=== PATIENT | female | born 1965 | race Hispanic/Latino ===

== ENCOUNTER → 2018-01-18 | Day surgery (SDC) | payer OTHER ==
[~2018-01-18] MED LIST: ASPIR 8181 MG PO; FENTANYL CITRATE/PF 100MCG/2 ML INJ ONE; GLIPIZIDE5 MG PO; LIDOCAINE HCL 2% LOCAL INJ 5 ML SDV VIAL INJ ONE; LOVASTATIN40 MG PO; LYRICA75 MG PO; METFORMIN HCL500 MG PO; MIDAZOLAM HCL 2 MG/2 ML VIAL ONE; NEXIUM40 MG PO; NIFEDIPINE ER30 M1 PO; NOVOLIN N100 UNIT/1 SC; PROPOFOL IV EMULSION 10 MG/ML 50 ML VIAL ONE; RANITIDINE HCL150 MG PO
--- OUTSIDE RECORDS SUMMARY | 2018-01-18 05:44 | XMS REPORT | Clinical Summary ---
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 Active glipiZIDE (GLUCOTROL) 10 Take 10 mg by 0 MG tablet mouth daily. Active ranitidine (ZANTAC) 150 Take 150 mg 0 MG tablet by mouth 2 (two) times a day. Active metFORMIN (GLUCOPHAGE) Take 1,000 mg 0 1,000 mg tablet by mouth 2 (two) times a day with meals. Active insulin 70/30 NPH and Inject under 0 regular human (HumuLIN the skin. 70/30) 100 unit/mL (70-30) injection Active Problems Problem Noted Date Chest pain 07/15/2017 Encounters Care Team Description Date Type Specialty Edwar Monae MD Roberts, Matthew Thomas, DO Bavare, Arusha Amod, MD Chest pain, unspecified type (Primary Dx) 07/15/2017 Emergency General Internal Medicine - 07/16/2017 after 01/17/2017 Immunizations Name Dates Previously Given Next Due Pneumococcal Conjugate 07/16/2017 13-Valent Social History Date Tobacco Use Types Packs/Day Years Used Never Smoker Smokeless Tobacco: Never Used Alcohol Use Drinks/Week oz/Week Comments No Sex Assigned at Date Recorded Not on file Industry Job Start Date Occupation Not on file Not on file Not on file Travel End Travel History Travel Start No recent travel history available. Last Filed Vital Signs Time Taken Vital Sign Reading 07/16/2017 11:00 AM CDT Blood Pressure 114/56 07/16/2017 11:00 AM CDT Pulse 79 07/16/2017 11:00 AM CDT Temperature 36.4 C (97.6 F) 07/16/2017 11:00 AM CDT Respiratory Rate 16 07/16/2017 11:00 AM CDT Oxygen Saturation 97% - Inhaled Oxygen - Concentration 07/15/2017 11:43 AM CDT Weight 110 kg (242 lb) 07/15/2017 11:43 AM CDT Height 160 cm (5' 3") 07/15/2017 11:43 AM CDT Body Mass Index 42.87 Plan of Treatment Health Maintenance Due Date Last Done Comments MMR VACCINES (1 of 1 - 1966 Standard series) VARICELLA VACCINES (1 of 1978 2 - 2-dose adolescent series) CERVICAL CANCER SCREENING 1986 BREAST CANCER SCREENING 2015 COLON CANCER SCREENING 2015 SHINGRIX VACCINE (1 of 2) 2015 INFLUENZA VACCINE 10/06/2017 HEPATITIS B VACCINES Aged Out No longer eligible based on patient's age to complete this topic IPV VACCINES Aged Out No longer eligible based on patient's age to complete this topic MENINGOCOCCAL VACCINE Aged Out No longer eligible based on patient's age to complete this topic Procedures Comments Procedure Name Priority Date/Time Associated Diagnosis NM MYOCARDIAL PERFUSION Routine 07/16/2017 REST STRESS 2 DAY 12:59 PM CDT CV STRESS TEST NUCLEAR Routine 07/16/2017 CARDIO 12:59 PM CDT POC GLUCOSE Routine 07/16/2017 11:02 AM CDT POC GLUCOSE Routine 07/16/2017 6:16 AM CDT ZZESTIMATED GFR Routine 07/16/2017 5:57 AM CDT T4, FREE Routine 07/16/2017 5:57 AM CDT THYROID STIMULATING Routine 07/16/2017 HORMONE 5:57 AM CDT HC COMPLETE BLD COUNT Routine 07/16/2017 W/AUTO DIFF 5:57 AM CDT HEMOGLOBIN A1C Routine 07/16/2017 5:57 AM CDT LIPID PANEL Routine 07/16/2017 5:57 AM CDT BASIC METABOLIC PANEL Routine 07/16/2017 5:57 AM CDT TROPONIN Timed 07/15/2017 11:48 PM CDT POC GLUCOSE Routine 07/15/2017 10:08 PM CDT POC GLUCOSE Routine 07/15/2017 9:14 PM CDT TROPONIN Timed 07/15/2017 8:08 PM CDT ECHOCARDIOGRAM 2D Routine 07/15/2017 COMPLETE W MMODE SPECTRAL 6:23 PM CDT COLOR DOPPLER ([id number]) TROPONIN Timed 07/15/2017 4:08 PM CDT POC GLUCOSE Routine 07/15/2017 4:01 PM CDT XR CHEST 1 VW PORTABLE STAT 07/15/2017 12:27 PM CDT URINALYSIS SCREEN AND Routine 07/15/2017 MICROSCOPY, WITH REFLEX 12:20 PM CDT TO CULTURE HCG QUALITATIVE, URINE Routine 07/15/2017 SCREEN 12:20 PM CDT GRAM STAIN Routine 07/15/2017 12:20 PM CDT URINE CULTURE Routine 07/15/2017 12:20 PM CDT ECG 12-LEAD STAT 07/15/2017 12:06 PM CDT ZZESTIMATED GFR STAT 07/15/2017 12:03 PM CDT B NATRIURETIC PEPTIDE STAT 07/15/2017 12:03 PM CDT TROPONIN STAT 07/15/2017 12:03 PM CDT PARTIAL THROMBOPLASTIN STAT 07/15/2017 TIME (PTT) 12:03 PM CDT PROTHROMBIN TIME WITH INR STAT 07/15/2017 12:03 PM CDT COMPREHENSIVE METABOLIC STAT 07/15/2017 PANEL 12:03 PM CDT HC COMPLETE BLD COUNT STAT 07/15/2017 W/AUTO DIFF 12:03 PM CDT ECG ED PRELIMINARY Routine 07/15/2017 INTERPRETATION 11:55 AM CDT after 01/17/2017 Results * CV stress test (07/16/2017 12:59 PM CDT) Resting HR 79 [facility] Resting BP 150 [facility] Peak MET Achieved 1.0 [facility] Protocol Name ROSSANA [facility] Time in Exercise Phase 00:00:43 [facility] Max Systolic BP 150 [facility] Max Diastolic BP 74 [facility] Max Heart Rate 113 [facility] Max Predicted Heart Rate 168 [facility] Target HR Formula (220 - Age)*100% [facility] Arrhy During Ex atrial premature [facility] beats-isolated ECG Interp Before EX abnormal [facility] ECG Interp During Ex none [facility] Ex Summary Comment Normal stress test [facility] Chest Pain Statement non-limiting [facility] Overall HR Response to appropriate [facility] Exercise Overall BP Response To normal resting BP - [facility] Exercise appropriate response Reason for Termination Protocol completed [facility] Stress Test Impression Normal stress test-no cp, no [facility] sob. --Electronically Signed By Artemio Cabrales MD ([id number]), proposal editor Denisse Rivero ([id number]) on 07/16/2017 10:31:43 AM Target HR 142.80 bpm [facility] Performing Organization Address City/[facility] Phone Number H MUSE [address] [place] [address] * Myocardial perfusion (07/16/2017 12:59 PM CDT) Target HR 142.80 bpm [facility] Resting HR 79 BPM [facility] Resting BP 150/74 mmHg [facility] O2 sat rest 95 % [facility] Post peak HR 113 bpm [facility] Percent HR 79.13 % [facility] Post peak BP 150/74 mmHg [facility] O2 sat peak 95 % [facility] Narrative Performed At Performing Organization Address City/[facility] Phone Number [facility] [address] [place] [address] * POC glucose (07/16/2017 11:02 AM CDT) Only the most recent of 5 results within the time period is included. POC glucose 309 (H) 65 - 100 mg/dL [facility] DEPARTMENT OF Comment: PATHOLOGY AND Meter ID: [id number] GENOMIC MEDICINE Drywall Stripper Helper: Nadiacintia Moss Performing Organization Address City/[facility]/Zipcode Phone Number [place] [phone] [place] [address] PATHOLOGY AND GENOMIC MEDICINE * Estimated GFR (07/16/2017 5:57 AM CDT) Only the most recent of 2 results within the time period is included. GFR Non Af Amer >90 mL/min/1.73 m2 [facility] DEPARTMENT OF PATHOLOGY AND GENOMIC MEDICINE GFR Af Amer >90 mL/min/1.73 m2 [facility] DEPARTMENT OF Comment: PATHOLOGY AND Chronic kidney disease: <60 GENOMIC MEDICINE mL/min/1.73m2 Kidney failure: <15 mL/min/1.73m2 The estimated GFR is calculated from the IDMS-traceable Modification of Diet in Renal Disease Equation. The accuracy of the calculation is poor when the creatinine is normal. Calculated values >90 mL/min/1.73m2 are not reported. This equation has not been validated in children (<18 years), women, the elderly (>70 years), or ethnic groups other than Caucasians and Americans. Specimen Plasma specimen Performing Organization Address City/State/Zipcode Phone Number [address] [place] [address] PATHOLOGY AND [employer] MEDICINE * CBC with platelet and differential (07/16/2017 5:57 AM CDT) Only the most recent of 2 results within the time period is included. WBC 8.0 4.2 - 11.0 k/uL [facility] DEPARTMENT OF PATHOLOGY AND GENOMIC MEDICINE RBC 4.71 4.04 - 5.86 m/uL [facility] DEPARTMENT OF PATHOLOGY AND GENOMIC MEDICINE HGB 14.0 11.5 - 15.3 g/dL [facility] DEPARTMENT OF PATHOLOGY AND GENOMIC MEDICINE HCT 42.5 34.0 - 45.0 % [facility] DEPARTMENT OF PATHOLOGY AND GENOMIC MEDICINE MCV 90.2 80.0 - 98.0 fL [facility] DEPARTMENT OF PATHOLOGY AND GENOMIC MEDICINE MCH 29.7 27.0 - 34.0 pg [facility] DEPARTMENT OF PATHOLOGY AND GENOMIC MEDICINE MCHC 32.9 31.5 - 36.5 g/dL [facility] DEPARTMENT OF PATHOLOGY AND GENOMIC MEDICINE RDW - SD 42.1 37.0 - 51.0 fL [facility] DEPARTMENT OF PATHOLOGY AND GENOMIC MEDICINE MPV 11.9 (H) 7.4 - 10.4 fL [facility] DEPARTMENT OF PATHOLOGY AND GENOMIC MEDICINE Platelet count 207 150 - 400 k/uL [facility] DEPARTMENT OF PATHOLOGY AND GENOMIC MEDICINE Nucleated RBC 0.00 /100 WBC [facility] DEPARTMENT OF PATHOLOGY AND GENOMIC MEDICINE Neutrophils 45.4 36.0 - 66.0 % [facility] DEPARTMENT OF PATHOLOGY AND GENOMIC MEDICINE Lymphocytes 40.1 24.0 - 44.0 % [facility] DEPARTMENT OF PATHOLOGY AND GENOMIC MEDICINE Monocytes 9.4 (H) 0.0 - 6.0 % [facility] DEPARTMENT OF PATHOLOGY AND GENOMIC MEDICINE Eosinophils 3.6 0.0 - 6.0 % [facility] DEPARTMENT OF PATHOLOGY AND GENOMIC MEDICINE Basophils 0.9 0.0 - 1.2 % [facility] DEPARTMENT OF PATHOLOGY AND GENOMIC MEDICINE Immature granulocytes 0.6 0.0 - 1.0 % [facility] DEPARTMENT OF PATHOLOGY AND GENOMIC MEDICINE Specimen Blood Performing Organization Address City/[facility] [place] [address] PATHOLOGY AND GENOMIC MEDICINE * Thyroid stimulating hormone (07/16/2017 5:57 AM CDT) TSH 2.30 0.38 - 4.82 uIU/mL [facility] DEPARTMENT OF PATHOLOGY AND GENOMIC MEDICINE Specimen Plasma specimen Performing Organization Address City/[facility] [place] [address] PATHOLOGY AND GENOMIC MEDICINE * T4, free (07/16/2017 5:57 AM CDT) T4, free 1.10 0.70 - 1.61 ng/dL [facility] PATHOLOGY AND GENOMIC MEDICINE Specimen Plasma specimen Performing Organization Address [facility] [place] [address] PATHOLOGY AND GENOMIC MEDICINE * Hemoglobin A1c (07/16/2017 5:57 AM CDT) Hemoglobin A1C 10.1 (H) 4.0 - 6.0 % [facility] DEPARTMENT OF Comment: PATHOLOGY AND GENOMIC MEDICINE Less than 6% - Goal of therapy for Type II Diabetes Less than 7%-Goal of therapy for Type I Diabetes Less than 8%-Accepta ble control for Type I or Type II Diabetes Greater than 8%-Unacceptabl e control; action indicated. ([id number]) Specimen Blood Performing Organization Address [facility] Centercode Phone Number [facility] [address] [place] [address] PATHOLOGY AND GENOMIC MEDICINE * Lipid panel (07/16/2017 5:57 AM CDT) Cholesterol 147 120 - 200 mg/dL [facility] DEPARTMENT OF PATHOLOGY AND GENOMIC MEDICINE Triglycerides 147 50 - 150 mg/dL [facility] DEPARTMENT OF PATHOLOGY AND GENOMIC MEDICINE HDL cholesterol 42 40 - 60 mg/dL [facility] DEPARTMENT OF PATHOLOGY AND GENOMIC MEDICINE LDL cholesterol 91Comment: Result obtained by mg/dL [facility] DEPARTMENT OF direct LDL measurement PATHOLOGY AND [employer] MEDICINE Lipid panel See below [facility] DEPARTMENT OF interpretation Comment: PATHOLOGY AND Total Cholesterol GENOMIC MEDICINE (mg/dL) LDL Cholesterol (mg/dL) <200 Desirable <100 Optimal 200-239Borderline -[id number] 29Near or above optimal >=240High 130-159Borderline- high 160-189High >=190Very high HDL Cholesterol (mg/dL) Triglycerides (mg/dL) <40Low <150 Normal >=60 High 150-199Borderline- high 200-499High >=500Very high Risk Catergories that modify LDL goals. Risk Catergories LDL goal (mg/dL) CHD and CHD risk equivalent <100 (10-year risk >20%) Multiple (2+) risk factors <130 (10-year risk=<20%) 0-1 risk factors <160 (<10-year risk) Defining levels of lipids in metabolic syndrome Triglycerides >=150 mg/dL HDL Cholesterol Men <40 mg/dL Women <50 mg/dL Non-HDL cholesterol is a second target for therapy in persons with high triglycerides (>=200 mg/dL) Specimen Plasma specimen Performing Organization Address City/[facility]/Zipcode Phone Number [facility] [address] [place] [address] PATHOLOGY AND [employer] MEDICINE * Basic metabolic panel (07/16/2017 5:57 AM CDT) Sodium 139 135 - 150 mEq/L [facility] DEPARTMENT OF PATHOLOGY AND [employer] MEDICINE Potassium 3.9 3.5 - 5.0 mEq/L [facility] DEPARTMENT OF PATHOLOGY AND [employer] MEDICINE Chloride 105 100 - 109 mEq/L [facility] DEPARTMENT OF PATHOLOGY AND [employer] [facility] CO2 25 24 - 32 mmol/L [facility] DEPARTMENT OF PATHOLOGY AND [employer] [facility] Anion gap 9 7 - 15 mEq/L [facility] DEPARTMENT OF Comment: PATHOLOGY AND Starting from June [employer] [facility] , anion gap calculation no longer incorporates potassium. Please note the change. BUN 15 7 - 18 mg/dL [facility] DEPARTMENT OF PATHOLOGY AND [employer] MEDICINE Creatinine 0.5 (L) 0.8 - 1.5 mg/dL [facility] DEPARTMENT OF PATHOLOGY AND [employer] [facility] Glucose 233 (H) 65 - 100 mg/dL [facility] DEPARTMENT OF PATHOLOGY AND [employer] MEDICINE Calcium 8.7 8.6 - 10.7 mg/dL [facility] OF PATHOLOGY AND [employer] [facility] Specimen Plasma specimen Performing Organization Address City/[facility] Centercode Phone Number [place] [phone] [facility] AND [employer] [facility] * Troponin (07/15/2017 11:48 PM CDT) Only the most recent of 4 results within the time period is included. Troponin <0.01 0.00 - 0.60 ng/mL [facility] DEPARTMENT OF Comment: PATHOLOGY AND 0.11 - 1.49 [facility] MEDICINE ng/mlMay indicate increased risk of acute coronary syndrome. >=1.5 ng/ml Consistent with acute myocardial infarction. The diagnostic value of a single normal or non-diagnostic result is questionable.Serial samples at 2-6 hour intervals are required to rule out acute myocardial injury. Specimen Plasma specimen Performing Organization Address City/State/Zipcode Phone Number [facility] [address] [facility] [place] [phone] [place] [address] [employer] [facility] * Echocardiogram complete w contrast and 3D if needed (07/15/2017 6:23 PM CDT) Ao Root Diameter 2.77 cm [facility] AoV Area, Vmax 2.26 cm2 [facility] AoV Area, VTI 2.23 cm2 [facility] AoV Mean PG 5.50 mmHg [facility] AoV Peak PG 8.12 mmHg [facility] AoV Vmax 1.43 m/s [facility] AoV VTI 0.31 m [facility] IVS,d 1.42 (A) 0.6 - 1.2 cm [facility] IVS/LVPW,2D 1.42 [facility] Left Atrium Dimension 3.09 cm [facility] Anterior LV,d 5.08 cm [facility] LV EF,2D 75.80 % [facility] LV,s 3.16 cm [facility] LVOT area 3.20 cm2 [facility] LVOT Diam,S 2.02 cm [facility] LVOT Vmax 1.00 m/s [facility] LVOT VTI 0.20 m [facility] LVPWD,d 1.00 cm [facility] RVOT Vmax 0.91 m/s [facility] MV E A ratio 1.25 mmHg [facility] E wave decelartion time 172.05 msec [facility] MV Peak A Roderick 0.80 m/s [facility] MV valve area p 1/2 4.41 cm2 [facility] method MV Peak E Roderick 1.00 m/s [facility] MV stenosis pressure 1/2 49.90 ms [facility] time AV LVOT peak gradient 4.02 mmHg [facility] Ao Root Diameter 2.77 cm [facility] MV mean gradient 1.42 mmHg [facility] LV SYS VOL 39.83 ml [facility] LV CARRANZA VOL 122.47 ml [facility] LV SV Teich 2D 82.64 ml [facility] LV Vol s Teich PSAX 39.83 ml [facility] LVOT CO 4.99 l/min [facility] LVOT HR for LVOT CO 76.16 bpm [facility] MR peak grad 3.17 mmHg [facility] MV Vmax 0.89 m [facility] MV VTI Tips 0.28 m [facility] RVOT pk grad 3.30 mmHg [facility] AoV Vmn 1.14 [facility] IVS s 2D 1.75 [facility] LV FS Teich 2D 37.68 [facility] MV AE ratio 0.80 [facility] LV FS Cube 2D 37.68 [facility] LVOT Vmn 0.63 [facility] Aov area Vmn 1.90 cm2 [facility] LVOT mean grad 1.88 mmHg [facility] MAX Pred HR 167.59 [facility] 85 of MPHR 142.45 [facility] Calc MPHR 167.59 bpm [facility] IVS pct thck PLAX 23.25 % [facility] LV SV Cube 2D 99.14 ml [facility] LV vol d cube 2D 130.80 ml [facility] LV vol s cube 2D 31.66 ml [facility] LVPW pct thck PLAX 29.96 % [facility] LVPW s PLAX 1.30 cm [facility] MV Decel slope 5.80 m/s2 [facility] Pred Exer Dur R1 8.73 [facility] Pred METS R1 7.89 [facility] Velocity Ratio (V1/V2) 0.70 m/s [facility] EF 67.48 % [facility] E/A ratio 1.25 [facility] Narrative Performed At [facility] The left ventricle chamber size is normal. Left Ventricular ejection fraction is 65 - 70%. Performing Organization Address [facility] Centercout Phone Number [facility] [address] [place] [address] * XR Chest 1 Vw Portable (07/15/2017 12:27 PM CDT) Narrative Performed At EXAMINATION: XR CHEST 1 VW PORTABLE [facility] INDICATION: Chest Pain COMPARISON: 08/05/2002 IMPRESSION: Mild to moderate cardiomegaly. Minimal vascular congestion without a focal infiltrate, effusion, or pneumothorax. [id number] Procedure Note Hm Interface, Radiology Results Incoming - 07/15/2017 12:33 PM CDT EXAMINATION: XR CHEST 1 VW PORTABLE INDICATION: Chest Pain COMPARISON: 08/05/2002 IMPRESSION: Mild to moderate cardiomegaly. Minimal vascular congestion without a focal infiltrate, effusion, or pneumothorax. [id number] Performing Organization Address [facility] Cent[facility]out Phone Number [facility] [address] [place] [address] * Urinalysis screen and microscopy, with reflex to culture (07/15/2017 12:20 PM CDT) Specimen site Clean catch [facility] DEPARTMENT OF PATHOLOGY AND GENOMIC MEDICINE Color, UA Yellow [facility] DEPARTMENT OF PATHOLOGY AND GENOMIC MEDICINE Appearance, UA Slightly-Cloudy [facility] DEPARTMENT OF PATHOLOGY AND GENOMIC MEDICINE Specific gravity, UA 1.020 1.001 - 1.035 [facility] DEPARTMENT OF PATHOLOGY AND GENOMIC MEDICINE pH, UA 6.0 5.0 - 8.5 [facility] DEPARTMENT OF PATHOLOGY AND GENOMIC MEDICINE Protein, UA 1+ (A) Negative [facility] DEPARTMENT OF PATHOLOGY AND GENOMIC MEDICINE Glucose, UA 3+ (A) Negative [facility] DEPARTMENT OF PATHOLOGY AND GENOMIC MEDICINE Ketones, UA Negative Negative [facility] DEPARTMENT OF PATHOLOGY AND GENOMIC MEDICINE Bilirubin, UA Negative Negative [facility] DEPARTMENT OF PATHOLOGY AND GENOMIC MEDICINE Blood, UA Negative Negative [facility] DEPARTMENT OF PATHOLOGY AND GENOMIC MEDICINE Nitrite, UA Negative Negative [facility] DEPARTMENT OF PATHOLOGY AND GENOMIC MEDICINE Urobilinogen, UA Negative <2.0 [facility] DEPARTMENT OF PATHOLOGY AND GENOMIC MEDICINE Leukocyte esterase, UA Negative Negative [facility] DEPARTMENT OF PATHOLOGY AND GENOMIC MEDICINE Epithelial cells, UA Many /HPF [facility] DEPARTMENT OF PATHOLOGY AND GENOMIC MEDICINE WBC, UA 27 (H) 0 - 5 /HPF [facility] DEPARTMENT OF PATHOLOGY AND GENOMIC MEDICINE RBC, UA 4 0 - 5 /HPF [facility] DEPARTMENT OF PATHOLOGY AND GENOMIC MEDICINE Bacteria, UA Many (A) None seen [facility] DEPARTMENT OF PATHOLOGY AND GENOMIC MEDICINE Yeast, UA None seen [facility] DEPARTMENT OF PATHOLOGY AND GENOMIC MEDICINE Yeast with pseudohyphae, None seen [facility] DEPARTMENT UA PATHOLOGY AND GENOMIC MEDICINE Hyaline casts, UA 4 /LPF [facility] DEPARTMENT OF PATHOLOGY AND GENOMIC MEDICINE Specimen Urine Performing Organization Address City/State/Zipcode Phone Number [facility] [address] [place] [address] PATHOLOGY AND GENOMIC MEDICINE * hCG qualitative, urine screen (07/15/2017 12:20 PM CDT) hCG qualitative, urine Negative Negative [facility] DEPARTMENT OF Comment: PATHOLOGY AND The manufacturers stated GENOMIC MEDICINE sensitivity of HcG test for serum is >/=10 mIU/ml and urine is >/=20mIU/ml. Specimen Urine Performing Organization Address City/State/Zipcode Phone Number [facility] [address] [place] [address] PATHOLOGY AND GENOMIC MEDICINE * Gram stain (07/15/2017 12:20 PM CDT) Gram stain result No WBC's or organisms seen. [facility] DEPARTMENT OF Comment: PATHOLOGY AND Specimen Information GENOMIC MEDICINE Specimen Source: Urine Specimen Site: Clean catch Specimen Urine Performing Organization Address City/State/Zipcode Phone Number [facility] DEPARTMENT OF [address] [place] [address] PATHOLOGY AND [employer] MEDICINE * Urine culture (07/15/2017 12:20 PM CDT) Urine culture isolate Streptococcus group B [facility] DEPARTMENT OF >10-5 cfu/ml PATHOLOGY AND (A) GENOMIC MEDICINE Comment: Specimen Information Specimen Source: Urine Specimen Site: Clean catch Specimen Urine Performing Organization Address [facility] Phone Number [facility] OF [address] [place] [address] PATHOLOGY AND GENOMIC MEDICINE * ECG 12 lead (07/15/2017 12:06 PM CDT) Ventricular rate 73 [facility] Atrial rate 73 [facility] CO interval 142 [facility] QRSD interval 104 [facility] QT interval 398 [facility] QTC interval 438 H MUSE P axis 1 22 [facility] QRS axis 1 -28 [facility] T wave axis [address] [facility] MUSE EKG impression Normal sinus rhythm-Normal [facility] MUSE ECG-No previous ECGs available- Performing Organization Address [facility] Cent[facility]out Phone Number [facility] [address] [place] [address] * Partial thromboplastin time, activated (07/15/2017 12:03 PM CDT) PTT 26.3 23.0 - 36.0 sec [facility] DEPARTMENT OF Comment: PATHOLOGY AND PTT therapeutic range for GENOMIC MEDICINE unfractionated heparin is 61.0-112.0 seconds which corresponds to Anti-Xa 0.3-0.7 U/ml. Note:Change in Panic Value The PTT Panic Value is changing from 110 sec. to 100 sec. due to new instrumentation and reagents. Correlation studies have been performed to validate this result. Specimen Blood Performing Organization Address [facility]out Phone Number [facility] [address] [place] [address] PATHOLOGY AND GENOMIC MEDICINE * Prothrombin time with INR (07/15/2017 12:03 PM CDT) Prothrombin time 13.3 12.0 - 15.0 sec [facility] DEPARTMENT OF PATHOLOGY AND GENOMIC MEDICINE INR 1.00 0.92 - 1.12 [facility] DEPARTMENT OF Comment: PATHOLOGY AND For patients on anticoagulant GENOMIC MEDICINE therapy, reference ranges below: Indication: INR Value Treatment of Venous Thrombosis, 2.0-3.0 pulmonary emboli, or prophylaxis of a venous thrombosis, or systemic emboli. High dose, high risk patients 3.0-4.5 with mechanical valves. NOTE:INR values over 3.0 are sometimes associated with gastrointestinal hemorrhage, especially values over 4.0. Specimen Blood Performing Organization Address [facility] Cent[facility] Phone Number [place] [address] [place] [address] PATHOLOGY AND GENOMIC [facility] * B natriuretic peptide (07/15/2017 12:03 PM CDT) BNP 14 0 - 100 pg/mL [facility] DEPART[facility] PATHOLOGY AND GENOMIC MEDICINE Specimen Blood Performing Organization Address [facility] Cent[facility]ode Phone Number [place] [address] [place] [address] PATHOLOGY AND [facility] * Comprehensive metabolic panel (07/15/2017 12:03 PM CDT) Sodium 139 135 - 150 mEq/L [facility] DEPARTMENT OF PATHOLOGY AND GENOMIC MEDICINE Potassium 4.0 3.5 - 5.0 mEq/L [facility] DE[facility] OF PATHOLOGY AND GENOMIC MEDICINE Chloride 104 100 - 109 mEq/L [facility] DEPARTMENT OF PATHOLOGY AND GENOMIC MEDICINE CO2 26 24 - 32 mmol/L [facility] DE[facility] OF PATHOLOGY AND GENOMIC MEDICINE Anion gap 9 7 - 15 mEq/L [facility] DEPARTMENT OF Comment: PATHOLOGY AND Starting from June [facility] , anion gap calculation no longer incorporates potassium. Please note the change. BUN 19 (H) 7 - 18 mg/dL [facility] DEPARTMENT OF PATHOLOGY AND GENOMIC MEDICINE Creatinine 0.5 (L) 0.8 - 1.5 mg/dL [facility] DEPARTMENT OF PATHOLOGY AND GENOMIC MEDICINE Glucose 254 (H) 65 - 100 mg/dL [facility] DEPARTMENT OF PATHOLOGY AND GENOMIC MEDICINE Calcium 8.8 8.6 - 10.7 mg/dL [facility] DEPARTMENT OF PATHOLOGY AND GENOMIC MEDICINE Protein 6.9 6.3 - 8.2 g/dL [facility] DEPART[facility] OF PATHOLOGY AND GENOMIC MEDICINE Albumin 3.1 (L) 3.2 - 5.0 g/dL [facility] DEPARTMENT OF PATHOLOGY AND GENOMIC MEDICINE A/G ratio 0.8 0.7 - 3.8 [facility] DEPARTMENT OF PATHOLOGY AND GENOMIC MEDICINE Alkaline phosphatase 93 30 - 120 U/L [facility] DEPARTMENT OF PATHOLOGY AND GENOMIC MEDICINE AST 19 15 - 37 U/L [facility] DEPARTMENT OF PATHOLOGY AND GENOMIC MEDICINE ALT 29 (L) 30 - 65 U/L [facility] DEPARTMENT OF PATHOLOGY AND GENOMIC MEDICINE Total bilirubin 0.5 0.2 - 1.2 mg/dL [facility] DEPARTMENT OF PATHOLOGY AND GENOMIC MEDICINE Specimen Plasma specimen Performing Organization Address [facility] Phone Number [facility] DEPARTMENT OF [address] [place] [address] PATHOLOGY AND GENOMIC MEDICINE * ECG ED Preliminary Interpretation - NOT AN ORDER (07/15/2017 11:55 AM CDT) Narrative Performed At Edwar Monae MD 07/20/20172:44 AM ECG ED Preliminary Interpretation - Not an Order Performed by: EDWAR MONAE Authorized by: EDWAR MONAE ECG reviewed by ED Physician in the absence of a call person: yes Rate: ECG rate:73 ECG rate assessment: normal Rhythm: Rhythm: sinus rhythm Ectopy: Ectopy: none Conduction: Conduction: normal ST segments: ST segments:Normal T waves: T waves: normal after 01/17/2017 Insurance Payer Benefit Subscriber ID Type Phone Address Plan / Group KHAN EXCHANGE KHAN xxxxxxxxxx Exchange [employer] E EXCHANGE Advance Directives Patient has advance care planning documents on file. For more information, johnathan e contact: Yaakov Pena [address] [place] [address]
--- OUTSIDE RECORDS SUMMARY | 2018-01-18 05:44 | XMS REPORT ---
Author Author Admin, [facility] Address Unknown Phone Unavailable Allergies, Adverse Reactions, Alerts Allergy Name Reaction Description Start Date Severity Status Provider GABAPENTIN nausea Moderate Active Tamara Gutierrez MD BACTRIM Critical Active Kaitlin Collier MD Conditions or Problems Problem Name Problem Code Onset Date Status Entry Date Provider Comment Standard Description Annotate Elevated liver enzymes 790.6 Active Marcela Tenorio.James Other abnormal blood chemistry Screening for hepatitis C V73.89 Active Marcela Espinoza D.O. Screening examination for other specified viral diseases Abdominal pain 789.00 Active Tamara Gutierrez MD Abdominal pain, unspecified site Constipation 564.00 Active Tamara Gutierrez MD Constipation, unspecified Screening for colon cancer V76.51 Active Tamara Gutierrez MD Screening for malignant neoplasms of colon Leg pain, left 729.5 Active Tatianna Covarrubias MD Pain in limb Subcutaneous mass of back 782.2 Active Tatianna Covarrubias MD Localized superficial swelling, mass, or lump Chest pain, acute 786.50 Active Marcela Espinoza D.O. Unspecified chest pain Dysuria 788.1 Active Tamara Gutierrez MD Dysuria Insomnia 780.52 Active Tamara Gutierrez MD Insomnia, unspecified Diabetic peripheral neuropathy 250.60 Active Breanna Davis MD Diabetes mellitus with neurological manifestations, type II or unspecified type, not stated as uncontrolled Bunion, left foot 727.1 Active Yamil García MD Bunion BMI 40.0-44.9 Active Breanna Davis MD Body Mass Index 40.0-44.9, adult Vaccine against influenza V04.8 Active Breanna Davis MD Need for prophylactic vaccination and inoculation against other viral diseases Diabetes mellitus, type II, uncontrolled, w/neurolo comps 250.62 Active Tamara Gutierrez MD Diabetes mellitus with neurological manifestations, type II or unspecified type, uncontrolled Vaccine against pneumococcal V03.82 Active Tamara Gutierrez MD Need for prophylactic vaccination against Streptococcus pneumoniae [pneumococcus] Microalbuminuria 791.0 Active Jeniffer Ly MD Proteinuria Benign essential hypertension 401.1 Active Kaitlin Collier MD Benign essential hypertension GERD 530.81 Active Kaitlin Collier MD Esophageal reflux Hyperlipidemia 272.4 Active Kaitlin Collier MD Other and unspecified hyperlipidemia MORBID OBESITY 278.01 Active Kaitlin Collier MD Morbid obesity Arm pain, left ICD-729.5 Inactive Rao Avila MD (res) Back pain, acute ICD-724.5 Inactive Rao Avila MD (res) Dysuria ICD-788.1 Inactive Rao Avila MD (res) Vertigo/dizziness ICD-780.4 Inactive Rao Avila MD (res) Peripheral neuropathy ICD-356.9 Inactive Rao Avila MD (res) WELL EXAM, WOMAN ICD-V70.0 Inactive Rao Avila MD (res) Diabetes mellitus, type II ICD-250.00 Inactive Jeniffer Ly MD Arm pain, left 729.5 Resolved Breanna Davis MD Pain in limb Back pain, acute 724.5 Resolved Breanna Davis MD Backache, unspecified Dysuria 788.1 Resolved Breanna Davis MD Dysuria Vertigo/dizziness 780.4 Resolved Breanna Davis MD Dizziness and giddiness Peripheral neuropathy 356.9 Resolved Breanna Davis MD Unspecified hereditary and idiopathic peripheral neuropathy WELL EXAM, WOMAN V70.0 Resolved Breanna Davis MD Routine general medical examination at a health care facility Diabetes mellitus, type II 250.00 Resolved Tamara Gutierrez MD Diabetes mellitus without mention of complication, type II or unspecified type, not stated as uncontrolled Medication List Medication Instructions Start Date Stop Date Generic Name NDC Status Provider Patient Instruction COLACE 100 MG ORAL CAPSULE 1 by mouth twice a day DOCUSATE SODIUM 84877493107 Active Floresita Birch MD (res) Active LYRICA 50 MG ORAL CAPSULE 1 tab By Mouth Three Times a Day As Needed pain PREGABALIN 10929716731 Active Tiffany Katz CPHT Active MOBIC 15 MG ORAL TABLET 1 by mouth daily MELOXICAM 32787963018 Active Tatianna Covarrubias MD Active NOVOLIN 70/30 (70-30) 100 UNIT/ML SUSP Use 55UNITS Twice a Day INSULIN NPH ISOPHANE & REGULAR 85660747392 Active Tiffany Katz CPHT Active [facility] MELATONIN EXTRA STRENGTH 5 MG ORAL TABLET Take 1 tab By Mouth at bedtime MELATONIN 51598043759 Active Rao Avila MD (res) Active ASPIRIN 81 MG ORAL TABLET Take 1 tab By Mouth daily ASPIRIN 77127663445 Active Rao Avila MD (res) Active INSULIN SYRINGE 28G X 1/2" 0.5 ML Use as directed INSULIN SYRINGE- NEEDLE U-100 78018536672 Active Rao Avila MD (res) Active GABAPENTIN 300 MG ORAL CAPSULE Take 1 tab By Mouth three times per day GABAPENTIN 76249307250 Active Rao Avila MD (res) Active GLIPIZIDE ER 10 MG ORAL TABLET EXTENDED RELEASE 24 HOUR one tablet By Mouth Every Day GLIPIZIDE 36903125147 Active Marcela Nolanddaie D.O. Active LOSARTAN POTASSIUM 50 MG ORAL TABLET 1 By Mouth once a day LOSARTAN POTASSIUM 85461480013 Active Marcela Pérez Ehdaie D.O. Active LOVASTATIN 40 MG ORAL TABLET 1 by mouth every night LOVASTATIN 02024459738 Active Marcela Pérez Ehdaie D.O. Active METFORMIN HCL 1000 MG ORAL TABLET 1 by mouth twice a day METFORMIN HCL 45606547085 Active Marcela Pérez Ehdaie D.O. Active RANITIDINE HCL 150 MG ORAL TABLET 1 by mouth twice a day RANITIDINE HCL 56867805353 Active Marcela Pérez Ehdaie D.O. Active NAPROXEN 500 MG ORAL TABLET 1 by mouth twice a day as needed for pain and inflammation NAPROXEN 500 MG ORAL TABLET 158599 NAPROXEN Inactive MACROBID 100 MG ORAL CAPSULE 1 by mouth twice a day morning and night for burning with voiding MACROBID 100 MG ORAL CAPSULE 8244702 NITROFURANTOIN MONOHYD MACRO Inactive MECLIZINE HCL 25 MG ORAL TABLET 1 by mouth 3 times a day as needed MECLIZINE HCL 25 MG ORAL TABLET 141260 MECLIZINE HCL Inactive LANTUS 100 UNIT/ML SUBCUTANEOUS SOLUTION 40 units sc in AM and PM LANTUS 100 UNIT/ML SUBCUTANEOUS SOLUTION INSULIN GLARGINE Inactive NAPROXEN 500 MG ORAL TABLET 1 by mouth twice a day as needed for pain and inflammation NAPROXEN 28132183281 No Longer Active Breanna Davis MD Active MACROBID 100 MG ORAL CAPSULE 1 by mouth twice a day morning and night for burning with voiding NITROFURANTOIN MONOHYD MACRO 21472193171 No Longer Active Breanna Davis MD Active MECLIZINE HCL 25 MG ORAL TABLET 1 by mouth 3 times a day as needed MECLIZINE HCL 17841376203 No Longer Active Breanna Davis MD Active LYRICA 100 MG ORAL CAPSULE one capsule By Mouth Three Times a Day PREGABALIN 11753048209 No Longer Active Breanna Davis MD Active LANTUS 100 UNIT/ML SUBCUTANEOUS SOLUTION 40 units sc in AM and PM INSULIN GLARGINE 05685843572 No Longer Active Tamara Gutierrez MD Active PANTOPRAZOLE SODIUM 40 MG ORAL TABLET DELAYED RELEASE one tablet By Mouth Every Day PANTOPRAZOLE SODIUM 76546498885 No Longer Active Kaitlin Collier MD Active Immunizations Vaccine Administration Date Value Standard Description influenza immunization (Flu Vax) has been administered given influenza virus vaccine, unspecified formulation PEDIATRIC PNEUMOCOCCAL VACCINE ([id number]) #1 given pneumococcal conjugate vaccine, 13 valent Vital Signs Date Name Value Unit Range Description blood pressure, diastolic 82 mm[Hg] BP crowley blood pressure, systolic 113 mm[Hg] BP sys height E&M 63 [in_us] Bdy height pulse rate E&M 90 /min Heart rate respiratory rate E&M 18 /min Resp rate temperature E&M 98.3 [degF] Body temperature weight E&M 236.38 [lb_av] Weight Measured blood pressure, diastolic 74 mm[Hg] BP crowley blood pressure, systolic 122 mm[Hg] BP sys height E&M 63 [in_us] Bdy height pulse rate E&M 77 /min Heart rate respiratory rate E&M 22 /min Resp rate temperature E&M 97.9 [degF] Body temperature weight E&M 243.40 [lb_av] Weight Measured blood pressure, diastolic 72 mm[Hg] BP crowley blood pressure, systolic 111 mm[Hg] BP sys height E&M 63 [in_us] Bdy height pulse rate E&M 73 /min Heart rate respiratory rate E&M 18 /min Resp rate temperature E&M 97.8 [degF] Body temperature weight E&M 245 [lb_av] Weight Measured blood pressure, diastolic 70 mm[Hg] BP crowley blood pressure, systolic 105 mm[Hg] BP sys height E&M 63 [in_us] Bdy height pulse rate E&M 89 /min Heart rate respiratory rate E&M 16 /min Resp rate temperature E&M 98.9 [degF] Body temperature weight E&M 228.80 [lb_av] Weight Measured blood pressure, diastolic 65 mm[Hg] BP crowley blood pressure, systolic 122 mm[Hg] BP sys height E&M 63 [in_us] Bdy height pulse rate E&M 82 /min Heart rate respiratory rate E&M 16 /min Resp rate temperature E&M 98.3 [degF] Body temperature weight E&M 242 [lb_av] Weight Measured blood pressure, diastolic 73 mm[Hg] BP crowley blood pressure, systolic 113 mm[Hg] BP sys height E&M 63 [in_us] Bdy height pulse rate E&M 80 /min Heart rate respiratory rate E&M 17 /min Resp rate temperature E&M 98.0 [degF] Body temperature weight E&M 236 [lb_av] Weight Measured blood pressure, diastolic 85 mm[Hg] BP crowley blood pressure, systolic 123 mm[Hg] BP sys height E&M 63 [in_us] Bdy height pulse rate E&M 85 /min Heart rate respiratory rate E&M 16 /min Resp rate temperature E&M 98.7 [degF] Body temperature weight E&M 236.20 [lb_av] Weight Measured Diagnostic Results Date Name Value Unit Range Description Lab Report: CBC With Differential/Platelet, Comp. Metabolic Panel (14), TSH - Chemistry thyroid stimulating hormone, serum 1.410 u[iU]/mL 0.450-4.500 Lab Report: Basic Metabolic Panel (8), Lipid Panel, Hemoglobin A1c - Chemistry very low density lipoproteins 42 mg/dL 5-40 Lab Report: CBC With Differential/Platelet, Comp. Metabolic Panel (14), TSH - Chemistry chloride, serum 97 mmol/L 96-106 urea nitrogen, blood 12 mg/dL 6-24 Office Visit: Acute Visit uti rm 1 - Urinalysis leukocyte esterase, urine, by dipstick negative Lab Report: CBC With Differential/Platelet, Comp. Metabolic Panel (14), TSH - Hematology mean corpuscular hemoglobin concentration, RBC 33.7 G/DL % 31.5-35.7 erythrocyte (RBC) count 4.80 X10E6/UL 10*6/mm3 3.77-5.28 Office Visit: Acute Visit [facility]i rm 1 - Urinalysis nitrite, urine, semiquantitative negative Lab Report: HCV Antibody - Serology hepatitis C antibody, serum <0.1 0.0-0.9 Office Visit: Acute Visit uti rm 1 - Urinalysis urine color yellow Lab Report: CBC With Differential/Platelet, Comp. Metabolic Panel (14), TSH - Chemistry Absolute Neutrophils 6.1 X10E3/UL 10*3/uL 1.4-7.0 Office Visit: Acute Visit uti rm 1 - Urinalysis bilirubin, urine negative Lab Report: Basic Metabolic Panel (8), Lipid Panel, Hemoglobin A1c - Chemistry LDL cholesterol, serum 91 mg/dL 0-99 Lab Report: CBC With Differential/Platelet, Comp. Metabolic Panel (14), TSH - Chemistry urea nitrogen/creatinine ratio, serum 24 9-23 Lab Report: CBC With Differential/Platelet, Comp. Metabolic Panel (14), [facility] - Hematology mean corpuscular volume, RBC 91 fL 79-97 Lab Report: Basic Metabolic Panel (8), Lipid Panel, Hemoglobin A1c - Chemistry HDL cholesterol, serum 41 mg/dL >39 Lab Report: CBC With Differential/Platelet, Comp. Metabolic Panel (14), [facility] - Hematology monocytes as percent of blood leukocytes 9 % Not Estab. Lab Report: CBC With Differential/Platelet, Comp. Metabolic Panel (14), [facility] - Chemistry albumin/globulin ratio, serum 1.5 1.2-2.2 creatinine, serum 0.50 mg/dL 0.57-1.00 Lab Report: Basic Metabolic Panel (8), Lipid Panel, Hemoglobin A1c - Chemistry cholesterol, serum 174 mg/dL 100-199 Lab Report: Comp. Metabolic Panel (14), Lipid Panel, Microalb/Creat Rati ... - Chemistry creatinine, random, urine 181.9 mg/dL 15.0-278.0 Lab Report: CBC With Differential/Platelet, Comp. Metabolic Panel (14), [facility] - Chemistry bilirubin, serum, total 0.5 mg/dL 0.0-1.2 Lab Report: CBC With Differential/Platelet, Comp. Metabolic Panel (14), [facility] Hematology Eosinophil Absolute Count 0.2 X10E3/UL 10*3/uL 0.0-0.4 Office Visit: Acute Visit uti rm 1 - Urinalysis appearance, urine clear blood in urine (hemoglobin) by dipstick negative Lab Report: CBC With Differential/Platelet, Comp. Metabolic Panel (14), [facility] - Chemistry aspartate aminotransferase (SGOT), serum 31 U/L 0-40 Lab Report: CBC With Differential/Platelet, Comp. Metabolic Panel (14), [facility] Hematology red blood cell distribution width 13.8 % 12.3-15.4 leukocyte count, blood 9.7 X10E3/UL 10*3/mm3 3.4-10.8 Office Visit: Acute Visit uti rm 1 - Urinalysis pH, urine, semiquantitative 5.0 Lab Report: CBC With Differential/Platelet, Comp. Metabolic Panel (14), TSH - Chemistry potassium, serum 4.3 mmol/L 3.5-5.2 immature granulocytes, percentage of total cells, blood 0 % Not Estab. albumin, serum 4.1 g/dL 3.5-5.5 Lab Report: CBC With Differential/Platelet, Comp. Metabolic Panel (14), TSH - Hematology lymphocyte count, blood, automated 2.5 X10E3/UL 10*3/mm3 0.7-3.1 hematocrit, blood 43.6 % 34.0-46.6 Lab Report: CBC With Differential/Platelet, Comp. Metabolic Panel (14), TSH - Chemistry sodium, serum 140 mmol/L 134-144 Lab Report: Urine Culture, Routine, Result - Urinalysis urine culture No growth Lab Report: CBC With Differential/Platelet, Comp. Metabolic Panel (14), TSH - Hematology neutrophils as percent of blood leukocytes 64 % Not Estab. basophils as percent of blood leukocytes 0 % Not Estab. Office Visit: Acute Visit uti rm 1 - Urinalysis protein, urine, semiquantitative (dipstick) 1+ Lab Report: CBC With Differential/Platelet, Comp. Metabolic Panel (14), TSH - Chemistry carbon dioxide, venous blood 24 mmol/L 20-29 Lab Report: Basic Metabolic Panel (8), Lipid Panel, Hemoglobin A1c - Chemistry triglyceride, serum, fasting 210 mg/dL 0-149 Lab Report: CBC With Differential/Platelet, Comp. Metabolic Panel (14), TSH - Chemistry calcium, serum 9.2 mg/dL 8.7-10.2 Lab Report: Comp. Metabolic Panel (14), Lipid Panel, Microalb/Creat Rati ... - Chemistry microalbumin/creatinine ratio, urine 140.2 MG/G CREAT ug/mg 0.0-30.0 Lab Report: CBC With Differential/Platelet, Comp. Metabolic Panel (14), TSH - Chemistry alanine aminotransferase (SGPT), serum 33 U/L 0-32 Office Visit: Acute Visit Dr.Ehdaie Nico Agosto blood glucose, fasting 220 mg/dL Lab Report: CBC With Differential/Platelet, Comp. Metabolic Panel (14), TSH - Hematology mean corpuscular hemoglobin, RBC 30.6 pg 26.6-33.0 Office Visit: Acute Visit uti rm 1 - Urinalysis specific gravity, urine 1.025 Lab Report: CBC With Differential/Platelet, Comp. Metabolic Panel (14), TSH - Chemistry protein, total, serum 6.8 g/dL 6.0-8.5 alkaline phosphatase, serum 97 U/L 39-117 Lab Report: CBC With Differential/Platelet, Comp. Metabolic Panel (14), TSH - Hematology hemoglobin, blood 14.7 g/dL 11.1-15.9 lymphocytes as percent of blood leukocytes 25 % Not Estab. Office Visit: Acute Visit Dr.Ehdaie Nico Agosto hemoglobin A1C, blood, as % of total hemoglobin 10.7 % Office Visit: Acute Visit uti rm 1 - Urinalysis glucose, urine, semiquantitative negative Lab Report: CBC With Differential/Platelet, Comp. Metabolic Panel (14), TSH - Genetics/fertility eGFR if 129 mL/min/1.73m2 >59 Lab Report: CBC With Differential/Platelet, Comp. Metabolic Panel (14), TSH - Hematology basophil count, absolute 0.0 x10E3/uL 0.0-0.2 Lab Report: CBC With Differential/Platelet, Comp. Metabolic Panel (14), TSH - Chemistry globulin, serum 2.7 1.5-4.5 Estimated Glomerular Filtration Rate (calc) 112 mL/min/1.73m2 >59 Lab Report: Comp. Metabolic Panel (14), Lipid Panel, Microalb/Creat Rati ... - Urinalysis microalbumin/total urine volume 255.0 mg/L 0.0-17.0 Lab Report: CBC With Differential/Platelet, Comp. Metabolic Panel (14), TSH - Hematology eosinophils as percent of blood leukocytes 2 % Not Estab. Lab Report: CBC With Differential/Platelet, Comp. Metabolic Panel (14), TSH - Chemistry blood glucose, random 171 mg/dL 65-99 Office Visit: Acute Visit uti rm 1 - Urinalysis urobilinogen, urine, semiquantitative (dipstick) negative Lab Report: CBC With Differential/Platelet, Comp. Metabolic Panel (14), TSH - Hematology monocyte count, blood, automated 0.9 X10E3/UL 10*3/uL 0.1-0.9 platelet count 222 X10E3/UL 10*3/mm3 150-379 Office Visit: Acute Visit uti rm 1 - Urinalysis ketones, urine, by test strip negative Encounters Date Encounter Provider Code Facility 11:32:10 CDT Est Patient Exp Problem - 28347 Marcela Espinoza D.O. CPT-37226 [facility] 12:11:10 CDT Est Patient Exp Problem - 96848 Marcela Tenorio.O. CPT-46259 [facility] 10:03:04 CDT Est Patient Exp Problem - 55282 Floresita Birch MD (res) CPT-26872 [facility] 17:28:56 CDT Est Patient Detailed - 99223 Tatianna Covarrubias MD CPT-23877 [facility] 11:23:46 CDT Est Patient Exp Problem - 49435 Marcela Tenorio.O. CPT-09554 [facility] 11:25:31 REMOTE PILOT OPERATOR Est Patient Detailed - 21352 Rao Avila MD (res) CPT-76534 [facility] 15:32:27 CDT Est Patient Exp Problem - 90376 Rao Avila MD (res) CPT-36390 [facility] 16:52:49 CDT Est Patient Exp Problem - 35941 Floresita Birch MD (res) CPT-04895 [facility] 14:17:24 CDT Est Patient Exp Problem - 69611 George Kennedy MD CPT-59481 [facility] 08:58:43 REMOTE PILOT OPERATOR Est Patient Exp Problem - 03908 Tamara Gutierrez MD CPT-61185 [facility] 16:24:59 REMOTE PILOT OPERATOR Est Patient Exp Problem - 95220 Yunier Nassar MD (res) CPT-17291 [facility] 11:48:18 CDT Est Patient Exp Problem - 02122 Breanna Davis MD CPT-59603 [facility] 17:35:36 CDT Ofc Vst, Est Level III Tamara Gutierrez MD CPT-51755 [facility] 11:07:11 CDT Ofc Vst, New Level III Kaitlin Collier MD CPT-90190 [facility] Procedures Code Procedure Name Date Entry Date Standard Description CPT-24048 Glucose Stick 11:32:13 CDT CPT-71162 HEMOGLOBIN A1C - In House 11:32:13 CDT CPT-18930 IM or SQ Injection 17:28:56 CDT CPT-J1885 Injection, ketorolac tromethamine (toradol), per 15 mg 17:28:56 CDT CPT-79300 HEMOGLOBIN A1C - In House 11:25:32 REMOTE PILOT OPERATOR CPT-45442 Glucose Stick 11:25:32 REMOTE PILOT OPERATOR CPT-25042 Urinalysis - Dip only - In House 11:25:32 REMOTE PILOT OPERATOR CPT-29647 INFLUENZA VACCINE QUADRIVALENT 3 YRS PLUS IM 11:48:19 CDT CPT-43509 EKG - Interpretation & Report Only 11:48:19 CDT CPT-44671 Prevnar (PCV13) IM 17:35:36 CDT CPT-60827 Influenza - Adult - Injection 14:59:45 CDT CPT-79410 Est Patient Well Exam (40 - 64 Yrs) - 71219 14:59:43 CDT
[2018-01-18 10:15] VITALS: BP 109/76
== END | disposition home or self-care (01) ==
LOC: OR 05:41
PROVIDERS: ATTEND Internal Medicine Gastroenterology
DX: K21.0 Gastro-esophageal reflux disease with esophagitis (principal); K29.50 Unspecified chronic gastritis without bleeding; K22.8 Other specified diseases of esophagus; K44.9 Diaphragmatic hernia without obstruction or gangrene; D37.6 Neoplasm of uncertain behavior of liver, gallbladder and bile ducts; K59.00 Constipation, unspecified; I10 Essential (primary) hypertension; E11.9 Type 2 diabetes mellitus without complications; Z88.1 Allergy status to other antibiotic agents; Z79.82 Long term (current) use of aspirin; Z79.4 Long term (current) use of insulin; Z80.0 Family history of malignant neoplasm of digestive organs
CPT/HCPCS: 36415; 43239; 82948; J2001; J2250

== ENCOUNTER → 2018-09-20 | Day surgery (SDC) | payer OTHER ==
[2018-09-16 16:12] LABS: BASOPHILS # (AUTO) 0.1 (0.0-0.1); BASOPHILS % 0.7 % (0.0-1.0); EOSINOPHILS # (AUTO) 0.2 (0.0-0.4); EOSINOPHILS % 2.3 % (0.0-6.0); HEMATOCRIT 40.2 % (34.2-44.1); HEMOGLOBIN 13.1 g/dL (12.0-16.0); LYMPHOCYTES # (AUTO) 2.3 (1.0-3.2); LYMPHOCYTES % 31.5 % (18.0-39.1); MEAN CORPUSCULAR HEMOGLOBIN 29.5 pg (28-32); MEAN CORPUSCULAR HGB CONC 32.6 g/dL (31-35); MEAN CORPUSCULAR VOLUME 90.5 fL (81-99); MONOCYTES # (AUTO) 0.8 (0.2-0.8); MONOCYTES % 10.4 % (4.4-11.3); NEUTROPHILS % 54.7 % (38.7-80.0); PLATELET COUNT 295 x10e3/uL (140-360); RED BLOOD COUNT 4.44 x10e6/uL (3.6-5.1)
[2018-09-16 16:19] LABS: INR 0.92; PROTHROMBIN TIME 12.8 seconds (11.9-14.5)
[2018-09-16 16:20] LABS: PARTIAL THROMBOPLASTIN TIME 33.2 seconds (23.8-35.5)
[2018-09-16 16:29] LABS: ALANINE AMINOTRANSFERASE 12 IU/L (0-55); ALBUMIN 2.7 g/dL (3.5-5.0); ALBUMIN/GLOBULIN RATIO 0.6 (0.8-2.0); ALKALINE PHOSPHATASE 114 IU/L (40-150); ANION GAP 13.4 mmol/L (8-16); BLOOD UREA NITROGEN 13 mg/dL (7-26); BUN/CREATININE RATIO 16 (6-25); CALCIUM 9.3 mg/dL (8.4-10.2); CARBON DIOXIDE 28 mmol/L (22-29); CHLORIDE 102 mmol/L (98-107); EST GLOMERULAR FILTRATION RATE > 60 ML/MIN (60-); POTASSIUM 4.4 mmol/L (3.5-5.1); SODIUM 139 mmol/L (136-145)
[2018-09-16 16:40] LABS: GLUCOSE 454 mg/dL (74-118)
[~2018-09-20] MED LIST changes: -FENTANYL CITRATE/PF 100MCG/2 ML INJ ONE; +LOSARTAN POTAS100 MG PO; +NOVOLIN 70/30 IJ; +PROPOFOL IV EMULSION 10 MG/ML 20 ML VIAL ONE; -PROPOFOL IV EMULSION 10 MG/ML 50 ML VIAL ONE; +TYLENOL PO
--- OUTSIDE RECORDS SUMMARY | 2018-09-20 10:01 | XMS REPORT | Clinical Summary ---
Author Author [facility] Address Unknown Phone Unavailable Care Team Providers Care Staffing Consultant Name Role Phone Tamara Gutierrez MD PCP [...] Problems Problem Noted Date Chest pain 07/15/2017 Immunizations Name Dates Previously Given Next Due [...] travel history available. Last Filed Vital Signs Not on file Plan of Treatment Health Maintenance Due Date Last Done Comments BREAST CANCER SCREENING 2015 COLONOSCOPY SCREENING 2015 SHINGLES VACCINES (#1) 2015 INFLUENZA VACCINE 10/06/2018 Results Not on fileafter 09/19/2017 Insurance Type Payer Benefit Subscriber ID Effective Phone Address Plan / Dates Group Exchange KHAN EXCHANGE KHAN xxxxxxxxxx 2017-P [employer]ET[employer] resent E EXCHANGE Advance Directives Patient has advance care planning documents on file. For more information, johnathan beach contact: Yaakov Pena [address] [place] [address]
--- OUTSIDE RECORDS SUMMARY | 2018-09-20 10:04 | XMS REPORT | Clinical Summary ---
Author Author ANNIA [facility] Address Unknown Phone Unavailable Care Team Providers Care Wedding Photographer Name Role Phone Ruthann Biggs PCP Allergies Comments Active Allergy Reactions Severity Noted Date Gabapentin Nausea And Medium 07/12/2015 Vomiting Sulfamethoxazole-Trimetho Itching High 06/05/2015 prim Medications End Date Status Medication Sig Dispensed Refills Start Date Active metFORMIN (GLUCOPHAGE) Take 1,000 mg 2 1000 MG tablet by mouth 2 8 (two) times daily. Active glipiZIDE (GLUCOTROL) 10 Take 10 mg by 0 MG tablet mouth daily . Active LYRICA 50 mg capsule TAKE 1 0 CAPSULE BY 8 MOUTH THREE TIMES A DAY NEEDED FOR PAIN Active NIFEdipine (PROCARDIA-XL) Take 30 mg by 5 30 MG (OSM) 24 hr tablet mouth daily . 8 Active insulin 70/30, insulin Use 55UNITS 0 NPH-insulin regular, Twice a Day 8 (NOVOLIN 70/30 U-100 INSULIN) 100 unit/mL (70-30) injection Active multivitamin per tablet Take 1 tablet 0 by mouth daily. Active ranitidine (ZANTAC) 150 Take 150 mg 0 MG tablet by mouth 2 (two) times daily as needed for Heartburn. Active MELATONIN ORAL Take by mouth 0 2 gummies at night as needed for sleep . 04/18/2018 PEG Take 1 packet 1 each 0 [id number] by mouth once 9 C (MOVIPREP) for 1 dose. 100-7.5-2.691 gram PwPk packet 09/04/2018 promethazine (PHENERGAN) Take 1 tablet 20 tablet 0 12.5 MG (12.5 mg 9 tabletIndications: Nausea total) by mouth 2 (two) times daily as needed for Nausea for up to 10 days. 09/10/2018 ciprofloxacin HCl (CIPRO) Take 1 tablet 14 tablet 0 500 MG tablet (500 mg 9 total) by mouth 2 (two) times daily for 7 days. Active Problems Problem Noted Date Liver mass 01/26/2018 Last Assessment & Plan: Imaging suggest large liver mass in right lobe, which has increased in size on two-year follow-up. She has risk factor for liver disease but no evidence of cirrhosis based on lab or imaging findings. Differential diagnoses for this mass include, hepatic adenoma, FNH. The suspicion for malignancy is low . I would recommend MRI and we will discuss interval radiology conference. If imaging data is inconclusive then we will get the liver biopsy. Abdominal pain 01/26/2018 Last Assessment & Plan: Abdominal pain, off of unclear etiology comprehensive evaluation negative had upper and lower endoscopy which were unremarkable. Abdominal pain may be related to IBS. I explained to her abdominal pain is unlikely due to liver mass Diabetes mellitus 01/26/2018 Last Assessment & Plan: Known to have diabetes on insulin and oral hypoglycemics, appeared to be well controlled. Continue to follow with primary care physician. Diabetes is at risk factors for fatty liver disease increases the risk of cirrhosis and liver cancer Obesity 01/26/2018 Last Assessment & Plan: The patient's current BMI is 44 Obesity is an established risk factor for vascular complications (ie coronary artery disease, cerebrovascular disease, peripheral vascular disease), osteoarthritis, pulmonary disease, as well as the development of non-alcoholic fatty liver disease and the risk for non-alcoholic steatohepatitis. T We have recommended a structured weight loss program (10% body weight initially), along with dietary modifications and regular exercise for overall good health and to minimize the risk of obesity -related complications. The assessment of a supervisor carpenters or insect control aide may be beneficial. Hypertension 01/26/2018 Last Assessment & Plan: She is on blood pressure medication followed by the primary care physician. Continue the current medication Screening for endocrine, metabolic and immunity disorder 01/26/2018 Last Assessment & Plan: Serological tests will be completed to determine the presence of immunity to hepatitis A and B. If the patient does not have adequate immunity, we would recommend administration of appropriate vaccination as per CDC guidelines by the primary care provider. Encounters Care Team Description Date Type Specialty Gilmer Siu MD Cheng, Raymond Yen-Tong, MD Acute cystitis without hematuria (Primary Dx); Generalized abdominal pain; Hepatocellular carcinoma (HCC); Obesity, unspecified classification, unspecified obesity type, unspecified whether serious comorbidity present; Essential hypertension 09/02/2018 Emergency Emergency Medicine - 09/03/2018 09/02/2018 Travel Umair Rubio NP symptoms post TACE procedure; go to ER 09/02/2018 Telephone Hepatology Marlin De Guzman RN Follow up 09/02/2018 Telephone Hepatology Zac Chu MD Liver mass 08/25/2018 Hospital Encounter Mustapha Tilley MD Nausea (Primary Dx) 08/25/2018 Orders Only Hepatology Dusty Leon 08/19/2018 Outside Orders Radiology Rosemarie Craig MA 08/03/2018 Abstract Hepatology Gabrielle Mario PA Results 07/28/2018 Telephone Hepatology Gabrielle Mario PA 07/20/2018 Abstract [facility] ([facility] 07/19/2018 Hospital Magnetic Resonance Encounter Imaging 07/18/2018 Travel Josh Forde MD Hepatocellular carcinoma (HCC) (Primary Dx) 06/16/2018 Outside Orders Central Scheduling Kateryna Heredia RN chest pressure 06/13/2018 Telephone Hepatology Percy Alcaraz MD Liver mass 06/07/2018 Hospital Encounter Mikayla Souza MA 05/27/2018 Abstract Transplant Hepatology Kateryna Heredia RN 05/16/2018 Documentation Hepatology Ngozi Lyon FNP Liver mass (Primary Dx) 05/16/2018 Orders Only Hepatology Rosemarie Craig MA 05/13/2018 Abstract Hepatology Zac Chu MD Goss, John Alan, MD Liver mass (Primary Dx) 05/09/2018 Office Visit Transplant Hepatology Kateryna Hreedia RN 05/05/2018 Documentation Hepatology Percy Alcaraz MD Liver disease 05/03/2018 Hospital Radiology Encounter Kateryna Heredia, MARKO Appointment 04/26/2018 Telephone Hepatology Zac Chu MD COLONOSCOPY 04/21/2018 Surgery Gastroenterology Gini Dumont MD 04/21/2018 Anesthesia Gastroenterology Event Zac Chu MD 04/21/2018 Hospital Gastroenterology Encounter Edita George RN moviprep 04/18/2018 Telephone Hepatology Becky Marley PA-C Liver disease 04/07/2018 Orders Only Transplant Hepatology Rosemarie Craig MA 04/07/2018 Abstract HepatBecky Palmer PA-C Follow-up 04/05/2018 Telephone Transplant Hepatology Kateryna Heredia RN Appointment 04/05/2018 Telephone Hepatology Becky Marley PA-C 04/04/2018 Documentation Transplant Hepatology Percy Alcaraz MD Liver mass 03/31/2018 Hospital Encounter Percy Alcaraz MD 03/28/2018 Hospital Radiology Encounter Percy Alcaraz MD Liver mass 03/28/2018 Hospital Radiology Encounter Percy Alcaraz MD Liver mass 03/28/2018 Hospital Radiology Encounter 03/28/2018 Travel 03/27/2018 Travel Itzel Clark Procedure (Colonoscopy) 03/24/2018 Telephone Hepatology Kateryna Heredia RN 03/22/2018 Abstract Hepatology Percy Alcaraz MD Liver mass (Primary Dx); Liver disease; Pre-op evaluation; Cancer screening; Class 3 severe obesity with body mass index (BMI) of 40.0 to 44.9 in adult, unspecified obesity type, unspecified whether serious comorbidity present (HCC); Insulin dependent diabetes mellitus (HCC); Hypertension, unspecified type 03/21/2018 Office Visit Transplant Hepatology Rosemarie Craig MA 03/17/2018 Abstract Hepatology Gabrielle Mario PA Results 03/17/2018 Telephone Hepatology Gabrielle Mario PA 02/24/2018 Abstract Hepatology Zac Chu MD Liver mass 02/04/2018 Hospital Radiology Encounter Zac Chu MD Liver mass (Primary Dx); Abdominal pain, unspecified abdominal location; Type 2 diabetes mellitus without complication, with long-term current use of insulin (HCC); Class 3 severe obesity due to excess calories without serious comorbidity with body mass index (BMI) of 40.0 to 44.9 in adult (HCC); Essential hypertension; Screening for endocrine, metabolic and immunity disorder 01/26/2018 Office Visit Hepatology after 09/19/2017 Family History Medical History Relation Name Comments Liver cancer Maternal Grandfather Relation Name Status Comments Maternal Grandfather Social History Date Tobacco Use Types Packs/Day Years Used Never Smoker Smokeless Tobacco: Never Used Alcohol Use Drinks/Week oz/Week Comments No Alcohol Habits Answer Date Recorded How often do you have a drink containing alcohol? Never 01/26/2018 How many drinks containing alcohol do you have on Not asked a typical day when you are drinking? How often do you have six or more drinks on one Not asked occasion? Sex Assigned at Date Recorded Not on file Industry Job Start Date Occupation Not on file Not on file Not on file Travel End Travel History Travel Start No recent travel history available. Last Filed Vital Signs Time Taken Vital Sign Reading 09/03/2018 12:07 AM CDT Blood Pressure 114/73 09/03/2018 12:07 AM CDT Pulse 90 09/03/2018 12:07 AM CDT Temperature 37 C (98.6 F) 09/03/2018 12:07 AM CDT Respiratory Rate 16 09/03/2018 12:07 AM CDT Oxygen Saturation 97% - Inhaled Oxygen - Concentration 09/02/2018 6:43 PM CDT Weight 104.8 kg (231 lb) 09/02/2018 6:43 PM CDT Height 160 cm (5' 3") 09/02/2018 6:43 PM CDT Body Mass Index 40.92 Plan of Treatment Care Team Description Date Type Specialty Zac hCu MD [address] [id number] 11/25/2018 Appointment Radiology Procedures Comments Procedure Name Priority Date/Time Associated Diagnosis REPORT OF PROCEDURE - 09/05/2018 ENDOSCOPY SCAN 3:44 PM CDT BLOOD CULTURE STAT 09/03/2018 12:[address] ABDOMEN/PELVIS WITH IV STAT 09/02/2018 CONTRAST 10:38 PM CDT URINALYSIS MICROSCOPIC Routine 09/02/2018 10:15 PM CDT URINALYSIS WITH STAT 09/02/2018 MICROSCOPIC IF INDICATED 10:15 PM CDT ED ECG INTERPRETATION Routine 09/02/2018 10:05 PM CDT ECG 12-LEAD STAT 09/02/2018 8:56 PM CDT CBC W/PLT COUNT & AUTO STAT 09/02/2018 DIFFERENTIAL 8:43 PM CDT MAGNESIUM STAT 09/02/2018 8:43 PM CDT TROPONIN I STAT 09/02/2018 8:43 PM CDT LIPASE STAT 09/02/2018 8:43 PM CDT COMPREHENSIVE METABOLIC STAT 09/02/2018 PANEL 8:43 PM CDT CBC W/PLT COUNT & AUTO STAT 09/02/2018 DIFFERENTIAL 8:43 PM CDT BLOOD CULTURE STAT 09/02/2018 8:43 PM CDT XR CHEST 1 VIEW STAT 09/02/2018 PORTABLE/BEDSIDE 7:30 PM CDT POCT-GLUCOSE METER Routine 08/25/2018 3:39 PM CDT IR EMBOLIZATION ARTERIAL Routine 08/25/2018 Liver mass 2:12 PM CDT SCREEN, URINE STAT 08/25/2018 9:34 AM CDT CBC W/PLT COUNT & AUTO Routine 08/25/2018 DIFFERENTIAL 9:33 AM CDT APTT Routine 08/25/2018 9:33 AM CDT BILIRUBIN, DIRECT Routine 08/25/2018 9:33 AM CDT COMPREHENSIVE METABOLIC Routine 08/25/2018 PANEL 9:33 AM CDT PROTHROMBIN TIME/INR Routine 08/25/2018 9:33 AM CDT CBC W/PLT COUNT & AUTO Routine 08/25/2018 DIFFERENTIAL 9:33 AM CDT MR ABDOMEN WITH/WITHOUT Routine 07/19/2018 Hepatocellular carcinoma IV CONTRAST 9:44 AM CDT (HCC) POCT-CREATININE Routine 07/19/2018 8:32 AM CDT IR EMBOLIZATION ARTERIAL Routine 06/07/2018 Liver mass 10:43 AM CDT POCT , URINE STAT 06/07/2018 7:38 AM CDT CBC W/PLT COUNT & AUTO Routine 06/07/2018 DIFFERENTIAL 7:14 AM CDT PROTHROMBIN TIME/INR Routine 06/07/2018 7:14 AM CDT CBC W/PLT COUNT & AUTO Routine 06/07/2018 DIFFERENTIAL 7:14 AM CDT HEPATIC FUNCTION PANEL Routine 06/07/2018 7:14 AM CDT BASIC METABOLIC PANEL (7) Routine 06/07/2018 7:14 AM CDT MR ABDOMEN WITH/WITHOUT Routine 05/03/2018 Liver disease IV CONTRAST 9:15 AM [employer] POCT-CREATININE Routine 05/03/2018 8:24 AM [employer] POCT-GLUCOSE METER Routine 04/21/2018 11:02 AM [employer] REPORT OF PROCEDURE - 04/21/2018 ENDOSCOPY URL 10:51 AM [employer] COLONOSCOPY 04/21/2018 Liver mass 10:30 AM [employer] Special Needs (DIABETIC) POCT-GLUCOSE METER Routine 04/21/2018 9:45 AM [employer] TISSUE EXAM AP Routine 04/06/2018 2:08 PM [employer] US LIVER BIOPSY Routine 03/31/2018 Liver mass 10:30 AM [employer] BASIC METABOLIC PANEL (7) STAT 03/31/2018 7:07 AM [employer] CBC W/PLT COUNT & AUTO STAT 03/31/2018 DIFFERENTIAL 6:44 AM [employer] PT/APTT STAT 03/31/2018 6:44 AM [employer] CBC W/PLT COUNT & AUTO STAT 03/31/2018 DIFFERENTIAL 6:44 AM [employer] NM BONE SCAN WHOLE BODY Routine 03/28/2018 Liver mass 1:[address] [address] CHEST WITHOUT IV Routine 03/28/2018 Liver mass CONTRAST 8:13 AM [employer] CBC W/PLT COUNT & AUTO Routine 03/21/2018 Liver mass DIFFERENTIAL 11:10 AM [employer] Liver disease HEPATITIS B CORE Routine 03/21/2018 Liver mass ANTIBODY, TOTAL 11:10 AM [employer] Liver disease HEPATITIS B SURFACE Routine 03/21/2018 Liver mass ANTIBODY 11:10 AM [employer] Liver disease HEPATITIS B SURFACE Routine 03/21/2018 Liver mass ANTIGEN 11:10 AM [employer] Liver disease CANCER ANTIGEN 125 (CA Routine 03/21/2018 Liver mass 125) 11:10 AM [employer] Liver disease CARBOHYDRATE ANTIGEN 19-9 Routine 03/21/2018 Liver mass (CA 19-9) 11:10 AM [employer] Liver disease CARCINOEMBRYONIC ANTIGEN Routine 03/21/2018 Liver mass (CEA) 11:10 AM [employer] Liver disease PROTHROMBIN TIME/INR Routine 03/21/2018 Liver mass 11:10 AM [employer] Liver disease HEPATIC FUNCTION PANEL Routine 03/21/2018 Liver mass 11:10 AM [employer] Liver disease BASIC METABOLIC PANEL (7) Routine 03/21/2018 Liver mass 11:10 AM [employer] Liver disease CBC W/PLT COUNT & AUTO Routine 03/21/2018 Liver mass DIFFERENTIAL 11:10 AM [employer] Liver disease MR ABDOMEN WITH/WITHOUT Routine 02/04/2018 Liver mass IV CONTRAST 11:29 AM [employer] BILIRUBIN, DIRECT Routine 01/26/2018 Liver mass 12:30 PM [employer] COMPREHENSIVE METABOLIC Routine 01/26/2018 Liver mass PANEL 12:30 PM [employer] CBC W/PLT COUNT & AUTO Routine 01/26/2018 Liver mass DIFFERENTIAL 12:28 PM [employer] ALPHA FETOPROTEIN (AFP), Routine 01/26/2018 Liver mass TUMOR MARKER 12:28 PM [employer] FERRITIN Routine 01/26/2018 Liver mass 12:28 PM [employer] IRON, TIBC, % SAT. Routine 01/26/2018 Liver mass (WITHOUT FERRITIN) 12:28 PM [employer] HEPATITIS C ANTIBODY Routine 01/26/2018 Liver mass 12:28 PM [employer] HEPATITIS B SURFACE Routine 01/26/2018 Liver mass ANTIBODY 12:28 PM [employer] HEPATITIS A ANTIBODY, IGG Routine 01/26/2018 Liver mass 12:28 PM [employer] CBC W/PLT COUNT & AUTO Routine 01/26/2018 Liver mass DIFFERENTIAL 12:28 PM [employer] after 09/19/2017 Results * EKG-SCANNED (09/05/2018 3:44 PM CDT) Narrative Performed At * Blood culture (09/03/2018 12:26 AM CDT) Only the most recent of 2 results within the time period is included. Result No growth in 5 days [facility] Specimen Blood Performing Organization Address City/State/Zipcode Phone Number [facility] [address] [place] [address] [facility] [address] * CT abdomen pelvis with IV contrast (09/02/2018 10:38 PM CDT) Specimen Narrative Performed At FINAL REPORT [employer] EXAMINATION:CT SCAN OF THE ABDOMEN AND PELVIS CLINICAL HISTORY:Abdominal pain, distention. Hepatocellular carcinoma with recent chemoembolization. COMPARISON EXAM: Angiogram 08/25/2018, abdominal MRI 07/19/2018 TECHNIQUE: Following the administration of IV contrast, axial tomographic images were acquired through the abdomen and pelvis. The exam was performed according to our departmental dose optimization program which includes automated exposure control, adjustment of the mA and/or kV according to patient's size and/or use of iterative reconstructive technique. FINDINGS: The heart is borderline enlarged. No evidence of a pericardial or pleural effusion. A a tiny granuloma is noted at the right lung base. The distal esophagus is decompressed. A mass is again noted in the left lobe of the liver which measures approximately 8 cm, similar to the recent MRI examination. The mass is predominantly hypodense with subtle peripheral rim enhancement. Multiple new punctate gas collections are noted within the mass which may reflect post embolization change with associated necrosis. Superimposed infection cannot be completely excluded. The gallbladder is absent. No evidence of pathologic biliary dilatation.The adrenal glands are normal in size and shape. The spleen is normal in size measuring 11.5 cm. The pancreas is atrophic with fatty infiltration. The fatty infiltration limits evaluation for early pancreatitis. Recommend clinical correlation. No evidence of renal obstruction, nephrolithiasis or perinephric edema. The ureters are decompressed. The stomach is mildly distended with fluid, nonspecific. The loops of small bowel are normal in caliber. The appendix is unremarkable. A a moderate to large volume of inspissated stool is noted throughout the colon suggesting a degree of dysmotility/constipation. Further characterization the bowel is limited by the absence of enteric contrast. However, no evidence of high-grade mechanical bowel obstruction, pneumatosis or pneumoperitoneum. The abdominal aorta is normal in caliber. Contrast also opacifies the portal venous system, mesenteric vessels, renal vessels, iliac arteries and the visualized femoral arteries. Evaluation of the IVC, iliac veins and femoral veins is limited by the timing of the contrast bolus. The uterus and adnexa are unremarkable. The bladder demonstrates mild wall thickening, nonspecific but can be associated with a cystitis. No significant intra-abdominal or pelvic free fluid. Grade 1-2 anterolisthesis of L5 relative to S1 is again noted with associated bilateral L5 spondylolysis. No evidence of an acute osseous abnormality. IMPRESSION: Redemonstrated liver mass with new punctate gas collections which are suggestive of post embolization change with associated necrosis. Superimposed infection cannot be excluded. Recommend clinical correlation. Mild bladder wall thickening, possible cystitis. Urinalysis correlation recommended. Signed: John Dee MD Report Verified Date/Time:09/02/2018 23:13:27 Reading Location: [address] Reading Room Procedure Note Interface, External Ris In - 09/02/2018 11:15 PM CDT FINAL REPORT EXAMINATION: CT SCAN OF THE ABDOMEN AND PELVIS CLINICAL HISTORY:Abdominal pain, distention. Hepatocellular carcinoma with recent chemoembolization. COMPARISON EXAM: Angiogram 08/25/2018, abdominal MRI 07/19/2018 TECHNIQUE: Following the administration of IV contrast, axial tomographic images were acquired through the abdomen and pelvis. The exam was performed according to our departmental dose optimization program which includes automated exposure control, adjustment of the mA and/or kV according to patient's size and/or use of iterative reconstructive technique. FINDINGS: The heart is borderline enlarged. No evidence of a pericardial or pleural effusion. A a tiny granuloma is noted at the right lung base. The distal esophagus is decompressed. A mass is again noted in the left lobe of the liver which measures approximately 8 cm, similar to the recent MRI examination. The mass is predominantly hypodense with subtle peripheral rim enhancement. Multiple new punctate gas collections are noted within the mass which may reflect post embolization change with associated necrosis. Superimposed infection cannot be completely excluded. The gallbladder is absent. No evidence of pathologic biliary dilatation. The adrenal glands are normal in size and shape. The spleen is normal in size measuring 11.5 cm. The pancreas is atrophic with fatty infiltration. The fatty infiltration limits evaluation for early pancreatitis. Recommend clinical correlation. No evidence of renal obstruction, nephrolithiasis or perinephric edema. The ureters are decompressed. The stomach is mildly distended with fluid, nonspecific. The loops of small bowel are normal in caliber. The appendix is unremarkable. A a moderate to large volume of inspissated stool is noted throughout the colon suggesting a degree of dysmotility/constipation. Further characterization the bowel is limited by the absence of enteric contrast. However, no evidence of high-grade mechanical bowel obstruction, pneumatosis or pneumoperitoneum. The abdominal aorta is normal in caliber. Contrast also opacifies the portal venous system, mesenteric vessels, renal vessels, iliac arteries and the visualized femoral arteries. Evaluation of the IVC, iliac veins and femoral veins is limited by the timing of the contrast bolus. The uterus and adnexa are unremarkable. The bladder demonstrates mild wall thickening, nonspecific but can be associated with a cystitis. No significant intra-abdominal or pelvic free fluid. Grade 1-2 anterolisthesis of L5 relative to S1 is again noted with associated bilateral L5 spondylolysis. No evidence of an acute osseous abnormality. IMPRESSION: Redemonstrated liver mass with new punctate gas collections which are suggestive of post embolization change with associated necrosis. Superimposed infection cannot be excluded. Recommend clinical correlation. Mild bladder wall thickening, possible cystitis. Urinalysis correlation recommended. Signed: John Dee MD Report Verified Date/Time: 09/02/2018 23:13:27 Reading Location: [address] Reading Room Performing Organization Address [facility] Phone Number [facility] * Urinalysis Microscopic Only (09/02/2018 10:15 PM CDT) RBC, UA 0 /HPF [facility] WBC, UA 2 /HPF [facility] Bacteria, UA Many [facility] Squam Epithel, UA 1 /HPF [facility] Specimen Urine Performing Organization Address [facility]/Zipcode Phone Number [place] [phone] [place] [address] [facility] * Urinalysis with Microscopic If Indicated (09/02/2018 10:15 PM CDT) Color, UA Light Yellow [facility] Clarity, UA Hazy [facility] Specific [place], UA 1.007 1.001 - 1.035 [facility] pH, UA 6.5 5.0 - 8.0 [facility] Protein, UA Negative Negative [facility] Glucose, UA 70 mg/dL (A) Negative [facility] Ketones, UA Negative Negative [facility] Bilirubin, UA Negative Negative [facility] Blood, UA Negative Negative [facility] Nitrite, UA Positive (A) Negative [facility] Leukocytes, UA Small (A) Negative [facility] Urobilinogen, UA 0.2 0.2 - 1.0 mg/dL [facility] Specimen Source [facility] Specimen Urine Performing Organization Address City/State/Zipcode Phone Number [facility] [address] [place] [address] [facility] * ECG/EKG Interpretation (09/02/2018 10:05 PM CDT) Narrative Performed At Rey Thomas MD 09/03/2018 12:52 AM ECG/EKG Interpretation Date/Time: 09/02/2018 8:56 PM Performed by: Rey Thomas MD Authorized by: Rey Thomas MD The ECG was interpreted by ED physician. This ECG was not compared with previous ECG(s).The ECG is interpreted as sinus rhythm. Rate is normal rate. Heart rate is 91 BPM. Conduction: conduction normal. ST segments normal. T waves normal. [place] is left. Clinical Impression: abnormal ECGECG reviewed and does not meet STEMI criteria. Patient tolerance: Patient tolerated the procedure well with no immediate complications * ECG 12 lead (09/02/2018 8:56 PM CDT) Specimen Narrative Performed At Ventricular Rate 91 BPM GE MUSE Atrial Rate 91 BPM P-R Interval 130 ms QRS Duration 98 ms Q-T Interval 358 ms QTC Calculation(Bazett) 440 ms P [place] 63 degrees R [place] -40 degrees T [place] 36 degrees Normal sinus rhythm Left axis deviation Abnormal ECG No previous ECGs available Confirmed by MD LYRIC, PARTH ([id number]) on 09/03/2018 1:06:31 PM Procedure Note Interface, External Ris In - 09/03/2018 1:06 PM CDT Ventricular Rate 91 BPM Atrial Rate 91 BPM P-R Interval 130 ms QRS Duration 98 ms Q-T Interval 358 ms QTC Calculation(Bazett) 440 ms P [place] 63 degrees R [place] -40 degrees T [place] 36 degrees Normal sinus rhythm Left axis deviation Abnormal ECG No previous ECGs available Confirmed by MD LYRIC, [facility] ([id number]) on 09/03/2018 1:06:31 PM Performing Organization Address City/State/Zipcode Phone Number GE MUSE * CBC with platelet count + automated diff (09/02/2018 8:43 PM CDT) Only the most recent of 6 results within the time period is included. WBC 11.8 (H) 3.5 - 10.5 K/L [facility] RBC 4.94 3.93 - 5.22 M/L [facility] Hemoglobin 14.9 11.2 - 15.7 GM/DL [facility] Hematocrit 44.4 34.1 - 44.9 % [facility] MCV 89.9 79.4 - 94.8 fL [facility] MCH 30.2 25.6 - 32.2 pg [facility] MCHC 33.6 32.2 - 35.5 GM/DL [facility] RDW 13.0 11.7 - 14.4 % [facility] Platelets 263 150 - 450 K/CU MM [facility] MPV 10.9 9.4 - 12.3 fL [facility] nRBC 0 0 - 0 /100 WBC [facility] % Neutros 65 % [facility] % Lymphs 24 % [facility] % Monos 9 % [facility] % Eos 2 % [facility] % Baso 1 % [facility] # Neutros 7.66 (H) 1.56 - 6.13 K/L [facility] # Lymphs 2.78 1.18 - 3.74 K/L [facility] # Monos 1.00 (H) 0.24 - 0.36 K/L [facility] # Eos 0.21 0.04 - 0.36 K/L [facility] # Baso 0.06 0.01 - 0.08 K/L [facility] Immature 0 0 - 1 % [facility] Granulocytes-Relative [facility] Specimen Blood Performing Organization Address City/[facility] [place] [address] [phone] [address] * Troponin I (09/02/2018 8:43 PM CDT) Troponin I <0.01 0.00 - 0.03 ng/mL [facility] Specimen Blood Narrative Performed At Troponin I (TnI) levels must be interpreted in the context of the presenting [facility] symptoms and the clinical findings. Elevated TnI levels indicate myocardial [facility] damage, but are not specific for ischemic heart disease. Elevated TnI levels are seen in patients with other cardiac conditions (including myocarditis and congestive heart failure), and slight TnI elevations occur in patients with other conditions, including sepsis, renal failure, acidosis, acute neurological disease, and persistent tachyarrhythmia. Performing Organization Address [facility] Phone Number [place] [phone] * Magnesium (09/02/2018 8:43 PM CDT) Magnesium 2.1Comment: Specimen 1.6 - 2.6 mg/dL [facility] moderately hemolyzed [facility] Specimen Blood Performing Organization Address City/[facility] [place] [address] [phone] [place] [address] * Lipase (09/02/2018 8:43 PM CDT) Lipase 38 8 - 78 U/L [facility] Specimen Blood Performing Organization Address City/[facility]/Zipcode Phone Number [facility] [address] [place] [address] MEDICAL CENTER * Comprehensive metabolic panel (09/02/2018 8:43 PM CDT) Only the most recent of 3 results within the time period is included. Protein, Total 8.2Comment: Specimen 6.0 - 8.3 gm/dL [facility] moderately hemolyzed [facility] Albumin 3.7Comment: Specimen 3.5 - 5.0 g/dL [facility] hemolyzed [facility] Alkaline Phosphatase 136 40 - 150 U/L [facility] Total Bilirubin 0.4Comment: Specimen 0.2 - 1.2 mg/dL [facility] hemolyzed [facility] Sodium 133 (L) 136 - 145 meq/L [facility] Potassium 4.9Comment: Specimen 3.5 - 5.1 meq/L [facility] hemolyzed [facility] Chloride 99 98 - 107 meq/L [facility] CO2 27 22 - 29 meq/L [facility] BUN 19 7 - 21 mg/dL [facility] Creatinine 0.73Comment: Specimen 0.57 - 1.25 mg/dL [facility] hemolyzed [facility] Glucose 239 (H) 70 - 105 mg/dL [facility] Calcium 9.9 8.4 - 10.2 mg/dL [facility] AST 30Comment: Specimen moderately 5 - 34 U/L [facility] 20Comment: Specimen moderately 6 - 55 U/L [facility] EGFR 83Comment: ESTIMATED GFR IS mL/min/1.73 sq m [facility] NOT ACCURATE CREATININE [facility] CLEARANCE IN PREDICTING GLOMERULAR FILTRATION RATE. ESTIMATED GFR IS NOT APPLICABLE FOR DIALYSIS PATIENTS. Specimen Blood Performing Organization Address City/State/Zipcode Phone Number [facility] [address] [address] [facility] * XR chest 1 view portable / bedside (09/02/2018 7:30 PM CDT) Specimen Narrative Performed At FINAL REPORT [employer] Clinical History: chest pain Comparison Study: None Findings:The heart and lungs are within normal limits.The pleural spaces are clear.There is no pneumothorax. No significant bony or soft tissue abnormalities are seen. Impression: No active cardiopulmonary disease. Signed: Gregory Israel MD Report Verified Date/Time:09/02/2018 20:10:00 Reading Location: [facility] C013 Consult Reading Room Procedure Note Interface, External Ris In - 09/02/2018 8:12 PM CDT FINAL REPORT Clinical History: chest pain Comparison Study: None Findings: The heart and lungs are within normal limits. The pleural spaces are clear. There is no pneumothorax. No significant bony or soft tissue abnormalities are seen. Impression: No active cardiopulmonary disease. Signed: Gregory Israel MD Report Verified Date/Time: 09/02/2018 20:10:00 Reading Location: [facility] [id number] Consult Reading Room Performing Organization Address City/State/Zipcode Phone Number [facility] * POC-Glucose meter (08/25/2018 3:39 PM CDT) Only the most recent of 3 results within the time period is included. POC-Glucose Meter 210 (H)Comment: TESTED AT 70 - 110 mg/dL [address] [address] Specimen Blood Performing Organization Address City/[facility]/Zipcode Phone Number [address] [address] [facility] * IR Embolization (08/25/2018 2:12 PM CDT) Only the most recent of 2 results within the time period is included. Specimen Narrative Performed At FINAL [facility] [employer] Mesenteric angiogram and chemoembolization, 08/25/2018. History: Cirrhosis, HCC. Modality: Fluoroscopy. Sedation: Versed 1.5 mg and fentanyl 75 mcg was given intravenously for conscious sedation.Vital signs were monitored throughout the procedure by a nurse, and remained stable. Physician intra-service time was 40 minutes. Anesthesia:Two percent Lidocaine without epinephrine. Approach:Right common femoral artery. Estimated blood loss:< 5 cc. Specimen: None. scarfer operator: Lori. Calcine Furnace Tender: Asa. Fluoroscopy Time: 18.9 min.Dose (Ka,r): 1729 mGy. Technique:Informed written consent was obtained. Discussion of risks, benefits, and alternatives were made with the patient. The patient expressed understanding and agreed to proceed.All elements maximal sterile barrier technique was utilized for this procedure, including utilization of sterile scrub solution for skin prep, a large sterile sheet to cover the areas of the patient that were not prepped, and hand hygiene, mask, head covering, and sterile gown for performing radiologist and scrub technologist. The skin was anesthetized with lidocaine. The right common femoral artery was accessed usinga 18-gauge singlewall needle and a 0.035 inch J-wire. A 5 Ghanaian sheath was placed. Diagnostic mesenteric angiogram was performed to access vessel patency and exclude arterio-portal shunting.A 5 Ghanaian Rubio catheter which was used to select the celiac trunk for DSA runs.A 3 Ghanaian microcatheter was advanced coaxially through the Rubio catheter for selection of the left and middle hepatic arteries for DSA runs, which demonstrates that the lesion is amenable for treatment. The microcatheter was used to subselect the distal middle hepatic artery which supplies the lateral aspect of the lesion. 50 mg of doxorubicin loaded on Oncozene beads was administered followed by one half vial of 100-300 um embospheres. Followup DSA injections were performed. The Ruboi catheter was exchanged for a reverse 2.5 Rubio catheter which was used to subselect the left gastrohepatic branch. The microcatheter was advanced to the distal aspect of the left hepatic artery which supplies the medial aspect of the lesion.50 mg of doxorubicin loaded on Oncozene beads was administered followed by one half vial of 100-300 um embospheres. Followup DSA injections were performed. The catheter was removed. Injection was performed through the right femoral sheath for a DSA run. The arteriotomy was closed and hemostasis was obtained with a Mynx closure device. Vital signs were monitored throughout the procedure by a nurse, and remained stable. The patient tolerated the procedure well and left the department in the same condition. FINDINGS: 1. Celiac injection: The splenic artery, common hepatic artery, left gastrohepatic artery, and gastroduodenal artery are patent. The splenic and portal vein are patent. 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 2. Middle and left hepatic artery injections: The left hepatic hypervascular lesion has a dual blood supply, from the distal aspect of the middle hepatic artery and left hepatic artery. Post embolization of these 2 branches, there is no further tumor enhancement with slow antegrade flow in the supplying vessels. 3. Right common femoral artery injection: Patent right femoral artery and normal sheath position. IMPRESSION: 1. Successful, uncomplicated mesenteric angiogram and middle and left hepatic chemo-embolization, performed with conscious sedation. 2. Successful hemostasis using closure device. Signed: Warren Sandoval MD Report Verified Date/Time:08/26/2018 10:17:48 Reading Location: [place] [id number] Angio Body Reading Room Procedure Note Interface, External Ris In - 08/26/2018 10:20 AM CDT FINAL REPORT Mesenteric angiogram and chemoembolization, 08/25/2018. History: Cirrhosis, HCC. Modality: Fluoroscopy. Sedation: Versed 1.5 mg and fentanyl 75 mcg was given intravenously for conscious sedation. Vital signs were monitored throughout the procedure by a nurse, and remained stable. Physician intra-service time was 40 minutes. Anesthesia: Two percent Lidocaine without epinephrine. Approach: Right common femoral artery. Estimated blood loss: < 5 cc. Specimen: None. scarfer operator: Lori. Calcine Furnace Tender: Asa. Fluoroscopy Time: 18.9 min. Dose (Ka,r): 1729 mGy. Technique: Informed written consent was obtained. Discussion of risks, benefits, and alternatives were made with the patient. The patient expressed understanding and agreed to proceed. All elements maximal sterile barrier technique was utilized for this procedure, including utilization of sterile scrub solution for skin prep, a large sterile sheet to cover the areas of the patient that were not prepped, and hand hygiene, mask, head covering, and sterile gown for performing radiologist and scrub technologist. The skin was anesthetized with lidocaine. The right common femoral artery was accessed using a 18-gauge singlewall needle and a 0.035 inch J-wire. A 5 Ghanaian sheath was placed. Diagnostic mesenteric angiogram was performed to access vessel patency and exclude arterio-portal shunting. A 5 Ghanaian Rubio catheter which was used to select the celiac trunk for DSA runs. A 3 Ghanaian microcatheter was advanced coaxially through the Rubio catheter for selection of the left and middle hepatic arteries for DSA runs, which demonstrates that the lesion is amenable for treatment. The microcatheter was used to subselect the distal middle hepatic artery which supplies the lateral aspect of the lesion. 50 mg of doxorubicin loaded on Oncozene beads was administered followed by one half vial of 100-300 um embospheres. Followup DSA injections were performed. The Rubio catheter was exchanged for a reverse 2.5 Rubio catheter which was used to subselect the left gastrohepatic branch. The microcatheter was advanced to the distal aspect of the left hepatic artery which supplies the medial aspect of the lesion. 50 mg of doxorubicin loaded on Oncozene beads was administered followed by one half vial of 100-300 um embospheres. Followup DSA injections were performed. The catheter was removed. Injection was performed through the right femoral sheath for a DSA run. The arteriotomy was closed and hemostasis was obtained with a Mynx closure device. Vital signs were monitored throughout the procedure by a nurse, and remained stable. The patient tolerated the procedure well and left the department in the same condition. FINDINGS: 1. Celiac injection: The splenic artery, common hepatic artery, left gastrohepatic artery, and gastroduodenal artery are patent. The splenic and portal vein are patent. 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 2. Middle and left hepatic artery injections: The left hepatic hypervascular lesion has a dual blood supply, from the distal aspect of the middle hepatic artery and left hepatic artery. Post embolization of these 2 branches, there is no further tumor enhancement with slow antegrade flow in the supplying vessels. 3. Right common femoral artery injection: Patent right femoral artery and normal sheath position. IMPRESSION: 1. Successful, uncomplicated mesenteric angiogram and middle and left hepatic chemo-embolization, performed with conscious sedation. 2. Successful hemostasis using closure device. Signed: Warren Sandoval MD Report Verified Date/Time: 08/26/2018 10:17:48 Reading Location: [facility] P048 Angio Body Reading Room Performing Organization Address City/State/[facility] Phone Number [facility] * Screen, urine (08/25/2018 9:34 AM CDT) Preg Test, Ur Negative [facility] Specimen Urine Performing Organization Address [facility] Phone Number [address] [address] [facility] * aPTT (08/25/2018 9:33 AM CDT) PTT 30.8 22.5 - 36.0 seconds [facility] Specimen Blood Performing Organization Address [facility] Phone Number [address] [address] [facility] * Prothrombin time/INR (08/25/2018 9:33 AM CDT) Only the most recent of 3 results within the time period is included. Protime 13.2 11.9 - 14.2 seconds [facility] INR 1.1 <=5.9 [facility] Specimen Blood Narrative Performed At Effective 08/03/2018: PT Reference Range Change [facility] New: 11.9-14.2Previous: 11.7-14.7 [facility] RECOMMENDED COUMADIN/WARFARIN INR THERAPY RANGES STANDARD DOSE: 2.0-3.0Includes: PROPHYLAXIS for venous thrombosis, systemic embolization; TREATMENT for venous thrombosis and/or pulmonary embolus. HIGH RISK: Target INR is 2.5-3.5 for patients wiht mechanical heart valves. Performing Organization Address [facility] Phone Number [address] [address] [facility] * Bilirubin, direct (08/25/2018 9:33 AM CDT) Only the most recent of 2 results within the time period is included. Bilirubin, Direct 0.2 0.1 - 0.5 mg/dL [facility] Specimen Blood Performing Organization Address [facility] Phone Number [address] [address] [facility] * MR abdomen without & with IV contrast (07/19/2018 9:44 AM CDT) Only the most recent of 3 results within the time period is included. Specimen Narrative Performed At FINAL REPORT [facility] TECHNIQUE: MRI of the abdomen WITHOUT and WITH intravenous contrast. INDICATION: 53-year-old woman with hepatocellular carcinoma. COMPARISON: Abdomen MRI 05/03/2018. FINDINGS: LOWER THORAX: Unremarkable. LIVER: Decreased signal intensity of the liver on opposed phase imaging, consistent with hepatic steatosis. Decreased size of the hepatocellular carcinoma in segment IV from 7.6 x 8.3 cm to 6.9 x 7.6 cm after chemoembolization. 6.7 x 3.3 cm area of residual disease along the left aspect of the treatment cavity with arterial enhancement, washout, and capsule. Wedge-shaped arterial enhancement in segment IV peripheral to the mass, likely posttreatment perfusional change. Few scattered subcentimeter arterially enhancing foci in the liver without corresponding T2 signal abnormality, washout, or capsule. BILIARY: Prior cholecystectomy. No biliary ductal dilatation or filling defect. SPLEEN: No splenomegaly. PANCREAS: No focal masses or ductal dilatation. ADRENALS: No adrenal nodules. KIDNEYS/URETERS: No hydronephrosis or solid mass lesions. PERITONEUM/RETROPERITONEUM: No free fluid. LYMPH NODES: No lymphadenopathy. VESSELS: Unremarkable. GI TRACT: No distention or wall thickening. BONES AND SOFT TISSUES: Unremarkable. IMPRESSION: Hepatic steatosis. Residual disease in the recently treated hepatocellular carcinoma in segment IV. No new suspicious hepatic lesion. Subcentimeter arterially enhancing foci in the liver are indeterminate and may be shunts. Signed: Tasha Camarena MD Report Verified Date/Time:07/21/2018 09:17:50 Reading Location: [address] Ultrasound Reading Room Procedure Note Interface, External Ris In - 07/21/2018 9:20 AM CDT FINAL REPORT TECHNIQUE: MRI of the abdomen WITHOUT and WITH intravenous contrast. INDICATION: 53-year-old woman with hepatocellular carcinoma. COMPARISON: Abdomen MRI 05/03/2018. FINDINGS: LOWER THORAX: Unremarkable. LIVER: Decreased signal intensity of the liver on opposed phase imaging, consistent with hepatic steatosis. Decreased size of the hepatocellular carcinoma in segment IV from 7.6 x 8.3 cm to 6.9 x 7.6 cm after chemoembolization. 6.7 x 3.3 cm area of residual disease along the left aspect of the treatment cavity with arterial enhancement, washout, and capsule. Wedge-shaped arterial enhancement in segment IV peripheral to the mass, likely posttreatment perfusional change. Few scattered subcentimeter arterially enhancing foci in the liver without corresponding T2 signal abnormality, washout, or capsule. BILIARY: Prior cholecystectomy. No biliary ductal dilatation or filling defect. SPLEEN: No splenomegaly. PANCREAS: No focal masses or ductal dilatation. ADRENALS: No adrenal nodules. KIDNEYS/URETERS: No hydronephrosis or solid mass lesions. PERITONEUM/RETROPERITONEUM: No free fluid. LYMPH NODES: No lymphadenopathy. VESSELS: Unremarkable. GI TRACT: No distention or wall thickening. BONES AND SOFT TISSUES: Unremarkable. IMPRESSION: Hepatic steatosis. Residual disease in the recently treated hepatocellular carcinoma in segment IV. No new suspicious hepatic lesion. Subcentimeter arterially enhancing foci in the liver are indeterminate and may be shunts. Signed: Tasha Camarena MD Report Verified Date/Time: 07/21/2018 09:17:50 Reading Location: [address] Ultrasound Reading Room Performing Organization Address City/State/Zipcode Phone Number [facility] * POC-Creatinine (07/19/2018 8:32 AM CDT) Only the most recent of 2 results within the time period is included. POC-Creatinine 0.4 (L)Comment: TESTED AT 0.6 - 1.3 mg/dL [facility] [address] [facility] [address] POC-EGFR 167 mL/min/1.73M2 [facility] Specimen Blood Performing Organization Address City/State/Zipcode Phone Number [facility] [address] [place] [address] [facility] * POCT , urine (06/07/2018 7:38 AM CDT) Test Urine, POC Negative Control line present?, Yes POC Background clear?, POC Yes UPT Cassette Lot #, POC [id number] UPT Cassette Expiration Date, POC Specimen Urine * Hepatic function panel (06/07/2018 7:14 AM CDT) Only the most recent of 2 results within the time period is included. Protein, Total 6.8 6.0 - 8.3 gm/dL [facility] Albumin 3.6 3.5 - 5.0 g/dL [facility] Total Bilirubin 0.5 0.2 - 1.2 mg/dL [facility] Bilirubin, Direct 0.2 0.1 - 0.5 mg/dL [facility] Alkaline Phosphatase 102 40 - 150 U/L [facility] AST 19 5 - 34 U/L [facility] ALT 19 6 - 55 U/L [facility] Specimen Blood Performing Organization Address City/State/Zipcode Phone Number [facility] [address] [place] [address] MED[facility]ENTER * Basic Metabolic Panel (06/07/2018 7:14 AM CDT) Only the most recent of 3 results within the time period is included. Sodium 139 136 - 145 meq/L [facility] Potassium 4.2 3.5 - 5.1 meq/L [facility] Chloride 105 98 - 107 meq/L [facility] CO2 29 22 - 29 meq/L [facility] BUN 23 (H) 7 - 21 mg/dL [facility] Creatinine 0.63 0.57 - 1.25 mg/dL [facility] Glucose 172 (H) 70 - 105 mg/dL [facility] Calcium 9.3 8.4 - 10.2 mg/dL [facility] EGFR 99Comment: ESTIMATED GFR IS mL/min/1.73 sq m [facility] NOT ACCURATE CREATININE [facility] CLEARANCE IN PREDICTING GLOMERULAR FILTRATION RATE. ESTIMATED GFR IS NOT APPLICABLE FOR DIALYSIS PATIENTS. Specimen Blood Performing Organization Address City/State/Zipcode Phone Number [facility] [address] [place] [address] [facility] * REPORT OF PROCEDURE - ENDOSCOPY URL (04/21/2018 10:51 AM [employer]) Narrative Performed At * Tissue Exam (04/06/2018 2:08 PM [employer]) Case Report Surgical Pathology [facility] Report [facility] Case: [id number] Authorizing Provider:Percy Alcaraz MDCollected: Ordering Location: [facility] Radiology AngioReceived: 03/31/2018 1618 Pathologist: Perla Alexander MD Specimen:Liver, mass ADDENDUM The addendum is created to [facility] report the result of PAS-D and [facility] PAD. The PAS shows diffuse positivity for glycogen In tumor cells and swollen hepatocytes and PAS-D shows the glycogen negative in hepatocytes. Corrected diagnosis -HEPATOCELLULAR CARCINOMA, WELL DIFFERENTIATED SJ/ew 11013 x2 DIAGNOSIS LIVER, MASS, TARGETED CORE [facility] BIOPSY: [facility] - HEPATOCELLULAR CARCINOMA WELL DIFFERENTIATED, STEATOHEAPTITIC TYPE SJ/pl Signing Pathologist Direct Phone Line: [phone] COMMENT Clinician Notified; Dr. Alcaraz [facility] was notified By secure [facility] email on 04/04/2018 @ 11:07 am CPT Code(s) 36372 x1; 05124 x1; 67640 x1; [facility] [address]09 x 4 [facility] CLINICAL HISTORY Liver mass 7.6 x 8.0 x 8 cm [facility] SPECIMEN SOURCE Liver mass biopsy [facility] GROSS DESCRIPTION The specimen is received in a [facility] formalin-filled container [facility] labeled with the patient's information and labeled "liver mass biopsy" and consists of six mccartney core biopsies ranging in length from 0.5 to 0.8 cm, submitted entirely in A1. CG/ew MICROSCOPIC DESCRIPTION Multiple liver cores shows [facility] disrupted parenchymal [facility] architecture with no portal traids identified (CK7 immunostain) and few core show necrosis with fibrosis and hemosiderin laden macrophages. The viable parenchyma show with multiple naked arterioles randomly located in the hepatic parenchyma with hepatocytes showing frequent ballooned hepatocytes and associated Zulma hyaline and focal chronic inflammation. On reticulin stain, some of the areas shows thickened trabeculae. CD34 immunostain shows capillarization of sinusoids with focal thickened trabeculae. All the hepatocytes stained diffusely cytoplasmic and focal membranous positive with Glypican supporting the diagnosis of hepatocellular carcinoma. Beta Catenin immunostain is negative (no nuclear staining). SPECIAL STUDIES The interpretation of this [facility] case included the use of [facility] immunohistochemistry or special stains. Immunohistochemistry technical testing was performed at [facility] where it was developed and its performance characteristics were determined. It has not been cleared or approved by the U.S. Food and Drug Administration. The FDA has determined that such clearance or approval is not necessary. The test is used for clinical purposes. It should not be regarded as investigational or for research. This laboratory is certified under the Clinical Laboratory Improvement Amendments of 1988 (CLIA-88) as qualified to perform high complexity clinical laboratory testing. Specimen Tissue Performing Organization Address City/State/Zipcode Phone Number [facility] [address] [place] [address] [facility] * liver biopsy (03/31/2018 10:30 AM [employer] TE[employer]ALITY) Specimen Narrative Performed At FINAL REPORT [employer] PROCEDURE: Ultrasound-guided liver mass biopsy. INDICATION: 53-year-old woman with liver mass. COMPARISON: Abdomen MRI 02/04/2018. SEDATION: Intravenous moderate sedation was administered by radiology nursing and monitored under the direction of the undersigned radiologist. The patient's vital signs were monitored throughout the procedure and recorded in the patient's medical record by radiology nursing. Total intraservice time of sedation was 15 minutes. MEDICATIONS: 1 mg Versed, 50 mcg fentanyl FINDINGS: After obtaining informed written consent, the patient was placed in the supine position, and ultrasound scan identified an accessible window to the 7.6 x 8 x 8 cm mass in the left hepatic lobe. The overlying skin was prepped and draped in the usual, sterile fashion and local 1% lidocaine anesthesia was administered. Three core biopsies of the liver were obtained using 18-gauge Biopince biopsy needle under ultrasound guidance. Post procedure scans revealed no immediate complications. IMPRESSION: Uncomplicated ultrasound-guided biopsy of left liver mass. Signed: Tasha Camarena MD Report Verified Date/Time:03/31/2018 12:36:32 Reading Location: [address] Ultrasound Reading Room Procedure Note Interface, External Ris In - 03/31/2018 12:38 PM [employer]OTH TE[employer] FINAL REPORT PROCEDURE: Ultrasound-guided liver mass biopsy. INDICATION: 53-year-old woman with liver mass. COMPARISON: Abdomen MRI 02/04/2018. SEDATION: Intravenous moderate sedation was administered by radiology nursing and monitored under the direction of the undersigned radiologist. The patient's vital signs were monitored throughout the procedure and recorded in the patient's medical record by radiology nursing. Total intraservice time of sedation was 15 minutes. MEDICATIONS: 1 mg Versed, 50 mcg fentanyl FINDINGS: After obtaining informed written consent, the patient was placed in the supine position, and ultrasound scan identified an accessible window to the 7.6 x 8 x 8 cm mass in the left hepatic lobe. The overlying skin was prepped and draped in the usual, sterile fashion and local 1% lidocaine anesthesia was administered. Three core biopsies of the liver were obtained using 18-gauge Biopince biopsy needle under ultrasound guidance. Post procedure scans revealed no immediate complications. IMPRESSION: Uncomplicated ultrasound-guided biopsy of left liver mass. Signed: Tasha Camarena MD Report Verified Date/Time: 03/31/2018 12:36:32 Reading Location: [address] Ultrasound Reading Room Performing Organization Address City/State/Zipcode Phone Number [facility] * PT/aPTT (03/31/2018 6:44 AM CLOTH TESTER QUALITY) Protime 12.7 11.7 - 14.7 seconds [facility] INR 0.9 <=5.9 [facility] PTT 27.0 22.5 - 36.0 seconds [facility] Specimen Blood Narrative Performed At RECOMMENDED COUMADIN/WARFARIN INR THERAPY RANGES [facility] STANDARD DOSE: 2.0 - 3.0 Includes: PROPHYLAXIS for venous thrombosis, [facility] systemic embolization; TREATMENT for venous thrombosis and/or pulmonary embolus. HIGH RISK: Target INR is 2.5-3.5 for patients with mechanical heart valves. Performing Organization Address City/State/Zipcode Phone Number [facility] [address] [place] [address] [facility] * NM bone scan whole body (03/28/2018 1:20 PM CLOTH TESTER QUALITY) Specimen Narrative Performed At FINAL REPORT [facility] PROCEDURE: BONE SCAN, WHOLE BODY CPT CODE:[id number] INDICATION:History of liver mass, evaluation for metastatic disease PROTOCOL:21.7 cm mCi of Tc-99m MDP was injected intravenously. Whole body and selected spot images were obtained approximately 3 hours later. FINDINGS: Increased radiotracer uptake in the ankles and right knee. There is minor increase in the spine at the costovertebral junctions. Otherwise, radiotracer uptake is physiologic. IMPRESSION: 1.No typical pattern of osseous metastasis. 2.Degenerative changes of the ankles and right knee. Images for comparison/correlation were chest CT March 28, 2018. Signed: Hossein Antonio MD Report Verified Date/Time:03/28/2018 13:46:27 Reading Location: [address] Reading Room Procedure Note Interface, External Ris In - 03/28/2018 1:48 PM [employer] TE[employer] FINAL REPORT PROCEDURE: BONE SCAN, WHOLE BODY CPT CODE: [id number] INDICATION: History of liver mass, evaluation for metastatic disease PROTOCOL: 21.7 cm mCi of Tc-99m MDP was injected intravenously. Whole body and selected spot images were obtained approximately 3 hours later. FINDINGS: Increased radiotracer uptake in the ankles and right knee. There is minor increase in the spine at the costovertebral junctions. Otherwise, radiotracer uptake is physiologic. IMPRESSION: 1.No typical pattern of osseous metastasis. 2.Degenerative changes of the ankles and right knee. Images for comparison/correlation were chest CT March 28, 2018. Signed: Hossein Antonio MD Report Verified Date/Time: 03/28/2018 13:46:27 Reading Location: [address] [address] Reading Room Performing Organization Address City/State/Zipcode Phone Number [facility] * CT chest without contrast (03/28/2018 8:13 AM CLOTH TESTER QUALITY) Specimen Narrative Performed At FINAL REPORT [employer] [facility] TECHNIQUE: CT scan of the chest WITHOUT intravenous contrast. Dose modulation, iterative reconstruction, and/or weight-based adjustment of the mA/kV was utilized to reduce the radiation dose to as low as reasonably achievable. INDICATION: Liver mass COMPARISON: MRI of the abdomen from 02/04/2018. CT of the abdomen from 12/31/2027. FINDINGS: ABSENCE OF INTRAVENOUS CONTRAST DECREASES SENSITIVITY FOR DETECTION OF FOCAL LESIONS AND VASCULAR PATHOLOGY. LINES/TUBES: None. LUNGS AND AIRWAYS: Subcentimeter calcified granuloma in the right lower lobe. A linear and branching density in the left upper lobe on coronal image 99 measures 8 mm. There may be some intermixed groundglass opacity with this nodule. Additional branching in the left upper lobe measures 9 mm on coronal image 94. There may be some intermixed groundglass opacity with this nodule. A linear density on coronal image 102 measures 5 mm. A left upper lobe nodule on coronal image 81 measures 4 mm. PLEURA: The pleural spaces are clear. HEART AND MEDIASTINUM: The visualized thyroid gland is normal. No significant mediastinal, hilar, or axillary lymphadenopathy. Calcified lymph nodes in the right hilum. The heart and pericardium are within normal limits. Minimal coronary arterial calcifications. SOFT TISSUES AND BONES: Unremarkable. UPPER ABDOMEN: A heterogeneous intrinsic hyperdense liver mass measures 8.4 cm with an area of central hypoattenuation. This is unchanged in size. Prior cholecystectomy. The spleen measures 12.6 cm in length. IMPRESSION: 1.No definite metastatic disease in the chest. 2.The nodules in the lungs do not have a typical pattern or appearance for metastatic disease. The largest nodules measure up to 9 mm and are mainly linear with some groundglass opacity. This may be scar but is indeterminate, and a follow-up chest CT is recommended in 3-6 months to document stability and exclude neoplasm. 3.The largest solid pulmonary nodule measures 4 mm in the left upper lobe. This can be followed up at the same time as the more linear nodules. 4.The 8.4 cm liver mass is unchanged. Signed: Aftab Collins MD Report Verified Date/Time:03/28/2018 08:36:42 Reading Location: [facility] Diagnostic Imaging Reading Room - [place] [id number] Procedure Note Interface, External Ris In - 03/28/2018 8:38 AM CLOTH TE[employer] QUAL[employer] FINAL REPORT TECHNIQUE: CT scan of the chest WITHOUT intravenous contrast. Dose modulation, iterative reconstruction, and/or weight-based adjustment of the mA/kV was utilized to reduce the radiation dose to as low as reasonably achievable. INDICATION: Liver mass COMPARISON: MRI of the abdomen from 02/04/2018. CT of the abdomen from 12/31/2027. FINDINGS: ABSENCE OF INTRAVENOUS CONTRAST DECREASES SENSITIVITY FOR DETECTION OF FOCAL LESIONS AND VASCULAR PATHOLOGY. LINES/TUBES: None. LUNGS AND AIRWAYS: Subcentimeter calcified granuloma in the right lower lobe. A linear and branching density in the left upper lobe on coronal image 99 measures 8 mm. There may be some intermixed groundglass opacity with this nodule. Additional branching in the left upper lobe measures 9 mm on coronal image 94. There may be some intermixed groundglass opacity with this nodule. A linear density on coronal image 102 measures 5 mm. A left upper lobe nodule on coronal image 81 measures 4 mm. PLEURA: The pleural spaces are clear. HEART AND MEDIASTINUM: The visualized thyroid gland is normal. No significant mediastinal, hilar, or axillary lymphadenopathy. Calcified lymph nodes in the right hilum. The heart and pericardium are within normal limits. Minimal coronary arterial calcifications. SOFT TISSUES AND BONES: Unremarkable. UPPER ABDOMEN: A heterogeneous intrinsic hyperdense liver mass measures 8.4 cm with an area of central hypoattenuation. This is unchanged in size. Prior cholecystectomy. The spleen measures 12.6 cm in length. IMPRESSION: 1.No definite metastatic disease in the chest. 2.The nodules in the lungs do not have a typical pattern or appearance for metastatic disease. The largest nodules measure up to 9 mm and are mainly linear with some groundglass opacity. This may be scar but is indeterminate, and a follow-up chest CT is recommended in 3-6 months to document stability and exclude neoplasm. 3.The largest solid pulmonary nodule measures 4 mm in the left upper lobe. This can be followed up at the same time as the more linear nodules. 4.The 8.4 cm liver mass is unchanged. Signed: Aftab Collins MD Report Verified Date/Time: 03/28/2018 08:36:42 Reading Location: [facility] Diagnostic Imaging Reading Room - [place] [address] Performing Organization Address City/[facility] Phone Number [facility] * Carbohydrate antigen 19-9 (CA 19-9) (03/21/2018 11:10 AM CLOTH TESTER QUALITY) CA 19-9 48 (H) <34 U/mL [facility] Comment: INCORPORATED This test was performed using the Siemens ([employer]) Chemiluminescent method. Values obtained from different assay methods cannot be used interchangeably. CA19-9 levels, regardless of value, should not be interpreted as absolute evidence of the presence or absence of disease. Specimen Blood Narrative Performed At Performing Lab [facility] [employer] [address] [place] [id number] Guadalupe Bobby MD, PhD, BERYL Performing Organization Address [facility] Phone Number [employer] [place], [address] [facility] [address] * Hepatitis B core antibody, total (03/21/2018 11:10 AM CLOTH TESTER QUALITY) Hep B Core Total Ab Nonreactive Nonreactive [facility] Specimen Blood Performing Organization Address [facility] Phone Number [address] [address] [facility] * Hepatitis B surface antibody (03/21/2018 11:10 AM CLOTH TESTER QUALITY) Only the most recent of 2 results within the time period is included. Hep B S Ab <8.0 <8.0 mIU/mL [facility] Specimen Blood Performing Organization Address [facility] Phone Number [address] [address] [facility] * Hepatitis B surface antigen (03/21/2018 11:10 AM CLOTH TE[employer] QUAL[employer]) hepatitis B Surface Ag Nonreactive Nonreactive [facility] Specimen Blood Performing Organization Address [facility] Phone Number [address] * Cancer Antigen 125 (CA 125) (03/21/2018 11:10 AM CLOTH TE[employer] QUALITY) CA 125 18 <35 U/mL [facility] Comment: INCORPORATED This test was performed using the [place] Chemiluminescent method. Values obtained from different assay methods cannot be used interchangeably. CA 125 levels, regardless of value, should not be interpreted as absolute evidence of the presence or absence of disease. Specimen Blood Narrative Performed At Performing Lab [facility] [employer] [place] [id number] I Diamante GROVE, PhD, BERYL Performing Organization Address [facility] Phone Number [facility], [address] [place] [id number] * Carcinoembryonic Antigen (CEA) (03/21/2018 11:10 AM CLOTH TE[employer]AL[employer]) CEA, SERUM 2.2 0.0 - 5.0 ng/mL [facility] Specimen Blood Performing Organization Address [facility] Phone Number [address] * Hepatitis A antibody, IgG (01/26/2018 12:28 PM [employer] TE[employer]AL[employer]) Hep A IgG Reactive (A) Nonreactive [facility] Specimen Blood Performing Organization Address [facility] Phone Number [address] * Iron, TIBC, % sat. (without ferritin) (01/26/2018 12:28 PM [employer] TE[employer]AL[employer]) Iron 85 40 - 160 ug/dL [facility] TIBC 250 250 - 450 ug/dL [facility] Iron % Saturation 34 20 - 55 % [facility] Specimen Blood Performing Organization Address City/[facility]/Zipcode Phone Number [address] [address] [facility] * Hepatitis C antibody (01/26/2018 12:28 PM [employer] TE[employer]AL[employer]) Hepatitis C Ab Nonreactive Nonreactive [facility] Specimen Blood Performing Organization Address City/[facility] Phone Number [address] [address] [facility] * Alpha fetoprotein (AFP), tumor marker (01/26/2018 12:28 PM [employer] TE[employer]) Alpha-Fetoprotein 7.9 <10.0 ng/mL [facility] Specimen Blood Performing Organization Address [facility] Phone Number [address] [address] [facility] * Ferritin (01/26/2018 12:28 PM CL[employer] TE[employer]AL[employer]) Ferritin 553 (H) 5 - 275 ng/mL [facility] Specimen Blood Performing Organization Address [facility] Phone Number [address] [address] [phone] [place] [address] after 09/19/2017 Insurance Payer Benefit Subscriber ID Type Phone Address Plan / Group [employer] xxxxxxxxxx [employer] EXCHANGE Advance Directives For more information, please contact: [address] [address] Date Inactivated Comments Code Status Date Activated 08/25/2018 11:37 PM Full Code 08/25/2018 3:10 PM This code status was determined by: Patient 06/07/2018 6:32 PM Full Code 06/07/2018 11:47 AM This code status was determined by: Patient 04/21/2018 8:15 AM Full Code 03/31/2018 10:59 AM This code status was determined by: Patient
--- OUTSIDE RECORDS SUMMARY | 2018-09-20 10:32 | XMS REPORT ---
[facility] Address Unknown Phone Unavailable Care Team Providers Care Hrbp Name Role Phone JACIEL PEREZ Unavailable Unavailable Ava CABALLERO Unavailable Unavailable Cinthya GALEANO Unavailable Unavailable TOMMIE POWELL Unavailable Unavailable Problems This patient has no known problems. Allergies, Adverse Reactions, Alerts This patient has no known allergies or adverse reactions. Medications This patient has no known medications. Results Test Description Test Time Test Comments Text Results Atomic Results Result Comments BLOOD CULTURE 2018-09-08 02:01:00 CULTURE (BEAKER) (test lxum=9718) No growth in 5 days BLOOD [id number] 02:01:00* Test Item Value Reference Range Comments CULTURE (BEAKER) (test lwbo=3611) No growth in 5 days URINALYSIS WITH MICROSCOPIC IF [id number] 00:18:00* Test Item Value Reference Range Comments COLOR (BEAKER) (test llkx=233) Light Yellow CLARITY (BEAKER) (test pizd=435) Hazy SPECIFIC GRAVITY UA (BEAKER) (test cfwu=598) 1.007 1.001-1.035 PH UA (BEAKER) (test sonb=205) 6.5 5.0-8.0 PROTEIN UA (BEAKER) (test opno=030) Negative Negative GLUCOSE UA (BEAKER) (test oevr=915) 70 mg/dL Negative KETONES UA (BEAKER) (test prwd=122) Negative Negative BILIRUBIN UA (BEAKER) (test fnpk=978) Negative Negative BLOOD UA (BEAKER) (test mzpu=014) Negative Negative NITRITE UA (BEAKER) (test ikgz=640) Positive Negative LEUKOCYTE ESTERASE UA (BEAKER) (test njtf=762) Small Negative UROBILINOGEN UA (BEAKER) (test bugu=589) 0.2 mg/dL 0.2-1.0 SOURCE(BEAKER) (test qlev=2381) URINALYSIS [id number] 00:02:00* Test Item Value Reference Range Comments RBC UA (BEAKER) (test inqx=377) 0 /HPF WBC UA (BEAKER) (test ojud=867) 2 /HPF BACTERIA (BEAKER) (test irxn=505) Many SQUAMOUS EPITHELIAL (BEAKER) (test qnmh=249) 1 /HPF CT, [id number] 23:13:00Referring: Dr. Elva Poe for exam:->LEG PAINReason for exam:->ABDOMINAL PAINReason for exam:->BLOATEDIs the patient ?->NoWhat is the patient's sedation requirement?->No SedationFINAL REPORT EXAMINATION: CT SCAN OF THE ABDOMEN AND PELVIS CLINICAL HISTORY:Abdominal pain, distention. Hepatocellular carcinoma with recent chemoembolization. COMPARISON EXAM: Angiogram 08/25/2018, abdominal MRI TECHNIQUE: Following the administration of IV contrast, axial tomograph ic images were acquired through the abdomen and pelvis. The exam was performed a ccording to our departmental dose optimization program which includes automated exposure control, adjustment of the mA and/or kV according to patient's size and /or use of iterative reconstructive technique. FINDINGS: The heart is borderlin e enlarged. No evidence of a pericardial or pleural effusion. A a tiny granuloma is noted at the right lung base. The distal esophagus is decompressed. A mass is again noted in the left lobe of the liver which measures approximately 8 cm, s imilar to the recent MRI examination. The mass is predominantly hypodense with s ubtle peripheral rim enhancement. Multiple new punctate gas collections are note d within the mass which may reflect post embolization change with associated nec rosis. Superimposed infection cannot be completely excluded. The gallbladder is absent. No evidence of pathologic biliary dilatation. The adrenal glands are n ormal in size and shape. The spleen is normal in size measuring 11.5 cm. The torres creas is atrophic with fatty infiltration. The fatty infiltration limits evaluat ion for early pancreatitis. Recommend clinical correlation. No evidence of renal obstruction, nephrolithiasis or perinephric edema. The ureters are decompressed. The stomach is mildly distended with fluid, nonspecific. The loops of small robbie wel are normal in caliber. The appendix is unremarkable. A a moderate to large v olume of inspissated stool is noted throughout the colon suggesting a degree of dysmotility/constipation. Further characterization the bowel is limited by the a bsence of enteric contrast. However, no evidence of high-grade mechanical bowel obstruction, pneumatosis or pneumoperitoneum. The abdominal aorta is normal in c aliber. Contrast also opacifies the portal venous system, mesenteric vessels, re nal vessels, iliac arteries and the visualized femoral arteries. Evaluation of t he IVC, iliac veins and femoral veins is limited by the timing of the contrast b olus. The uterus and adnexa are unremarkable. The bladder demonstrates mild wall thickening, nonspecific but can be associated with a cystitis. No significant i ntra-abdominal or pelvic free fluid. Grade 1-2 anterolisthesis of L5 relative to S1 is again noted with associated bilateral L5 spondylolysis. No evidence of an acute osseous abnormality. IMPRESSION: Redemonstrated liver mass with new punc hoffman gas collections which are suggestive of post embolization change with assoc iated necrosis. Superimposed infection cannot be excluded. Recommend clinical co rrelation. Mild bladder wall thickening, possible cystitis. Urinalysis correlati on recommended. Signed: John Dee MDReport Verified Date/Time: 09/02/2018 23 :13:27 Reading Location: [address] Reading Room Electronicall y signed by: JOHN DEE M.D. on 09/02/2018 11:13 PM TROPONIN [id number] 21:21:00* Test Item Value Reference Range Comments TROPONIN I (BEAKER) (test hskn=931) < ng/mL 0.00-0.03 Troponin I (TnI) levels must be interpreted in the context of the presenting sym ptoms and the clinical findings. Elevated TnI levels indicate myocardial damage, but are not specific for ischemic heart disease. Elevated TnI levels are seen in patients with other cardiac conditions (including myocarditis and congestive h eart failure), and slight TnI elevations occur in patients with other conditions , including sepsis, renal failure, acidosis, acute neurological disease, and per sistent tachyarrhythmia.[id number] 21:16:00* Test Item Value Reference Range Comments MAGNESIUM (BEAKER) (test oeye=019) 2.1 mg/dL 1.6-2.6 Specimen moderately hemolyzed COMPREHENSIVE METABOLIC [id number] 21:16:00* Test Item Value Reference Range Comments TOTAL PROTEIN (BEAKER) (test fysr=027) 8.2 gm/dL 6.0-8.3 Specimen moderately hemolyzed ALBUMIN (BEAKER) (test gxux=6094) 3.7 g/dL 3.5-5.0 Specimen moderately hemolyzed ALKALINE PHOSPHATASE (BEAKER) (test rkcu=049) 136 U/L 40-150 BILIRUBIN TOTAL (BEAKER) (test tdtr=317) 0.4 mg/dL 0.2-1.2 Specimen moderately hemolyzed SODIUM (BEAKER) (test cmgb=984) 133 meq/L 136-145 POTASSIUM (BEAKER) (test fsuw=226) 4.9 meq/L 3.5-5.1 Specimen moderately hemolyzed CHLORIDE (BEAKER) (test nkug=119) 99 meq/L 98-107 CO2 (BEAKER) (test qfyd=581) 27 meq/L 22-29 BLOOD UREA NITROGEN (BEAKER) (test sexy=898) 19 mg/dL 7-21 CREATININE (BEAKER) (test gfem=123) 0.73 mg/dL 0.57-1.25 Specimen moderately hemolyzed GLUCOSE RANDOM (BEAKER) (test vebh=932) 239 mg/dL 70-105 CALCIUM (BEAKER) (test bnlv=573) 9.9 mg/dL 8.4-10.2 AST (SGOT) (BEAKER) (test rwuw=669) 30 U/L 5-34 Specimen moderately hemolyzed ALT (SGPT) (BEAKER) (test xbwo=161) 20 U/L 6-55 Specimen moderately hemolyzed EGFR (BEAKER) (test bfuk=9715) 83 mL/min/1.73 sq m ESTIMATED GFR IS NOT ACCURATE CREATININE CLEARANCE IN PREDICTING GLOMERULAR FILTRATION RATE. ESTIMATED GFR IS NOT APPLICABLE FOR DIALYSIS PATIENTS. [id number] 21:16:00* Test Item Value Reference Range Comments LIPASE (BEAKER) (test gwad=773) 38 U/L 8-78 CBC W/PLT COUNT & AUTO [id number] 20:55:00* Test Item Value Reference Range Comments WHITE BLOOD CELL COUNT (BEAKER) (test ypsh=647) 11.8 K/ L 3.5-10.5 RED BLOOD CELL COUNT (BEAKER) (test hcfu=463) 4.94 M/ L 3.93-5.22 HEMOGLOBIN (BEAKER) (test mapx=562) 14.9 GM/DL 11.2-15.7 HEMATOCRIT (BEAKER) (test scne=037) 44.4 % 34.1-44.9 MEAN CORPUSCULAR VOLUME (BEAKER) (test dtza=149) 89.9 fL 79.4-94.8 MEAN CORPUSCULAR HEMOGLOBIN (BEAKER) (test wrgz=194) 30.2 pg 25.6-32.2 MEAN CORPUSCULAR HEMOGLOBIN CONC (BEAKER) (test hotu=424) 33.6 GM/DL 32.2-35.5 RED CELL DISTRIBUTION WIDTH (BEAKER) (test cxlg=687) 13.0 % 11.7-14.4 PLATELET COUNT (BEAKER) (test awgn=967) 263 K/CU MM 150-450 MEAN PLATELET VOLUME (BEAKER) (test aesb=769) 10.9 fL 9.4-12.3 NUCLEATED RED BLOOD CELLS (BEAKER) (test xuaz=935) 0 /100 WBC 0-0 NEUTROPHILS RELATIVE PERCENT (BEAKER) (test vnlm=966) 65 % LYMPHOCYTES RELATIVE PERCENT (BEAKER) (test elll=023) 24 % MONOCYTES RELATIVE PERCENT (BEAKER) (test tdwm=492) 9 % EOSINOPHILS RELATIVE PERCENT (BEAKER) (test kjxd=677) 2 % BASOPHILS RELATIVE PERCENT (BEAKER) (test vkdj=176) 1 % NEUTROPHILS ABSOLUTE COUNT (BEAKER) (test yjqc=997) 7.66 K/ L 1.56-6.13 LYMPHOCYTES ABSOLUTE COUNT (BEAKER) (test nfis=949) 2.78 K/ L 1.18-3.74 MONOCYTES ABSOLUTE COUNT (BEAKER) (test hjyl=029) 1.00 K/ L 0.24-0.36 EOSINOPHILS ABSOLUTE COUNT (BEAKER) (test zgpd=300) 0.21 K/ L 0.04-0.36 BASOPHILS ABSOLUTE COUNT (BEAKER) (test hqvc=766) 0.06 K/ L 0.01-0.08 IMMATURE GRANULOCYTES-RELATIVE PERCENT (BEAKER) (test txvz=5911) 0 % 0-1 RAD, CHEST, 1 VIEW, NON [id number] 20:10:00Referring: Dr. Elva Poe for exam:->chest painIs the patient ?->UnknownShould this be performed at the bedside?->YesFINAL REPORT Clinical History: chest pain Comparison Study: None Findings: The heart and lungs are within normal limits. The pleural spaces are clear. There is no pneumothorax. No significant bony or soft tissue abnormalities are seen. Impression: No active cardiopulmonary disease. Signed: Gregory Israel MDReport Verified Date/Time: 09/02/2018 20:10:00 Reading Location: [facility] C013W Consult Reading Room , EMBOLIZATION, EXTENSIVE - [id number] 10:17:00Referring: Dr. Elva Alvaradoirrparul with HCC - TACEReason for Exam:->Cirrhosis with HCCFINAL REPORT Mesenteric angiogram and chemoembolization, 08/25/2018. History: Cirrhosis, HCC. Modality: Fluoroscopy. Sedation: Versed 1.5 mg and fentanyl 75 mcg was given intravenously for conscious sedation. Vital signs were monitored throughout the procedure by a nurse, and remained stable. Physician intra- service time was 40 minutes. Anesthesia: Two percent Lidocaine without e pinephrine. Approach: Right com mon femoral artery. Estimated blood loss: < 5 cc. Specimen: None. pool table operator: Lori. Telecom Billing Analyst: Asa. Fluoroscopy Time: 18.9 min. Dose (Ka,r): [...] and a 0.035 inch J-wire. A 5 Slovenian sheath was placed. Diagnostic mesenteric angiogram was performed to access vessel patency and exclude arterio-portal shunting. A 5 Slovenian Rubio catheter which was used to select the celiac trunk for DSA runs. A 3 Slovenian microcatheter was advanced coaxially through the Rubio catheter for selection of the left and middle hepatic arteries for DSA runs, which demonstrates that the lesion is amenable fo r treatment. The microcatheter was used to subselect the distal middle hepatic a rtery which supplies the lateral aspect of the lesion. 50 mg of doxorubicin load ed on Oncozene beads was administered followed by one half vial of 100-300 um em bospheres. Followup DSA injections were performed. The Rubio catheter was exchan ged for a reverse 2.5 Rubio catheter which was used to subselect the left gastro hepatic branch. The microcatheter was advanced to the distal aspect of the left hepatic artery which supplies the medial aspect of the lesion. 50 mg of doxorub icin loaded on Oncozene beads was administered followed by one half vial of 100- 300 um embospheres. Followup DSA injections were performed. The catheter was re moved. Injection was performed through the right femoral sheath for a DSA run. T he arteriotomy was closed and hemostasis was obtained with a Mynx closure device . Vital signs were monitored throughout the procedure by a nurse, and remained s table. The patient tolerated the procedure well and left the department in the same condition. FINDINGS: 1. Celiac injection: The splenic artery, common hepatic artery, left gastrohepatic artery, and gastroduodenal artery are patent. The splenic and portal vein are patent. 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 2. Middle and left hepatic artery injecti ons: The left hepatic hypervascular lesion has a dual blood supply, from the dis juan aspect of the middle hepatic artery and left hepatic artery. Post embolizati on of these 2 branches, there is no further tumor enhancement with slow antegrad e flow in the supplying vessels.3. Right common femoral artery injection: Patent right femoral artery and normal sheath position. IMPRESSIO N: 1. Successful, uncomplicated mesenteric angiogram and middle and left hepati c chemo-embolization, performed with conscious sedation.2. Successful hemostasis using closure device. Signed: Warren Sandoval Verified Date/Time: 08/07 10:17:48 Reading Location: [facility] P048 Angio Body Reading Room Electr onically signed by: WARREN SANDOVAL M.D. on 08/26/2018 10:17 AM POCT-GLUCOSE [id number] 15:44:00* Test Item Value Reference Range Comments POC-GLUCOSE METER (BEAKER) (test fibm=4683) 210 mg/dL 70-110 TESTED AT [facility] [address] [facility] [address] COMPREHENSIVE METABOLIC [id number] 10:06:00* Test Item Value Reference Range Comments TOTAL PROTEIN (BEAKER) (test arpf=060) 7.4 gm/dL 6.0-8.3 ALBUMIN (BEAKER) (test oznn=6098) 3.8 g/dL 3.5-5.0 ALKALINE PHOSPHATASE (BEAKER) (test rmjk=716) 106 U/L 40-150 BILIRUBIN TOTAL (BEAKER) (test qwym=582) 0.6 mg/dL 0.2-1.2 SODIUM (BEAKER) (test fjec=628) 136 meq/L 136-145 POTASSIUM (BEAKER) (test lgby=293) 4.0 meq/L 3.5-5.1 CHLORIDE (BEAKER) (test cljt=270) 102 meq/L 98-107 CO2 (BEAKER) (test ubdz=270) 27 meq/L 22-29 BLOOD UREA NITROGEN (BEAKER) (test lhow=970) 20 mg/dL 7-21 CREATININE (BEAKER) (test nhxy=481) 0.64 mg/dL 0.57-1.25 GLUCOSE RANDOM (BEAKER) (test wtct=185) 194 mg/dL 70-105 CALCIUM (BEAKER) (test gvyt=387) 9.3 mg/dL 8.4-10.2 AST (SGOT) (BEAKER) (test dzoa=441) 16 U/L 5-34 ALT (SGPT) (BEAKER) (test pube=373) 18 U/L 6-55 EGFR (BEAKER) (test nfwe=0528) 97 mL/min/1.73 sq m ESTIMATED GFR IS NOT ACCURATE CREATININE CLEARANCE IN PREDICTING GLOMERULAR FILTRATION RATE. ESTIMATED GFR IS NOT APPLICABLE FOR DIALYSIS PATIENTS. BILIRUBIN, [id number] 10:06:00* Test Item Value Reference Range Comments BILIRUBIN DIRECT (BEAKER) (test druo=338) 0.2 mg/dL 0.1-0.5 [id number] 09:55:00* Test Item Value Reference Range Comments PARTIAL THROMBOPLASTIN TIME (BEAKER) (test pfvp=494) 30.8 seconds 22.5-36.0 PROTHROMBIN TIME/[id number] 09:54:00* Test Item Value Reference Range Comments PROTIME (BEAKER) (test htss=814) 13.2 seconds 11.9-14.2 INR (BEAKER) (test lfoq=886) 1.1 <=5.9 Effective 08/03/2018: PT Reference Range ChangeNew: 11.9-14.2 Previous: 11.7-14. 7RECOMMENDED COUMADIN/WARFARIN INR THERAPY RANGESSTANDARD DOSE: 2.0-3.0 Include s: PROPHYLAXIS for venous thrombosis, systemic embolization; TREATMENT for venou s thrombosis and/or pulmonary embolus.HIGH RISK: Target INR is 2.5-3.5 for patie nts wiht mechanical heart valves. SCREEN, [id number] 09:48:00* Test Item Value Reference Range Comments TEST URINE (BEAKER) (test kotg=255) Negative CBC W/PLT COUNT & AUTO [id number] 09:43:00* Test Item Value Reference Range Comments WHITE BLOOD CELL COUNT (BEAKER) (test usvh=783) 9.3 K/ L 3.5-10.5 RED BLOOD CELL COUNT (BEAKER) (test cpcb=971) 4.79 M/ L 3.93-5.22 HEMOGLOBIN (BEAKER) (test kkuv=040) 14.3 GM/DL 11.2-15.7 HEMATOCRIT (BEAKER) (test yaip=147) 42.7 % 34.1-44.9 MEAN CORPUSCULAR VOLUME (BEAKER) (test dhxe=426) 89.1 fL 79.4-94.8 MEAN CORPUSCULAR HEMOGLOBIN (BEAKER) (test kxnp=804) 29.9 pg 25.6-32.2 MEAN CORPUSCULAR HEMOGLOBIN CONC (BEAKER) (test fvvg=759) 33.5 GM/DL 32.2-35.5 RED CELL DISTRIBUTION WIDTH (BEAKER) (test bauq=614) 13.4 % 11.7-14.4 PLATELET COUNT (BEAKER) (test jxzq=815) 215 K/CU MM 150-450 MEAN PLATELET VOLUME (BEAKER) (test qkfe=659) 11.2 fL 9.4-12.3 NUCLEATED RED BLOOD CELLS (BEAKER) (test mtnx=965) 0 /100 WBC 0-0 NEUTROPHILS RELATIVE PERCENT (BEAKER) (test temm=642) 61 % LYMPHOCYTES RELATIVE PERCENT (BEAKER) (test dwfm=821) 27 % MONOCYTES RELATIVE PERCENT (BEAKER) (test bogx=584) 9 % EOSINOPHILS RELATIVE PERCENT (BEAKER) (test aqvf=376) 2 % BASOPHILS RELATIVE PERCENT (BEAKER) (test toiv=475) 1 % NEUTROPHILS ABSOLUTE COUNT (BEAKER) (test leuh=947) 5.68 K/ L 1.56-6.13 LYMPHOCYTES ABSOLUTE COUNT (BEAKER) (test vcca=118) 2.50 K/ L 1.18-3.74 MONOCYTES ABSOLUTE COUNT (BEAKER) (test udpf=006) 0.80 K/ L 0.24-0.36 EOSINOPHILS ABSOLUTE COUNT (BEAKER) (test bfbt=206) 0.22 K/ L 0.04-0.36 BASOPHILS ABSOLUTE COUNT (BEAKER) (test deyi=091) 0.06 K/ L 0.01-0.08 IMMATURE GRANULOCYTES-RELATIVE PERCENT (BEAKER) (test ahoa=4854) 1 % 0-1 MR, ABDOMEN, WITHOUT / WITH IV [id number] 09:17:00Referring: Dr. Elva Cat REPORT TECHNIQUE: MRI of the abdomen WITHOUT [...] cavity with arterial enhancement, washout, and capsule. Wedge- shaped arterial enhancement in segment IV peripheral to the mass, likely posttreatment perfusional change. Few scattered subcentimeter arterially enhancing foci in the liver without corresponding T2 signal abnormality, washout, or capsule.BILIARY: Prior cholecystectomy. No biliary ductal dilatation or filling defect.SPLEEN: No splenomegaly.PANCREAS: No focal masses or ductal dilatation. ADRENALS: No adrenal nodules.KIDNEYS/URETERS: No hydronephrosis or solid mass lesions. PERITONEUM/RETROPERITONEUM: No free fluid.LYMPH NODES: No lymphadenopathy.VESSELS: Unremarkable. GI TRACT: No distention or wall thickening. BONES AND SOFT TISSUES: Unremarkable. IMPRESSION:Hepatic steatosis. Residual disease in the recently treated hepatocellular carcinoma in segment IV. No new suspicious hepatic lesion. Subcentimeter arterially enhancing foci in the liver are indeterminate and may be shunts. Signed: Tasha Camarena MDReport Verified Date/Time: 07/21/2018 09:17:50 Reading Location: [facility] P006J Ultrasound Reading Room -[id number] 08:38:00* Test Item Value Reference Range Comments POC-CREATININE (DARREL) (test dunx=9735) 0.4 mg/dL 0.6-1.3 TESTED AT [facility] [address] [facility] [address] POC-EGFR (DARREL) (test azmw=8943) 167 mL/min/1.73M2 ANG, EMBOLIZATION, EXTENSIVE - [id number] 17:24:00Referring: Dr. Elva Poe for Exam:->TACE for 8.4 cm HCCFINAL REPORT Mesenteric angiogram and chemoembolization, 06/07/2018 History: HCC. Modality: Fluoroscopy. Sedation: Versed 2.0 mg and fentanyl 100 mcg was given intravenously for conscious sedation. Vital signs were monitored throughout the procedure by a nurse, and remained stable. Physician intra- service time was 60 minutes. Anesthesia: Two percent Lidocaine without epinephrine. Approach: Right common femoral artery. Estimated blood loss: < 5 cc. Specimen: None. pool table operator: Jamari Sommers MD.. Telecom Billing Analyst: Cyn Song MD. Fluoroscopy Time: 13.4 min.Reference Air Kerma (Ka, r): 1989 mGy. The skin was anesthetized with lidocaine. Ultrasound demonstrated a patent right common femoral artery. An ultrasound image was saved into PACS. The right common femoral artery was accessed using a micropuncture needle under direct ultrasound guidance. The access was scaled up in the standard fashion and a 5 Slovenian sheath was placed. Diagnostic mesenteric angiogram was performed to access vessel patency and exclude arterio-portal shunting. A 5 Slovenian Rubio catheter which was used to select the SMA and celiac trunk for DSA runs. The patient has an accessory right hepatic artery arising from the SMA which does not appear to supply any of the segment IV tumor. The left hepatic artery arises from the left gastric artery. The majority of the tumor blush arthropathy hepatic artery branch distal to the gastroduodenal artery. A 3 Slovenian microcatheter was advanced coaxially through the Rubio catheter for selection of the middle hepatic artery for DSA run, which demonstrates that the lesion is amenable for treatment. The microcatheter was used to further subselect the middle hepatic artery that supply the segment four lesion . 100 mg of doxorubicin loaded on Oncozene beads was administered. F ollowup DSA injection was performed which demonstrated residual hypervascular bl ush. 100-300 um embospheres were then used to perform additional bland embolizat ion of the large tumor. The microcatheter was then used to select the left gastr ic artery and advanced into the medial branches of the left hepatic artery which also supplied a portion of the tumor. 100-300 um embospheres were used to perfo rm embolization. The catheter was removed. Injection was performed through the r ight femoral sheath for a DSA run. The arteriotomy was closed and hemostasis was obtained with a Mynx closure device. Vital signs were monitored throughout the procedure by a nurse, and remained stable. The patient tolerated the procedure well and left the department in the same condition. IMPRESSION: 1. Successful, uncomplicated mesenteric angiogram and hepatic arter y chemo-embolization and bland embolization, performed with conscious sedation.2 . Successful hemostasis using closure device. Signed: Jamari Sommers MDReport V erified Date/Time: 06/07/2018 17:24:45 Reading Location: [place] [address] Angio Body Reading Room TIC FUNCTION [id number] 07:39:00* Test Item Value Reference Range Comments TOTAL PROTEIN (BEAKER) (test tltd=638) 6.8 gm/dL 6.0-8.3 ALBUMIN (BEAKER) (test blja=4350) 3.6 g/dL 3.5-5.0 BILIRUBIN TOTAL (BEAKER) (test pogm=861) 0.5 mg/dL 0.2-1.2 BILIRUBIN DIRECT (BEAKER) (test wjre=873) 0.2 mg/dL 0.1-0.5 ALKALINE PHOSPHATASE (BEAKER) (test ocmr=411) 102 U/L 40-150 AST (SGOT) (BEAKER) (test vecq=216) 19 U/L 5-34 ALT (SGPT) (BEAKER) (test ugqh=258) 19 U/L 6-55 BASIC METABOLIC [id number] 07:39:00* Test Item Value Reference Range Comments SODIUM (BEAKER) (test wqdx=861) 139 meq/L 136-145 POTASSIUM (BEAKER) (test veau=633) 4.2 meq/L 3.5-5.1 CHLORIDE (BEAKER) (test kuzh=246) 105 meq/L 98-107 CO2 (BEAKER) (test xnyp=641) 29 meq/L 22-29 BLOOD UREA NITROGEN (BEAKER) (test wmpb=279) 23 mg/dL 7-21 CREATININE (BEAKER) (test zbua=946) 0.63 mg/dL 0.57-1.25 GLUCOSE RANDOM (BEAKER) (test zujx=637) 172 mg/dL 70-105 CALCIUM (BEAKER) (test ghgx=957) 9.3 mg/dL 8.4-10.2 EGFR (BEAKER) (test jhne=6469) 99 mL/min/1.73 sq m ESTIMATED GFR IS NOT ACCURATE CREATININE CLEARANCE IN PREDICTING GLOMERULAR FILTRATION RATE. ESTIMATED GFR IS NOT APPLICABLE FOR DIALYSIS PATIENTS. PROTHROMBIN TIME/[id number] 07:33:00* Test Item Value Reference Range Comments PROTIME (BEAKER) (test caqo=334) 12.8 seconds 11.7-14.7 INR (BEAKER) (test ohso=940) 1.0 <=5.9 RECOMMENDED COUMADIN/WARFARIN INR THERAPY RANGESSTANDARD DOSE: 2.0 - 3.0 Inclu nikita: PROPHYLAXIS for venous thrombosis, systemic embolization; TREATMENT for myrna ous thrombosis and/or pulmonary embolus.HIGH RISK: Target INR is 2.5-3.5 for pat ients with mechanical heart valves.CBC W/PLT COUNT & AUTO [id number] 07:24:00* Test Item Value Reference Range Comments WHITE BLOOD CELL COUNT (BEAKER) (test rufj=669) 9.0 K/ L 3.5-10.5 RED BLOOD CELL COUNT (BEAKER) (test mcsk=390) 4.70 M/ L 3.93-5.22 HEMOGLOBIN (BEAKER) (test vsxu=265) 14.4 GM/DL 11.2-15.7 HEMATOCRIT (BEAKER) (test eycg=293) 43.0 % 34.1-44.9 MEAN CORPUSCULAR VOLUME (BEAKER) (test nner=742) 91.5 fL 79.4-94.8 MEAN CORPUSCULAR HEMOGLOBIN (BEAKER) (test abtl=426) 30.6 pg 25.6-32.2 MEAN CORPUSCULAR HEMOGLOBIN CONC (BEAKER) (test civi=637) 33.5 GM/DL 32.2-35.5 RED CELL DISTRIBUTION WIDTH (BEAKER) (test myiz=670) 13.0 % 11.7-14.4 PLATELET COUNT (BEAKER) (test qsxy=247) 190 K/CU MM 150-450 MEAN PLATELET VOLUME (BEAKER) (test ejrv=890) 11.7 fL 9.4-12.3 NUCLEATED RED BLOOD CELLS (BEAKER) (test qhpe=049) 0 /100 WBC 0-0 NEUTROPHILS RELATIVE PERCENT (BEAKER) (test kgah=868) 53 % LYMPHOCYTES RELATIVE PERCENT (BEAKER) (test ewkj=809) 33 % MONOCYTES RELATIVE PERCENT (BEAKER) (test renv=684) 10 % EOSINOPHILS RELATIVE PERCENT (BEAKER) (test axxx=872) 4 % BASOPHILS RELATIVE PERCENT (BEAKER) (test fhjh=568) 1 % NEUTROPHILS ABSOLUTE COUNT (BEAKER) (test xapr=558) 4.79 K/ L 1.56-6.13 LYMPHOCYTES ABSOLUTE COUNT (BEAKER) (test kwjh=857) 2.92 K/ L 1.18-3.74 MONOCYTES ABSOLUTE COUNT (BEAKER) (test qevh=209) 0.85 K/ L 0.24-0.36 EOSINOPHILS ABSOLUTE COUNT (BEAKER) (test lgcw=825) 0.31 K/ L 0.04-0.36 BASOPHILS ABSOLUTE COUNT (BEAKER) (test habv=743) 0.06 K/ L 0.01-0.08 IMMATURE GRANULOCYTES-RELATIVE PERCENT (BEAKER) (test sapu=6315) 0 % 0-1 MR, ABDOMEN, [id number] 11:03:00Referring: Dr. Elva You Include Abdominal VesselsFINAL REPORT MRI of the abdomen dated May 03, 2018 Comparison: March 31, 2018 Comment: Multiplanar T1 and T2- weighted images of the abdomen, postcontrast axial and coronal T1-weighted images of the abdomen were obtained. Liver is normal in size. A 7.9 x 8.4 cm, previously 7.8 x 8.1 cm, early enhancing mass is seen in the left hepatic lobe involving the segment 2 and segment 4 of the liver. There is delayed washout. Central necrosis versus chronic hemorrhage is present within the mass. The mass is compatible with patient's known hepatocellular carcinoma. No other mass is seen in the liver. The splenic, superior mesenteric, portal, and hepatic veins are patent. Main portal vein measures approximately 11 mm in diameter. Gallbladder is not visualized. No biliary dilatation is seen. Pancreas and adrenals are unremarkable. Both kidneys are normal in size and functioning. No adenopathy or ascites is seen in the abdomen. The visualized small and large bowel are unremarkable. IMPRESSION: Mass lesion in the left hepatic lobe compatible with patient's known hepatocellular carcinoma. Signed: Pollo Upton MDReport Verified Date/Time: 05/03/2018 11:03:13 Reading Location: [place] [address] CT Body Reading Room -[id number] 08:28:00* Test Item Value Reference Range Comments POC-CREATININE (BEAKER) (test exbh=0820) 0.4 mg/dL 0.6-1.3 TESTED AT [facility] [address] POC-EGFR (BEAKER) (test auzy=6705) 167 mL/min/1.73M2 POCT-GLUCOSE [id number] 11:03:00* Test Item Value Reference Range Comments POC-GLUCOSE METER (BEAKER) (test kauc=2314) 111 mg/dL 70-110 TESTED AT [address] [address] POCT-GLUCOSE [id number] 09:48:00* Test Item Value Reference Range Comments POC-GLUCOSE METER (BEAKER) (test lccb=9993) 110 mg/dL 70-110 TESTED AT [address] [address] TISSUE [id number] 14:08:00Surgical Pathology Report Case: [id number] Authorizing Provider: Percy Powell MD Collected: Ordering Location: [facility] Radiology Angio Received: 03/31/2018 1618 Pathologist: Perla Alexander MD Specimen: Liver, mass The addendum is created to report the result of PAS-D and PAD. The PAS shows diffuse positivity for glycogen In tumor cells and swollen hepatocytes and PAS-D shows the glycogen negative in hepatocytes. Corrected diagnosis -HEPATOCELLULAR CARCINOMA, WELL DIFFERENTIATED [id number] electronically signed by Perla Alexander MD on 04/06/2018 at 2:08 PMLIVER, MASS, TARGETED CORE BIOPSY: - HEPATOCELLULAR CARCINOMA WELL DIFFERENTIATED, STEATOHEAPTITIC TYPESJ/pl Signing Pathologist Direct Phone Line: [phone] signed by Perla Alexander MD on 04/04/2018 at 3:00 PMClinician Notified; Dr. Powell was notified By secure [facility] email on 04/04/2018 @ 11:07 [id number] x1; [id number] x1; [id number] x1; 46039 x 4Liver mass 7.6 x 8.0 x 8 cmLiver mass biopsy The specimen is received in a formalin-filled container labeled with the patient's information and labeled "liver mass biopsy" and consists of six mccartney core biopsies ranging in length from 0.5 to 0.8 cm, submitted entirely in A1. CG/ew Multiple liver cores shows disrupted parenchymal architecture with no portal traids identified (CK7 immunostain) and few core show necrosis with fibrosis and hemosiderin laden macrophages. The viable parenchyma show with multiple naked arterioles randomly located in the hepatic parenchyma with hepatocytes showing frequent ballooned hepatocytes and ass ociated Zulma hyaline and focal chronic inflammation. On reticulin stain, some of the areas shows thickened trabeculae. CD34 immunostain shows capillarization of sinusoids with focal thickened trabeculae. All the hepatocytes stained diffu sely cytoplasmic and focal membranous positive with Glypican supporting the diag nosis of hepatocellular carcinoma. Beta Catenin immunostain is negative (no nucl ear staining).The interpretation of this case included the use of immunohistoche rush or special stains. Immunohistochemistry technical testing was performed a t [facility], Pathology Laboratory where it was developed and its performance characteristics were determined. It has not been cleared or approved by the U.S. Food and Drug Administration. The FDA has determined that s uch clearance or approval is not necessary. The test is used for clinical purpos es. It should not be regarded as investigational or for research. This laborator y is certified under the Clinical Laboratory Improvement Amendments of 1988 (CLI A-88) as qualified to perform high complexity clinical laboratory testing.U/S, BIOPSY, [id number] 12:36:00Referring: Dr. Elva Littlek9.5 cm liver mass on MRI 01/2018Reason for Exam:->liver mass biopsyFINAL REPORT PROCEDURE: Ultrasound-guided liver mass biopsy. INDICATION: [...] MEDICATIONS: 1 mg Versed, 50 mcg fentanyl FINDINGS:After obtaining informed written consent, the patient was [...] obtained using 18-gauge Biopince biopsy needle under ultr asound guidance. Post procedure scans revealed no immediate complications. IMPRE SSION: Uncomplicated ultrasound-guided biopsy of left liver mass. Signed: Tasha Lake i MDReport Verified Date/Time: 03/31/2018 12:36:32 Reading Location: [address] Ultrasound Reading Room C METABOLIC [id number] 07:24:00* Test Item Value Reference Range Comments SODIUM (BEAKER) (test wmsm=701) 141 meq/L 136-145 POTASSIUM (BEAKER) (test euff=738) 3.8 meq/L 3.5-5.1 CHLORIDE (BEAKER) (test ymwd=965) 107 meq/L 98-107 CO2 (BEAKER) (test ixdu=221) 28 meq/L 22-29 BLOOD UREA NITROGEN (BEAKER) (test swtm=673) 13 mg/dL 7-21 CREATININE (BEAKER) (test ilhh=011) 0.58 mg/dL 0.57-1.25 GLUCOSE RANDOM (BEAKER) (test oqzu=576) 152 mg/dL 70-105 CALCIUM (BEAKER) (test fngd=792) 9.1 mg/dL 8.4-10.2 EGFR (BEAKER) (test cbxx=6777) 109 mL/min/1.73 sq m ESTIMATED GFR IS NOT ACCURATE CREATININE CLEARANCE IN PREDICTING GLOMERULAR FILTRATION RATE. ESTIMATED GFR IS NOT APPLICABLE FOR DIALYSIS PATIENTS. PT/[id number] 07:02:00* Test Item Value Reference Range Comments PROTIME (BEAKER) (test nohd=928) 12.7 seconds 11.7-14.7 INR (BEAKER) (test metj=822) 0.9 <=5.9 PARTIAL THROMBOPLASTIN TIME (BEAKER) (test ljkr=549) 27.0 seconds 22.5-36.0 RECOMMENDED COUMADIN/WARFARIN INR THERAPY RANGESSTANDARD DOSE: 2.0 - 3.0 Inclu nikita: PROPHYLAXIS for venous thrombosis, systemic embolization; TREATMENT for myrna ous thrombosis and/or pulmonary embolus.HIGH RISK: Target INR is 2.5-3.5 for pat ients with mechanical heart valves.CBC W/PLT COUNT & AUTO [id number] 06:52:00* Test Item Value Reference Range Comments WHITE BLOOD CELL COUNT (BEAKER) (test uctf=124) 8.9 K/ L 3.5-10.5 RED BLOOD CELL COUNT (BEAKER) (test ecza=047) 4.60 M/ L 3.93-5.22 HEMOGLOBIN (BEAKER) (test xhhf=912) 13.8 GM/DL 11.2-15.7 HEMATOCRIT (BEAKER) (test ifrc=607) 41.5 % 34.1-44.9 MEAN CORPUSCULAR VOLUME (BEAKER) (test wmzi=702) 90.2 fL 79.4-94.8 MEAN CORPUSCULAR HEMOGLOBIN (BEAKER) (test iksp=905) 30.0 pg 25.6-32.2 MEAN CORPUSCULAR HEMOGLOBIN CONC (BEAKER) (test plvz=475) 33.3 GM/DL 32.2-35.5 RED CELL DISTRIBUTION WIDTH (BEAKER) (test agqp=037) 13.6 % 11.7-14.4 PLATELET COUNT (BEAKER) (test xaqz=085) 213 K/CU MM 150-450 MEAN PLATELET VOLUME (BEAKER) (test hejs=179) 12.2 fL 9.4-12.3 NUCLEATED RED BLOOD CELLS (BEAKER) (test wwcd=059) 0 /100 WBC 0-0 NEUTROPHILS RELATIVE PERCENT (BEAKER) (test nsuz=976) 53 % LYMPHOCYTES RELATIVE PERCENT (BEAKER) (test taxe=801) 33 % MONOCYTES RELATIVE PERCENT (BEAKER) (test elhn=327) 10 % EOSINOPHILS RELATIVE PERCENT (BEAKER) (test guwo=777) 3 % BASOPHILS RELATIVE PERCENT (BEAKER) (test nlne=667) 1 % NEUTROPHILS ABSOLUTE COUNT (BEAKER) (test ecbo=724) 4.72 K/ L 1.56-6.13 LYMPHOCYTES ABSOLUTE COUNT (BEAKER) (test nktp=039) 2.91 K/ L 1.18-3.74 MONOCYTES ABSOLUTE COUNT (BEAKER) (test zznb=032) 0.86 K/ L 0.24-0.36 EOSINOPHILS ABSOLUTE COUNT (BEAKER) (test ftze=653) 0.29 K/ L 0.04-0.36 BASOPHILS ABSOLUTE COUNT (BEAKER) (test fxvh=317) 0.05 K/ L 0.01-0.08 IMMATURE GRANULOCYTES-RELATIVE PERCENT (BEAKER) (test iidg=9802) 1 % 0-1 BONE AND/OR JOINT IMAGING, WHOLE [id number] 13:46:00Referring: Dr. Elva Cta REPORT PROCEDURE: BONE SCAN, WHOLE BODY CPT CODE: 93122 INDICATION: History of liver mass, evaluation for metastatic disease PROTOCOL: 21.7 cm mCi of Tc-99m MDP was injected intravenously. Whole body and selected spot images were obtained approximately 3 hours later. FINDINGS: Increased radiotracer uptake in the ankles and right knee. There is minor increase in the spine at the costovertebral junctions. Otherwise, radiotracer uptake is physiologic. IMPRESSION: 1.No typical pattern of osseous metastasis.2.Degenerative changes of the ankles and right knee. Images for comparison/correlation were chest CT March 28, 2018. Signed: Hossein Antonio MDReport Verified Date/Time: 03/28/2018 13:46:27 Reading Location: [address] Reading Room , CHEST, WITHOUT [id number] 08:36:00 Referring: Dr. Elva Cat REPORT TECHNIQUE: CT scan of the chest [...] TISSUES AND BONES: Unremarkable. UPPER ABDOMEN: A he terogeneous intrinsic hyperdense liver mass measures 8.4 cm with an area of cent ral hypoattenuation. This is unchanged in size. Prior cholecystectomy. The splee n measures 12.6 cm in length. IMPRESSION: 1.No definite metastatic disease in t he chest. 2.The nodules in the lungs do not have a typical pattern or appearance for metastatic disease. The largest nodules measure up to 9 mm and are mainly l inear with some groundglass opacity. This may be scar but is indeterminate, and a follow-up chest CT is recommended in 3-6 months to document stability and excl ude neoplasm. 3.The largest solid pulmonary nodule measures 4 mm in the left upp er lobe. This can be followed up at the same time as the more linear nodules. 4. The 8.4 cm liver mass is unchanged. Signed: Aftab Collins MDReport Verified Date/Ti me: 03/28/2018 08:36:42 Reading Location: [facility] Diagnostic Imaging Reading Room - [place] [id number] TITIS B SURFACE [id number] 14:37:00* Test Item Value Reference Range Comments HEPATITIS B SURFACE ANTIBODY (BEAKER) (test scsu=055) < mIU/mL <8.0 CARCINOEMBRYONIC ANTIGEN (CEA)2018-03-21 14:32:00* Test Item Value Reference Range Comments CARCINOEMBRYONIC ANTIGEN (BEAKER) (test lzcw=115) 2.2 ng/mL 0.0-5.0 HEPATITIS B SURFACE [id number] 14:32:00* Test Item Value Reference Range Comments HEPATITIS B SURFACE ANTIGEN (2) (BEAKER) (test fzdd=4054) Nonreactive Nonreactive HEPATITIS B CORE ANTIBODY, [id number] 14:32:00* Test Item Value Reference Range Comments HEPATITIS B CORE TOTAL ANTIBODY (BEAKER) (test kjuy=852) Nonreactive Nonreactive BASIC METABOLIC [id number] 13:30:00* Test Item Value Reference Range Comments SODIUM (BEAKER) (test ybeu=208) 139 meq/L 136-145 POTASSIUM (BEAKER) (test bjuk=241) 4.1 meq/L 3.5-5.1 CHLORIDE (BEAKER) (test kopd=520) 103 meq/L 98-107 CO2 (BEAKER) (test oduo=683) 31 meq/L 22-29 BLOOD UREA NITROGEN (BEAKER) (test zsih=209) 17 mg/dL 7-21 CREATININE (BEAKER) (test vadk=642) 0.65 mg/dL 0.57-1.25 GLUCOSE RANDOM (BEAKER) (test lsmo=122) 178 mg/dL 70-105 CALCIUM (BEAKER) (test blmv=640) 10.1 mg/dL 8.4-10.2 EGFR (BEAKER) (test wjfu=9890) 95 mL/min/1.73 sq m ESTIMATED GFR IS NOT ACCURATE CREATININE CLEARANCE IN PREDICTING GLOMERULAR FILTRATION RATE. ESTIMATED GFR IS NOT APPLICABLE FOR DIALYSIS PATIENTS. HEPATIC FUNCTION [id number] 13:30:00* Test Item Value Reference Range Comments TOTAL PROTEIN (BEAKER) (test iyos=725) 7.8 gm/dL 6.0-8.3 ALBUMIN (BEAKER) (test unui=3910) 4.0 g/dL 3.5-5.0 BILIRUBIN TOTAL (BEAKER) (test wvfc=508) 0.7 mg/dL 0.2-1.2 BILIRUBIN DIRECT (BEAKER) (test unfh=062) 0.3 mg/dL 0.1-0.5 ALKALINE PHOSPHATASE (BEAKER) (test hpgv=495) 104 U/L 40-150 AST (SGOT) (BEAKER) (test spje=912) 25 U/L 5-34 ALT (SGPT) (BEAKER) (test lbpk=970) 31 U/L 6-55 PROTHROMBIN [id number] 13:21:00* Test Item Value Reference Range Comments PROTIME (BEAKER) (test aojs=480) 13.5 seconds 11.7-14.7 INR (BEAKER) (test zicd=710) 1.0 <=5.9 RECOMMENDED COUMADIN/WARFARIN INR THERAPY RANGESSTANDARD DOSE: 2.0 - 3.0 Inclu nikita: PROPHYLAXIS for venous thrombosis, systemic embolization; TREATMENT for myrna ous thrombosis and/or pulmonary embolus.HIGH RISK: Target INR is 2.5-3.5 for pat ients with mechanical heart valves.CBC W/PLT COUNT & AUTO [id number] 13:05:00* Test Item Value Reference Range Comments WHITE BLOOD CELL COUNT (BEAKER) (test syok=536) 8.8 K/ L 3.5-10.5 RED BLOOD CELL COUNT (BEAKER) (test rcob=094) 5.35 M/ L 3.93-5.22 HEMOGLOBIN (BEAKER) (test zubn=153) 15.6 GM/DL 11.2-15.7 HEMATOCRIT (BEAKER) (test qebl=962) 48.3 % 34.1-44.9 MEAN CORPUSCULAR VOLUME (BEAKER) (test nyzz=587) 90.3 fL 79.4-94.8 MEAN CORPUSCULAR HEMOGLOBIN (BEAKER) (test ppyp=595) 29.2 pg 25.6-32.2 MEAN CORPUSCULAR HEMOGLOBIN CONC (BEAKER) (test yxhu=513) 32.3 GM/DL 32.2-35.5 RED CELL DISTRIBUTION WIDTH (BEAKER) (test fwpf=942) 13.7 % 11.7-14.4 PLATELET COUNT (BEAKER) (test cicf=459) 272 K/CU MM 150-450 MEAN PLATELET VOLUME (BEAKER) (test ikdm=455) 12.2 fL 9.4-12.3 NUCLEATED RED BLOOD CELLS (BEAKER) (test uhib=078) 0 /100 WBC 0-0 NEUTROPHILS RELATIVE PERCENT (BEAKER) (test idin=787) 55 % LYMPHOCYTES RELATIVE PERCENT (BEAKER) (test jobf=489) 33 % MONOCYTES RELATIVE PERCENT (BEAKER) (test gvgg=302) 8 % EOSINOPHILS RELATIVE PERCENT (BEAKER) (test dzky=152) 3 % BASOPHILS RELATIVE PERCENT (BEAKER) (test rijm=634) 1 % NEUTROPHILS ABSOLUTE COUNT (BEAKER) (test rtgc=732) 4.82 K/ L 1.56-6.13 LYMPHOCYTES ABSOLUTE COUNT (BEAKER) (test nnin=793) 2.92 K/ L 1.18-3.74 MONOCYTES ABSOLUTE COUNT (BEAKER) (test ssjv=492) 0.69 K/ L 0.24-0.36 EOSINOPHILS ABSOLUTE COUNT (BEAKER) (test vqfv=429) 0.22 K/ L 0.04-0.36 BASOPHILS ABSOLUTE COUNT (BEAKER) (test nhjn=084) 0.06 K/ L 0.01-0.08 IMMATURE GRANULOCYTES-RELATIVE PERCENT (BEAKER) (test pzxu=2030) 1 % 0-1 MR, ABDOMEN, [id number] 13:29:00Referring: Dr. Elva Cat REPORT TECHNIQUE: MRI of the abdomen WITHOUT and WITH intravenous contrast. INDICATION: 52-year-old woman with liver masses. Review of the medical record reveals that this lesion has been present since 2016. COM PARISON: Outside abdomen and pelvis CT 12/30/2017. FINDINGS: LOWER THORAX: Unre markable. LIVER: No cirrhosis or hepatic steatosis. 9.5 x 8.3 x 7.9 cm T1 isoint ense/mildly T2 hyperintense mass in segment MELQUIADES is hyperenhancing on arterial ph ase and remains mildly hyperenhancing to liver parenchyma on subsequent postcont rast phases. In the center of the mass, there is a 3.3 x 4.8 cm nonenhancing are a of T2 hyperintensity with T2 hypointense rim as well as peripheral areas of T1 hyperintensity. Additional scattered arterially enhancing foci measuring up to 1.5 cm throughout the liver without corresponding T1/T2 signal abnormality becom e isointense to liver parenchyma on subsequent postcontrast phases.BILIARY: Prio r cholecystectomy. No biliary ductal dilatation or filling defect.SPLEEN: No spl enomegaly.PANCREAS: No focal masses or ductal dilatation. ADRENALS: No adrenal n odules.KIDNEYS/URETERS: No hydronephrosis or solid mass lesions. PERITONEUM/RETR OPERITONEUM: No free fluid.LYMPH NODES: No lymphadenopathy.VESSELS: Unremarkable . GI TRACT: No distention or wall thickening. BONES AND SOFT TISSUES: Unremarkab le. IMPRESSION:9.5 cm mass in segment IV of the liver with central hemorrhage/n ecrosis, likely a benign lesion such as an adenoma given its presence since 2016 . A malignant lesion is unlikely, but cannot be entirely excluded. Additional sc attered arterially enhancing foci may be of the same etiology as the aforementio licha mass or may be shunts. RECOMMENDATION:If feasible, comparison with prior david ging from 2016 is recommended. Follow-up abdomen MRI with and without intravenou s contrast (liver protocol) may be obtained in 3-6 months to reassess the hepati c mass. Signed: Tasha Camarena MDReport Verified Date/Time: 02/04/2018 13:29:4 8 Reading Location: [address] Radiology Reading Room Electronically mouna d by: TASHA CAMARENA MD on 02/04/2018 01:29 PM [id number] 16:44:00* Test Item Value Reference Range Comments FERRITIN (BEAKER) (test bcpk=713) 553 ng/mL 5-275 HEPATITIS B SURFACE [id number] 15:58:00* Test Item Value Reference Range Comments HEPATITIS B SURFACE ANTIBODY (BEAKER) (test fsvc=525) < mIU/mL <8.0 HEPATITIS A ANTIBODY, [id number] 15:58:00* Test Item Value Reference Range Comments HEPATITIS A IGG ANTIBODY (BEAKER) (test kaif=1264) Reactive Nonreactive ALPHA FETOPROTEIN (AFP), TUMOR [id number] 15:50:00* Test Item Value Reference Range Comments ALPHA-FETOPROTEIN (BEAKER) (test taqp=3118) 7.9 ng/mL <10.0 HEPATITIS C [id number] 15:50:00* Test Item Value Reference Range Comments HEPATITIS C ANTIBODY (BEAKER) (test vmnk=902) Nonreactive Nonreactive COMPREHENSIVE METABOLIC [id number] 15:31:00* Test Item Value Reference Range Comments TOTAL PROTEIN (BEAKER) (test kese=736) 7.7 gm/dL 6.0-8.3 ALBUMIN (BEAKER) (test suma=2600) 3.9 g/dL 3.5-5.0 ALKALINE PHOSPHATASE (BEAKER) (test hbqn=201) 100 U/L 40-150 BILIRUBIN TOTAL (BEAKER) (test dghg=783) 0.7 mg/dL 0.2-1.2 SODIUM (BEAKER) (test cnls=603) 141 meq/L 136-145 POTASSIUM (BEAKER) (test alra=410) 4.0 meq/L 3.5-5.1 CHLORIDE (BEAKER) (test yvay=211) 104 meq/L 98-107 CO2 (BEAKER) (test usor=648) 28 meq/L 22-29 BLOOD UREA NITROGEN (BEAKER) (test eodf=902) 16 mg/dL 7-21 CREATININE (BEAKER) (test ljuc=282) 0.62 mg/dL 0.57-1.25 GLUCOSE RANDOM (BEAKER) (test mpxr=496) 182 mg/dL 70-105 CALCIUM (BEAKER) (test iaoq=718) 9.8 mg/dL 8.4-10.2 AST (SGOT) (BEAKER) (test desf=721) 24 U/L 5-34 ALT (SGPT) (BEAKER) (test bmlt=843) 26 U/L 6-55 EGFR (BEAKER) (test fubv=4807) 101 mL/min/1.73 sq m ESTIMATED GFR IS NOT ACCURATE CREATININE CLEARANCE IN PREDICTING GLOMERULAR FILTRATION RATE. ESTIMATED GFR IS NOT APPLICABLE FOR DIALYSIS PATIENTS. BILIRUBIN, [id number] 15:31:00* Test Item Value Reference Range Comments BILIRUBIN DIRECT (BEAKER) (test xzkb=705) 0.3 mg/dL 0.1-0.5 IRON, TIBC, % SAT. (WITHOUT FERRITIN)2018-01-26 15:30:00* Test Item Value Reference Range Comments IRON (BEAKER) (test mhxm=452) 85 ug/dL 40-160 TOTAL IRON BINDING CAPACITY (BEAKER) (test okug=505) 250 ug/dL 250-450 IRON % SATURATION (2) (BEAKER) (test pgan=1203) 34 % 20-55 CBC W/PLT COUNT & AUTO [id number] 15:21:00* Test Item Value Reference Range Comments WHITE BLOOD CELL COUNT (BEAKER) (test biax=503) 8.7 K/ L 3.5-10.5 RED BLOOD CELL COUNT (BEAKER) (test bbxl=087) 5.18 M/ L 3.93-5.22 HEMOGLOBIN (BEAKER) (test qivi=976) 15.3 GM/DL 11.2-15.7 HEMATOCRIT (BEAKER) (test oscj=843) 47.6 % 34.1-44.9 MEAN CORPUSCULAR VOLUME (BEAKER) (test utyv=537) 91.9 fL 79.4-94.8 MEAN CORPUSCULAR HEMOGLOBIN (BEAKER) (test dzeo=392) 29.5 pg 25.6-32.2 MEAN CORPUSCULAR HEMOGLOBIN CONC (BEAKER) (test wige=622) 32.1 GM/DL 32.2-35.5 RED CELL DISTRIBUTION WIDTH (BEAKER) (test arzb=917) 13.2 % 11.7-14.4 PLATELET COUNT (BEAKER) (test jxtc=712) 240 K/CU MM 150-450 MEAN PLATELET VOLUME (BEAKER) (test ouqt=614) 12.3 fL 9.4-12.3 NUCLEATED RED BLOOD CELLS (BEAKER) (test xijf=623) 0 /100 WBC 0-0 NEUTROPHILS RELATIVE PERCENT (BEAKER) (test xcnv=798) 62 % LYMPHOCYTES RELATIVE PERCENT (BEAKER) (test fqdr=901) 28 % MONOCYTES RELATIVE PERCENT (BEAKER) (test waih=156) 7 % EOSINOPHILS RELATIVE PERCENT (BEAKER) (test bzdd=818) 2 % BASOPHILS RELATIVE PERCENT (BEAKER) (test dijn=648) 1 % NEUTROPHILS ABSOLUTE COUNT (BEAKER) (test slzm=761) 5.39 K/ L 1.56-6.13 LYMPHOCYTES ABSOLUTE COUNT (BEAKER) (test shkb=380) 2.43 K/ L 1.18-3.74 MONOCYTES ABSOLUTE COUNT (BEAKER) (test qjck=079) 0.65 K/ L 0.24-0.36 EOSINOPHILS ABSOLUTE COUNT (BEAKER) (test tljz=435) 0.18 K/ L 0.04-0.36 BASOPHILS ABSOLUTE COUNT (BEAKER) (test cvdi=405) 0.05 K/ L 0.01-0.08 IMMATURE GRANULOCYTES-RELATIVE PERCENT (BEAKER) (test klva=8740) 0 % 0-1
--- OUTSIDE RECORDS SUMMARY | 2018-09-20 10:39 | XMS REPORT ---
Author Author Admin, [place] Organization [facility] Address [address] [facility] [address] [place] [id number] Phone Allergies, Adverse Reactions, Alerts Allergy Name Reaction Description Start Date Severity Status Provider GABAPENTIN nausea Moderate Active Tamara Gutierrez MD BACTRIM Critical Active Kaitlin Collier MD Conditions or Problems Problem Name Problem Code Onset Date Status Entry Date Provider Comment Standard Description Annotate Dysuria 788.1 Active Yamil García MD Dysuria UTI treated in 09/02/18 still having symptoms Liver cancer, primary 155.0 Active Yamil García MD Malignant neoplasm of liver, primary Venous stasis 459.81 Active Yamil García MD Venous (peripheral) insufficiency, unspecified Elevated liver enzymes 790.6 Active Marcela Tenorio.James [...] by mouth twice a day DOCUSATE SODIUM 28828156388 Active Floresita Birch MD (res) Active NOVOLIN 70/30 (70-30) 100 UNIT/ML SUSP Use 70 UNITS Twice a Day INSULIN NPH ISOPHANE & REGULAR 71423235889 Active Nabor Ashby MD (res) Active [facility] MELATONIN EXTRA STRENGTH 5 MG ORAL TABLET Take 1 tab By Mouth at bedtime MELATONIN 19799286995 Active Nabor Ashby MD (res) Active INSULIN SYRINGE 28G X 1/2" 0.5 ML Use as directed INSULIN SYRINGE- NEEDLE U-100 98625950418 Active Nabor Ashby MD (res) Active GABAPENTIN 300 MG ORAL CAPSULE Take 1 tab By Mouth three times per day GABAPENTIN 63505240113 Active Nabor Ashby MD (res) Active GLIPIZIDE ER 10 MG ORAL TABLET EXTENDED RELEASE 24 HOUR one tablet By Mouth Every Day GLIPIZIDE 08298255961 Active Nabor Ashby MD (res) Active LOSARTAN POTASSIUM 100 MG ORAL TABLET Take one tablet By Mouth Every Day LOSARTAN POTASSIUM 15288050099 Active Nabor Ashby MD (res) Active METFORMIN HCL 1000 MG ORAL TABLET 1 by mouth once a day METFORMIN HCL 20118901877 Active Nabor Ashby MD (res) Active RANITIDINE HCL 150 MG ORAL TABLET 1 by mouth twice a day RANITIDINE HCL 35061192925 Active Marcela Espinoza D.O. Active LYRICA 50 MG ORAL CAPSULE 1 tab By Mouth Three Times a Day As Needed pain LYRICA 50 MG ORAL CAPSULE PREGABALIN Inactive MOBIC 15 MG ORAL TABLET 1 by mouth daily MOBIC 15 MG ORAL TABLET 863085 MELOXICAM Inactive ASPIRIN 81 MG ORAL TABLET Take 1 tab By Mouth daily ASPIRIN 81 MG ORAL TABLET ASPIRIN Inactive NAPROXEN 500 MG ORAL TABLET 1 by mouth twice a day as needed for pain and inflammation NAPROXEN 500 MG ORAL TABLET 286668 NAPROXEN Inactive MACROBID 100 MG ORAL CAPSULE 1 by mouth twice a day morning and night for burning with voiding MACROBID 100 MG ORAL CAPSULE 9372736 NITROFURANTOIN MONOHYD MACRO Inactive MECLIZINE HCL 25 MG ORAL TABLET 1 by mouth 3 times a day as needed MECLIZINE HCL 25 MG ORAL TABLET 036686 MECLIZINE HCL Inactive LANTUS 100 UNIT/ML SUBCUTANEOUS SOLUTION 40 units sc in AM and PM LANTUS 100 UNIT/ML SUBCUTANEOUS SOLUTION INSULIN GLARGINE Inactive LOVASTATIN 40 MG ORAL TABLET 1 by mouth every night LOVASTATIN 40 MG ORAL TABLET 784563 LOVASTATIN Inactive LYRICA 50 MG ORAL CAPSULE 1 tab By Mouth Three Times a Day As Needed pain PREGABALIN 73184115901 No Longer Active Yamil García MD Active MOBIC 15 MG ORAL TABLET 1 by mouth daily MELOXICAM 39327508182 No Longer Active Nabor Ashby MD (res) Active ASPIRIN 81 MG ORAL TABLET Take 1 tab By Mouth daily ASPIRIN 95140227344 No Longer Active Nabor Ashby MD (res) Active NAPROXEN 500 MG ORAL TABLET 1 by mouth twice a day as needed for pain and inflammation NAPROXEN 77199162774 No Longer Active Breanna Davis MD Active MACROBID 100 MG ORAL CAPSULE 1 by mouth twice a day morning and night for burning with voiding NITROFURANTOIN MONOHYD MACRO 87084588787 No Longer Active Breanna Davis MD Active MECLIZINE HCL 25 MG ORAL TABLET 1 by mouth 3 times a day as needed MECLIZINE HCL 53274543134 No Longer Active Breanna Davis MD Active LYRICA 100 MG ORAL CAPSULE one capsule By Mouth Three Times a Day PREGABALIN 95939417485 No Longer Active Breanna Davis MD Active LANTUS 100 UNIT/ML SUBCUTANEOUS SOLUTION 40 units sc in AM and PM INSULIN GLARGINE 65080553461 No Longer Active Tamara Gutierrez MD Active LOVASTATIN 40 MG ORAL TABLET 1 by mouth every night LOVASTATIN 26133615685 No Longer Active Nabor Ashby MD (res) Active PANTOPRAZOLE SODIUM 40 MG ORAL TABLET DELAYED RELEASE one tablet By Mouth Every Day PANTOPRAZOLE SODIUM 58743299311 No Longer Active Kaitlin Collier MD Active Immunizations Vaccine Administration Date Value Standard Description influenza immunization (Flu Vax) has been administered given influenza virus vaccine, unspecified formulation PEDIATRIC PNEUMOCOCCAL VACCINE ([id number]) #1 given pneumococcal conjugate vaccine, 13 valent Vital Signs Date Name Value Unit Range Description blood pressure, diastolic 74 mm[Hg] BP crowley blood pressure, systolic 113 mm[Hg] BP sys height E&M 63 [in_us] Bdy height pulse rate E&M 92 /min Heart rate respiratory rate E&M 18 /min Resp rate temperature E&M 99.0 [degF] Body temperature weight E&M 230 [lb_av] Weight Measured blood pressure, diastolic 65 mm[Hg] BP crowley blood pressure, systolic 98 mm[Hg] BP sys height E&M 63 [in_us] Bdy height pulse rate E&M 87 /min Heart rate respiratory rate E&M 14 /min Resp rate temperature E&M 98.7 [degF] Body temperature weight E&M 230.20 [lb_av] Weight Measured blood pressure, diastolic 82 mm[Hg] BP crowley [...] temperature weight E&M 245 [lb_av] Weight Measured Diagnostic Results Date Name Value Unit Range Description Lab Report: CBC With Differential/Platelet, Comp. Metabolic Panel (14), TSH - Chemistry thyroid stimulating hormone, serum 1.410 u[iU]/mL 0.450-4.500 Lab Report: Comp. Metabolic Panel (14), Lipid Panel, Albumin/Creatinine ... - Chemistry very low density lipoproteins 18 mg/dL 5-40 chloride, serum 101 mmol/L 96-106 urea nitrogen, blood 17 mg/dL 6-24 Office Visit: Acute Visit uti [...] - Urinalysis bilirubin, urine negative Lab Report: Comp. Metabolic Panel (14), Lipid Panel, Albumin/Creatinine ... 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 Metabolic Panel (14), [facility] - Hematology mean corpuscular volume, RBC 91 fL 79-97 Lab Report: Comp. Metabolic Panel (14), Lipid Panel, Albumin/Creatinine ... - Chemistry HDL cholesterol, serum 38 mg/dL >39 Lab Report: CBC With Differential/Platelet, Comp. Metabolic Panel (14), [facility] - Hematology monocytes as percent of blood leukocytes 9 % Not Estab. Lab Report: Comp. Metabolic Panel (14), Lipid Panel, Albumin/Creatinine ... - Chemistry creatinine, serum 0.54 mg/dL 0.57-1.00 albumin/globulin ratio, serum 1.3 1.2-2.2 cholesterol, serum 149 mg/dL 317-461 6778/07/01 creatinine, random, urine 223.0 mg/dL Not Estab. bilirubin, serum, total 0.3 mg/dL 0.0-1.2 Lab Report: CBC With Differential/Platelet, Comp. Metabolic Panel (14), [facility] - Hematology Eosinophil Absolute Count 0.2 X10E3/UL 10*3/uL 0.0-0.4 Office Visit: Acute Visit uti rm 1 - Urinalysis blood in urine (hemoglobin) by dipstick negative appearance, urine clear Lab Report: Comp. Metabolic Panel (14), Lipid Panel, Albumin/Creatinine ... - Chemistry aspartate aminotransferase (SGOT), serum 20 U/L 0-40 Lab Report: CBC With Differential/Platelet, Comp. Metabolic Panel (14), [facility] - Hematology red blood cell distribution width 13.8 % 12.3-15.4 leukocyte count, blood 9.7 X10E3/UL 10*3/mm3 3.4-10.8 Office Visit: Acute Visit uti rm 1 - Urinalysis pH, urine, semiquantitative 5.0 Lab Report: Comp. Metabolic Panel (14), Lipid Panel, Albumin/Creatinine ... - Chemistry potassium, serum 4.3 mmol/L 3.5-5.2 albumin, serum 3.9 g/dL 3.5-5.5 Lab Report: CBC With Differential/Platelet, Comp. Metabolic Panel (14), TSH - Chemistry immature granulocytes, percentage of total cells, blood 0 % Not Estab. Lab Report: CBC With Differential/Platelet, Comp. Metabolic Panel (14), TSH - Hematology lymphocyte count, blood, automated 2.5 X10E3/UL 10*3/mm3 0.7-3.1 hematocrit, blood 43.6 % 34.0-46.6 Lab Report: Comp. Metabolic Panel (14), Lipid Panel, Albumin/Creatinine ... - Chemistry sodium, serum 139 mmol/L 134-144 Lab Report: Urine Culture, Routine, Result - Urinalysis urine culture No growth Lab Report: CBC With Differential/Platelet, Comp. Metabolic Panel (14), [facility] - Hematology neutrophils as percent of blood leukocytes 64 % Not Estab. Internal Correspondence: Pre-Visit Planning - Other List of providers caring for patient Fredy Boykin Maria G Lab Report: CBC With Differential/Platelet, Comp. Metabolic Panel (14), [facility] - Hematology basophils as percent of blood leukocytes 0 % Not Estab. Office Visit: Acute Visit uti rm 1 - Urinalysis protein, urine, semiquantitative (dipstick) 1+ Lab Report: Comp. Metabolic Panel (14), Lipid Panel, Albumin/Creatinine ... - Chemistry carbon dioxide, venous blood 26 mmol/L 20-29 triglyceride, serum, fasting 92 mg/dL 0-149 calcium, serum 9.0 mg/dL 8.7-10.2 microalbumin/creatinine ratio, urine 157.9 MG/G CREAT ug/mg 0.0-30.0 alanine aminotransferase (SGPT), serum 20 U/L 0-32 Office Visit: Acute Visit - Chemistry blood glucose, fasting 220 mg/dL Lab Report: CBC With Differential/Platelet, Comp. Metabolic Panel (14), TSH - Hematology mean corpuscular hemoglobin, RBC 30.6 pg 26.6-33.0 Office Visit: Acute Visit uti rm 1 - Urinalysis specific gravity, urine 1.025 Lab Report: Comp. Metabolic Panel (14), Lipid Panel, Albumin/Creatinine ... - Chemistry protein, total, serum 6.8 g/dL 6.0-8.5 alkaline phosphatase, serum 133 U/L 39-117 Lab Report: CBC With Differential/Platelet, Comp. Metabolic Panel (14), TSH - Hematology hemoglobin, blood 14.7 g/dL 11.1-15.9 lymphocytes as percent of blood leukocytes 25 % Not Estab. Lab Report: Comp. Metabolic Panel (14), Lipid Panel, Albumin/Creatinine ... - Chemistry hemoglobin A1C, blood, as % of total hemoglobin 9.6 % 4.8-5.6 Office Visit: Acute Visit uti rm 1 - Urinalysis glucose, urine, semiquantitative negative Lab Report: Comp. Metabolic Panel (14), Lipid Panel, Albumin/Creatinine ... - Genetics/fertility eGFR if 125 mL/min/1.73m2 >59 Lab Report: CBC With Differential/Platelet, Comp. Metabolic Panel (14), TSH - Hematology basophil count, absolute 0.0 x10E3/uL 0.0-0.2 Lab Report: Comp. Metabolic Panel (14), Lipid Panel, Albumin/Creatinine ... - Chemistry globulin, serum 2.9 1.5-4.5 Estimated Glomerular Filtration Rate (calc) 108 mL/min/1.73m2 >59 Lab Report: Comp. Metabolic Panel (14), Lipid Panel, Albumin/Creatinine ... - Urinalysis microalbumin/total urine volume 352.1 mg/L Not Estab. Lab Report: CBC With Differential/Platelet, Comp. Metabolic Panel (14), TSH - Hematology eosinophils as percent of blood leukocytes 2 % Not Estab. Lab Report: Comp. Metabolic Panel (14), Lipid Panel, Albumin/Creatinine ... - Chemistry blood glucose, random 232 mg/dL 65-99 Office Visit: Acute Visit uti rm 1 - Urinalysis urobilinogen, urine, semiquantitative (dipstick) negative Lab Report: CBC With Differential/Platelet, Comp. Metabolic Panel (14), TSH - Hematology monocyte count, blood, automated 0.9 X10E3/UL 10*3/uL 0.1-0.9 platelet count 222 X10E3/UL 10*3/mm3 150-379 Office Visit: Acute Visit uti rm 1 - Urinalysis ketones, urine, by test strip negative Encounters Date Encounter Provider Code Facility 19:15:28 CDT Est Patient Exp Problem - 76338 Yamil García MD CPT-93021 [facility] 10:11:56 CDT Est Patient Detailed - 61961 Yamil García MD CPT-53404 [facility] 11:32:10 CDT Est Patient Exp Problem - 15227 Marcela Espinoza D.O. CPT-35721 [facility] 12:11:10 CDT Est Patient Exp Problem - 98381 Marcela Espinoza D.O. CPT-64122 [facility] 10:03:04 CDT Est Patient Exp Problem - 72036 Floresita Birch MD (res) CPT-39017 [facility] 17:28:56 CDT Est Patient Detailed - 06469 Tatianna Covarrubias MD CPT-20869 [facility] 11:23:46 CDT Est Patient Exp Problem - 96663 Marcela Espinoza D.O. CPT-85180 [facility] 11:25:31 [employer]OURCE OFFICER Est Patient Detailed - 84872 Rao Avila MD (res) CPT-43206 [facility] 15:32:27 CDT Est Patient Exp Problem - 84307 Rao Avila MD (res) CPT-93349 [facility] 16:52:49 CDT Est Patient Exp Problem - 79325 Floresita Birch MD (res) CPT-90050 [facility] 14:17:24 CDT Est Patient Exp Problem - 97639 George Kennedy MD CPT-88430 [facility] 08:58:43 [employer] RESOURCE OFFICER Est Patient Exp Problem - 39749 Tamara Gutierrez MD CPT-33787 [facility] 16:24:59 DISTRICT RESOURCE OFFICER Est Patient Exp Problem - 26941 Yunier Nassar MD (res) CPT-81065 [facility] 11:48:18 CDT Est Patient Exp Problem - 52334 Breanna Davis MD CPT-59964 [facility] 17:35:36 CDT Ofc Vst, Est Level III Tamara Gutierrez MD CPT-94203 [facility] 11:07:11 CDT Ofc Vst, New Level III Kaitlin Collier MD CPT-14142 [facility] Procedures Code Procedure Name Date Entry Date Standard Description CPT-46958 Glucose Stick 11:32:13 CDT CPT-98781 HEMOGLOBIN A1C - In House 11:32:13 CDT CPT-59654 IM or SQ Injection 17:28:56 CDT CPT-J1885 Injection, ketorolac tromethamine (toradol), per 15 mg 17:28:56 CDT CPT-69332 HEMOGLOBIN A1C - In House 11:25:32 DISTRICT RESOURCE OFFICER CPT-37482 Glucose Stick 11:25:32 DISTRICT RESOURCE OFFICER CPT-53663 Urinalysis - Dip only - In House 11:25:32 DISTRICT RESOURCE OFFICER CPT-62783 INFLUENZA VACCINE QUADRIVALENT 3 YRS PLUS IM 11:48:19 CDT CPT-39090 EKG - Interpretation & Report Only 11:48:19 CDT CPT-40745 Prevnar (PCV13) IM 17:35:36 CDT CPT-57548 Influenza - Adult - Injection 14:59:45 CDT CPT-37318 Est Patient Well Exam (40 - 64 Yrs) - 56851 14:59:43 CDT
[2018-09-20 14:00] VITALS: BP 109/61
== END | disposition home or self-care (01) ==
LOC: OR 09:43
PROVIDERS: ATTEND Internal Medicine Gastroenterology
DX: Z12.11 Encounter for screening for malignant neoplasm of colon (principal); D12.0 Benign neoplasm of cecum; D12.2 Benign neoplasm of ascending colon; K59.00 Constipation, unspecified; K64.8 Other hemorrhoids; K21.9 Gastro-esophageal reflux disease without esophagitis; I10 Essential (primary) hypertension; E11.9 Type 2 diabetes mellitus without complications; E66.9 Obesity, unspecified; Z88.1 Allergy status to other antibiotic agents; Z01.810 Encounter for preprocedural cardiovascular examination; Z01.812 Encounter for preprocedural laboratory examination; Z79.4 Long term (current) use of insulin; Z79.84 Long term (current) use of oral hypoglycemic drugs; Z68.41 Body mass index [BMI] 40.0-44.9, adult; Z85.05 Personal history of malignant neoplasm of liver; Z80.0 Family history of malignant neoplasm of digestive organs
CPT/HCPCS: 36415 ×2; 45384; 45385; 80053; 82948; 85025; 85610; 85730; 93005; J2001; J2250; J2704; 45378

== ENCOUNTER → 2019-04-12 | Day surgery (SDC) | payer OTHER ==
[2019-04-10 09:56] LABS: BASOPHILS % 0.5 % (0.0-1.0); EOSINOPHILS # (AUTO) 0.2 (0.0-0.4); EOSINOPHILS % 2.3 % (0.0-6.0); LYMPHOCYTES # (AUTO) 2.3 (1.0-3.2); LYMPHOCYTES % 27.1 % (18.0-39.1); MEAN CORPUSCULAR HEMOGLOBIN 30.5 pg (28-32); MEAN CORPUSCULAR HGB CONC 33.3 g/dL (31-35); MEAN CORPUSCULAR VOLUME 91.6 fL (81-99); MONOCYTES # (AUTO) 0.6 (0.2-0.8); MONOCYTES % 7.1 % (4.4-11.3); NEUTROPHILS # (AUTO) 5.4 (2.1-6.9); NEUTROPHILS % 62.4 % (38.7-80.0); PLATELET COUNT 198 x10e3/uL (140-360); RED BLOOD COUNT 4.91 x10e6/uL (3.6-5.1); RED CELL DISTRIBUTION WIDTH 12.8 % (11.7-14.4)
[2019-04-10 10:11] LABS: INR 0.9; PROTHROMBIN TIME 12.3 seconds (11.9-14.5)
[2019-04-10 10:15] LABS: ALANINE AMINOTRANSFERASE 23 IU/L (0-55); ALBUMIN 3.3 g/dL (3.5-5.0); ALBUMIN/GLOBULIN RATIO 0.9 (0.8-2.0); ALKALINE PHOSPHATASE 113 IU/L (40-150); ANION GAP 13.2 mmol/L (8-16); BLOOD UREA NITROGEN 18 mg/dL (7-26); BUN/CREATININE RATIO 32 (6-25); CALCIUM 9.3 mg/dL (8.4-10.2); CARBON DIOXIDE 25 mmol/L (22-29); CHLORIDE 104 mmol/L (98-107); CREATININE, SERUM 0.57 mg/dL (0.57-1.11); EST GLOMERULAR FILTRATION RATE > 60 ML/MIN (60-); GLUCOSE 253 mg/dL (74-118); POTASSIUM 4.2 mmol/L (3.5-5.1); SODIUM 138 mmol/L (136-145)
[2019-04-10 10:24] LABS: PARTIAL THROMBOPLASTIN TIME 29.2 seconds (23.8-35.5)
[~2019-04-12] MED LIST changes: +CEFTRIAXONE SOD 1 GM/NS 50 ML 50 ML IV ONE; +DEXAMETHASONE SOD PHOS INJ 4 MG/ML VIAL ONE; +FENTANYL CITRATE/PF 100MCG/2 ML INJ ONE; +GABAPENTIN300 MG PO; +INSULIN REGULAR, HUMAN 100 UNIT/1 ML 3ML VIAL ONE; +IOPAMIDOL 300MG/ML 50ML INFUS..BTL IV ONE; +MELOXICAM7.5 MG PO; +NITROFURANTOIN100 MG PO; +NOVOLIN 70100 UNIT/3 SQ; +ONDANSETRON HCL INJ 2MG/ML 2ML 2 MG/ML VIAL ONE; +SEVOFLURANE INHAL SOLN 250 ML PEN BTL ONE; +ULTRAM50 MG PO; +[UNRECOGNIZED DRUG - OTHER] PO
--- OUTSIDE RECORDS SUMMARY | 2019-04-12 12:01 | XMS REPORT | Summary of Care ---
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 Name Role Phone PCP Unavailable Reason for Visit * Reason Comments Hepatocellular Carcinoma Encounter Details Care Team Description Date Type Department Josh Forde MD [address] [place] [address] Hepatocellular Carcinoma 12/12/2018 Office Visit [facility] [address] 7[address], [address] [place] [address] Allergies Comments Active Allergy Reactions Severity Noted Date Bactrim Ds Itching Medium 05/05/2018 documented as of this encounter (statuses as of 12/12/2018) Medications End Date Status Medication Sig Dispensed Refills Start Date Active NIFEdipine (PROCARDIA XL) Take 30 mg by 0 30 MG tablet mouth daily. 8 Active insulin 70-30 (NOVOLIN Use 55UNITS 0 70/30) (70-30) 100 Twice a Day 8 UNIT/ML injection Active metformin (GLUCOPHAGE) Take 1,000 mg 0 1000 MG tablet by mouth 2 8 times daily (with meals). Active ranitidine, ZANTAC, 150 Take 150 mg 0 MG tablet by mouth daily. Active glipiZIDE (GLUCOTROL) 10 Take 10 mg by 0 MG tablet mouth daily. Active pregabalin (LYRICA) 50 MG QHS 0 capsule 8 Active Multiple Vitamin Take 1 Tab by 0 (MULTI-VITAMINS) TABS mouth daily. Active MELATONIN OR Take 1 Cap by 0 mouth at bedtime. Active losartan (COZAAR) 100 MG Take one 0 tablet tablet By 6 Mouth Every Day documented as of this encounter (statuses as of 12/12/2018) Active Problems Problem Noted Date Type 2 diabetes mellitus without complication, with long-term current use 05/05/2018 of insulin (HCCode) HTN (hypertension) 05/05/2018 documented as of this encounter (statuses as of 12/12/2018) Social History Date Tobacco Use Types Packs/Day Years Used Never Smoker Smokeless Tobacco: Never Used Drinks/Week oz/Week Comments Alcohol Use No Alcohol Habits Answer Date Recorded How often do you have a drink containing alcohol? Never 05/05/2018 How many drinks containing alcohol do you [...] Travel Start No recent travel history available. documented as of this encounter Last Filed Vital Signs Reading Time Taken Comments Vital Sign 127/82 12/12/2018 2:37 PM CDT Blood Pressure 93 12/12/2018 2:37 PM CDT Pulse 36.7 C (98 F) 12/12/2018 2:37 PM CDT Temperature - - Respiratory Rate - - Oxygen Saturation - - Inhaled Oxygen Concentration 107.6 kg (237 lb 3.2 oz) 12/12/2018 2:37 PM CDT Weight 157.5 cm (5' 2") 12/12/2018 2:37 PM CDT Height 43.38 12/12/2018 2:37 PM CDT Body Mass Index documented in this encounter Patient Instructions * Patient Instructions* Carly Shook CMA - 12/12/2018 2:00 PM CDT [facility] SECTION OF ONCOLOGY/HEMATOLOGY [phone] FAX [phone] Please note that all labs and or imaging results will be discussed at the next o ffice visit unless told otherwise. if a problem occurs after hours please contact our office and have physician production support specialist paged [phone] Patient Instructions: (to be completed before next visit) RTC 3 months with MRI prior, which should be ordered by hepatology team. Labs p rior Keep follow up appointment with PCP and discuss vaginal bleeding and diabetes ma marni Take Senna-S once or twice per day plus Miralax or other laxative as needed it help desk associate will schedule the appt Please don't hesitate to call if you have any questions or concerns before your appt. TELL US ABOUT YOUR EXPERIENCE You may receive an email or letter from [facility] via our partn er, Basim Duffy. This is a survey about your experience today. Your feedback is important to us so we can improve. If any question does not apply to your visit, please leave it blank. Our goal is to ensure you have an exceptional experience at [facility]. If for any reason you cannot rate your experience as very good, pl ease let a member of our staff know so we can make immediate improvements. Thanks Carly Shook CMA documented in this encounter Progress Notes * Wei Boyd, BRUNO - 12/12/2018 2:00 PM CDT Patient: Zeenat Mccormick 1965 Reason for consultation: HCC Referred by: Percy Alcaraz 12/12/2018: Presents to clinic for follow up on MRI from 11/25/18. Clinically stab le except for some recent vaginal bleeding that she will be seeing her PCP for o n Wednesday12/16/18. Saw gynecology about 1 year ago and may follow with them afte r seeing PCP. Otherewise, stable. Some intermittent bloating and abdominal disco mfort. Some consitpation, taking Linzess infrequently. Urine is okay, no CP/SOB, no N/V, no F/C/NS. ECOG PS 0-1 (obesity) History of Present Illness: Ms. Mccormick is a 53 y.o. woman with morbid obesity, DM, NAFLD referred for an opinion regarding her HCC. Evaluation and treatment to date have included the following: - radiographic screening for HCC initiated in 2016 ([facility]), where she was found to have a liver mass. Referred to [facility] (Dr. Chu) in late 2018 - MRI abd 02/04/18: 9.5 x 8.3 x 7.9 cm enhancing mass in segment 4A with central area without enhancement measuring 3.3 x 4.8 cm, scattered enhancing foci throu ghout the liver up to 1.5 cm - possible shunts versus related to mas. No cirrhos is, no steatosis. - CT chest 03/28/18: no lung mets - bone scan 03/28/18: no bone mets - Liver biopsy 03/31/18 showed well-differentiated HCC - MRI liver protocol w/ Eovist 05/03/18: 7.9 x 8.4 cm segment 2 and 4 with washou t, central necrosis versus chronic hemorrhage within mass, no other mass, portal vein 1.1 cm, no biliary dilation, no ascites - not a candidate for OLT based on mass > 6 cm. Not a candidate for surgery (per Percy Alcaraz) due to size and location of mass - TACE 06/07/18 ([facility]) - MRI 07/19/18: some residual disease noted in treated segment IV. No new lesions - TACE 08/25/18 ([facility]) - MRI abdomen 11/25/18: necrosis and devascularization to treated lesion Past Medical History: Morbid obesity GERD DM, BG 150-200 HTN No known cardiac disease Had stress test Echo 05/05/18: normal EF, normal valves and chambers nuc med stress test 05/05/18: On stress imaging there is small area of mildly red uced counts present at the apical lateral wall that improves on rest imaging sug gestive of ischemia. There is normal perfusion in all other segments. The post stress ejection fraction was 57% with no regional wall motion abnormali ties. Past Surgical History: C section Cholecystectomy Tubal ligation Allergies Allergen Reactions Bactrim Ds Itching Current Outpatient Medications Medication Sig Dispense Refill glipiZIDE (GLUCOTROL) 10 MG tablet Take 10 mg by mouth daily. insulin 70-30 (NOVOLIN 70/30) (70-30) 100 UNIT/ML injection Use 55UNITS Twi ce a Day losartan (COZAAR) 100 MG tablet Take one tablet By Mouth Every Day MELATONIN OR Take 1 Cap by mouth at bedtime. metformin (GLUCOPHAGE) 1000 MG tablet Take 1,000 mg by mouth 2 times daily ( with meals). Multiple Vitamin (MULTI-VITAMINS) TABS Take 1 Tab by mouth daily. NIFEdipine (PROCARDIA XL) 30 MG tablet Take 30 mg by mouth daily. pregabalin (LYRICA) 50 MG capsule QHS ranitidine, ZANTAC, 150 MG tablet Take 150 mg by mouth daily. No current facility-administered medications for this visit. Social History: Lives in [place], [place] No heavy EtOH, no smoking 2 boys, 2 girls - healthy Family History: Mat GF with liver cancer (drinker) Pat uncle with prostate cancer No cancer in parents, siblings Review of Systems Constitutional: Positive for malaise/fatigue. HENT: Negative. Eyes: Negative. Respiratory: Positive for shortness of breath (with exertion). Cardiovascular: Negative for chest pain, orthopnea and leg swelling. Gastrointestinal: Positive for abdominal pain (Overall improved, now intermitten t) and constipation. Negative for blood in stool and heartburn. Genitourinary: Negative. Musculoskeletal: Negative. Skin: Negative. Neurological: Negative. Psychiatric/Behavioral: Negative. Physical Exam Constitutional: She is oriented to person, place, and time and well-developed, w ell-nourished, and in no distress. No distress. Morbidly obese, accompanied by daughter HENT: Head: Normocephalic and atraumatic. Mouth/Throat: Oropharynx is clear and moist. No oropharyngeal exudate. Eyes: Conjunctivae are normal. Right eye exhibits no discharge. Left eye exhibit s no discharge. No scleral icterus. Neck: Neck supple. No tracheal deviation present. Cardiovascular: Normal rate and regular rhythm. Exam reveals no friction rub. No murmur heard. Pulmonary/Chest: No stridor. Abdominal: Soft. Bowel sounds are normal. She exhibits no distension and no mass . There is tenderness (RUQ). There is no rebound and no guarding. Obese abdomen. Well-healed abd wound from prior cholecystectomy Musculoskeletal: Normal range of motion. She exhibits no edema, tenderness or de formity. Lymphadenopathy: She has no cervical adenopathy. Neurological: She is alert and oriented to person, place, and time. She exhibits normal muscle tone. Coordination normal. Skin: Skin is warm and dry. Rash (acanthosis nigricans around lower neck) noted. She is not diaphoretic. No erythema. No pallor. Psychiatric: Mood, memory, affect and judgment normal. Pertinent labs/studies (other than those mentioned in the HPI): Lab Results Component Value Date WBC 8.9 12/12/2018 HGB 14.5 12/12/2018 HCT 42.5 12/12/2018 MCV 90.0 12/12/2018 PLT 210 12/12/2018 Lab Results Component Value Date ALT 24 12/12/2018 AST 25 12/12/2018 ALKPHOS 125 12/12/2018 BILITOT 0.7 12/12/2018 Lab Results Component Value Date CREATININE 0.76 12/12/2018 BUN 21 (H) 12/12/2018 NA 137 12/12/2018 K 4.8 12/12/2018 CL 100 12/12/2018 CO2 29 12/12/2018 Lab Results Component Value Date GLUCOSE 440 (HH) 12/12/2018 Assessment/Plan: 1) biopsy proven HCC, no additional masses or evidence of mets. Mass too big for OLT. Not a candidate for surgery (per Percy Alcaraz) due to size and location of ma ss. 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 S/p another TA CE on 08/25/18. Latest MRI 11/25/18 shows treatment effect - Repeat imaging (to be ordered by liver team) and RTC in 3 months 2) NAFLD without radiographic, clinical, or laboratory evidence of cirrhosis/hep atic dysfunction. HBsAg neg, anti-HBc neg, HCV Ab neg. No prior ascites, jaundic e, encephalopathy, or varices. Last colonoscopy (04/21/18) was normal. Last EGD showed small hiatal hernia, H Pylori negative, reflux esophagitis. - f/u hepatology 3) constipation - Senna S once or twice daily - Miralax as needed 4) vaginal bleeding - follow with PCP this Wednesday and possibly with gynecology thereafter 5) Hyperglycemia/DM - 440 glucose today - Printed labs to take to PCP on Wednesday and discuss management RTC 3 months with next MRI prior Discussed with BRUNO Diaz [facility] documented in this encounter Plan of Treatment Health Maintenance Due Date Last Done Comments MAMMOGRAM ANNUAL 1965 TETANUS SHOT (ADULT) 02/15/1980 ANNUAL DIABETIC FOOT EXAM 1983 ANNUAL DIABETIC 1983 RETINOPATHY SCREENING BMI FOLLOW UP PLAN 1983 HIV SCREENING 1983 CERVICAL CANCER SCREENING 1986 3 YEAR FOLLOW UP FLU VACCINE > 6 MONTHS 10/06/2018 12/06/2015, 06/14/2015 COLON CANCER SCREENIN04/21/2028 04/21/2018 COLONOSCOPY PREVNAR >=65 (PCV13) 2030 07/16/2017, 07/12/2015 HEPATITIS C SCREENING Completed 01/26/2018 documented as of this encounter Results Not on filedocumented in this encounter Visit Diagnoses Diagnosis Hepatocellular carcinoma (HCCode) - Primary Malignant neoplasm of liver, primary documented in this encounter Insurance Type Payer Benefit Subscriber ID Effective Phone Address Plan / Dates Group [facility] xxxxxxxxxx [facility]-[address] [facility] [address] [id number] [place] [address] documented as of this encounter
--- OUTSIDE RECORDS SUMMARY | 2019-04-12 12:01 | XMS REPORT ---
Author Author Admin, [facility] Address [address] [place] [address] Phone Allergies, Adverse Reactions, Alerts Allergy Name Reaction Description Start Date Severity Status Provider GABAPENTIN nausea Moderate Active Tamara Gutierrez MD BACTRIM Critical Active Kaitlin Collier MD Conditions or Problems Problem Name Problem Code Onset Date Status Entry Date Provider Comment Standard Description Annotate Recurrent urinary tract infection 599.0 Active Yamil García MD Urinary tract infection, site not specified Dysuria 788.1 Active Yamil García MD Dysuria UTI treated in 09/02/18 still having symptoms Liver cancer, primary 155.0 Active Yamil García MD Malignant neoplasm of liver, primary Venous stasis 459.81 Active Yamil García MD Venous (peripheral) insufficiency, unspecified Elevated liver enzymes 790.6 Active Marcela Espinoza D.O. Other abnormal blood chemistry Screening for hepatitis [...] for prophylactic vaccination against Streptococcus pneumoniae [pneumococcus] Albuminuria 791.0 Active Yamil García MD Proteinuria Benign essential hypertension 401.1 Active [...] WOMAN ICD-V70.0 Inactive Rao Avila MD (res) Microalbuminuria 791.0 Inactive Jeniffer Ly MD Proteinuria Diabetes mellitus, type II ICD-250.00 Inactive Jeniffer [...] by mouth twice a day DOCUSATE SODIUM 82027786822 Active Floresita Birch MD (res) Active NOVOLIN 70/30 (70-30) 100 UNIT/ML SUSP Use 70 UNITS Twice a Day INSULIN NPH ISOPHANE & REGULAR 43828720707 Active Nabor Ashby MD R3 Active [facility] MELATONIN EXTRA STRENGTH 5 MG ORAL TABLET Take 1 tab By Mouth at bedtime MELATONIN 35898249394 Active Nabor Ashby MD R3 Active INSULIN SYRINGE 28G X 1/2" 0.5 ML Use as directed INSULIN SYRINGE- NEEDLE U-100 01513701787 Active Nabor Ashby MD R3 Active GABAPENTIN 300 MG ORAL CAPSULE Take 1 tab By Mouth three times per day GABAPENTIN 40473499605 Active Nabor Ashby MD R3 Active GLIPIZIDE ER 10 MG ORAL TABLET EXTENDED RELEASE 24 HOUR one tablet By Mouth Every Day GLIPIZIDE 26072780977 Active Nabor Ashby MD R3 Active LOSARTAN POTASSIUM 100 MG ORAL TABLET Take one tablet By Mouth Every Day LOSARTAN POTASSIUM 27155043707 Active Nabor Ashby MD R3 Active METFORMIN HCL 1000 MG ORAL TABLET 1 by mouth once a day METFORMIN HCL 40900653866 Active Nabor Ashby MD R3 Active RANITIDINE HCL 150 MG ORAL TABLET 1 by mouth twice a day RANITIDINE HCL 12824288022 Active Marcela Espinoza D.O. Active MACROBID 100 MG ORAL CAPSULE 1 by mouth twice a day MACROBID 100 MG ORAL CAPSULE 6588329 NITROFURANTOIN MONOHYD MACRO Inactive LYRICA 50 MG ORAL CAPSULE 1 tab By Mouth Three Times a Day As Needed pain LYRICA 50 MG ORAL CAPSULE PREGABALIN Inactive MOBIC 15 MG ORAL TABLET 1 by mouth daily MOBIC 15 MG ORAL TABLET 359660 MELOXICAM Inactive ASPIRIN 81 MG ORAL TABLET Take 1 tab By Mouth daily ASPIRIN 81 MG ORAL TABLET ASPIRIN Inactive NAPROXEN 500 MG ORAL TABLET 1 by mouth twice a day as needed for pain and inflammation NAPROXEN 500 MG ORAL TABLET 139594 NAPROXEN Inactive MACROBID 100 MG ORAL CAPSULE 1 by mouth twice a day morning and night for burning with voiding MACROBID 100 MG ORAL CAPSULE 2688760 NITROFURANTOIN MONOHYD MACRO Inactive MECLIZINE HCL 25 MG ORAL TABLET 1 by mouth 3 times a day as needed MECLIZINE HCL 25 MG ORAL TABLET 371464 MECLIZINE HCL Inactive LANTUS 100 UNIT/ML SUBCUTANEOUS SOLUTION 40 units sc in AM and PM LANTUS 100 UNIT/ML SUBCUTANEOUS SOLUTION INSULIN GLARGINE Inactive LOVASTATIN 40 MG ORAL TABLET 1 by mouth every night LOVASTATIN 40 MG ORAL TABLET 263742 LOVASTATIN Inactive MACROBID 100 MG ORAL CAPSULE 1 by mouth twice a day NITROFURANTOIN MONOHYD MACRO 38429279665 No Longer Active Nabor Ashby MD R3 Active LYRICA 50 MG ORAL CAPSULE 1 tab By Mouth Three Times a Day As Needed pain PREGABALIN 63585254965 No Longer Active Yamil García MD Active MOBIC 15 MG ORAL TABLET 1 by mouth daily MELOXICAM 58803685673 No Longer Active Nabor Ashby MD R3 Active ASPIRIN 81 MG ORAL TABLET Take 1 tab By Mouth daily ASPIRIN 92895514872 No Longer Active Nabor Ashby MD R3 Active NAPROXEN 500 MG ORAL TABLET 1 by mouth twice a day as needed for pain and inflammation NAPROXEN 92101661511 No Longer Active Breanna Davis MD Active MACROBID 100 MG ORAL CAPSULE 1 by mouth twice a day morning and night for burning with voiding NITROFURANTOIN MONOHYD MACRO 15067623514 No Longer Active Breanna Davis MD Active MECLIZINE HCL 25 MG ORAL TABLET 1 by mouth 3 times a day as needed MECLIZINE HCL 98785788136 No Longer Active Breanna Davis MD Active LYRICA 100 MG ORAL CAPSULE one capsule By Mouth Three Times a Day PREGABALIN 84108647605 No Longer Active Breanna Davis MD Active LANTUS 100 UNIT/ML SUBCUTANEOUS SOLUTION 40 units sc in AM and PM INSULIN GLARGINE 25913780297 No Longer Active Tamara Gutierrez MD Active LOVASTATIN 40 MG ORAL TABLET 1 by mouth every night LOVASTATIN 59532594110 No Longer Active Nabor Ashby MD R3 Active PANTOPRAZOLE SODIUM 40 MG ORAL TABLET DELAYED RELEASE one tablet By Mouth Every Day PANTOPRAZOLE SODIUM 62391896937 No Longer Active Kaitlin Collier MD Active Immunizations Vaccine Administration Date Value Standard Description influenza immunization (Flu Vax) has been administered given influenza virus vaccine, unspecified formulation PEDIATRIC PNEUMOCOCCAL VACCINE ([id number]) #1 given pneumococcal conjugate vaccine, 13 valent Vital Signs Date Name Value Unit Range Description blood pressure, diastolic 76 mm[Hg] BP crowley blood pressure, systolic 112 mm[Hg] BP sys height E&M 63 [in_us] Bdy height pulse rate E&M 103 /min Heart rate respiratory rate E&M 20 /min Resp rate temperature E&M 97.9 [degF] Body temperature weight E&M 232.20 [lb_av] Weight Measured blood pressure, diastolic 74 [...] nitrogen, blood 17 mg/dL 6-24 Office Visit: Adult Followup Dr. Symone Ashby - Urinalysis leukocyte esterase, urine, by dipstick 1+ Lab Report: CBC With Differential/Platelet, Comp. Metabolic Panel (14), [facility] Hematology mean corpuscular hemoglobin concentration, RBC 33.7 G/DL % 31.5-35.7 Office Visit: Adult Followup Dr. Symone Ashby - Urinalysis nitrite, urine, semiquantitative positive Lab Report: CBC With Differential/Platelet, Comp. Metabolic Panel (14), [facility] Hematology erythrocyte (RBC) count 4.80 X10E6/UL 10*6/mm3 3.77-5.28 Lab Report: HCV Antibody - Serology hepatitis C antibody, serum <0.1 0.0-0.9 Office Visit: Adult Followup Dr. Symone Ashby - Urinalysis urine color yellow bilirubin, urine negative Lab Report: CBC With Differential/Platelet, Comp. Metabolic Panel (14), [facility] Chemistry Absolute Neutrophils 6.1 X10E3/UL 10*3/uL 1.4-7.0 Lab Report: Comp. Metabolic Panel (14), Lipid Panel, Albumin/Creatinine ... 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 Metabolic Panel (14), [facility] Hematology mean corpuscular volume, RBC 91 fL 79-97 Lab Report: Comp. Metabolic Panel (14), Lipid Panel, Albumin/Creatinine ... - Chemistry HDL cholesterol, serum 38 mg/dL >39 Lab Report: CBC With Differential/Platelet, Comp. Metabolic Panel (14), [facility] Hematology monocytes as percent of blood leukocytes 9 % Not Estab. Lab Report: Comp. Metabolic Panel (14), Lipid Panel, Albumin/Creatinine ... - Chemistry albumin/globulin ratio, serum 1.3 1.2-2.2 creatinine, serum 0.54 mg/dL 0.57-1.00 cholesterol, serum 149 mg/dL 948-156 3949/07/01 creatinine, random, urine 223.0 mg/dL Not Estab. bilirubin, serum, total 0.3 mg/dL 0.0-1.2 Lab Report: CBC With Differential/Platelet, Comp. Metabolic Panel (14), [facility] Hematology Eosinophil Absolute Count 0.2 X10E3/UL 10*3/uL 0.0-0.4 Office Visit: Adult Followup Dr. Symone Ashby - Urinalysis appearance, urine clear blood in urine (hemoglobin) by dipstick negative Lab Report: Comp. Metabolic Panel (14), Lipid Panel, Albumin/Creatinine ... - Chemistry aspartate aminotransferase (SGOT), serum 20 U/L 0-40 Lab Report: CBC With Differential/Platelet, Comp. Metabolic Panel (14), [facility] Hematology red blood cell distribution width 13.8 % 12.3-15.4 Office Visit: Adult Followup Dr. Symone Ashby - Urinalysis pH, urine, semiquantitative 5.5 Lab Report: CBC With Differential/Platelet, Comp. Metabolic Panel (14), [facility] Hematology leukocyte count, blood 9.7 X10E3/UL 10*3/mm3 3.4-10.8 Lab Report: Comp. Metabolic Panel (14), Lipid Panel, Albumin/Creatinine ... - Chemistry potassium, serum 4.3 mmol/L 3.5-5.2 albumin, serum 3.9 g/dL 3.5-5.5 Lab Report: CBC With Differential/Platelet, Comp. Metabolic Panel (14), [facility] Chemistry immature granulocytes, percentage of total cells, blood 0 % Not Estab. Lab Report: CBC With Differential/Platelet, Comp. Metabolic Panel (14), [facility] Hematology lymphocyte count, blood, automated 2.5 X10E3/UL 10*3/mm3 0.7-3.1 hematocrit, blood 43.6 % 34.0-46.6 Lab Report: Urine Culture, Routine, Result - Urinalysis urine culture Escherichia coli Lab Report: Comp. Metabolic Panel (14), Lipid Panel, Albumin/Creatinine ... - Chemistry sodium, serum 139 mmol/L 134-144 Lab Report: CBC With Differential/Platelet, Comp. Metabolic Panel (14), TSH - Hematology neutrophils as percent of blood leukocytes 64 % Not Estab. Internal Correspondence: Pre-Visit Planning - Other List of providers caring for patient Fredy Boykin Maria G Lab Report: CBC With Differential/Platelet, Comp. Metabolic Panel (14), TSH - Hematology basophils as percent of blood leukocytes 0 % Not Estab. Office Visit: Adult Followup Dr. Symone Ashby - Urinalysis protein, urine, semiquantitative (dipstick) trace Lab Report: Comp. Metabolic Panel (14), Lipid [...] hemoglobin, RBC 30.6 pg 26.6-33.0 Office Visit: Adult Followup Dr. Symone Ashby - Urinalysis specific gravity, urine 1.020 Lab Report: Comp. Metabolic Panel (14), Lipid [...] total hemoglobin 9.6 % 4.8-5.6 Office Visit: Adult Followup Dr. Symone Ashby - Urinalysis glucose, urine, semiquantitative 4+ Lab Report: Comp. Metabolic Panel (14), Lipid Panel, Albumin/Creatinine ... - Genetics/fertility eGFR if 125 mL/min/1.73m2 >59 Lab Report: CBC With Differential/Platelet, Comp. Metabolic Panel (14), [facility] - Hematology basophil count, absolute 0.0 x10E3/uL 0.0-0.2 Lab Report: Comp. Metabolic Panel (14), Lipid Panel, Albumin/Creatinine ... - Chemistry globulin, serum 2.9 1.5-4.5 Estimated Glomerular Filtration Rate (calc) 108 mL/min/1.73m2 >59 Lab Report: Comp. Metabolic Panel (14), Lipid Panel, Albumin/Creatinine ... - Urinalysis microalbumin/total urine volume 352.1 mg/L Not Estab. Lab Report: CBC With Differential/Platelet, Comp. Metabolic Panel (14), [facility] - Hematology eosinophils as percent of blood leukocytes 2 % Not Estab. Lab Report: Comp. Metabolic Panel (14), Lipid Panel, Albumin/Creatinine ... - Chemistry blood glucose, random 232 mg/dL 65-99 Office Visit: Adult Followup Dr. Symone Ashby - Urinalysis urobilinogen, urine, semiquantitative (dipstick) negative Lab Report: CBC With Differential/Platelet, Comp. Metabolic Panel (14), [facility] - Hematology monocyte count, blood, automated 0.9 X10E3/UL 10*3/uL 0.1-0.9 Office Visit: Adult Followup Dr. Symone Ashby - Urinalysis ketones, urine, by test strip negative Lab Report: CBC With Differential/Platelet, Comp. Metabolic Panel (14), TSH - Hematology platelet count 222 X10E3/UL 10*3/mm3 150-379 Encounters Date Encounter Provider Code Facility 13:52:39 CDT Est Patient Exp Problem - 79688 Yamil García MD CPT-64002 [facility] 19:15:28 CDT Est Patient Exp Problem - 06863 Yamil García MD CPT-32222 [facility] 10:11:56 CDT Est Patient Detailed - 72353 Yamil García MD CPT-17287 [facility] 11:32:10 CDT Est Patient Exp Problem - 54300 Marcela Tenorio.O. CPT-21991 [facility] 12:11:10 CDT Est Patient Exp Problem - 02107 Marcela Tenorio.Ming. CPT-71688 [facility] 10:03:04 CDT Est Patient Exp Problem - 64497 Floresita Birch MD (res) CPT-78348 [facility] 17:28:56 CDT Est Patient Detailed - 53003 Tatianna Covarrubias MD CPT-29974 [facility] 11:23:46 CDT Est Patient Exp Problem - 46294 Marcela Tenorio.O. CPT-04680 [facility] 11:25:31 [employer] Est Patient Detailed - 81636 Rao Avila MD (res) CPT-70827 [facility] 15:32:27 CDT Est Patient Exp Problem - 52195 Rao Avila MD (res) CPT-72093 [facility] 16:52:49 CDT Est Patient Exp Problem - 78294 Floresita Birch MD (res) CPT-18869 [facility] 14:17:24 CDT Est Patient Exp Problem - 85807 George Kennedy MD CPT-80891 [facility] 08:58:43 [employer] Est Patient Exp Problem - 95341 Tamara Gutierrez MD CPT-93008 [facility] 16:24:59 [employer] Est Patient Exp Problem - 04758 Yunier Nassar MD (res) CPT-13744 [facility] 11:48:18 CDT Est Patient Exp Problem - 43420 Breanna Davis MD CPT-07674 [facility] 17:35:36 CDT Ofc Vst, Est Level III Tamara Gutierrez MD CPT-79887 [facility] 11:07:11 CDT Ofc Vst, New Level III Kaitlin Collier MD CPT-43621 [facility] Procedures Code Procedure Name Date Entry Date Standard Description CPT-77248 Glucose Stick 11:32:13 CDT CPT-84465 HEMOGLOBIN A1C - In House 11:32:13 CDT CPT-18650 IM or SQ Injection 17:28:56 CDT CPT-J1885 Injection, ketorolac tromethamine (toradol), per 15 mg 17:28:56 CDT CPT-94631 HEMOGLOBIN A1C - In House 11:25:32 [employer] CPT-23195 Glucose Stick 11:25:32 [employer] CPT-36827 Urinalysis - Dip only - In House 11:25:32 [employer] CPT-77417 INFLUENZA VACCINE QUADRIVALENT 3 YRS PLUS IM 11:48:19 CDT CPT-43332 EKG - Interpretation & Report Only 11:48:19 CDT CPT-88145 Prevnar (PCV13) IM 17:35:36 CDT CPT-83180 Influenza - Adult - Injection 14:59:45 CDT [facility]-29876 Est Patient Well Exam (40 - 64 Yrs) - [id number] 14:59:43 CDT
--- OUTSIDE RECORDS SUMMARY | 2019-04-12 12:02 | XMS REPORT ---
Author Author Admin, Otis Organization Unknown Address Unknown Phone Unavailable PROBLEMS Condition Status Date Provider Notes Pain in left shoulder active Geetha Vargas Recurrent urinary tract infection active Nabor Mahfouz Dysuria active Nabor Mahfouz UTI treated in 09/02/18 still having symptoms Venous stasis active Nabor Mahfouz Liver cancer, primary active Nabor Mahfouz Screening for hepatitis C active Mahim Shuja Elevated liver enzymes active Mahim Shuja Screening for colon cancer active Mahim Shuja Constipation active Mahim Shuja Abdominal pain active Mahim Shuja Leg pain, left active Tatianna Marci Subcutaneous mass of back active Tatianna Marci Chest pain, acute active Marcela Pérez Ehdaie Dysuria active Rao Avila Insomnia active Rao Avila Diabetic peripheral neuropathy active Rao Avila Arm pain, left completed - Rao Avila Back pain, acute completed - Rao Avila Dysuria completed - Rao Avila Bunion, left foot active Yunier Nassar Vaccine against influenza active Lakeshia Recinos Vertigo/dizziness completed - Rao Avila BMI 40.0-44.9 active Lakeshia Recinos Diabetes mellitus, type II, uncontrolled, w/neurolo comps active Jeniffer Ly Peripheral neuropathy completed - Rao Avila Vaccine against pneumococcal active Crhistian Hue Ly WELL EXAM, WOMAN completed - Rao Austin Albuminuria active Naborelito Ashby GERD active Crhistian Hue Ly Hyperlipidemia active Crhistian Hue Ly Benign essential hypertension active Crhistmeghann Swann Ly Diabetes mellitus, type II completed - Crhistian Hue Ly MORBID OBESITY active Crhistian Hue Ly ENCOUNTERS Date Type Provider Location Encounter Diagnosis - Ambulatory Encounter Geetha Vargas [facility] UNK - Ambulatory Encounter Geetha Vargas [facility] UNK - Ambulatory Encounter Yamil [facility] Pain in left shoulder - Ambulatory Encounter Yamil [facility] - [facility] UNK - Ambulatory Encounter Akin Doroteo [facility] UNK - Ambulatory Encounter [facility]abor [facility] UNK - Ambulatory Encounter Nabor [facility] UNK - Ambulatory Encounter Fax [facility] - Ambulatory Encounter Fax Status [facility]K - Ambulatory Encounter Fax [facility] UNK - Ambulatory Encounter [facility]abor [facility] UNK - Ambulatory Encounter Nabor [facility] UNK - Ambulatory Encounter Nabor [facility] UNK - Ambulatory Encounter Yamil Erazo N[facility] N[facility] Akin Sadler [facility] AlbuminuriaRecurrent urinary tract infection - Ambulatory Encounter Lisa Dian [facility] UNK - Ambulatory Encounter Yamil [facility] UNK - Ambulatory Encounter Nabor [facility] UNK - Ambulatory Encounter Nabor [facility] Nabor Mahfouz [facility] UNK - Ambulatory Encounter Nabor [facility]abor [facility] UNK - Ambulatory Encounter Nabor [facility] UNK - Ambulatory Encounter Nabor [facility] Nabor [facility] UNK - Ambulatory Encounter Nabor [facility] UNK - Ambulatory [facility] UNK - Ambulatory Encounter Yamil Mayo [facility] Dysuria - Ambulatory Encounter Nabor [facility] Nabor [facility] UNK - Ambulatory Encounter Fax Status LinkLogic [facility] UNK - Ambulatory Encounter Fax Status [facility] UNK - Ambulatory Encounter Fax Status [facility] UNK - Ambulatory Encounter Nabor [facility] - [facility] - Ambulatory Encounter Nabor [facility] - Ambulatory Encounter Yamil Erazo Nabor [facility] Adams [facility] Liver cancer, primaryVenous stasis - Ambulatory Encounter Lisa Bgigs [facility] - Ambulatory Encounter Sandro Graves [facility]K - Ambulatory Encounter Fredy Valladares [facility] UNK - Ambulatory Encounter Meli Box Heather [facility] UNK - Ambulatory Encounter [facility] - [facility]ulatory Encounter [facility] - Ambulatory Encounter Fredy Valladares [facility] UNK - Ambulatory Encounter Lisamandeep [facility]Community [facility] UNK - Ambulatory Encounter Floresita Birch [facility]K - Ambulatory Encounter Marcela Katz Med[facility]herence [facility] UNK - Ambulatory Encounter Marcela Chase Damian [facility] UNK - Ambulatory Encounter Marcela Salgado [facility] UNK - Ambulatory Encounter Tiffany Katz Med[facility]herence [facility] UNK - Ambulatory Encounter Tiffany Katz MedAdherence [facility] UNK - Ambulatory Encounter LSJ Lab Support Desktop [facility] UNK - Ambulatory Encounter Marcela Espinoza [facility] UNK - Ambulatory [facility] - Ambulatory En[facility]K - Ambulatory Encounter Yamil Espinoza [facility] Nikia Martinez [facility] Elevated liver enzymesScreening for hepatitis C - Ambulatory Encounter LSJ Lab Support Desktop LinkLogic [facility] UNK - Ambulatory Encounter Fax Status LinkLogic [facility] UNK - Ambulatory Encounter Fax Status LinkLogic [facility]South [facility] UNK - Ambulatory Encounter Fax Status LinkLogic [facility] UNK - [facility] - Ambulatory Encounter Floresita Birch [facility] Hospitalvincenzo ry [facility] UNK - Ambulatory Encounter [facility] UNK - Ambulatory Encounter Tamara Solitario [facility] Vickie Esqueda [facility] Abdominal painConstipationScreening for colon cancer - Ambulatory Encounter Tatianna Marci Campuzano Marci [facility] UNK - Ambulatory Encounter Tatianna Campuzano Marci [facility] UNK - Ambulatory Encounter Tatianna Campuzano Marci [facility] UNK - Ambulatory Encounter Tiffany Katz [facility] UNK - Ambulatory Encounter Tatianna Marci Campuzano Marci [facility] UNK - Ambulatory Encounter Tatianna Solitario [facility] Subcutaneous mass of backLeg pain, left - Ambulatory Encounter Jennifer Ricardo [facility] Encounter Marcela Espinoza [facility]ulatory Encounter Marcela Ricardo [facility] Chest pain, acute - Ambulatory Encounter Meli Box [facility] UNK - Ambulatory Encounter Meli Box MedAdherHelen [facility] UNK - Ambulatory Encounter Tiffany [facility] - Ambulatory Encounter Tiffany Katz MedAdherence LinkLogic [facility] UNK - Ambulatory Encounter Tiffany Katz MedAdherence [facility] UNK - Ambulatory Encounter Tiffany Katz MedAdherence LinkLogic [facility] UNK - Ambulatory Encounter Meli Box MedAdherence [facility] UNK - Ambulatory Encounter Meli oBx MedAdherence LinkLogic [facility] UNK - Ambulatory Encounter Meli Isauro MedAdherence [facility] UNK - Ambulatory Encounter Meli Box MedAdherence LinkLogic [facility] UNK - Ambulatory Encounter Meli Box MedAdherence [facility] UNK - Ambulatory Encounter Meli Box MedAdherence LinkLogic [facility] UNK - Ambulatory Encounter Tiffany Katz MedAdherence [facility] UNK - Ambulatory Encounter Rao Avila [facility] UNK - Ambulatory Encounter Tiffany Katz MedAdherence LinkLogic [facility] UNK - Ambulatory Encounter Mya Star [place] [facility] UNK - Ambulatory Encounter Rao Avila LinkLogic [facility] UNK - Ambulatory Encounter [facility] [place] [facility] UNK - Ambulatory Encounter Rao Avila [facility] UNK - Ambulatory Encounter Tamara [facility] InsomniaDysuria - Ambulatory Encounter Tiffany Katz MedAdherence [facility] UNK - Ambulatory Encounter Tiffany Katz [facility]Adherence [facility]K - Ambulatory Encounter Rao Avila [facility] UNK - Ambulatory Encounter Breanna Avila [facility] WELL EXAM, WOMANPeripheral neuropathyVertigo/dizzinessDysuriaBack pain, acuteArm pain, leftDiabetic peripheral neuropathy - Ambulatory Encounter Silana Kevinsa Tiffany Katz MedAdherence [facility] UNK - Ambulatory Encounter Tiffany Katz MedAdherence LinkLogic Sillesteramariannamarie Lyon [facility] UNK - Ambulatory Encounter Tiffany Katz MedAdherence [facility] UNK - Ambulatory Encounter Tiffany Katz MedAdherence [facility] UNK - Ambulatory Encounter Tiffany Katz MedAdherence LinkLogic [facility] UNK - Ambulatory Encounter Tiffany Katz MedAdherence LinkLogic [facility] UNK - Ambulatory Encounter Damaritza Dino [facility] UNK - Ambulatory Encounter Krista Dino Link[facility] UNK - Ambulatory Encounter Tiffany Katz MedAdherence [facility] UNK - Ambulatory Encounter Tiffany Katz MedAdherence LinkLog[facility] UNK - Ambulatory Encounter Tiffany Katz MedAdherence [facility] UNK - Ambulatory Encounter Tiffany SandersAdherrichie [facility] UNK - Ambulatory Encounter Floresita Birch [facility] Hospitalv[facility]enzo [facility] UNK - Ambulatory Encounter Floresita Birch [facility] - [facility] - Ambulatory Encounter Yamil Erazo [facility] Back pain, acuteArm pain, left - Ambulatory Encounter George Kennedy [facility] UNK - Ambulatory Encounter George Solitario [facility] Dysuria - Ambulatory Encounter Yunier Nassar [facility] UNK - Ambulatory Encounter Yunier Nassar [facility] UNK - Ambulatory Encounter Yunier Nassar [facility] UNK - Ambulatory Encounter Tamara Nassar [facility] UNK - Ambulatory Encounter Fax Status LinkLogic [facility] UNK - Ambulatory Encounter Fax Status LinkLogic [facility] UNK - Ambulatory Encounter Fax Status LinkLogic [facility] UNK - Ambulatory Encounter Yunier Nassar [facility] UNK - Ambulatory Encounter Yunier Nassar [facility] UNK - Ambulatory Encounter Yunier Nassar Y[facility]ier [facility] UNK - Ambulatory Encounter Yamil Erazo Yunier [facility] Bunion, left foot - Ambulatory Encounter Lakeshia Blue Recinos Lakeshia Blue Recinos [facility] UNK - Ambulatory Encounter Lakeshia Blue Recinos Lakeshia Blue Recinos [facility] UNK - Ambulatory Encounter Fax Status [facility] UNK - Ambulatory Encounter Fax Status [facility] UNK - Ambulatory Encounter Fax Status [facility] UNK - Ambulatory Encounter Alkeshia Blue Recinos Lakeshia Blue Recinos [facility] UNK - Ambulatory Encounter Lakeshia Blue Recinos Lakeshia Blue Recinos [facility] UNK - Ambulatory Encounter Breanna Solitario Lakeshia Blue Recinos Lakeshia Blue Jorje Miller [facility] BMI 40.0-44.9Vertigo/dizzinessVaccine against influenza - Ambulatory Encounter Crhistian Hue Ly [facility] - [facility]ulatory Encounter Crhistian Hue Ly Crhistian Hue [facility] UNK - Ambulatory Encounter Crhistian Hue Frankelerrero Crhistian Hue [facility] UNK - Ambulatory Encounter Sunita Biggs [facility] UNK - Ambulatory Encounter Lisa [facility] UNK - Ambulatory Encounter Lisa [facility] UNK - Ambulatory Encounter Lisa [facility] UNK - Ambulatory Encounter Lisa [facility] UNK - Ambulatory Encounter [facility] UNK - Ambulatory Encounter Lisa [facility] UNK - Ambulatory Encounter Fax Status [facility] UNK - Ambulatory Encounter Fax Status [facility] UNK - Ambulatory Encounter Fax Status [facility] UNK - Ambulatory Encounter Meli Box [facility] UNK - Ambulatory Encounter Crhayaz Ly Crhistmeghann Swann [facility] UNK - Ambulatory Encounter Crhayaz Ly Crhistmeghann Hue [facility] UNK - Ambulatory Encounter Tamara Gutierrez Crhistmeghann Ly Crhistian Hue Carrillo [facility] Diabetes mellitus, type IIVaccine against pneumococcalPeripheral neuropathyDiabetes mellitus, type II, uncontrolled, w/neurolo comps - Ambulatory Encounter Lisa [facility] UNK - Ambulatory Encounter Sissy King [facility] UNK - Ambulatory Encounter Madhuri Domingo [facility] UNK - Ambulatory Encounter Narendra Magallon [facility] UNK - Ambulatory Encounter [facility] - [facility]ulatory Encounter Lisa Dian LinkLogic Na[facility] UNK - Ambulatory Encounter Fax [facility] - Ambulatory Encounter Fax Status [facility] UNK - Ambulatory Encounter Fax Status [facility] UNK - Ambulatory Encounter [facility] - Ambulatory Encounter Lisa Dianvikram Kam [facility] WELL EXAM, WOMAN - Ambulatory Encounter Sissy [facility] UNK - Ambulatory Encounter Crhistian Hue Ly Crhistian Hue [facility] UNK - Ambulatory Encounter Crhistian Hue Ly Crhistian Hue [facility] Albuminuria - Ambulatory Encounter Crhistian Hue Ly Crhistian Hue Malachi MacrLogic Sissy [facility] UNK - Ambulatory Encounter Crhistian Hue Ly Crhistian Hue [facility] UNK - Ambulatory Encounter Crhistian Hue Ly Crhistian Hue [facility] UNK - Ambulatory Encounter Kaitlin Collier Jeniffer Kwok [facility] MORBID OBESITYDiabetes mellitus, type IIBenign essential hypertensionHyperlipidemiaGERD - Ambulatory Encounter Tamara Gutierrez [facility] UNK VITAL SIGNS No Information Available ALLERGIES Allergy Name Onset Date Reaction Criticality Status GABAPENTIN nausea Unable to assess criticality active BACTRIM High Criticality active REASON FOR REFERRAL Start Date - End Date Service - Xray - Urology - External - Ultrasound - X-RAY - X-RAY RESULTS Date Observation Value Provider Reference Range Interpretation Location specific gravity, urine 1.025 Lynne Solitario " pH, urine, semiquantitative 5.5 Lynne Solitario " glucose, urine, semiquantitative negative Lynne Solitario " bilirubin, urine negative Lynne Solitario " ketones, urine, by test strip negative Lynne Solitario " blood in urine (hemoglobin) by dipstick 3+ Lynne Solitario " protein, urine, semiquantitative (dipstick) 1+ Lynne Solitario " urobilinogen, urine, semiquantitative (dipstick) negative Lynne Solitario " nitrite, urine, semiquantitative positive Lynne Solitario " leukocyte esterase, urine, by dipstick 3+ Lynne Solitario " appearance, urine clear Lynne Solitario " urine color yellow Lynne Solitario urine culture Escherichia coli LinkLogic Abnormal pH, urine, semiquantitative 5.5 Sunita Gael " specific gravity, urine 1.020 Sunita Gael " glucose, urine, semiquantitative 4+ Sunita Mayo " bilirubin, urine negative Sunita Mayo " ketones, urine, by test strip negative Sunita Mayo " blood in urine (hemoglobin) by dipstick negative Sunita Mayo " protein, urine, semiquantitative (dipstick) trace Sunita Mayo " urobilinogen, urine, semiquantitative (dipstick) negative Sunita Mayo " nitrite, urine, semiquantitative positive Sunita Mayo " leukocyte esterase, urine, by dipstick 1+ Sunita Mayo " appearance, urine clear Sunita Mayo " urine color yellow Sunita Mayo hemoglobin A1C, blood, as % of total hemoglobin 9.6 % LinkLogic 4.8-5.6 High " microalbumin/creatinine ratio, urine 157.9 MG/G CREAT LinkLogic 0.0-30.0 High " microalbumin/total urine volume 352.1 mg/L LinkLogic Not Estab. " creatinine, random, urine 223.0 mg/dL LinkLogic Not Estab. " LDL cholesterol, serum 93 mg/dL LinkLogic 0-99 " very low density lipoproteins 18 mg/dL LinkLogic 5-40 " HDL cholesterol, serum 38 mg/dL LinkLogic >39 Low " triglyceride, serum, fasting 92 mg/dL LinkLogic 0-149 " cholesterol, serum 149 mg/dL Link[facility]ic 100-199 " alanine aminotransferase (SGPT), serum 20 1/L Link[facility] 0-32 " aspartate aminotransferase (SGOT), serum 20 1/L Link[facility]ic 0-40 " alkaline phosphatase, serum 133 1/L [facility] 39-117 High " bilirubin, serum, total 0.3 mg/dL [facility]Log[facility] 0.0-1.2 " albumin/globulin ratio, serum 1.3 [facility] 1.2-2.2 " globulin, serum 2.9 [facility]Logic 1.5-4.5 " albumin, serum 3.9 g/dL [facility] 3.5-5.5 " protein, total, serum 6.8 g/dL [facility]Log[facility] 6.0-8.5 " calcium, serum 9.0 mg/dL [facility] 8.7-10.2 " carbon dioxide, venous blood 26 mmol/L LinkLogic 20-29 " chloride, serum 101 mmol/L LinkLogic 96-106 " potassium, serum 4.3 mmol/L [facility]Log[facility] 3.5-5.2 " sodium, serum 139 mmol/L Link[facility] 134-144 " urea nitrogen/creatinine ratio, serum 31 LinkLog[facility] 9-23 High " eGFR if 125 mL/min/((173/100).m2) LinkLogic >59 " Estimated Glomerular Filtration Rate (calc) 108 mL/min/((173/100).m2) LinkLogic >59 " creatinine, serum 0.54 mg/dL LinkLog[facility] 0.57-1.00 Low " urea nitrogen, blood 17 mg/dL LinkLog[facility] 6-24 " blood glucose, random 232 mg/dL LinkLogic 65-99 High hemoglobin A1C, blood, as % of total hemoglobin 10.7 % Rena Salgado " blood glucose, fasting 220 mg/dL Rena Salgado hepatitis C antibody, serum <0.1 LinkLogic 0.0-0.9 thyroid stimulating hormone, serum 1.410 u[iU]/mL LinkLogic 0.450-4.500 " alanine aminotransferase (SGPT), serum 33 1/L Link[facility] 0-32 High " aspartate aminotransferase (SGOT), serum 31 1/L Link[facility] 0-40 " alkaline phosphatase, serum 97 1/L [facility] 39-117 " bilirubin, serum, total 0.5 mg/dL [facility]Logic 0.0-1.2 " albumin/globulin ratio, serum 1.5 LinkLogic 1.2-2.2 " globulin, serum 2.7 LinkLogic 1.5-4.5 " albumin, serum 4.1 g/dL LinkLogic 3.5-5.5 " protein, total, serum 6.8 g/dL [facility]Log[facility] 6.0-8.5 " calcium, serum 9.2 mg/dL [facility]Log[facility] 8.7-10.2 " carbon dioxide, venous blood 24 mmol/L LinkLogic 20-29 " chloride, serum 97 mmol/L LinkLogic 96-106 " potassium, serum 4.3 mmol/L LinkLogic 3.5-5.2 " sodium, serum 140 mmol/L LinkLogic 134-144 " urea nitrogen/creatinine ratio, serum 24 LinkLog[facility] 9-23 High " eGFR if 129 mL/min/((173/100).m2) LinkLogic >59 " Estimated Glomerular Filtration Rate (calc) 112 mL/min/((173/100).m2) LinkLogic >59 " creatinine, serum 0.50 mg/dL LinkLog[facility] 0.57-1.00 Low " urea nitrogen, blood 12 mg/dL LinkLogic 6-24 " blood glucose, random 171 mg/dL LinkLog[facility] 65-99 High " immature granulocytes, percentage of total cells, blood 0 % LinkLogic Not Estab. " basophil count, absolute 0.0 x10E3/uL [facility]Logic 0.0-0.2 " Eosinophil Absolute Count 0.2 X10E3/UL LinkLogic 0.0-0.4 " monocyte count, blood, automated 0.9 X10E3/UL LinkLogic 0.1-0.9 " lymphocyte count, blood, automated 2.5 X10E3/UL LinkLogic 0.7-3.1 " Absolute Neutrophils 6.1 X10E3/UL LinkLogic 1.4-7.0 " basophils as percent of blood leukocytes 0 % LinkLogic Not Estab. " eosinophils as percent of blood leukocytes 2 % LinkLogic Not Estab. " monocytes as percent of blood leukocytes 9 % LinkLogic Not Estab. " lymphocytes as percent of blood leukocytes 25 % LinkLogic Not Estab. " neutrophils as percent of blood leukocytes 64 % LinkLogic Not Estab. " platelet count 222 X10E3/UL LinkLogic 150-379 " red blood cell distribution width 13.8 % LinkLogic 12.3-15.4 " mean corpuscular hemoglobin concentration, RBC 33.7 G/DL LinkLogic 31.5-35.7 " mean corpuscular hemoglobin, RBC 30.6 pg LinkLogic 26.6-33.0 " mean corpuscular volume, RBC 91 fL LinkLogic 79-97 " hematocrit, blood 43.6 % LinkLogic 34.0-46.6 " hemoglobin, blood 14.7 g/dL LinkLogic 11.1-15.9 " erythrocyte (RBC) count 4.80 X10E6/UL LinkLogic 3.77-5.28 " leukocyte count, blood 9.7 X10E3/UL LinkLogic 3.4-10.8 blood glucose, fasting 173 mg/dL Lynne Solitario urine culture No growth LinkTrego County-Lemke Memorial Hospitalic hemoglobin A1C, blood, as % of total hemoglobin 13.5 % [facility] " blood glucose, random 246 mg/dL Peggy Erazo blood glucose, random 352 mg/dL [facility] specific gravity, urine 1.025 Lynne Solitario " pH, urine, semiquantitative 5.0 Lynne Solitario " glucose, urine, semiquantitative negative Lynne Solitario " bilirubin, urine negative Lynne Solitario " ketones, urine, by test strip negative Lynne Solitario " blood in urine (hemoglobin) by dipstick negative Lynne Solitario " protein, urine, semiquantitative (dipstick) 1+ Lynne Solitario " urobilinogen, urine, semiquantitative (dipstick) negative Lynne Solitario " nitrite, urine, semiquantitative negative Lynne Solitario " leukocyte esterase, urine, by dipstick negative Lynne Solitario " appearance, urine clear Lynne Altaf " [facility] A1C, blood, as % of total hemoglobin 12.5 % [facility] 4.8-5.6 High " LDL cholesterol, serum 91 mg/dL [facility] 0-99 " very low density lipoproteins 42 mg/dL [facility] 5-40 High " HDL cholesterol, serum 41 mg/dL [facility] >39 " triglyceride, serum, fasting 210 mg/dL [facility] 0-149 High " cholesterol, serum 174 mg/dL [facility] 100-199 " calcium, serum 9.8 mg/dL [facility] 8.7-10.2 " carbon dioxide, venous blood 24 mmol/L [facility] 18-29 " chloride, serum 95 mmol/L [facility] 96-106 Low " potassium, serum 4.5 mmol/L [facility] 3.5-5.2 " sodium, serum 136 mmol/L [facility] 134-144 " urea nitrogen/creatinine ratio, serum 28 [facility] 9-23 High " eGFR if 123 mL/min/((173/100).m2) [facility] >59 " Estimated Glomerular Filtration Rate (calc) 107 mL/min/((173/100).m2) [facility] >59 " creatinine, serum 0.58 mg/dL [facility] 0.57-1.00 " urea nitrogen, blood 16 mg/dL [facility] 6-24 " blood glucose, random 364 mg/dL [facility] 65-99 High blood glucose, random 394 mg/dL Reema Burden blood glucose, fasting 197 mg/dL Lynne Iglesiasierrez blood glucose, fasting 133 mg/dL Sunita Kwok hemoglobin A1C, blood, as % of total hemoglobin 11.9 % [facility] 4.8-5.6 High " microalbumin/creatinine ratio, urine 140.2 MG/G CREAT [facility] 0.0-30.0 High " microalbumin/total urine volume 255.0 mg/L [facility] 0.0-17.0 High " creatinine, random, urine 181.9 mg/dL [facility] 15.0-278.0 " LDL cholesterol, serum 115 mg/dL [facility] 0-99 High " very low density lipoproteins 18 mg/dL [facility] 5-40 " HDL cholesterol, serum 49 mg/dL [facility] >39 " triglyceride, serum, fasting 89 mg/dL [facility] 0-149 " cholesterol, serum 182 mg/dL [facility] 100-199 " alanine aminotransferase (SGPT), serum 54 1/L [facility] 0-32 High " aspartate aminotransferase (SGOT), serum 36 1/L [facility] 0-40 " alkaline phosphatase, serum 93 1/L [facility] 39-117 " bilirubin, serum, total 0.5 mg/dL [facility] 0.0-1.2 " albumin/globulin ratio, serum 1.3 [facility] 1.1-2.5 " globulin, serum 2.9 [facility] 1.5-4.5 " albumin, serum 3.9 g/dL [facility] 3.5-5.5 " protein, total, serum 6.8 g/dL [facility] 6.0-8.5 " calcium, serum 9.1 mg/dL [facility] 8.7-10.2 " carbon dioxide, venous blood 27 mmol/L [facility] 18-29 " chloride, serum 102 mmol/L [facility] 97-108 " potassium, serum 4.5 mmol/L [facility] 3.5-5.2 " sodium, serum 141 mmol/L [facility] 134-144 " urea nitrogen/creatinine ratio, serum 40 [facility] 9-23 High " eGFR if 135 mL/min/((173/100).m2) [facility] >59 " Estimated Glomerular Filtration Rate (calc) 117 mL/min/((173/100).m2) [facility] >59 " creatinine, serum 0.45 mg/dL [facility] 0.57-1.00 Low " urea nitrogen, blood 18 mg/dL [facility] 6-24 " blood glucose, random 191 mg/dL [facility] 65-99 High HISTORY OF IMMUNIZATIONS No Information Available HISTORY OF MEDICATION USE Medication Instructions Dates Provider Comments MACROBID 100 MG ORAL CAPSULE 1 by mouth twice a day Geetha Vargas MACROBID 100 MG ORAL CAPSULE 1 by mouth twice a day - Nabor Ashby COLACE 100 MG ORAL CAPSULE 1 by mouth twice a day Floresita Reneuja LYRICA 50 MG ORAL CAPSULE 1 tab By Mouth Three Times a Day As Needed pain - Nabor Ashby MOBIC 15 MG ORAL TABLET 1 by mouth daily - Nabor Ashby [facility] MELATONIN EXTRA STRENGTH 5 MG ORAL TABLET Take 1 tab By Mouth at bedtime Rao Avila INSULIN SYRINGE 28G X 1/2" 0.5 ML Use as directed Rao Avila ASPIRIN 81 MG ORAL TABLET Take 1 tab By Mouth daily - Nabor Ashby NAPROXEN 500 MG ORAL TABLET 1 by mouth twice a day as needed for pain and inflammation - Rao Avila MACROBID 100 MG ORAL CAPSULE 1 by mouth twice a day morning and night for burning with voiding - Rao Avila NOVOLIN 70/30 (70-30) 100 UNIT/ML SUSP Use 70 UNITS Twice a Day Nabor Ashby MECLIZINE HCL 25 MG ORAL TABLET 1 by mouth 3 times a day as needed - Rao Avila vertigo GABAPENTIN 300 MG ORAL CAPSULE Take 1 tab By Mouth three times per day Rao Avila LANTUS 100 UNIT/ML SUBCUTANEOUS SOLUTION 40 units sc in AM and PM - Yunier Nassar RANITIDINE HCL 150 MG ORAL TABLET 1 by mouth twice a day Rao Avila LOVASTATIN 40 MG ORAL TABLET 1 by mouth every night - Nabor Ashby METFORMIN HCL 1000 MG ORAL TABLET 1 by mouth once a day Nabor Ashby GLIPIZIDE ER 10 MG ORAL TABLET EXTENDED RELEASE 24 HOUR one tablet By Mouth Every Day Jeniffer Ly LOSARTAN POTASSIUM 100 MG ORAL TABLET Take one tablet By Mouth Every Day Nabro Ashby SOCIAL HISTORY Date Observation Value Provider drug use, illicit Never Cecy Jimenez " alcohol use Never Cecy Jimenez " social history reviewed E&M reviewed today Cecy Jimenez " sexual orientation Heterosexual Cecy Jimenez " passive cigarette smoke exposure No Cecy Jimenez " smoking status former smoker Cecy Jimenez " Exercise Program Referral T Cecy Jimenez " Weight Management Counseling Provided T Cecy Jimenez " Nutrition intervention T Cecy Jimenez social history reviewed E&M reviewed today Sunita Mayo " Exercise Program Referral T Sunita Mayo " Weight Management Counseling Provided T Sunita Mayo " Nutrition intervention T Snuita Mayo " passive cigarette smoke exposure No Sunita Mayo " smoking status former smoker Sunita Mayo " sexual orientation Heterosexual Sunita Mayo social history reviewed E&M reviewed today Sunita Mayo " sexual orientation Heterosexual Sunita Mayo " passive cigarette smoke exposure No Sunita Mayo " smoking status former smoker Sunita Mayo " Exercise Program Referral T Sunita Mayo " Weight Management Counseling Provided T Sunita Mayo " Nutrition intervention T Sunita Mayo Exercise Program Referral T Yamil García " Weight Management Counseling Provided T Yamil García " Nutrition intervention T Yamil García " drug use, illicit Never Adams Murphy " alcohol use Never Adams Murphy " social history reviewed E&M reviewed today Adams Murphy " sexual orientation Heterosexual Adams Murphy " is there any chance that you could be ? No Adams Murphy " passive cigarette smoke exposure No Adams Murphy " smoking status never smoker Adams Murphy drug use, illicit Never Rena Damian " alcohol use Never Rena Damian " social history reviewed E&M reviewed today Rena Damian " sexual orientation Heterosexual Rena Damian " passive cigarette smoke exposure No Rena Damian " smoking status never smoker Rena Damian " Exercise Program Referral T Rena Damian " Weight Management Counseling Provided T Rena Damian " Nutrition intervention T Rena Damian drug use, illicit Never Nikia Martinez " alcohol use Never Nikia Martinez " social history reviewed E&M reviewed today Nikia Martinez " sexual orientation Heterosexual Nikia Martinez " passive cigarette smoke exposure No Nikia Martinez " smoking status never smoker Nikia Martinez " Exercise Program Referral T Nikia Martinez " Weight Management Counseling Provided T Nikia Martinez " Nutrition intervention T Nikia Martinez drug use, illicit Never Vickie Pool " alcohol use Never Vickie Pool " social history reviewed E&M reviewed today Vickie Pool " passive cigarette smoke exposure No Vickie Pool " smoking status never smoker Vickie Pool Exercise Program Referral T Tatianna Covarrubias " Weight Management Counseling Provided T Tatianna Covarrubias " Nutrition intervention T Tatianna Covarrubias " drug use, illicit Never Lynne Solitario " alcohol use Never Lynne Solitario " social history reviewed E&M reviewed today Lynne Solitario " sexual orientation Heterosexual Lynne Solitario " passive cigarette smoke exposure No Lynne Solitario " smoking status never smoker Lynne Solitario alcohol use Never Drinda Ricardo " drug use, illicit Never Drinda Ricardo " sexual orientation Heterosexual Drinda Ricardo " passive cigarette smoke exposure No Drinda Ricardo " smoking status never smoker Drinda Ricardo Exercise Program Referral T Rao Avila " Weight Management Counseling Provided T Rao Avila " Nutrition intervention T Rao Avila " drug use, illicit Never Peggy Erazo " alcohol use Never Peggy Erazo " social history reviewed E&M reviewed today Peggy Erazo " sexual orientation Heterosexual Peggy Erazo " passive cigarette smoke exposure No Peggy Erazo " smoking status never smoker Peggy Erazo Exercise Program Referral T Rao Avila " Weight Management Counseling Provided T Rao Avila " Nutrition intervention T Rao Avila " drug use, illicit Never Lynne Solitario " alcohol use Never Lynne Solitario " social history reviewed E&M reviewed today Lynne Solitario " passive cigarette smoke exposure No Lynne Solitario " smoking status never smoker Lynne Solitario Exercise Program Referral T Yamil García " Weight Management Counseling Provided T Yamil García " Nutrition intervention T Yamil García " social history reviewed E&M reviewed today Reema Burden " sexual orientation Heterosexual Reema Burden " passive cigarette smoke exposure No Reema Burden " smoking status never smoker Reema Burden Exercise Program Referral Abelino Kennedy " Weight Management Counseling Provided Abelino Kennedy " Nutrition intervention T George Kennedy " drug use, illicit Never Lynne Solitario " alcohol use Never Lynne Solitario " social history reviewed E&M reviewed today Lynne Solitario " sexual orientation Heterosexual Lynne Solitario " passive cigarette smoke exposure No Lynne Solitario " smoking status never smoker Lynne Solitario drug use, illicit Never Sunita Kwok " alcohol use Never Sunita Kwok " social history reviewed E&M reviewed today Sunita Kwok " sexual orientation Heterosexual Sunita Kwok " passive cigarette smoke exposure No Sunita Kwok " smoking status never smoker Sunita Kwok " Exercise Program Referral T Sunita Kwok " Weight Management Counseling Provided T Sunita Kwok " Nutrition intervention T Sunita Kwok Exercise Program Referral T Yunier Nassar " Weight Management Counseling Provided T Yunier Nassar " Nutrition intervention T Yunier Nassar " social history reviewed E&M reviewed today Reema Burden " passive cigarette smoke exposure No Reema Burden " smoking status never smoker Reema Burden drug use, illicit Never Lynne Solitario " alcohol use Never Lynne Solitario " social history reviewed E&M reviewed today Lynne Solitario " Exercise Program Referral T Lakeshia Recinos " Weight Management Counseling Provided T Lakeshia Recinos " Nutrition intervention T Lakeshia Martin Recinos " passive cigarette smoke exposure No Lynne Martinezrez " smoking status never smoker Lynne Martinezrez drug use, illicit Never Sunita Kwok " alcohol use Never Sunita Kwok " passive cigarette smoke exposure No Sunita Kwok " smoking status never smoker Sunita Kwok " Exercise Program Referral T Sunita Kwok " Weight Management Counseling Provided T Sunita Kwok " Nutrition intervention T Sunita Kwok time of call 07/03/2015 2:[address] drug use, illicit Never Madhuri Lane " alcohol use Never Madhuri Lane " passive cigarette smoke exposure No Madhuri Lane " smoking status never smoker Madhuri Lane sex at female Sunita Kwok " patient considered to be homeless No Sunita Sundar " drug use, illicit Never Sunita Kwok " alcohol use Never Sunita Kwok " passive cigarette smoke exposure No Sunita Kwok " smoking status never smoker Sunita Kwok " Exercise Program Referral T Sunita Kwok " Weight Management Counseling Provided T Sunita Kwok " Nutrition intervention T Sunita Kwok FUNCTIONAL STATUS No Information Available MENTAL STATUS Date Observation Value Provider mental status examination: recall E&M intact for recent and remote events Geetha Vargas " assessment of judgment and insight E&M intact Geetha Vargas " assessment of mood and affect E&M no depression, anxiety, or agitation Geetha Vargas " mental status examination: orientation E&M oriented to time, place, and person Geetha Vargas " Generalized Anxiety Disorder Questionnaire - Question 2 0 Cecy Jimenez " Generalized Anxiety Disorder Questionnaire - Question 1 0 Cecy Jimenez Generalized Anxiety Disorder Questionnaire - Question 2 0 Sunita Mayo " Generalized Anxiety Disorder Questionnaire - Question 1 0 Sunita Mayo " assessment of judgment and insight E&M intact [facility] " mental status examination: orientation E&M oriented to time, place, and person Nabor Mahfouz " assessment of mood and affect E&M no depression, anxiety, or agitation Nabor Mahfouz assessment of judgment and insight E&M intact Nabor Mahfouz " mental status examination: orientation E&M oriented to time, place, and person [facility]abor [facility] " assessment of mood and affect E&M no depression, anxiety, or agitation Nabor [facility] " Generalized Anxiety Disorder Questionnaire - Question 2 0 Sunita Mayo " Generalized Anxiety Disorder Questionnaire - Question 1 0 Sunita Mayo assessment of judgment and insight E&M intact Nabor Ashby " mental status examination: orientation E&M oriented to time, place, and person Nabor Ashby " assessment of mood and affect E&M no depression, anxiety, or agitation Nabor Ashby mental status examination: orientation E&M oriented to time, place, and person Marcela M Ehdaie " assessment of mood and affect E&M no depression, anxiety, or agitation Marcela M Ehdaie " Generalized Anxiety Disorder Questionnaire - Question 2 0 Rena Salgado " Generalized Anxiety Disorder Questionnaire - Question 1 0 Rena Salgado Generalized Anxiety Disorder Questionnaire - Question 2 0 Nikia Martinez " Generalized Anxiety Disorder Questionnaire - Question 1 0 Nikia Martinez Generalized Anxiety Disorder Questionnaire - Question 2 0 Vickie Esqueda " Generalized Anxiety Disorder Questionnaire - Question 1 0 Vickie Pool assessment of judgment and insight E&M intact Tatianna Marci " assessment of mood and affect E&M no depression, anxiety, or agitation Tatianna Marci " Generalized Anxiety Disorder Questionnaire - Question 2 0 Lynne Solitario " Generalized Anxiety Disorder Questionnaire - Question 1 0 Lynne Solitario assessment of mood and affect E&M no depression, anxiety, or agitation Marcela M Ehdaie " assessment of judgment and insight E&M intact Marcela M Ehdaie " mental status examination: orientation E&M oriented to time, place, and person Marcela M Ehdaie " Generalized Anxiety Disorder Questionnaire - Question 2 0 Jennifer Ricardo " Generalized Anxiety Disorder Questionnaire - Question 1 0 Jennifer Ricardo assessment of judgment and insight E&M intact Rao Austin " mental status examination: orientation E&M oriented to time, place, and person Rao Avila " assessment of mood and affect E&M no depression, anxiety, or agitation Rao Avila " Generalized Anxiety Disorder Questionnaire - Question 2 0 Peggyus Erazo " Generalized Anxiety Disorder Questionnaire - Question 1 0 Peggy Erazo assessment of judgment and insight E&M intact Rao Austin " mental status examination: orientation E&M oriented to time, place, and person Rao Avila " assessment of mood and affect E&M no depression, anxiety, or agitation Rao Avila " Generalized Anxiety Disorder Questionnaire - Question 2 0 Lynne Solitario " Generalized Anxiety Disorder Questionnaire - Question 1 0 Lynne Solitario mental status examination: orientation E&M oriented to time, place, and person Mahim Shuewa " assessment of mood and affect E&M no depression, anxiety, or agitation Mahim Shuja " Generalized Anxiety Disorder Questionnaire - Question 2 0 Reema Burden " Generalized Anxiety Disorder Questionnaire - Question 1 0 Reema Burden assessment of judgment and insight E&M intact George Kennedy " mental status examination: orientation E&M oriented to time, place, and person George Kennedy " assessment of mood and affect E&M no depression, anxiety, or agitation George Kennedy assessment of judgment and insight E&M intact Yunierannamarie Nassar " mental status examination: orientation E&M oriented to time, place, and person Yunier Nassar " assessment of mood and affect E&M no depression, anxiety, or agitation Yunier Nassar " Generalized Anxiety Disorder Questionnaire - Question 2 0 Sunita Kwok " Generalized Anxiety Disorder Questionnaire - Question 1 0 Sunita Kwok assessment of judgment and insight E&M intact Yunier Nassar " assessment of mood and affect E&M no depression, anxiety, or agitation Yunier Nassar " Generalized Anxiety Disorder Questionnaire - Question 2 0 Reema Burden " Generalized Anxiety Disorder Questionnaire - Question 1 0 Reema Burden assessment of judgment and insight E&M intact Lakeshia Blue Recinos " assessment of mood and affect E&M no depression, anxiety, or agitation Lakeshia Blue Recinos assessment of mood and affect E&M no depression, anxiety, or agitation Jeniffer Ly " Generalized Anxiety Disorder Questionnaire - Question 2 0 Sunita Kwok " Generalized Anxiety Disorder Questionnaire - Question 1 0 Sunita Kwok assessment of judgment and insight E&M intact Lisa Dian " assessment of mood and affect E&M no depression, anxiety, or agitation Lisa Dian " Generalized Anxiety Disorder Questionnaire - Question [address] " Generalized Anxiety Disorder Questionnaire - Question [address] assessment of judgment and insight E&M intact Jeniffer Swann Malachi " assessment of mood and affect E&M no depression, anxiety, or agitation Kimayaz Hue Malachi " Generalized Anxiety Disorder Questionnaire - Question 2 0 Sunita Kwok " Generalized Anxiety Disorder Questionnaire - Question 1 0 Sunita Kwok MEDICAL EQUIPMENT No Information Available FAMILY HISTORY No Information Available INSURANCE PROVIDERS No Information Available ADVANCE DIRECTIVES No Information Available TREATMENT PLAN Date Name Urine Culture, Routine Urine Culture, Routine Urinalysis (w/micro), Complete Urine Culture, Routine Microalb/Creat Ratio, Randm Ur Hemoglobin A1c Lipid Panel Comp. Metabolic Panel (14) HCV Antibody Comp. Metabolic Panel (14) CBC With Differential/Platelet TSH Urine Culture, Routine Basic Metabolic Panel (8) Hemoglobin A1c Lipid Panel Pap IG, HPV-hr (30+) Microalb/Creat Ratio, Randm Ur Comp. Metabolic Panel (14) Lipid Panel Hemoglobin A1c - - - Reason for referral: PVD and venous statsis on chemotherapy Max # of visits: Gold Card Y/N? NOTE: Holter monitor needs a prescription - - - - - - Est Patient Exp Problem - 29476 Urinalysis - Dip only - In House Est Patient Exp Problem - 25128 Est Patient Exp Problem - 35623 Est Patient Detailed - 14818 Glucose Stick HEMOGLOBIN A1C - In House Est Patient Exp Problem - 40647 Est Patient Exp Problem - 43219 Est Patient Exp Problem - 81098 Est Patient Detailed - 09275 IM or SQ Injection Injection, ketorolac tromethamine (toradol), per 15 mg Est Patient Exp Problem - 47945 HEMOGLOBIN A1C - In House Prescription Assistance Glucose Stick Urinalysis - Dip only - In House Est Patient Detailed - 68084 Est Patient Exp Problem - 33265 Est Patient Exp Problem - 53425 Est Patient Exp Problem - 95768 Est Patient Exp Problem - 63630 Est Patient Exp Problem - 70904 EKG - Interpretation & Report Only INFLUENZA VACCINE QUADRIVALENT 3 YRS PLUS IM Est Patient Exp Problem - 96394 Prevnar (PCV13) IM Ofc Vst, Est Level III Influenza - Adult - Injection Est Patient Well Exam (40 - 64 Yrs) - 38576 Ofc Vst, New Level III HISTORY OF PROCEDURES Procedure Date Procedure Name Provider Procedure Notes Status Urinalysis - Dip only - In House Yamil García completed Glucose Stick Marcela Pérez Olga completed HEMOGLOBIN A1C - In House Marcela Pérez Olga completed IM or SQ Injection Tatianna Marci Ketorolac 30mg IM left gluteus medius completed Injection, ketorolac tromethamine (toradol), per 15 mg Tatianna Marci [facility][NOTE 3]: [id number]. completed HEMOGLOBIN A1C - In House Tamara Gutierrez completed Glucose Stick Tamara Gutierrez completed Urinalysis - Dip only - In House Tamara Gutierrez completed EKG - Interpretation & Report Only Breanna Davis completed GOALS No Information Available HEALTH CONCERNS No Information Available
--- OUTSIDE RECORDS SUMMARY | 2019-04-12 12:03 | XMS REPORT ---
Author Author Admin, [place] Organization Unknown Address Unknown Phone Unavailable PROBLEMS [...] WOMAN completed - Rao Austin Albuminuria active Naboreliot Ashby GERD active Crhistian Hue Ly Hyperlipidemia active Crhistian Hue Ly Benign essential hypertension active Crhistmeghann Swann Ly Diabetes mellitus, type II completed - Crhistian Hue Ly MORBID OBESITY active Crhistian Hue Ly ENCOUNTERS Date Type Provider Location Encounter Diagnosis - Ambulatory Encounter Geetha Vargas [facility] UNK - Ambulatory Encounter Geetha Vargas [facility] UNK - Ambulatory Encounter Yamil [facility] Pain in left shoulder - Ambulatory Encounter [facility]il [facility] - [facility]ulatory Encounter Nabor [facility] UNK - Ambulatory Encounter Akin Doroteo [facility] UNK - Ambulatory Encounter Nabor [facility] Nabor [facility] UNK - Ambulatory Encounter Nabor Tomlin [facility] UNK - Ambulatory Encounter Fax [facility] UNK - Ambulatory Encounter Fax Status LinkLog[facility] UNK - Ambulatory Encounter Fax Status [facility] UNK - Ambulatory Encounter Nabor [facility]abor [facility] UNK - Ambulatory Encounter Nabor [facility] UNK - Ambulatory Encounter Nabor [facility] [place] [facility] UNK - Ambulatory Encounter Yamil Erazo Nabor [facility] Nabor [facility] Akin Sadler [place] [facility] AlbuminuriaRecurrent urinary tract infection - Ambulatory Encounter Lisa Dian LinkLogic [place] [facility] UNK - Ambulatory Encounter Yamil [facility] [place] [facility] UNK - Ambulatory Encounter Nabor [facility]ic [place] [facility] UNK - Ambulatory Encounter Nabor [facility] Nabor Mahfouz LinkLogic [place] [facility] UNK - Ambulatory Encounter Nabor [facility] [place] [facility] UNK - Ambulatory Encounter Nabor [facility] [place] [facility] UNK - Ambulatory Encounter Nabor [facility] [place] [facility] UNK - Ambulatory Encounter Nabor [facility] [place] [facility] UNK - Ambulatory Encounter N[facility] [place] [facility] UNK - Ambulatory Encounter Yamil Mayo Nabor [facility] [place] [facility] Dysuria - Ambulatory Encounter Nabor [facility] LinkLogic [place] [facility] UNK - Ambulatory Encounter Fax Status LinkLogic [facility] UNK - Ambulatory Encounter Fax Status [facility] UNK - Ambulatory Encounter Fax Status [facility] Services UNK - Ambulatory Encounter Nabor [facility] - Ambulatory Encounter Nabor [facility] UNK - Ambulatory Encounter Nabor [facility] UNK - Ambulatory Encounter Yamil Erazo Nabor [facility] Adams Murphy [place] [facility] Liver cancer, primaryVenous stasis - Ambulatory Encounter Lisa [facility] UNK - Ambulatory Encounter Sandro Graves [facility] UNK - Ambulatory Encounter Fredy Valladares [place] [facility] UNK - Ambulatory Encounter Meli Box Heather [place] [facility] UNK - Ambulatory Encounter Floresita [facility] - [facility]ulatory [facility] - Ambulatory Encounter Fredy Valladares [place] [facility] UNK - Ambulatory Encounter Lisamandeep [facility] UNK - Ambulatory Encounter Floresita Birch [facility] UNK - Ambulatory Encounter Marcela Katz MedAdherence [place] [facility] UNK - Ambulatory Encounter Marcela Chase Damian [place] [facility] UNK - Ambulatory Encounter Marcela Salgado [place] [facility] UNK - Ambulatory Encounter Tiffany Katz MedAdherence [place] [facility] UNK - Ambulatory Encounter Tiffany Katz MedAdherence [place] [facility] UNK - Ambulatory Encounter LSJ Lab Support Desktop [facility]LogT[facility] UNK - Ambulatory Encounter Marcela Espinoza [place] [facility] UNK - [facility] - [facility] - Ambulatory Encounter Yamil Espinoza [facility] Nikia Martinez [place] [facility] Elevated liver enzymesScreening for hepatitis C - Ambulatory Encounter LSJ Lab Support Desktop LinkLogic [facility] UNK - Ambulatory Encounter Fax Status LinkLogic [facility] UNK - Ambulatory Encounter Fax Status LinkLogic [facility] UNK - Ambulatory Encounter Fax Status LinkLogic [facility] UNK - Ambulatory Encounter [facility] UNK - Ambulatory Encounter Floresita Birch [facility] ry [facility] UNK - Ambulatory Encounter [facility] UNK - Ambulatory Encounter Tamara Solitario [facility] Vickie Esqueda [facility] Abdominal painConstipationScreening for colon cancer - Ambulatory Encounter Tatianna Marci Campuzano Marci [facility] UNK - Ambulatory Encounter Tatianna Campuzano Marci [facility] UNK - Ambulatory Encounter Tatianna Campuzano Marci [facility] UNK - Ambulatory Encounter Tiffany Katz [facility] UNK - Ambulatory Encounter Tatianna Marci Campuzano Marci [facility] UNK - Ambulatory Encounter Tatianna Solitario [facility] Subcutaneous mass of backLeg pain, left - Ambulatory Encounter [facility] Encounter Marcela Espinoza [facility] - Ambulatory Encounter Marcela Ricardo [facility] Chest pain, acute - Ambulatory Encounter Meli Box [facility] UNK - Ambulatory Encounter Meli Box [facility]AdherBeaumont HospitalLog[facility] UNK - Ambulatory Encounter Tiffany [facility] - Ambulatory Encounter Tiffany Katz MedAdherence LinkLogic [place] [facility] Practice UNK - Ambulatory Encounter Tiffany Katz MedAdherence [place] [facility] Practice UNK - Ambulatory Encounter Tiffany Katz MedAdherence LinkLogic [facility] Practice UNK - Ambulatory Encounter Meli Box MedAdherence [facility] Practice UNK - Ambulatory Encounter Meli Box MedAdherence LinkLogic [facility] Practice UNK - Ambulatory Encounter Meli Isauro MedAdherence [facility] Practice UNK - Ambulatory Encounter Meli Box MedAdherence LinkLogic [facility] UNK - Ambulatory Encounter Meli Box MedAdherence [facility] Practice UNK - Ambulatory Encounter Meli Box MedAdherence LinkLogic [facility] Practice UNK - Ambulatory Encounter Tiffany Katz MedAdherence [facility] Practice UNK - Ambulatory Encounter Rao Avila [facility] UNK - Ambulatory Encounter Tiffany Katz MedAdherence LinkLogic [facility] Practice UNK - Ambulatory Encounter Mya Star [place] [employer] UNK - Ambulatory Encounter aRo Avila LinkLogic [facility] Practice UNK - Ambulatory Encounter Mya Star [place] [employer] UNK - Ambulatory Encounter Rao Avila [facility] Practice UNK - Ambulatory Encounter Tamara [facility] InsomniaDysuria - Ambulatory Encounter Tiffany Katz MedAdherence [facility] UNK - Ambulatory Encounter Tiffany Katz MedAdherence [facility] UNK - Ambulatory Encounter Rao Avila [facility] UNK - Ambulatory Encounter Breanna Avila [facility] WELL EXAM, WOMANPeripheral neuropathyVertigo/dizzinessDysuriaBack pain, acuteArm pain, leftDiabetic peripheral neuropathy - Ambulatory Encounter Silana Kevinsa Tiffany Katz MedAdherence [facility] UNK - Ambulatory Encounter Tiffany aKtz MedAdherence LinkLogic Sillesteramariannamarie Lyon [facility] UNK - Ambulatory Encounter Tiffany Katz MedAdherence [facility] UNK - Ambulatory Encounter Tiffany Katz MedAdherence [facility] UNK - Ambulatory Encounter Tiffany Katz MedAdherence LinkLogic [facility] UNK - Ambulatory Encounter Tiffany Katz MedAdherence LinkLogic [facility] UNK - Ambulatory Encounter Damaritza Dino [facility] UNK - Ambulatory Encounter Krista Dino LinkLogic [facility] UNK - Ambulatory Encounter Tiffany Katz MedAdherence [facility] UNK - Ambulatory Encounter Tiffany Katz MedAdherence LinkLogic [facility] UNK - Ambulatory Encounter Tiffany Katz MedAdherence [facility] UNK - Ambulatory Encounter Tiffany SandersAdherrichie LinkLogG[facility] UNK - Ambulatory Encounter Floresita Birch [facility] UNK - Ambulatory Encounter Floresita Birch [facility] UNK - Ambulatory Encounter [facility]FirstHealth [facility] Memorial Hospitalry [facility] UNK - Ambulatory Encounter Yamil Erazo [facility] Back pain, acuteArm pain, left - Ambulatory Encounter George Kennedy [facility] UNK - Ambulatory Encounter George Solitario [facility] Dysuria - Ambulatory Encounter Yunier Nassar [facility]LogG[facility] Clinic[facility] UNK - Ambulatory Encounter Yunier Nassar [place] [facility] UNK - Ambulatory Encounter Yunier Nassar [facility] Practice UNK - Ambulatory Encounter Tamara Nassar [place] [facility] UNK - Ambulatory Encounter Fax Status LinkLogic [facility] UNK - Ambulatory Encounter Fax Status LinkLogic [facility] UNK - Ambulatory Encounter Fax Status LinkLogic [facility] UNK - Ambulatory Encounter Yunier Nassar [facility] UNK - Ambulatory Encounter Yunier Nassar [place] [facility] UNK - Ambulatory Encounter Yunier Nassar Yunier [facility] UNK - Ambulatory Encounter Yamil Erazo Yunier [facility] Bunion, left foot - Ambulatory Encounter [facility] [place] [facility] [place] [facility] UNK - Ambulatory Encounter [place] [facility] [place] [facility] UNK - Ambulatory Encounter Fax Status [facility] UNK - Ambulatory Encounter Fax Status [facility] UNK - Ambulatory Encounter Fax Status [facility] UNK - Ambulatory Encounter [place] [facility] [facility] [place] [facility] UNK - Ambulatory Encounter [place] [facility] [place] [facility] UNK - Ambulatory Encounter Breanna Solitario [facility] [place] [facility] [place] Jorje Miller [facility] BMI 40.0-44.9Vertigo/dizzinessVaccine against influenza - Ambulatory Encounter Crhistian Hue Ly [facility] - Ambulatory Encounter Crhistian Hue Ly Crhistian Hue [facility] UNK - Ambulatory Encounter Crhistian Hue Frankelerrero Crhistian Hue [facility] UNK - Ambulatory Encounter Sunita Biggs [facility] UNK - Ambulatory Encounter Lisa [facility] UNK - Ambulatory Encounter Lisa [facility] UNK - Ambulatory Encounter Lisa [facility] UNK - Ambulatory Encounter Lisa [facility] UNK - Ambulatory Encounter [facility] UNK - Ambulatory Encounter Lisa [facility] UNK - Ambulatory Encounter Fax Status [facility] Services UNK - Ambulatory Encounter Fax Status [facility] Services UNK - Ambulatory Encounter Fax Status [facility] Services UNK - Ambulatory Encounter Meli Box [facility] UNK - Ambulatory Encounter Crhayaz Ly Crhistmeghann Swann [facility] UNK - Ambulatory Encounter Crhayaz Ly Crhistmeghann Hue [facility] UNK - Ambulatory Encounter Tamara Gutierrez Crhistmeghann Ly Crhistian Hue Carrillo [facility] Diabetes mellitus, type IIVaccine against pneumococcalPeripheral neuropathyDiabetes mellitus, type II, uncontrolled, w/neurolo comps - Ambulatory Encounter Lisa [facility] UNK - Ambulatory Encounter Sissy iKng [facility] UNK - Ambulatory Encounter Madhuri Domingo [facility] UNK - Ambulatory Encounter Narendra Magallon [facility] UNK - Ambulatory Encounter [facility] - Ambulatory Encounter Lisa Dian LinkLogic Narendra [facility] UNK - Ambulatory Encounter Fax Status LinkLogFormerly [facility] Services UNK - Ambulatory Encounter Fax Status LinkLogFormerly [facility] Services UNK - Ambulatory Encounter Fax Status LinkLogFormerly [facility] Services UNK - Ambulatory Encounter [facility] - Ambulatory Encounter Lisa Dianvikram Kam [facility] WELL EXAM, WOMAN - Ambulatory Encounter Sissy [facility] UNK - Ambulatory Encounter Crhistian Hue Ly Crhistian Hue [facility] UNK - Ambulatory Encounter Crhistian Hue Ly Crhistian Hue [facility] Albuminuria - Ambulatory Encounter Crhistian Hue Ly Crhistian Hue Malachi MarcLogic Sissy [facility] UNK - Ambulatory Encounter Crhistian Hue Ly Crhistian Hue [facility] UNK - Ambulatory Encounter Crhistian Hue Ly Crhistian Hue [facility] UNK - Ambulatory Encounter Kaitlin Collier Jeniffer Kwok [facility] MORBID OBESITYDiabetes mellitus, type IIBenign essential hypertensionHyperlipidemiaGERD - Ambulatory Encounter Tamara Gutierrez [facility] UNK VITAL SIGNS No Information Available [...] mg/dL Lynne Solitario urine culture No growth LinkHolton Community Hospitalic hemoglobin A1C, blood, as % of total hemoglobin 13.5 % [facility] " blood glucose, random 246 mg/dL Peggy Eraoz blood glucose, random 352 mg/dL [facility] specific gravity, urine 1.025 Lynne Solitario " [...] clear Lynne Altaf " urine color yellow [facility] hemoglobin A1C, blood, as % of total [...] Take one tablet By Mouth Every Day Nabor Ahsby SOCIAL HISTORY Date Observation Value Provider drug [...] Mayo " Nutrition intervention T Sunita Mayo " passive cigarette smoke exposure [...] Kwok " smoking status never smoker Sunita wKok " Exercise Program Referral T Sunita Kwok [...] of judgment and insight E&M intact Nabor [facility] " mental status examination: orientation E&M oriented to time, place, and person Nabor Mahfouz " assessment of mood and affect E&M no depression, anxiety, or agitation Nabor Mahfouz assessment of judgment and insight E&M intact Nabor Mahfouz " mental status examination: orientation E&M oriented to time, place, and person Nabor [facility] " assessment of mood and affect E&M no depression, anxiety, or agitation Nabor [facility] " Generalized Anxiety Disorder Questionnaire - Question [...] of judgment and insight E&M intact [facility] [place] [facility] " assessment of mood and affect E&M no depression, anxiety, or agitation [place] [facility] assessment of mood and affect E&M [...] - - Est Patient Exp Problem - 32822 Urinalysis - Dip only - In House Est Patient Exp Problem - 29193 Est Patient Exp Problem - 08675 Est Patient Detailed - 42576 Glucose Stick HEMOGLOBIN A1C - In House Est Patient Exp Problem - 65519 Est Patient Exp Problem - 28523 Est Patient Exp Problem - 45623 Est Patient Detailed - 37445 IM or SQ Injection Injection, ketorolac tromethamine (toradol), per 15 mg Est Patient Exp Problem - 01188 HEMOGLOBIN A1C - In House Prescription Assistance Glucose Stick Urinalysis - Dip only - In House Est Patient Detailed - 69026 Est Patient Exp Problem - 28110 Est Patient Exp Problem - 48538 Est Patient Exp Problem - 86747 Est Patient Exp Problem - 54133 Est Patient Exp Problem - 65548 EKG - Interpretation & Report Only INFLUENZA VACCINE QUADRIVALENT 3 YRS PLUS IM Est Patient Exp Problem - 44979 Prevnar (PCV13) IM Ofc Vst, Est Level III Influenza - Adult - Injection Est Patient Well Exam (40 - 64 Yrs) - 34011 Ofc Vst, New Level III HISTORY OF PROCEDURES Procedure Date Procedure Name Provider Procedure Notes Status Urinalysis - Dip only - In House Yamil García completed Glucose Stick Marcela Pérez Olga completed HEMOGLOBIN A1C - In House Marcela Pérez Olga completed IM or SQ Injection Tatianna Marci Ketorolac 30mg IM left gluteus medius completed Injection, ketorolac tromethamine (toradol), per 15 mg Tatianna Marci [facility]: [id number]. completed HEMOGLOBIN A1C - In House Tamara Gutierrez completed Glucose Stick Tamara Gutierrez completed Urinalysis - Dip only - In House Tamara Gutierrez completed EKG - Interpretation & Report Only Breanna Davis completed GOALS No Information Available HEALTH CONCERNS No Information Available
--- OUTSIDE RECORDS SUMMARY | 2019-04-12 12:03 | XMS REPORT ---
Author Author Admin, [place] Organization Unknown Address Unknown Phone Unavailable PROBLEMS Condition Status Date Provider Notes Osteopenia active Geetha Sam Pain in left shoulder active Geethamario Vargas Recurrent urinary tract infection active Nabor [...] Marci Chest pain, acute active Marcela Pérez Ehdaraul Dysuria active Rao Avila Insomnia active Rao [...] - Rao Avila Vaccine against pneumococcal active [facility] WELL EXAM, WOMAN completed - Rao Avila Albuminuria active Nabor Mahfouz GERD active Crhistian Hue Ly Hyperlipidemia active Crhistian Hue Ly Benign essential hypertension active Crhistian Hue Ly Diabetes mellitus, type II completed - Crhistian Hue Ly MORBID OBESITY active [facility] ENCOUNTERS Date Type Provider Location Encounter Diagnosis - Ambulatory Encounter Geetha Vargas [facility] Osteopenia - Ambulatory Encounter Geetha Vargas [facility] UNK - Ambulatory Encounter Geetha Vargas [facility] UNK - Ambulatory Encounter Geetha Vargas [facility] UNK - Ambulatory Encounter Geetha Vargas [facility] UNK - Ambulatory Encounter Yamil Sam [facility] Pain in left shoulder - Ambulatory [facility] UNK - Ambulatory Encounter Akin Sad[facility] UNK - Ambulatory Encounter Nabor [facility] UNK - Ambulatory Encounter Naboreliot [place] [facility] UNK - Ambulatory Encounter Fax Status [facility] UNK - Ambulatory Encounter Fax Status [facility] UNK - Ambulatory Encounter Fax Status [facility] - Ambulatory Encounter Nabor [facility] [place] [facility] UNK - Ambulatory Encounter Nabor Garryfomichael Nabor [facility] UNK - Ambulatory Encounter Nabor [facility] UNK - Ambulatory Encounter Yamil Erazo [facility]abor [facility] Akin Sadler [facility] AlbuminuriaRecurrent urinary tract infection - Ambulatory Encounter Lisa Dian Link[facility] UNK - Ambulatory Encounter [facility] UNK - Ambulatory Encounter Nabor [facility] UNK - Ambulatory Encounter Nabor [facility] Nabor Mahfouz [facility] UNK - Ambulatory Encounter Nabor [facility] Nabor [facility] UNK - Ambulatory Encounter Nabor [facility] Nabor [facility] UNK - Ambulatory Encounter Nabor [facility] Nabor [facility] UNK - Ambulatory Encounter Nabor [facility] Nabor [facility] UNK - Ambulatory Encounter Nabor [facility] Nabor [facility] UNK - Ambulatory Encounter Yamil Mayo Nabor [facility] Dysuria - Ambulatory Encounter Nabor [facility] [place] [facility]Min[facility] UNK - Ambulatory Encounter Fax Status [facility] UNK - Ambulatory Encounter Fax Status [facility] UNK - Ambulatory Encounter Fax Status [facility] UNK - Ambulatory Encounter Nabor [facility] - Ambulatory Encounter Nabor [facility] UNK - Ambulatory Encounter [facility] - Ambulatory Encounter Yamil Erazo Nabor [facility] Adams Murphy [facility] Liver cancer, primaryVenous stasis - Ambulatory Encounter Lisa Dian Link[facility]ic [facility] UNK - Ambulatory Encounter Sandro Graves [facility] UNK - Ambulatory Encounter Fredy Valladares [facility] UNK - Ambulatory Encounter Meli Romero [facility] UNK - Ambulatory Encounter Floresita Birch [facility]LogMin[facility] Center[facility] UNK - Ambulatory Encounter Lisa Dian Link[facility]ic [facility] UNK - Ambulatory Encounter Silviamaria Lyon Richelle Valladares [facility] UNK - Ambulatory Encounter Lisamandeep Biggs [facility] UNK - Ambulatory Encounter Floresita Reneralphewa [facility] UNK - Ambulatory Encounter Marcela Katz MedAdherence [facility] UNK - Ambulatory Encounter Marcela Salgado [facility] UNK - Ambulatory Encounter Marcela Salgado [facility] UNK - Ambulatory Encounter Tiffany Katz [facility] UNK - Ambulatory Encounter Tiffany Katz [facility] UNK - Ambulatory Encounter LSJ Lab Support Desktop LinkLogic [facility] UNK - Ambulatory Encounter Marcela Espinoza [facility] UNK - Ambulatory Encounter [facility] UNK - Ambulatory Encounter [facility] UNK - Ambulatory Encounter Yamil Espinoza [facility] Nikia Martinez [facility] Elevated liver enzymesScreening for hepatitis C - Ambulatory Encounter LSJ Lab Support Desktop LinkLogic [facility] UNK - Ambulatory Encounter Fax Status LinkLogic [facility] UNK - Ambulatory Encounter Fax Status [facility] UNK - Ambulatory Encounter Fax Status [facility]At[facility] UNK - Ambulatory Encounter [facility] CenteruBr[facility] UNK - Ambulatory Encounter [facility] UNK - Ambulatory Encounter [facility] UNK - Ambulatory Encounter Tamara Solitario [facility] Vickie Esqueda [facility] Abdominal painConstipationScreening for colon cancer - Ambulatory Encounter Tatianna Campuzano Marci [facility]Logic [facility] UNK - Ambulatory Encounter Tatianna Tabaresome Tatianna Marci [facility]Logic [facility] UNK - Ambulatory Encounter Tatianna Campuzano Marci Link[facility]ic [facility] UNK - [facility] - [facility]ulatory Encounter Tatianna Campuzano Marci [facility] UNK - Ambulatory Encounter Tatianna Tabaresome Lynne Solitario [facility] Subcutaneous mass of backLeg pain, left - Ambulatory Encounter Jennifer Ricardo [facility] UNK - Ambulatory Encounter Marcela Espinoza [facility] UNK - Ambulatory Encounter Marcela Ricardo [facility] Chest pain, acute - Ambulatory Encounter Meli Box MedAdherence [facility] UNK - Ambulatory Encounter Meli Box MedAdherence LinkLogic [facility] UNK - Ambulatory Encounter Tiffany Katz MedAdherence [facility] UNK - Ambulatory Encounter Tiffany Katz MedAdherence Link[facility]ic [facility] UNK - Ambulatory Encounter Tiffany Katz MedAdherence [facility] UNK - Ambulatory Encounter Tiffany Katz MedAdherence LinkLogic [facility] UNK - Ambulatory Encounter Meli Box MedAdherence [facility] UNK - Ambulatory Encounter Meli Box MedAdherence Link[facility] UNK - Ambulatory Encounter Meli Box MedAdherence [facility] UNK - Ambulatory Encounter Meli Box MedAdherence LinkLogic [facility] UNK - Ambulatory Encounter Meli Box MedAdherence [facility] UNK - Ambulatory Encounter Meli Box MedAdherence Link[facility] UNK - Ambulatory Encounter Tiffany Katz MedAdherence [facility] UNK - Ambulatory Encounter Rao Avila LinkLogic [facility] UNK - Ambulatory Encounter Tiffany Katz MedAdherence [facility] UNK - Ambulatory Encounter Mya Graves [facility] UNK - Ambulatory Encounter Rao Avila LinkLogic [facility] UNK - Ambulatory Encounter Mya Star [facility] UNK - Ambulatory Encounter Rao Avila [facility] UNK - Ambulatory Encounter Tamara Arciniega [facility] InsomniaDysuria - Ambulatory Encounter Tiffany Katz MedAdherence [facility] UNK - Ambulatory Encounter Tiffany Katz MedAdherence LinkLogic [facility] UNK - Ambulatory Encounter Rao vAila [facility] UNK - Ambulatory Encounter Breanna Avila [facility] WELL EXAM, WOMANPeripheral neuropathyVertigo/dizzinessDysuriaBack pain, acuteArm pain, leftDiabetic peripheral neuropathy - Ambulatory Encounter Isaaca Lyon Tiffany Katz MedAdherence [facility] UNK - Ambulatory Encounter Tiffany Katz MedAdherence LinkLogic Silviamaria Lyon [facility] UNK - Ambulatory Encounter Tiffany Katz MedAdherence [facility] UNK - Ambulatory Encounter Tiffany Katz MedAdherence [facility] UNK - Ambulatory Encounter Tiffany Katz MedAdherence LinkLogic [facility] UNK - Ambulatory Encounter Tiffany Katz MedAdherence LinkLogic [facility] UNK - Ambulatory Encounter Krista Sun LinkLogic [facility] UNK - Ambulatory Encounter Krista Sun [facility] UNK - Ambulatory Encounter Tiffany Sterling MedAdherence [facility] UNK - Ambulatory Encounter Tiffany Katz MedAdherence Link[facility] UNK - Ambulatory Encounter Tiffany Katz MedAdherence [facility] UNK - Ambulatory Encounter Tiffany Katz MedAdherence Link[facility] UNK - Ambulatory Encounter Floresita Renery [facility] UNK - Ambulatory Encounter Mahim [facility]uBr[facility] UNK - Ambulatory Encounter [facility]ervincenzo ry [facility] UNK - Ambulatory Encounter Yamil Erazo [facility] Back pain, acuteArm pain, left - Ambulatory Encounter George Kennedy [facility] UNK - Ambulatory Encounter George Solitario [facility] Dysuria - Ambulatory Encounter Yunier Nassar [facility] UNK - Ambulatory Encounter Yunier Rojass [facility] UNK - Ambulatory Encounter Yunier Rojass [facility] UNK - Ambulatory Encounter Tamara Faye [facility] UNK - Ambulatory Encounter Fax Status LinkLogic [facility] UNK - Ambulatory Encounter Fax Status LinkLogic [facility] UNK - Ambulatory Encounter Fax Status [facility] UNK - Ambulatory En[facility] UNK - [facility]ulatory [facility] - Ambulatory Encounter Yunier Faye [facility] UNK - Ambulatory Encounter Yamil Erazo Yunier [facility] Bunion, left foot - Ambulatory Encounter Lakeshia Arcade Recinos Lakeshia Mario Recinos [facility] UNK - Ambulatory Encounter Lakeshia Arcade Recinos Lakeshia Mario Recinos [facility] UNK - Ambulatory Encounter Fax Status [facility] UNK - Ambulatory Encounter Fax Status [facility] UNK - Ambulatory Encounter Fax Status [facility] UNK - Ambulatory Encounter Lakeshia Arcade Recinos Lakeshia Arcade Recinos [facility] UNK - Ambulatory Encounter Lakeshia Arcade Recinos Lakeshia Arcade Recinos [facility] UNK - Ambulatory Encounter Madhumitannamarie Solitario Lakeshia Arc[facility]inos Lakeshia Mario Miller [facility] BMI 40.0-44.9Vertigo/dizzinessVaccine against influenza - Ambulatory Encounter Crhistian Hue Ly Crhistmeghann Ly [facility] UNK - Ambulatory Encounter Crhistian Hue Warrenero Crhistian Hue [facility] UNK - Ambulatory Encounter Crhistian Hue Ly Crhistian Hue [facility] UNK - Ambulatory Encounter Sunita Warren Maria Elena Padillany Keisha Lisa [facility] UNK - Ambulatory Encounter Lisa [facility] UNK - Ambulatory Encounter Lisa [facility] UNK - Ambulatory Encounter Lisa [facility] UNK - Ambulatory Encounter Lisa [facility] UNK - Ambulatory Encounter Meli Box [facility] UNK - Ambulatory Encounter Lisa [facility] UNK - Ambulatory Encounter Fax Status [facility] UNK - Ambulatory Encounter Fax Status [facility] UNK - Ambulatory Encounter Fax Status [facility] UNK - Ambulatory Encounter Meli Box [facility] UNK - Ambulatory Encounter Crhistian Hue Ly Crhistian Hue [facility] UNK - Ambulatory Encounter Crhistian Hue Ly Crhistmeghann Swann [facility] UNK - Ambulatory Encounter Tamara Gutierrez Crhistian Hue Ly Crhistian Hue Carrillo [facility] Diabetes mellitus, type IIVaccine against pneumococcalPeripheral neuropathyDiabetes mellitus, type II, uncontrolled, w/neurolo comps - Ambulatory Encounter [facility]ep [facility]K - Ambulatory Encounter Sissy [facility] UNK - Ambulatory Encounter Madhuri Mackey [facility] UNK - Ambulatory Encounter Narendra [facility] UNK - Ambulatory Encounter [facility] - Ambulatory Encounter Lisamandeep [facility] UNK - Ambulatory Encounter Fax Status [facility] UNK - Ambulatory Encounter Fax Status [facility] UNK - Ambulatory Encounter Fax Status [facility] UNK - [facility] - [facility]ulatory Encounter Lisa Dian Kam [facility] WELL EXAM, WOMAN - Ambulatory Encounter Sissy [facility] UNK - Ambulatory Encounter Crhayaz Swann [facility] UNK - Ambulatory Encounter Crhayaz Swann [facility] Albuminuria - Ambulatory Encounter Crhayaz Swann Ly [facility] Frankelerrero [facility] Sissy King [facility] UNK - Ambulatory Encounter [facility]ann Swann [facility] UNK - Ambulatory Encounter [facility] Ly [facility] Hue [facility] UNK - Ambulatory Encounter Kaitlin Collier [facility] Ly [facility] Frankelerrero Soco Kwok [facility] MORBID OBESITYDiabetes mellitus, type IIBenign essential hypertensionHyperlipidemiaGERD - Ambulatory Encounter Tamara Brenda [facility] UNK VITAL SIGNS No Information Available ALLERGIES Allergy Name Onset Date Reaction Criticality Status GABAPENTIN nausea Unable to assess criticality active BACTRIM High Criticality active REASON FOR REFERRAL Start Date - End Date Service - Xray - Urology - External - Ultrasound - X-RAY - X-RAY RESULTS Date Observation Value Provider Reference Range Interpretation Location urine culture Escherichia coli LinkLogic Abnormal specific gravity, urine 1.025 Lynne Solitario " [...] 3+ Lynne Solitario " appearance, urine clear Lynneevonne Solitario " urine color yellow Lynneevonne Solitario urine culture Escherichia coli [facility]Log[facility] Abnormal pH, urine, semiquantitative 5.5 Sunita Mayo " specific gravity, urine 1.020 Sunita Mayo " glucose, urine, semiquantitative 4+ Sunita Mayo [...] mg/dL Lynne Solitario urine culture No growth LinkLog hemoglobin A1C, blood, as % of total hemoglobin 13.5 % Lynne Solitario " blood glucose, random 246 mg/dL Peggy Erazo blood glucose, random 352 mg/dL Lynne Solitario specific gravity, urine 1.025 Lynneevonne Martinezrez " pH, urine, semiquantitative 5.0 Lynne Solitario " glucose, urine, semiquantitative negative Lynne Solitario " bilirubin, urine negative Lynne Solitario " ketones, urine, by test strip negative Lynneevonne Solitario " blood in urine (hemoglobin) by dipstick negative Lynne Solitario " protein, urine, semiquantitative (dipstick) 1+ Lynne Solitario " urobilinogen, urine, semiquantitative (dipstick) negative Lynne Solitario " nitrite, urine, semiquantitative negative Lynne Solitario " leukocyte esterase, urine, by dipstick negative Lynne Solitario " appearance, urine clear Lynneevonne Solitario " urine color yellow Lynne Solitario hemoglobin A1C, blood, as % of total [...] Burden blood glucose, fasting 197 mg/dL Lynne Solitario blood glucose, fasting 133 mg/dL Sunita Kwok [...] MEDICATION USE Medication Instructions Dates Provider Comments MELOXICAM 15 MG ORAL TABLET Take by mouth once a day Geetha Vargas MACROBID 100 MG ORAL CAPSULE 1 by mouth twice a day Geetha Vargas MACROBID 100 MG ORAL CAPSULE 1 by mouth twice a day - Nabor [facility] COLACE 100 MG ORAL CAPSULE 1 by mouth twice a day Floresita Shuja LYRICA 50 MG ORAL CAPSULE 1 tab By Mouth Three Times a Day As Needed pain - Naboreliot Ashby MOBIC 15 MG ORAL TABLET 1 by mouth daily - Naboreliot Ashby [facility] MELATONIN EXTRA STRENGTH 5 MG [...] Use 70 UNITS Twice a Day Nabor Garryemymichael MECLIZINE HCL 25 MG ORAL TABLET 1 [...] 1 by mouth once a day Nabor Garryemymichael GLIPIZIDE ER 10 MG ORAL TABLET EXTENDED RELEASE 24 HOUR one tablet By Mouth Every Day Jeniffer Ly LOSARTAN POTASSIUM 100 MG ORAL TABLET Take one tablet By Mouth Every Day Nabor Castañedaemymichael SOCIAL HISTORY Date Observation Value Provider drug use, illicit Never Cecy Jimenez " alcohol use Never Cecy Jimenez " social history reviewed E&M reviewed today Cecyyonny Jimenez " sexual orientation Heterosexual Cecy Jimenez " passive cigarette smoke exposure No Cecy Jimenez " smoking status former smoker Cecy Jimenez " Exercise Program Referral T Cecy Jimenez " Weight Management Counseling Provided T Cecy Ijmenez " Nutrition intervention T Cecy Jimenez social [...] Mayo " Exercise Program Referral T Sunita Thomasz " Weight Management Counseling Provided T Sunita Thomasz " Nutrition intervention T Sunita Mayo Exercise [...] Adams Murphy " smoking status never smoker Adamsbaylee Corrigana drug use, illicit Never Rena Damian " [...] Vickie Pool Exercise Program Referral T Tatianna Marci " Weight Management Counseling Provided T Tatianna Marci " Nutrition intervention T Tatianna Marci " drug use, illicit Never Lynne Solitario [...] never smoker Drinda Ricardo Exercise Program Referral Abelino Avila " Weight Management Counseling Provided Abelino Avila " Nutrition intervention Abelino Avila " drug use, illicit Never Peggy Erazo " alcohol use Never Peggy Erazo " social history reviewed E&M reviewed today Peggy Erazo " sexual orientation Heterosexual Peggy Erazo " passive cigarette smoke exposure No Peggy Erazo " smoking status never smoker Peggy Erazo Exercise Program Referral Abelino Avila " Weight Management Counseling Provided Abelino Avila " Nutrition intervention Abelino Avila " drug use, illicit Never Lynne Solitario " alcohol use Never Lynne Solitario " social history reviewed E&M reviewed today Lynne Solitario " passive cigarette smoke exposure No Lynne Solitario " smoking status never smoker Lynne Solitario Exercise Program Referral Abelino García " Weight Management Counseling Provided T Yamil García " Nutrition intervention T Yamil García " social history reviewed E&M reviewed today Reema Burden " sexual orientation Heterosexual Reema Burden " passive cigarette smoke exposure No Reema Burden " smoking status never smoker Reema Burden Exercise Program Referral Abelino Kennedy " Weight Management Counseling Provided Abelino Kennedy " Nutrition intervention Abelino Kennedy " drug use, illicit Never Lynne [...] Provided T Sunita Kwok " Nutrition intervention Abelino Sunita Sundar Exercise Program Referral T Yunier Nassar " Weight Management Counseling Provided T Yunier Nasasr " Nutrition intervention T Yunier Nassar " social history reviewed E&M reviewed today Reema Burden " passive cigarette smoke exposure No Reema Burden " smoking status never smoker Reema Burden drug use, illicit Never Lynne Solitario " alcohol use Never Lynne Solitario " social history reviewed E&M reviewed today Lynne Solitario " Exercise Program Referral T Lakeshia Hwanga " Weight Management Counseling Provided T Lakeshia Martin Recinos " Nutrition intervention T Lakeshia Arcade Recinos " passive cigarette smoke exposure No [...] patient considered to be homeless No Sunita Kwok " drug use, illicit Never Sunita Kwok [...] assessment of judgment and insight E&M intact [facility] " mental status examination: orientation E&M oriented to time, place, and person [facility] " assessment of mood and affect E&M no depression, anxiety, or agitation [facility] assessment of judgment and insight E&M intact [facility] " mental status examination: orientation E&M oriented to time, place, and person [facility] " assessment of mood and affect E&M no depression, anxiety, or agitation [facility] " Generalized Anxiety Disorder Questionnaire - Question 2 0 Sunita Mayo " Generalized Anxiety Disorder Questionnaire - Question 1 0 Sunita Mayo assessment of judgment and insight E&M intact [facility] " mental status examination: orientation E&M oriented to time, place, and person [facility] " assessment of mood and affect E&M no depression, anxiety, or agitation [facility] mental status examination: orientation E&M oriented to [...] Disorder Questionnaire - Question 1 0 Vickie Esqueda assessment of judgment and insight E&M intact [...] oriented to time, place, and person Rao Austin " assessment of mood and affect E&M no depression, anxiety, or agitation Rao Avila " Generalized Anxiety Disorder Questionnaire - Question 2 0 Peggy Erazo " Generalized Anxiety Disorder Questionnaire - Question 1 0 Peggy Erazo assessment of judgment and insight E&M intact Rao Austin " mental status examination: orientation E&M oriented to time, place, and person Rao Austin " assessment of mood and affect E&M no depression, anxiety, or agitation Rao Austin " Generalized Anxiety Disorder Questionnaire - Question 2 0 Lynne Solitario " Generalized Anxiety Disorder Questionnaire - Question 1 0 Lynne Solitario mental status examination: orientation E&M oriented to time, place, and person Mahim Shuja " assessment of mood and affect E&M [...] and insight E&M intact Yunier Nassar " mental status examination: orientation E&M [...] of judgment and insight E&M intact Lakeshia Recinos " assessment of mood and affect E&M no depression, anxiety, or agitation Lakeshia Arcadelana Hwanga assessment of mood and affect E&M no depression, anxiety, or agitation Crhkarriemeghann Ly " Generalized Anxiety Disorder Questionnaire - [...] assessment of judgment and insight E&M intact Crhayaz Huepradeep Warrenero " assessment of mood and affect E&M no depression, anxiety, or agitation Crhayaz Ly " Generalized Anxiety Disorder Questionnaire - [...] - - Est Patient Exp Problem - 10213 Urinalysis - Dip only - In House Est Patient Exp Problem - 57032 Est Patient Exp Problem - 93514 Est Patient Detailed - 03485 Glucose Stick HEMOGLOBIN A1C - In House Est Patient Exp Problem - 99034 Est Patient Exp Problem - 97954 Est Patient Exp Problem - 84265 Est Patient Detailed - 80398 IM or SQ Injection Injection, ketorolac tromethamine (toradol), per 15 mg Est Patient Exp Problem - 33818 HEMOGLOBIN A1C - In House Prescription Assistance Glucose Stick Urinalysis - Dip only - In House Est Patient Detailed - 86200 Est Patient Exp Problem - 45671 Est Patient Exp Problem - 11038 Est Patient Exp Problem - 65420 Est Patient Exp Problem - 46864 Est Patient Exp Problem - 78720 EKG - Interpretation & Report Only INFLUENZA VACCINE QUADRIVALENT 3 YRS PLUS IM Est Patient Exp Problem - 37827 Prevnar (PCV13) IM Ofc Vst, Est Level III Influenza - Adult - Injection Est Patient Well Exam (40 - 64 Yrs) - 41208 Ofc Vst, New Level III HISTORY OF PROCEDURES Procedure Date Procedure Name Provider Procedure Notes Status Urinalysis - Dip only - In House Yamil García completed Glucose Stick Marcela Espinoza completed HEMOGLOBIN A1C - In House Marcela Espinoza completed IM or SQ Injection Tatianna Marci Ketorolac 30mg IM left gluteus medius completed Injection, ketorolac tromethamine (toradol), per 15 mg Tatianna Marci [facility]: [id number]. completed HEMOGLOBIN A1C - In House Tamara Gutierrez completed Glucose Stick Tamara Gutierrez completed Urinalysis - Dip only - In House Tamara Gutierrez completed EKG - Interpretation & Report Only Breanna Davis completed GOALS No Information Available [facility]ER[facility] No Information Available
--- OUTSIDE RECORDS SUMMARY | 2019-04-12 12:04 | XMS REPORT ---
Author Author Admin, Steens Organization Unknown Address Unknown Phone Unavailable PROBLEMS [...] - Rao Avila Vaccine against pneumococcal [facility] WELL [facility], WOMAN completed - Rao Avila Albuminuria active Naboreliot Ashby GERD active Crhistian Hue Ly Hyperlipidemia active [facility] Benign essential hypertension active Crhistian Hue Ly Diabetes mellitus, type II completed - Crhistian Hue Ly MORBID OBESITY active [facility] ENCOUNTERS Date Type Provider Location Encounter Diagnosis - Ambulatory Encounter Geetha Vargas [facility] UNK - Ambulatory Encounter Geetha Vargas [facility] UNK - Ambulatory Encounter Tamara Morales [facility] UNK - Ambulatory Encounter Geetha Centeno [facility] Osteopenia - Ambulatory Encounter Geetha Vargas [facility] UNK - Ambulatory Encounter Geetha Vargas [facility] UNK - Ambulatory Encounter Geetha Vargas [facility] UNK - Ambulatory Encounter Geetha Vargas [facility] UNK - Ambulatory Encounter Yamil Jimenez [facility] Pain in left shoulder - Ambulatory Encounter [facility]il [facility] - [facility]ulatory Encounter Nabor Ashby [facility] UNK - Ambulatory Encounter Akin [facility] UNK - Ambulatory Encounter [facility]ulatory Encounter Nabor Symone [facility] UNK - Ambulatory Encounter Fax Status [facility] - Ambulatory Encounter Fax Status LinkLogic [facility] UNK - Ambulatory Encounter Fax [facility] UNK - Ambulatory Encounter Nabor Symone Tomlin [facility] UNK - Ambulatory Encounter Nabor [facility] UNK - Ambulatory Encounter Nabor Symone Tomlin [facility] UNK - Ambulatory Encounter Yamil Erazo Nabor [facility] AlbuminuriaRecurrent urinary tract infection - Ambulatory Encounter Lisa Dian Link[facility] UNK - Ambulatory Encounter Yamil Box [facility] UNK - Ambulatory Encounter Nabor [facility] UNK - Ambulatory Encounter Nabor [facility] UNK - Ambulatory Encounter Nabor [facility] UNK - Ambulatory Encounter Nabor Symone Tomlin [facility] UNK - Ambulatory Encounter Nabor [facility] UNK [facility] Ambulatory Encounter Nabor [facility] UNK - Ambulatory Encounter Nabor [facility] UNK - Ambulatory Encounter Yamil Mayo Nabor [facility] Dysuria - Ambulatory Encounter Nabor [facility] Link[facility] UNK - Ambulatory Encounter Fax Status [facility]K - Ambulatory Encounter Fax Status [facility] UNK - Ambulatory Encounter Fax Status [facility] UNK - Ambulatory Encounter Nabor [facility]K - Ambulatory Encounter Nabor [facility] UNK - Ambulatory Encounter Nabor [facility] UNK - Ambulatory Encounter Yamil Erazo Nabor [facility] Adams Murphy [facility] Liver cancer, primaryVenous stasis - Ambulatory Encounter Lisa Biggs Link[facility] UNK - Ambulatory Encounter Sandro Graves Link[facility] UNK - Ambulatory Encounter Fredy Valladares [facility] UNK - Ambulatory Encounter Meli Box MedAdherence [facility] UNK - Ambulatory Encounter Floresita Birch [facility] ralphe[facility] UNK - Ambulatory Encounter Lisa Dian [facility]K - Ambulatory Encounter Fredy Valladares [facility] UNK - Ambulatory Encounter Lisa Dian [facility] UNK - Ambulatory Encounter Floresita Birch [facility]K - Ambulatory Encounter Marcela Katz [facility] UNK - Ambulatory Encounter Marcela Salgado [facility] UNK - Ambulatory Encounter Marcela Salgado [facility] UNK - Ambulatory Encounter Tiffany Katz [facility] UNK - Ambulatory Encounter Tiffany Katz [facility] UNK - Ambulatory Encounter LSJ Lab Support Desktop [facility] Floresita Reneralphewa [facility] UNK - Ambulatory Encounter Marcela Espinoza [facility] UNK - Ambulatory Encounter Floresita Anjuralphewa [facility] UNK - Ambulatory Encounter Floresita Reneralphewa [facility] ralphe[facility] UNK - Ambulatory Encounter [facility]il [facility] Reneralphewa Nikia Martinez [facility] Elevated liver enzymesScreening for hepatitis C - Ambulatory Encounter LSJ Lab Support Desktop [facility] Floresita Birch [facility] UNK - Ambulatory Encounter Fax Status [facility] UNK - Ambulatory Encounter Fax Status [facility] UNK - Ambulatory Encounter Fax Status [facility] UNK - Ambulatory Encounter Floresita Birch [facility] UNK - Ambulatory Encounter Floresita Birch [facility] ralphewa [facility] UNK - Ambulatory Encounter Floresita Canas ry [facility] UNK - Ambulatory Encounter Tamara Solitario [facility] Queta Vickie Esqueda [facility] Abdominal painConstipationScreening for colon cancer - Ambulatory Encounter Tatianna Covarrubias Link[facility]ic [facility] UNK - Ambulatory Encounter Tatianna Covarrubias LinkLogic [facility] UNK - Ambulatory Encounter Tatianna Covarrubias [facility]ic [facility] UNK - Ambulatory Encounter Tiffany Romero [facility] UNK - Ambulatory Encounter Tatianna Covarrubias [facility] UNK - Ambulatory Encounter Tatianna Solitario [facility] Subcutaneous mass of backLeg pain, left - Ambulatory Encounter Jennifer Ricardo [facility] UNK - Ambulatory Encounter Marcela Espinoza [facility] UNK - Ambulatory Encounter Marcela Ricardo [facility] Chest pain, acute - Ambulatory Encounter Meli Isauro MedAdherence [facility] UNK - Ambulatory Encounter Meli Box MedAdherence LinkLogic [facility] UNK - Ambulatory Encounter Tiffany Katz MedAdherence [facility] UNK - Ambulatory Encounter Tiffany Katz MedAdherence LinkLogic [facility] UNK - Ambulatory Encounter Tiffany Katz MedAdherence [facility] UNK - Ambulatory Encounter Tiffany Katz MedAdherence Link[facility]ic [facility] UNK - Ambulatory Encounter Meli Box MedAdherence [facility] UNK - Ambulatory Encounter Meli Box MedAdherence LinkLogic [facility] UNK - Ambulatory Encounter Meli Box MedAdherence [facility] UNK - Ambulatory Encounter Meli Box MedAdherence LinkLogic [facility] UNK - Ambulatory Encounter Meli Box MedAdherence [facility] UNK - Ambulatory Encounter Meli Box MedAdherence LinkLogic [facility] UNK - Ambulatory Encounter Tiffany Katz MedAdherence [facility] UNK - Ambulatory Encounter Rao Avila [facility] UNK - Ambulatory Encounter Tiffany Katz MedAdherence [facility] UNK - Ambulatory Encounter Mya [facility] UNK - Ambulatory Encounter Rao Avila [facility] UNK - Ambulatory Encounter Mya [facility] UNK - Ambulatory Encounter Rao Avila [facility] UNK - Ambulatory Encounter Tamara Lawson [facility] InsomniaDysuria - Ambulatory Encounter Tiffany Katz MedAdherence [facility] UNK - Ambulatory Encounter Tiffany Katz MedAdherence [facility] UNK - Ambulatory Encounter Rao Avila [facility] UNK - Ambulatory Encounter Breanna Avila [facility] WELL EXAM, WOMANPeripheral neuropathyVertigo/dizzinessDysuriaBack pain, acuteArm pain, leftDiabetic peripheral neuropathy - Ambulatory Encounter Fredy Kevinsa Tiffany Katz [facility] UNK - Ambulatory Encounter Tiffany Katz [facility] Silviamaria Lyon [facility] UNK - Ambulatory Encounter Tiffany Katz MedAdherence [facility] UNK - Ambulatory Encounter Tiffany Katz MedAdherence [facility] UNK - Ambulatory Encounter Tiffany Katz [facility] UNK - Ambulatory Encounter Tiffany Katz MedAdherence [facility] UNK - Ambulatory Encounter Krista [facility] UNK - Ambulatory Encounter Krista [facility] - Ambulatory Encounter Tiffany Katz MedAdherence [facility] UNK - Ambulatory Encounter Tiffany Katz MedAdherence [facility] UNK - Ambulatory Encounter Tiffany Katz MedAdherence [facility] UNK - Ambulatory Encounter Tiffany Katz MedAdherence [facility] UNK - Ambulatory Encounter [facility] UNK - Ambulatory Encounter [facility] UNK - Ambulatory Encounter [facility] UNK - Ambulatory Encounter Yamil Erazo [facility] Back pain, acuteArm pain, left - Ambulatory Encounter George Kennedy [facility] UNK - Ambulatory Encounter George Solitario [facility] Dysuria - Ambulatory Encounter Yunier Nassar [facility] UNK - Ambulatory Encounter Yunier Nassar [facility] UNK - Ambulatory Encounter Yunier Nassar [facility] UNK - Ambulatory Encounter Tamara Kwok [facility] - Ambulatory Encounter Fax Status [facility] - Ambulatory Encounter Fax Status Link[facility] UNK - Ambulatory Encounter Fax Status Link[facility] UNK - Ambulatory Encounter Yunier Nassar [facility] UNK - Ambulatory Encounter Yunier Nassar [facility] UNK - Ambulatory Encounter Yunier Faye [facility] UNK - Ambulatory Encounter Yamil Erazo Yunier Faye [facility] Bunion, left foot - Ambulatory Encounter Lakeshia Arroyo Recinos Lakeshia Arroyo Recinos [facility] UNK - Ambulatory Encounter Lakeshia Arroyo Recinos Lakeshia Arroyo Recinos [facility] UNK - Ambulatory Encounter Fax Status [facility] UNK - Ambulatory Encounter Fax Status [facility] UNK - Ambulatory Encounter Fax Status [facility] UNK - Ambulatory Encounter Lakeshia Arroyo Recinos Lakeshia Arroyo Recinos [facility] UNK - Ambulatory Encounter Lakeshia Arroyo Recinos Lakeshia Arroyo Recinos [facility] UNK - Ambulatory Encounter Breanna Avila Lynne Miller [facility] BMI 40.0-44.9Vertigo/dizzinessVaccine against influenza - Ambulatory Encounter Crhistmeghann Swann Ly Crhistian [facility] UNK - Ambulatory Encounter Crhistmeghann Swann Ly [facility] UNK - Ambulatory Encounter Crhistmeghann Frankelerrero Crhistian [facility] UNK - Ambulatory Encounter Sunita Valdes Lisa [facility] UNK - Ambulatory Encounter Lisa [facility] UNK - Ambulatory Encounter Lisa [facility] UNK - Ambulatory Encounter Lisa [facility] UNK - Ambulatory Encounter Lisa [facility] UNK - Ambulatory Encounter Meli Box [facility] UNK - Ambulatory Encounter Lisa [facility] UNK - Ambulatory Encounter Fax Status [facility] UNK - Ambulatory Encounter Fax Status [facility] UNK - Ambulatory Encounter Fax Status [facility] UNK - Ambulatory Encounter Meli Box [facility] UNK - Ambulatory Encounter Jeniffer Swann [facility] UNK - Ambulatory Encounter Jeniffer Alvarezkarriemeghann Hue [facility] UNK - Ambulatory Encounter Tamara Markkimberly Alvarezayaz Ly [facility] Swann Lylou Carrillo [facility] Diabetes mellitus, type IIVaccine against pneumococcalPeripheral neuropathyDiabetes mellitus, type II, uncontrolled, w/neurolo comps - Ambulatory En[facility] - [facility]ulatory Encounter Sissy King [facility] UNK - Ambulatory Encounter Madhuri Mackey [facility] UNK - Ambulatory Encounter Narendra [facility] UNK - Ambulatory Encounter Lisamandeep Biggs [facility] UNK - Ambulatory Encounter Lisa Biggs [facility] UNK - Ambulatory Encounter Fax Status [facility] UNK - Ambulatory Encounter Fax Status [facility] UNK - Ambulatory Encounter Fax Status [facility] UNK - Ambulatory En[facility] - Ambulatory Encounter Lisamandeep Kam [facility] WELL EXAM, WOMAN - Ambulatory Encounter Sissy [facility] UNK - Ambulatory Encounter Jeniffer Swann [facility] UNK - Ambulatory Encounter Crhistmeghann Warrenero Jeniffer Frankelerrero [facility] Albuminuria - Ambulatory Encounter Crhistmeghann Ly [facility] - [facility]ulatory Encounter Crhayaz Ly [facility] Frankelerrero [facility] UNK - Ambulatory Encounter Jeniffer Ly [facility] Swann [facility] UNK - Ambulatory Encounter Kaitlin Collier Jeniffer Ly [facility] Soco Kwok [facility] MORBID OBESITYDiabetes mellitus, type IIBenign essential hypertensionHyperlipidemiaGERD - Ambulatory Encounter Tamara Gutierrez [facility] UNK VITAL SIGNS No Information Available ALLERGIES Allergy Name Onset Date Reaction Criticality Status GABAPENTIN nausea Unable to assess criticality active BACTRIM High Criticality active REASON FOR REFERRAL Start Date - End Date Service - Xray -Dexa +/- (DXA), Bone Density Study - Physical Therapy - External - Xray - Urology - External - Ultrasound - X-RAY - X-RAY RESULTS Date Observation Value Provider Reference Range Interpretation Location specific gravity, urine 1.020 Jennifer Bob " pH, urine, semiquantitative 5.5 Jennifer Bob " glucose, urine, semiquantitative 4+ Jennifer Bob " bilirubin, urine negative Jennifer Bob " ketones, urine, by test strip negative Jennifer Bob " blood in urine (hemoglobin) by dipstick negative Jennifer Bob " protein, urine, semiquantitative (dipstick) negative Jennifer Bob " urobilinogen, urine, semiquantitative (dipstick) negative Jennifer Bob " nitrite, urine, semiquantitative negative Jennifer Bob " leukocyte esterase, urine, by dipstick negative Jennifer Bob " appearance, urine clear Jennifer Bob " urine color yellow Jennifer Bob urine culture Escherichia coli LinkLogic Abnormal specific [...] LinkLogic Abnormal pH, urine, semiquantitative 5.5 Sunita Mortensenvez " specific gravity, urine 1.020 Sunita Mortensenvez " glucose, urine, semiquantitative 4+ Sunita Mortensenvez " bilirubin, urine negative Sunita Mayo " ketones, urine, by test strip negative Sunita Mayo " blood in urine (hemoglobin) by dipstick negative Sunita Mayo " protein, urine, semiquantitative (dipstick) trace Sunita Mortensenvez " urobilinogen, urine, semiquantitative (dipstick) negative Sunita Mortensenvez " nitrite, urine, semiquantitative positive Sunita Mortensenvez " leukocyte esterase, urine, by dipstick 1+ [...] mg/dL Lynne Solitario specific gravity, urine 1.025 Lynne Solitario " [...] MEDICATION USE Medication Instructions Dates Provider Comments TRAMADOL HCL 50 MG ORAL TABLET Take one tablet twice a day as needed Geethamario Vargas MELOXICAM 15 MG ORAL TABLET Take by mouth once a day Geetha Sam MACROBID 100 MG ORAL CAPSULE 1 by mouth twice a day Geetha Vargas MACROBID 100 MG ORAL CAPSULE 1 by mouth twice a day - Nabor Ashby COLACE 100 MG ORAL CAPSULE 1 by mouth twice a day Floresita Shuewa LYRICA 50 MG ORAL CAPSULE 1 tab By Mouth Three Times a Day As Needed pain - Nabor Ashby MOBIC 15 MG ORAL TABLET 1 by mouth daily - Nabor Garryemymichael [facility] MELATONIN EXTRA STRENGTH 5 MG ORAL TABLET Take 1 tab By Mouth at bedtime Rao Avila INSULIN SYRINGE 28G X 1/2" 0.5 ML Use as directed Rao Avila ASPIRIN 81 MG ORAL TABLET Take 1 tab By Mouth daily - Nabor Jansenmichael NAPROXEN 500 MG ORAL TABLET 1 by [...] one tablet By Mouth Every Day Nabor Ashby SOCIAL HISTORY Date Observation Value Provider social history reviewed E&M reviewed today Lynne Morales " passive cigarette smoke exposure No Lynne Morales " Exercise Program Referral T Lynne Morales " Weight Management Counseling Provided T Lynne Morales " Nutrition intervention T Lynne Morales " sexual orientation Heterosexual Jennifermario Bob " drug use, illicit Never Jennifer Paulino " alcohol use Never Jennifer Paulino " smoking status former smoker Jennifer Bob drug use, illicit Never Cecy Jimenez " [...] T Sunita Mayo " Nutrition intervention T Suinta Mayo " passive cigarette smoke exposure No [...] Never Adams Murphy " alcohol use Never Adamsbaylee Corrigana " social history reviewed E&M reviewed today Adamsbaylee Corrigana " sexual orientation Heterosexual Adamsabylee Corrigana " is there any chance that you could be ? No Adams Murphy " passive cigarette smoke exposure No Adams Murphy " smoking status never smoker Adams Corrigana drug use, illicit Never Rena Damian [...] Never Nikia Martinez " alcohol use Never Inkia Martinez " social history reviewed E&M reviewed [...] Provided T Rao Avila " Nutrition intervention Abelino Avila " [...] Sunita Kwok " alcohol use Never Sunita Sundar " social history reviewed E&M reviewed today Sunita Kwok " sexual orientation Heterosexual Sunita Sundar " passive cigarette smoke exposure No Sunita Sundar " smoking status never smoker Sunita Sundar " Exercise Program Referral T Sunita Kwok " Weight Management Counseling Provided T Sunita Kwok " Nutrition intervention T Sunita Kwok Exercise Program Referral Abelino Nassar " Weight Management Counseling Provided T Yunier Nassar " Nutrition intervention T Yunier Nassar " social history reviewed E&M reviewed today Reema Burden " passive cigarette smoke exposure No Reema Burden " smoking status never smoker Reema Burden drug use, illicit Never Lynne Solitario " alcohol use Never Lynne Solitario " social history reviewed E&M reviewed today Lynen Martinezrez " Exercise Program Referral T Lakeshia Recinos " Weight Management Counseling Provided T Lakeshia Recinos " Nutrition intervention T Lakeshia Recinos " passive cigarette smoke exposure No Lynne Martinezrez " smoking status never smoker Lynne Martinezrez drug use, illicit Never Sunita Kwok " alcohol use Never Sunita Kwok " passive cigarette smoke exposure No Sunita Kwok " smoking status never smoker Sunita Kwok " Exercise Program Referral T Sunita Kwok " Weight Management Counseling Provided T Sunita Kwok " Nutrition intervention T Sunita Sundar time of call 07/03/2015 2:32 PM Madhuri [...] oriented to time, place, and person Geetha Sam " Generalized Anxiety Disorder Questionnaire - Question 2 0 Jennifer Bob " Generalized Anxiety Disorder Questionnaire - Question 1 0 Jennifer Bob mental status examination: recall E&M intact for recent and remote events Geetha Sam " assessment of judgment and insight E&M intact Geetha Sam " assessment of mood and affect E&M no depression, anxiety, or agitation Geetha Vargas " mental status examination: orientation E&M oriented to time, place, and person Geetha Sam " Generalized Anxiety Disorder Questionnaire - Question 2 0 Cecy Jimenez " Generalized Anxiety Disorder Questionnaire - Question 1 0 Cecy Jimenez Generalized Anxiety Disorder Questionnaire - Question 2 0 Sunita Mayo " Generalized Anxiety Disorder Questionnaire - Question 1 0 Sunita Mayo " assessment of judgment and insight E&M intact [facility] " mental status examination: orientation E&M oriented to time, place, and person [facility] " assessment of mood and affect E&M no depression, anxiety, or agitation [facility] assessment of judgment and insight E&M intact [facility] " mental status examination: orientation E&M oriented to time, place, and person [facility] " assessment of mood and affect E&M no depression, anxiety, or agitation [facility] " Generalized Anxiety Disorder Questionnaire - Question 2 0 Sunita Mayo " Generalized Anxiety Disorder Questionnaire - Question 1 0 Sunita Mayo assessment of judgment and insight E&M intact [facility] " mental status examination: orientation E&M oriented to time, place, and person [facility] " assessment of mood and affect E&M no depression, anxiety, or agitation [facility] mental status examination: orientation E&M oriented to [...] oriented to time, place, and person George Knenedy " assessment of mood and affect E&M [...] E&M no depression, anxiety, or agitation Lakeshia Recinos assessment of mood and affect E&M no depression, anxiety, or agitation Crhayaz Hue Ly " Generalized Anxiety Disorder Questionnaire - Question 2 0 Sunita Sundar " Generalized Anxiety Disorder Questionnaire - Question [...] of judgment and insight E&M intact Crhayaz Hue Ly " assessment of mood and affect E&M no depression, anxiety, or agitation Crhkarriemeghann Hue Ly " Generalized Anxiety Disorder Questionnaire - Question 2 0 Sunita Kwok " Generalized Anxiety Disorder Questionnaire - Question 1 0 Sunita Kwok MEDICAL EQUIPMENT No Information Available FAMILY HISTORY No Information Available INSURANCE PROVIDERS No Information Available ADVANCE DIRECTIVES No Information Available TREATMENT PLAN Date Name Urine Culture, Routine Urine Culture, Routine Urine Culture, Routine Urinalysis [...] Lipid Panel Hemoglobin A1c - - - - - Reason for referral: PVD and venous statsis on chemotherapy Max # of visits: Gold Card Y/N? NOTE: Holter monitor needs a prescription - - - - - - Est Patient Exp Problem - 00903 Est Patient Exp Problem - 64535 Urinalysis - Dip only - In House Est Patient Exp Problem - 09314 Est Patient Exp Problem - 59608 Est Patient Detailed - 24827 Glucose Stick HEMOGLOBIN A1C - In House Est Patient Exp Problem - 26314 Est Patient Exp Problem - 41443 Est Patient Exp Problem - 21673 Est Patient Detailed - 82013 IM or SQ Injection Injection, ketorolac tromethamine (toradol), per 15 mg Est Patient Exp Problem - 51203 HEMOGLOBIN A1C - In House Prescription Assistance Glucose Stick Urinalysis - Dip only - In House Est Patient Detailed - 51094 Est Patient Exp Problem - 34544 Est Patient Exp Problem - 38784 Est Patient Exp Problem - 24521 Est Patient Exp Problem - 03246 Est Patient Exp Problem - 96446 EKG - Interpretation & Report Only INFLUENZA VACCINE QUADRIVALENT 3 YRS PLUS IM Est Patient Exp Problem - 26280 Prevnar (PCV13) IM Ofc Vst, Est Level III Influenza - Adult - Injection Est Patient Well Exam (40 - 64 Yrs) - 04473 Ofc Vst, New Level III HISTORY OF PROCEDURES Procedure Date Procedure Name Provider Procedure Notes Status Urinalysis - Dip only - In House Yamil García completed Glucose Stick Marcela Pérez Olga completed HEMOGLOBIN A1C - In House Marcela Pérez Maríaraul completed IM or SQ Injection Tatianna Marci Ketorolac 30mg IM left gluteus medius completed Injection, ketorolac tromethamine (toradol), per 15 mg Tatianna Marci [facility]: [id number]. completed HEMOGLOBIN A1C - In House Tamara Gutierrez completed Glucose Stick Tamara Gutierrez completed Urinalysis - Dip only - In House Tamara Gutierrez completed EKG - Interpretation & Report Only Breanna Davis completed GOALS No Information Available HEALTH CONCERNS No Information Available
--- OUTSIDE RECORDS SUMMARY | 2019-04-12 12:05 | XMS REPORT ---
Author Author Admin, Clemmons Organization Unknown Address Unknown Phone Unavailable PROBLEMS [...] - Rao Avila Vaccine against pneum[facility] WELL EXAM, WOMAN completed - Rao Avila Albuminuria active Nabor Mahfouz GERD active Crhistian Hue Ly Hyperlipidemia active [facility] [place] [facility] Benign essential hypertension active [facility] [place] [facility] Hue Ly Diabetes mellitus, type II completed - Crhistian Hue Ly MORBID OBESITY active [facility] [place] [facility] Hue Ly ENCOUNTERS Date Type Provider Location Encounter Diagnosis - Ambulatory Encounter Sunita Kwok [facility] UNK - Ambulatory Encounter Geetha Vargas [facility] UNK - Ambulatory Encounter Geetha Vargas [facility] UNK - Ambulatory Encounter Geetha Vargas [facility] UNK - Ambulatory Encounter Tamara Morales [facility] UNK - Ambulatory Encounter Geetha Centeno [facility] Osteopenia - Ambulatory Encounter Geetha Vargas [facility] UNK - Ambulatory Encounter Geetha Vargas [facility] UNK - Ambulatory Encounter Geetha Vargas [facility] UNK - Ambulatory Encounter Geetha Vargas [facility] UNK - Ambulatory Encounter Yamil Jimenez [facility] Pain in left shoulder - Ambulatory Encounter Yamil Box Med[facility] UNK - Ambulatory Encounter Nabor Symone [facility] UNK - Ambulatory Encounter [facility] UNK - Ambulatory Encounter Nabor Symone [place] [facility] UNK - Ambulatory Encounter Nabor Symone Castañedafomichael [facility] UNK - Ambulatory Encounter Fax Status LinkLogic [facility] UNK - Ambulatory Encounter F[facility] - Ambulatory Encounter Fax Status [facility] UNK - Ambulatory Encounter Nabor Symone [place] [facility] UNK - Ambulatory Encounter Nabor Garryfomichael [place] [facility] UNK - Ambulatory Encounter Nabor Symone [place] [facility] UNK - Ambulatory Encounter Yamil Erazo [facility] AlbuminuriaRecurrent urinary tract infection - Ambulatory Encounter Lisa Dian [facility] UNK - Ambulatory Encounter Yamil Box MedAdherence [facility] UNK - Ambulatory Encounter Nabor Symone [place] [facility] UNK - Ambulatory Encounter Nabor Garryfomichael [place] [facility] UNK - Ambulatory Encounter Nabor [facility] UNK - Ambulatory Encounter Nabor [facility]abor [facility] UNK - Ambulatory Encounter Nabor [facility] Nabor [facility] UNK - Ambulatory Encounter Nabor [facility] Nabor [facility] UNK - Ambulatory Encounter Nabor Garrymichael Nabor [facility] UNK - Ambulatory Encounter Yamil Mayo [facility] Dysuria - Ambulatory Encounter Nabor Garrymichael [place] [facility] UNK - Ambulatory Encounter Fax Status LinkLogic [facility] UNK - Ambulatory Encounter Fax Status LinkLogic [facility] UNK - Ambulatory Encounter Fax Status LinkLogic [facility] UNK - Ambulatory Encounter [facility] UNK - Ambulatory En[facility] UNK - Ambulatory Encounter Nabor Garrymichael [place] [facility] UNK - Ambulatory Encounter Yamil Erazo [facility]abor [facility] Adams Murphy [facility] Liver cancer, primaryVenous stasis - Ambulatory Encounter Lisa Biggs [facility] UNK - Ambulatory Encounter [facility] - [facility]ulatory Encounter Fredy Valladares [facility] UNK - Ambulatory Encounter Meli Box [facility] UNK - Ambulatory Encounter Floresita Birch [facility] - [facility]ulatory Encounter [facility] Dian [facility] - Ambulatory Encounter Fredy Valladares [facility] UNK - Ambulatory Encounter Lisa Dian [facility] - Ambulatory Encounter Floresita Birch [facility] - Ambulatory Encounter Marcela Katz [facility] UNK - Ambulatory Encounter Marcela Salgado [facility] UNK - Ambulatory Encounter Marcela Salgado [facility] UNK - Ambulatory Encounter Tiffany Katz [facility] UNK - Ambulatory Encounter Tiffany Katz [facility] UNK - Ambulatory Encounter LSJ Lab Support Desktop [facility] Floresita Birch [facility] UNK - Ambulatory Encounter Marcela Espinoza [facility] UNK - Ambulatory Encounter Floresita Birch [facility] UNK - Ambulatory Encounter Floresita Birch [facility] UNK - Ambulatory Encounter Yamil Espinoza Floresita Birch Nikia Martinez [facility] Elevated liver enzymesScreening for hepatitis C - Ambulatory Encounter LSJ Lab Support Desktop LinkLog Floresita Birch [facility] UNK - Ambulatory Encounter Fax Status [facility] UNK - Ambulatory Encounter Fax [facility] UNK - Ambulatory Encounter Fax Status [facility] UNK - Ambulatory Encounter Floresita Birch [facility] UNK - Ambulatory Encounter Floresita Birch [facility] UNK - Ambulatory Encounter Floresita Birch [facility] UNK - Ambulatory Encounter Tamara Solitario Floresita Birch Vickie Esqueda [facility] Abdominal painConstipationScreening for colon cancer - Ambulatory Encounter Tatianna Marci Covarrubias LinkLog[facility] UNK - Ambulatory Encounter Tatianna Marci Campuzano Marci Link[facility] UNK - Ambulatory Encounter Tatianna Marci Campuzano Marci [facility] UNK - Ambulatory Encounter Tiffany Romero [facility] UNK - Ambulatory Encounter Tatianna Covarrubias [facility] UNK - Ambulatory Encounter Tatianna Campuzano Marcisandoval Solitario [facility] Subcutaneous mass of backLeg pain, left - Ambulatory Encounter Jennifer Ricardo [facility] UNK - Ambulatory Encounter Marcela Espinoza [facility] UNK - Ambulatory Encounter Marcela Ricardo [facility] Chest pain, acute - Ambulatory Encounter Meli Box MedAdherence [facility] UNK - Ambulatory Encounter Meli Box MedAdherence LinkLogic [facility] UNK - Ambulatory Encounter Tiffany Katz MedAdherence [facility] UNK - Ambulatory Encounter Tiffany Katz MedAdherence LinkLogic [facility] UNK - Ambulatory Encounter Tiffany Katz MedAdherence [facility] UNK - Ambulatory Encounter Tiffany Katz MedAdherence LinkLogic [facility] UNK - Ambulatory Encounter Meli Box MedAdherence [facility] UNK - Ambulatory Encounter Meli Isauro MedAdherence LinkLogic [facility] UNK - Ambulatory Encounter Meli Isauro MedAdherence [facility] UNK - Ambulatory Encounter Meli Isauro MedAdherence LinkLogic [facility] UNK - Ambulatory Encounter Meli Box MedAdherence [facility] UNK - Ambulatory Encounter Meli Box [facility] UNK - Ambulatory Encounter Tiffany Katz [facility] UNK - Ambulatory Encounter Rao Avila [facility] UNK - Ambulatory Encounter Tiffany Katz [facility] UNK - Ambulatory Encounter Mya [facility] Floor Covering Printer UNK - Ambulatory Encounter Rao Avila [facility] UNK - Ambulatory Encounter Mya Graves [facility] UNK - Ambulatory Encounter Rao Avila [facility] UNK - Ambulatory Encounter Tamara Lawson [facility] InsomniaDysuria - Ambulatory Encounter Tiffany Katz [facility] UNK - Ambulatory Encounter Tiffany Katz [facility] UNK - Ambulatory Encounter Rao Avila [facility] UNK - Ambulatory Encounter Breanna Avila [facility] WELL EXAM, WOMANPeripheral neuropathyVertigo/dizzinessDysuriaBack pain, acuteArm pain, leftDiabetic peripheral neuropathy - Ambulatory Encounter Isaaca Sonali Katz [facility] UNK - Ambulatory Encounter Tiffany Katz [facility] Silviamaria Lyon [facility] UNK - Ambulatory Encounter Tiffany Katz MedAdherence [facility] Practice UNK - Ambulatory Encounter Tiffany Katz Med[facility]herence [facility] Practice UNK - Ambulatory Encounter Tiffany Katz MedAdherence LinkLogic [facility] UNK - Ambulatory Encounter Tiffany Katz MedAdherence LinkLogic [facility] UNK - Ambulatory Encounter Tommiemaritza [facility] UNK - Ambulatory Encounter Krista Dino [facility] UNK - Ambulatory Encounter Tiffany Katz MedAdherence [facility] UNK - Ambulatory Encounter Tiffany Katz MedAdherence LinkLog[facility] UNK - Ambulatory Encounter Tiffany Katz MedAdherence [facility] UNK - Ambulatory Encounter Tiffany Katz MedAdherence LinkLogic [facility] UNK - Ambulatory Encounter [facility] ry [facility] UNK - Ambulatory Encounter [facility] UNK - Ambulatory Encounter [facility] UNK - Ambulatory Encounter Yamil Erazo [facility] Back pain, acuteArm pain, left - Ambulatory Encounter George Kennedy [facility] UNK - Ambulatory Encounter George Solitario [facility] Dysuria - Ambulatory Encounter uYnier Nassar [facility] UNK - Ambulatory Encounter Yunier Nassar [facility] UNK - Ambulatory Encounter Yunier Nassar [facility] UNK - Ambulatory Encounter Tamara Kwok [facility]K - Ambulatory Encounter Fax Status [facility]Logic [facility] UNK - Ambulatory Encounter Fax Status LinkLogic [facility] UNK - Ambulatory Encounter Fax Status LinkLogic [facility] UNK - Ambulatory Encounter [facility]unier Nassar [facility] - Ambulatory Encounter [facility] UNK - Ambulatory Encounter [facility]Uint[facility] UNK - Ambulatory Encounter Yamil Erazo Yunier Nassar Yunier [facility] Bunion, left foot - Ambulatory Encounter Lakeshia Canóvanas Recinos Lakeshia Mario Recinos [facility] UNK - Ambulatory Encounter Lakeshia [place] Recinos Lakeshia [place] Recinos [facility] UNK - Ambulatory Encounter Fax Status LinkLogic [facility] UNK - Ambulatory Encounter Fax Status Link[facility] UNK - Ambulatory Encounter Fax Status Link[facility] UNK - Ambulatory Encounter Lakeshia [place] Recinos Lakeshia [place] Recinos [facility] UNK - Ambulatory Encounter Lakeshia Recinos [facility] UNK - Ambulatory Encounter Breanna Baxter Austin Miller [facility] BMI 40.0-44.9Vertigo/dizzinessVaccine against influenza - Ambulatory Encounter Crhistmeghann Swann Ly Crhistmeghann [facility] UNK - Ambulatory Encounter Crhistmeghann Swann Ly [facility]ann [facility] Ambulatory Encounter Crhistmeghann Swann Ly Crhistian [facility] UNK - Ambulatory Encounter Sunita Sundar Brianasharyn Valdes Lisa Replaced By [facility] UNK - Ambulatory Encounter Lisa [facility] UNK - Ambulatory Encounter Lisa [facility] UNK - Ambulatory Encounter Lisa [facility] UNK - Ambulatory Encounter Lisa [facility] UNK - Ambulatory Encounter Meli [facility] - Ambulatory Encounter Lisa [facility] UNK - Ambulatory Encounter Fax Status [facility] UNK - Ambulatory Encounter Fax Status [facility] UNK - Ambulatory Encounter Fax Status [facility] UNK - Ambulatory Encounter Meli SandersFroilanrichie [facility] UNK - Ambulatory Encounter Jeniffer Ly Crhistmeghann Hue [facility] UNK - Ambulatory Encounter Jeniffer Ly Crhistian Hue [facility] UNK - Ambulatory Encounter Tamara Gutierrez Crhistmeghann Warrenero Crhistian Hue Ly Narendra Carrillo [facility] Diabetes mellitus, type IIVaccine against pneumococcalPeripheral neuropathyDiabetes mellitus, type II, uncontrolled, w/neurolo comps - Ambulatory Encounter Lisamandeep Biggs [facility] - Ambulatory Encounter Sissy King [facility] UNK - Ambulatory Encounter Madhuri [facility] UNK - Ambulatory Encounter [facility] UNK - Ambulatory Encounter Lisamandeep Biggs [facility] UNK - Ambulatory Encounter Lisamandeep Biggs LinkLogic [facility] UNK - Ambulatory Encounter Fax Status Link[facility] UNK - Ambulatory Encounter Fax Status [facility] UNK - Ambulatory Encounter Fax Status [facility] UNK - Ambulatory Encounter Lisamandeep Biggs [facility] UNK - Ambulatory Encounter Lisa Riley [facility] WELL EXAM, WOMAN - Ambulatory Encounter Sissy [facility] UNK - Ambulatory Encounter Crhistian Hue Ly Crhistian Hue [facility] UNK - Ambulatory Encounter Crhistian Hue Ly Crhistian Hue Ly [facility] Albuminuria - Ambulatory Encounter Crhistian Hue Ly Crhistian Hue Ly [facility] UNK - Ambulatory Encounter Crhistian Hue Ly Crhistian Hue [facility] UNK - Ambulatory Encounter Crhistian Hue Ly Crhistian Hue [facility] UNK - Ambulatory Encounter Kaitlin Collier Crhistian Hue Ly Crhistian Hue Ly Soco Kwok [facility] MORBID OBESITYDiabetes mellitus, type IIBenign essential hypertensionHyperlipidemiaGERD - Ambulatory Encounter Tamara Gutierrez [facility] UNK VITAL SIGNS No Information Available ALLERGIES [...] Provider Reference Range Interpretation Location urine culture Enterococcus faecalis LinkLogic Abnormal specific gravity, urine 1.020 Jennifer Bob " [...] Jennifer Bob " urine color yellow Jennifer Paulino urine culture Escherichia coli LinkLogic Abnormal specific [...] Peggy Erazo blood glucose, random 352 mg/dL Lynneevonne Solitario specific gravity, urine 1.025 Lynne Solitario [...] Lynne Solitario " appearance, urine clear Lynneevonne Martinezrez " urine color yellow Lynne Solitario hemoglobin [...] Burden blood glucose, fasting 197 mg/dL Lynne Martinezrez blood glucose, fasting 133 mg/dL Sunita Kwok [...] one tablet twice a day as needed Geetha Vargas MELOXICAM 15 MG ORAL TABLET Take by mouth once a day Geetha Vargas MACROBID 100 MG ORAL CAPSULE 1 by mouth twice a day Geetha Vargas MACROBID 100 MG ORAL CAPSULE 1 by mouth twice a day - Nabor Ashby COLACE 100 MG ORAL CAPSULE 1 by mouth twice a day Floresita Birch LYRICA 50 MG ORAL CAPSULE 1 tab [...] sc in AM and PM - Yunier Rojass RANITIDINE HCL 150 MG ORAL TABLET 1 [...] Castañedaemymichael SOCIAL HISTORY Date Observation Value Provider social history reviewed E&M reviewed today Lynne Morales " passive cigarette smoke exposure No Lynne Morales " Exercise Program Referral T Lynne Morales " Weight Management Counseling Provided T Lynne Morales " Nutrition intervention T Lynne Morales " sexual orientation Heterosexual Jennifer Bob " drug use, illicit Never Jennifer [...] " passive cigarette smoke exposure No Sunita Myao " smoking status former smoker Sunita Mayo " sexual orientation Heterosexual Sunita Mayo social history reviewed E&M reviewed today Sunita Mayo " sexual orientation Heterosexual Sunita Mayo " passive cigarette smoke exposure No Sunita Mayo " smoking status former smoker Sunita Thomasz " Exercise Program Referral T Sunita Gael " Weight Management Counseling Provided T Sunita Mayo " Nutrition intervention T Sunita Mayo Exercise Program Referral T Yamil García " Weight Management Counseling Provided T Yamil García " Nutrition intervention T Yamil García " drug use, illicit Never Adams Murphy " alcohol use Never Adams Murphy " social history reviewed E&M reviewed today Adams Murhpy " sexual orientation Heterosexual Adams Murphy " [...] " social history reviewed E&M reviewed today Nikai Martinez " sexual orientation Heterosexual Nikia Martinez [...] Vickie Pool Exercise Program Referral T Tatianna Tabaresome " Weight Management Counseling Provided T Tatianna Marci " Nutrition intervention T Tatianna Marci " drug use, illicit Never Lynne Altaf " alcohol use Never Lynne Solitario " social history reviewed E&M reviewed today Lynne Solitario " sexual orientation Heterosexual Lynne Altaf " passive cigarette smoke exposure No Lynne Solitario " smoking status never smoker Lynne Altaf alcohol use Never Drinda Ricardo " drug [...] Abelino Kennedy " Weight Management Counseling Provided T George Kennedy " Nutrition intervention Abelino Kennedy " [...] Kwok " smoking status never smoker Sunita Sundar [...] Lakeshia Recinos " Nutrition intervention T Lakeshia Hwanga " passive cigarette smoke exposure No Lynne Solitario " smoking status never smoker Lynne Solitario drug use, illicit Never Sunita Sundar " alcohol use Never Sunita Sundar " passive cigarette smoke exposure No Sunita Sundar " smoking status never smoker Sunita wKok [...] Sundar " smoking status never smoker Sunita Kwok [...] assessment of judgment and insight E&M intact [facility] " mental status examination: orientation E&M oriented to time, place, and person [facility] " assessment of mood and affect E&M no depression, anxiety, or agitation [facility] of judgment and insight E&M intact [facility] " mental status examination: orientation E&M oriented to time, place, and person [facility] " assessment of mood and affect E&M no depression, anxiety, or agitation [facility] " Generalized Anxiety Disorder Questionnaire - Question 2 0 Sunita Mayo " Generalized Anxiety Disorder Questionnaire - Question 1 0 Sunita Mayo assessment of judgment and insight E&M intact [facility] " mental status examination: orientation E&M oriented to time, place, and person Nabor [facility] " assessment of mood and affect E&M no depression, anxiety, or agitation [facility] mental [facility] examination: orientation E&M oriented to [...] Disorder Questionnaire - Question 2 0 Vickie Pool " Generalized Anxiety Disorder Questionnaire - Question [...] Anxiety Disorder Questionnaire - Question 1 0 Peggyus Erazo assessment of judgment and insight E&M [...] of judgment and insight E&M intact Lakeshia Canóvanaslana Hwanga " assessment of mood and affect E&M no depression, anxiety, or agitation Lakeshia Canóvanas Recinos assessment of mood and affect E&M no depression, anxiety, or agitation Crhistmeghann Ly " Generalized Anxiety Disorder Questionnaire - [...] affect E&M no depression, anxiety, or agitation Crhistmeghann Ly " Generalized Anxiety Disorder Questionnaire - [...] - - Est Patient Exp Problem - 74080 Est Patient Exp Problem - 82929 Urinalysis - Dip only - In House Est Patient Exp Problem - 80230 Est Patient Exp Problem - 88311 Est Patient Detailed - 70345 Glucose Stick HEMOGLOBIN A1C - In House Est Patient Exp Problem - 90968 Est Patient Exp Problem - 23571 Est Patient Exp Problem - 30381 Est Patient Detailed - 97674 IM or SQ Injection Injection, ketorolac tromethamine (toradol), per 15 mg Est Patient Exp Problem - 97753 HEMOGLOBIN A1C - In House Prescription Assistance Glucose Stick Urinalysis - Dip only - In House Est Patient Detailed - 99282 Est Patient Exp Problem - 68384 Est Patient Exp Problem - 70332 Est Patient Exp Problem - 92384 Est Patient Exp Problem - 12856 Est Patient Exp Problem - 66621 EKG - Interpretation & Report Only INFLUENZA VACCINE QUADRIVALENT 3 YRS PLUS IM Est Patient Exp Problem - 94391 Prevnar (PCV13) IM Ofc Vst, Est Level III Influenza - Adult - Injection Est Patient Well Exam (40 - 64 Yrs) - 69673 Ofc Vst, New Level III HISTORY OF PROCEDURES Procedure Date Procedure Name Provider Procedure Notes Status Urinalysis - Dip only - In House Yamil García completed Glucose Stick Marcela Espinoza completed HEMOGLOBIN A1C - In House Marcela Espinoza completed IM or SQ Injection Tatianna Marci Ketorolac 30mg IM left gluteus medius completed Injection, ketorolac tromethamine (toradol), per 15 mg Tatianna Marci [facility]: [id number]. completed HEMOGLOBIN A1C - In House Tamara Gutierrez completed Glucose Stick Tamara Gutierrez completed Urinalysis - Dip only - In House Tamara Gutierrez completed EKG - Interpretation & Report Only Breanna Davis completed GOALS No Information Available [facility] No Information Available
--- OUTSIDE RECORDS SUMMARY | 2019-04-12 12:05 | XMS REPORT ---
Author Author Admin, [place] Organization Unknown Address Unknown Phone Unavailable PROBLEMS [...] - Rao Avila Vaccine against pneumococcal [facility] WELL EXAM, WOMAN completed - Rao Avila Albuminuria active Nabor Mahfouz GERD active Crhistian Hue Ly Hyperlipidemia active [facility] Benign essential hypertension active Crhistian Hue Ly Diabetes mellitus, type II completed - Crhistian Hue Ly MORBID OBESITY active [facility] ENCOUNTERS Date Type Provider Location Encounter Diagnosis - Ambulatory Encounter Geetha Lane [facility] UNK - Ambulatory Encounter Sunita Kwok [facility] UNK - Ambulatory Encounter Geetha Vargas [facility] UNK - Ambulatory Encounter Geetha Vargas [facility] UNK - Ambulatory Encounter Geetha Vargas [facility] UNK - Ambulatory Encounter Tamara Moralse [facility] UNK - Ambulatory Encounter Geetha Centeno [facility] Osteopenia - Ambulatory Encounter Geetha Vargas [facility] UNK - Ambulatory Encounter Geetha Vargas [facility] UNK - Ambulatory Encounter Geetha Vargas [facility] UNK - Ambulatory Encounter Geetha Vargas [facility] UNK - Ambulatory Encounter Yamil Altamiranole Sam [facility] Pain in left shoulder - Ambulatory Encounter Yamil [facility] - Ambulatory Encounter [facility] UNK - Ambulatory Encounter Adealebaylee [facility] UNK - Ambulatory Encounter Nabor [facility] UNK - Ambulatory Encounter Nabor [facility] Nabor [facility] UNK - Ambulatory Encounter Fax Status [facility] UNK - Ambulatory Encounter Fax Status [facility] UNK - Ambulatory Encounter Fax [facility] UNK - Ambulatory Encounter Nabor [facility] UNK - Ambulatory Encounter Nabor [facility]abor [facility] UNK - Ambulatory Encounter Nabor [facility] UNK - Ambulatory Encounter Yamil Erazo Nabor [facility] AlbuminuriaRecurrent urinary tract infection - Ambulatory Encounter Lisa Dian [facility] UNK - Ambulatory Encounter Yamil Box [facility] UNK - Ambulatory Encounter Nabor [facility] UNK - Ambulatory Encounter Nabor [facility] UNK - Ambulatory Encounter Nabor [facility] UNK - Ambulatory Encounter Nabor [facility] UNK - Ambulatory Encounter Nabor [facility] UNK - Ambulatory Encounter Nabor [facility] UNK - Ambulatory Encounter Nabor [facility] UNK - Ambulatory Encounter Yamil Mayo [facility] Dysuria - Ambulatory Encounter Nabor [facility] UNK - Ambulatory Encounter Fax Status LinkLog[facility] UNK - Ambulatory Encounter Fax Status LinkLog[facility] UNK - Ambulatory Encounter Fax Status Link[facility] UNK - Ambulatory Encounter [facility]abor [facility] UNK - Ambulatory Encounter [facility]abor [facility] UNK - Ambulatory Encounter [facility]abor [facility] UNK - Ambulatory Encounter Yamil Erazo [facility] Adams Murphy [facility] Liver cancer, primaryVenous stasis - Ambulatory Encounter Lisamandeep Biggs [facility] UNK - Ambulatory Encounter Sandro Graves [facility] UNK - Ambulatory Encounter Fredy Valladares [facility] UNK - Ambulatory Encounter Meli Box [facility] UNK - Ambulatory Encounter Floresita Brich [facility] UNK - Ambulatory [facility] - [facility]ulatory Encounter Fredy Valladares [facility] UNK - Ambulatory Encounter [facility] - Ambulatory Encounter Floresita Canas ry [facility] UNK - Ambulatory Encounter Marcela Katz [facility] UNK - Ambulatory Encounter Marcela Salgado [facility] UNK - Ambulatory Encounter Marcela Salgado [facility] UNK - Ambulatory Encounter Tiffany Katz [facility] UNK - Ambulatory Encounter Tiffany Katz [facility] UNK - Ambulatory Encounter LSJ Lab Support Desktop [facility] Mah Shuja Mahim Shuewa [facility] UNK - Ambulatory Encounter Marcela Espinoza [facility] UNK - Ambulatory Encounter Floresita Birch [facility] UNK - Ambulatory Encounter Floresita Birch [facility] UNK - Ambulatory Encounter Yamil Espinoza [facility] Canas ry Nikia Martinez [facility] Elevated liver enzymesScreening for hepatitis C - Ambulatory Encounter LSJ Lab Support Desktop [facility] Floresita Birch [facility] ry [facility] UNK - Ambulatory Encounter Fax Status [facility] UNK - Ambulatory Encounter Fax Status [facility] UNK - Ambulatory Encounter Fax Status [facility] UNK - Ambulatory Encounter Floresita Birch [facility] UNK - Ambulatory Encounter Floresita Birch [facility] UNK - Ambulatory Encounter Floresita Birch [facility] UNK - Ambulatory Encounter Tamara Solitario [facility]zo Birch [facility]inc[facility]zo Reneralphewa Vickie Dheeraj [facility] Abdominal painConstipationScreening for colon cancer - Ambulatory Encounter Tatianna Covarrubias [facility] UNK - Ambulatory Encounter Tatianna Covarrubias [facility] UNK - Ambulatory Encounter Tatianna Covarrubias [facility] UNK - Ambulatory Encounter Tiffany Katz MedAdherence [facility] UNK - Ambulatory Encounter Tatianna Covarrubias [facility] UNK - Ambulatory Encounter Tatianna Solitario [facility] Subcutaneous mass of backLeg pain, left - Ambulatory Encounter Jennifer Ricardo [facility] UNK - Ambulatory Encounter Marcela Espinoza [facility] UNK - Ambulatory Encounter Marcela Espinoza [facility] clear[facility] Chest pain, acute - Ambulatory Encounter Meli Box MedAdherence [facility] UNK - Ambulatory Encounter Meli Box [facility] UNK - Ambulatory Encounter Tiffany Katz MedAdherence [facility] UNK - Ambulatory Encounter Tiffany Katz MedAdherence [facility] UNK - Ambulatory Encounter Tiffany Katz MedAdherence [facility] UNK - Ambulatory Encounter Tiffany Katz [facility] UNK - Ambulatory Encounter Meli Isauro MedAdherence [facility] UNK - Ambulatory Encounter Meli Isauro MedAdherence LinkLogic [facility] UNK - Ambulatory Encounter Meli Box MedAdherence [facility] UNK - Ambulatory Encounter Meli Isauro [facility] UNK - Ambulatory Encounter Meli Box [facility] UNK - Ambulatory Encounter Meli [facility] UNK - Ambulatory Encounter Tiffany Katz [facility] UNK - Ambulatory Encounter Rao Avila [facility] UNK - Ambulatory Encounter Tiffany Katz MedAdherence 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 UNK - Ambulatory Encounter Mya Graves [facility] UNK - Ambulatory Encounter Rao Avila [facility] UNK - Ambulatory Encounter Tamara Lawson Erazo [facility] InsomniaDysuria - Ambulatory Encounter Tiffany Katz [facility]Martin [facility] UNK - Ambulatory Encounter Tiffany Katz MedAdherence [facility] UNK - Ambulatory Encounter Rao Avila [facility] UNK - Ambulatory Encounter Breanna Avila [facility] WELL EXAM, WOMANPeripheral neuropathyVertigo/dizzinessDysuriaBack pain, acuteArm pain, leftDiabetic peripheral neuropathy - Ambulatory Encounter Tiannaviamaria Sonali Katz MedAdherence [facility] UNK - Ambulatory Encounter Tiffany Katz MedAdherence LinkLogic Silviamaria Lyon [facility] UNK - Ambulatory Encounter Tiffany Katz MedAdherence [facility] Practice UNK - Ambulatory Encounter Tiffany Katz MedAdherence [facility] UNK - Ambulatory Encounter Tiffany Katz MedAdherence LinkLogic [facility] UNK - Ambulatory Encounter Tiffany Katz MedAdherence LinkLogic [facility] UNK - Ambulatory Encounter Krista Dino [facility] UNK - Ambulatory Encounter Krista Dino [facility] UNK - Ambulatory Encounter Tiffany Katz MedAdherence [facility] UNK - Ambulatory Encounter Tiffany Katz MedAdherence LinkLogic [facility] UNK - Ambulatory Encounter Tifafny Katz MedAdherence [facility] UNK - Ambulatory Encounter Tiffany Katz Med[facility]herence [facility] UNK - Ambulatory Encounter [facility] UNK - Ambulatory Encounter [facility] UNK - Ambulatory Encounter [facility] UNK - Ambulatory Encounter Yamil Erazo [facility] Back pain, acuteArm pain, left - Ambulatory Encounter George Kennedy [facility] UNK - Ambulatory Encounter George Solitario [facility] Practice Dysuria - Ambulatory Encounter Yunier Nassar [facility] UNK - Ambulatory Encounter Yunier Nassar [facility] Practice UNK - Ambulatory Encounter Yunier Nassar [facility] Practice UNK - Ambulatory Encounter Tamara Kwok [facility]High[facility] UNK - Ambulatory Encounter Fax Status LinkLogic [facility] UNK - Ambulatory Encounter Fax Status LinkLogic [facility] UNK - Ambulatory Encounter Fax Status LinkLogic [facility] UNK - Ambulatory Encounter Yunier Nassar [facility] UNK - Ambulatory Encounter Yunier Nassar [facility] UNK - Ambulatory Encounter [facility]ier [facility]Highland Ridge [facility] Practice UNK - Ambulatory Encounter Yamil Erazo Yunier Faye [facility] Bunion, left foot - Ambulatory Encounter Lakeshia Mario Recinos [facility] UNK - Ambulatory Encounter Lakeshia Recinos Lakeshia Mario Recinos [facility] UNK - Ambulatory Encounter Fax Status LinkLog[facility] UNK - Ambulatory Encounter Fax Status Link[facility] UNK - Ambulatory Encounter Fax Status [facility] UNK - Ambulatory Encounter Lakeshia Recinos [facility] UNK - Ambulatory Encounter Lakeshia Recinos [facility] UNK - Ambulatory Encounter Abielkayla Davis Meli Miller [facility] BMI 40.0-44.9Vertigo/dizzinessVaccine against influenza - Ambulatory Encounter Crhistmeghann Swann Ly Crhistmeghann [facility] UNK - Ambulatory Encounter Crhistmeghann Swann Ly [facility] - Ambulatory Encounter Crhistian Hue [facility] Crhistian Hue [facility] UNK - Ambulatory Encounter Sunita [facility] - Ambulatory Encounter Lisa [facility] UNK - Ambulatory Encounter Lisa [facility] UNK - Ambulatory Encounter Lisa [facility] UNK - Ambulatory Encounter Lisa [facility] UNK - Ambulatory Encounter Meli [facility] UN[facility] - Ambulatory Encounter Lisa [facility] UNK - Ambulatory Encounter Fax Status [facility] Services UNK - Ambulatory Encounter Fax Status LinkLogic [facility] Services UNK - Ambulatory Encounter Fax Status LinkLogic [facility] Services UNK - Ambulatory Encounter Meli [facility] UNK - Ambulatory Encounter Crhistmeghann Hue Ly Crhistian Hue [facility] UNK - Ambulatory Encounter Crhkarriemeghann Swann Ly Crhistian Hue [facility] UNK - Ambulatory Encounter Tamara Alvarezistian Hue Ly Crhistian Hue Ly Narendra Carrillo [facility] Diabetes mellitus, type IIVaccine against pneumococcalPeripheral neuropathyDiabetes mellitus, type II, uncontrolled, w/neurolo comps - Ambulatory Encounter Lisamandeep Biggs [facility] UNK - Ambulatory Encounter Sissy King [facility] UNK - Ambulatory Encounter Madhuri Mackey [facility] UNK - Ambulatory Encounter Narendra [facility] UNK - Ambulatory Encounter [facility] UN[facility] - Ambulatory Encounter Lisamandeep Mackey [facility] UNK - Ambulatory Encounter Fax Status LinkLogic [facility] UNK - Ambulatory Encounter Fax Status LinkLogic [facility] UNK - Ambulatory Encounter Fax Status LinkLogic [facility] UNK - Ambulatory Encounter Lisa Dian [facility] UNK - Ambulatory Encounter Lisa Riley Loriannamarie Graves [facility] WELL EXAM, WOMAN - Ambulatory Encounter Sissy [facility] UNK - Ambulatory Encounter Crhistian Hue Ly Crhistian Hue [facility] UNK - Ambulatory Encounter Crhistian Hue Ly Crhistian Hue [facility] Albuminuria - Ambulatory Encounter Crhistian Hue Ly [facility] - [facility]counter Crhistian Hue Ly Crhistian Hue [facility] UNK - Ambulatory Encounter Crhistian Hue Ly Crhistian Hue [facility] UNK - Ambulatory Encounter Kaitlin Nando Crhistian Hue Ly Crhistian Hue Ly Soco Kwok [facility] MORBID OBESITYDiabetes mellitus, type IIBenign essential hypertensionHyperlipidemiaGERD - Ambulatory Encounter Tamara Gutierrez [facility] UNK VITAL SIGNS No [...] mg/dL Lynne Solitario urine culture No growth [facility]Bon [facility] hemoglobin A1C, blood, as % of total hemoglobin 13.5 % [facility] " blood glucose, random 246 mg/dL Peggy Erazo blood glucose, random 352 mg/dL [facility] specific gravity, urine 1.025 [facility] " pH, urine, semiquantitative 5.0 [facility] " glucose, urine, semiquantitative negative [facility] " bilirubin, urine negative [facility] " ketones, urine, by test strip negative [facility] " blood in urine (hemoglobin) by dipstick negative [facility] " protein, urine, semiquantitative (dipstick) 1+ Lynne Solitario " urobilinogen, urine, semiquantitative (dipstick) negative Lynne Solitario " nitrite, urine, semiquantitative negative [facility] " leukocyte esterase, urine, by dipstick negative [facility] " appearance, urine clear Lynne Solitario " urine color yellow [facility] hemoglobin A1C, blood, as % of total [...] one tablet By Mouth Every Day Nabor Justynamichael SOCIAL HISTORY Date Observation Value Provider social [...] Paulino " smoking status former smoker Jennifer Paulino drug use, illicit Never Cecy Jimenez " [...] Sunita Mayo " Nutrition intervention T Sunita Thomasz Exercise Program Referral T Yamil García " [...] Lynne Altaf " alcohol use Never Lynne Soiltario " social history reviewed E&M reviewed today [...] social history reviewed E&M reviewed today Reema Bertram " sexual orientation Heterosexual Reema Burden " [...] " social history reviewed E&M reviewed today Reemaroger Williamsonvez " passive cigarette smoke exposure No Reema Burden " smoking status never smoker Reema Burden drug use, illicit Never Lynne Solitario " alcohol use Never Lynne Solitario " social history reviewed E&M reviewed today Lynne Solitario " Exercise Program Referral T Lakeshia Recinos " Weight Management Counseling Provided T Lakeshia Hwanga " Nutrition intervention T Lakeshialana Martin Recinos " passive cigarette smoke exposure No Lynne Solitario " smoking status never smoker Lynne Martinezrez [...] Kwok " drug use, illicit Never Sunita Sundar " alcohol use Never Sunita Kwok " [...] E&M intact for recent and remote events Geethamario Vargas " assessment of judgment and insight [...] assessment of judgment and insight E&M intact [facility] " mental status examination: orientation E&M oriented to time, place, and person [facility] " assessment of mood and affect E&M no depression, anxiety, or agitation [facility] of judgment and insight E&M intact [facility] " mental status examination: orientation E&M oriented to time, place, and person [facility] " assessment of mood and affect E&M no depression, anxiety, or agitation [facility] " Generalized Anxiety Disorder Questionnaire - Question 2 0 Sunita Mayo " Generalized Anxiety Disorder Questionnaire - Question 1 0 Sunita Mayo assessment of judgment and insight E&M intact [facility] " mental status examination: orientation E&M oriented to time, place, and person [facility] " assessment of mood and affect E&M no depression, anxiety, or agitation [facility] mental status examination: orientation E&M oriented to time, place, and person Marcela M Ehdaraul " assessment of mood and affect E&M [...] Disorder Questionnaire - Question 1 0 Peggy Earzo assessment of judgment and insight E&M intact [...] E&M no depression, anxiety, or agitation Yunier Cesario " Generalized Anxiety Disorder Questionnaire - Question [...] of judgment and insight E&M intact Lakeshia [place] Recinos " assessment of mood and affect E&M no depression, anxiety, or agitation Lakeshia [place] Recinos assessment of mood and affect E&M no depression, anxiety, or agitation Crhistian Hue Ly " Generalized Anxiety Disorder Questionnaire [...] assessment of judgment and insight E&M intact Crhistian Hue Ly " assessment of mood and affect E&M no depression, anxiety, or agitation Crhistian Hue Ly " Generalized Anxiety Disorder Questionnaire [...] - - Est Patient Exp Problem - 51899 Est Patient Exp Problem - 99856 Urinalysis - Dip only - In House Est Patient Exp Problem - 54456 Est Patient Exp Problem - 30069 Est Patient Detailed - 68602 Glucose Stick HEMOGLOBIN A1C - In House Est Patient Exp Problem - 70901 Est Patient Exp Problem - 27035 Est Patient Exp Problem - 82866 Est Patient Detailed - 20409 IM or SQ Injection Injection, ketorolac tromethamine (toradol), per 15 mg Est Patient Exp Problem - 61218 HEMOGLOBIN A1C - In House Prescription Assistance Glucose Stick Urinalysis - Dip only - In House Est Patient Detailed - 63815 Est Patient Exp Problem - 92801 Est Patient Exp Problem - 99893 Est Patient Exp Problem - 76792 Est Patient Exp Problem - 25690 Est Patient Exp Problem - 43037 EKG - Interpretation & Report Only INFLUENZA VACCINE QUADRIVALENT 3 YRS PLUS IM Est Patient Exp Problem - 70205 Prevnar (PCV13) IM Ofc Vst, Est Level III Influenza - Adult - Injection Est Patient Well Exam (40 - 64 Yrs) - 37178 Ofc Vst, New Level III HISTORY OF PROCEDURES Procedure Date Procedure Name Provider Procedure Notes Status Urinalysis - Dip only - In House Yamil García completed Glucose Stick Marcela Espinoza completed HEMOGLOBIN A1C - In House Marcela Espinoza completed IM or SQ Injection Tatianna Marci Ketorolac 30mg IM left gluteus medius completed Injection, ketorolac tromethamine (toradol), per 15 mg Attianna Marci [facility]: [id number]. completed HEMOGLOBIN A1C - In House Tamara Gutierrez completed Glucose Stick Tamara Gutierrez completed Urinalysis - Dip only - In House Tamara Gutierrez completed EKG - Interpretation & Report Only Breanna Davis completed GOALS No Information Available HEALTH CONCERNS No Information Available
--- OUTSIDE RECORDS SUMMARY | 2019-04-12 12:06 | XMS REPORT ---
Author Author Admin, [place] Organization Unknown Address Unknown Phone Unavailable PROBLEMS [...] Avila Back pain, acute completed - Rao Avial Dysuria completed - Rao Avila Bunion, left foot active Yunier Nassar Vaccine against influenza active Lakeshia Recinos Vertigo/dizziness completed - Rao Avila BMI 40.0-44.9 active Lakeshia Recinos Diabetes mellitus, type II, uncontrolled, w/neurolo comps active Jeniffer Ly Peripheral neuropathy completed - Rao Avila Vaccine against pneumococcal [facility] WELL EXAM, WOMAN completed - Rao Avila Albuminuria active Nabor Mahfouz GERD active Crhistmeghann Crockermi Ly Hyperlipidemia active Crhistian Hue Ly Benign essential hypertension active Crhistmeghann Swann Ly Diabetes mellitus, type II completed - Crhistian Hue Ly MORBID OBESITY active [facility] Ly ENCOUNTERS Date Type Provider Location Encounter Diagnosis - Ambulatory Encounter Adams Murphy [facility] UNK - Ambulatory Encounter Geetha Vargas [facility] UNK - Ambulatory Encounter Geetha Vargas [facility] UNK - Ambulatory Encounter Marcela Morales [facility] UNK - Ambulatory Encounter Yamil Katz [facility] UNK - Ambulatory Encounter Geetha Vargas [facility] UNK - Ambulatory Encounter Geetha Lane [facility] UNK - Ambulatory Encounter Sunita Kwok [facility] UNK - Ambulatory Encounter Geetha Vargas [facility] UNK - Ambulatory Encounter Geetha Varags [facility] UNK - Ambulatory Encounter Geetha Vargas [facility] UNK - Ambulatory Encounter Tamara Morales [facility] UNK - Ambulatory Encounter Geetha Morales [facility] Osteopenia - Ambulatory Encounter Geetha Vargas [facility] UNK - Ambulatory Encounter [facility] - Ambulatory Encounter Geetha Vargas [facility] UNK - Ambulatory Encounter Geetha Vargas [facility] UNK - Ambulatory Encounter Yamil Sam Jimenez [facility] Pain in left shoulder - Ambulatory Encounter [facility]il [facility] - [facility] UNK - Ambulatory Encounter Akin Sadler [facility] UNK - [facility] - [facility]ic [facility] UNK - Ambulatory Encounter Fax Status [facility] - Ambulatory Encounter Fax Status [facility] UNK - Ambulatory Encounter Fax Status [facility] UNK - [facility] - [facility] Mahfouz [facility] UNK - Ambulatory Encounter [facility] UNK - Ambulatory Encounter Yamil Erazo Nabor [facility] Nabor [facility] Akin Sadler [facility] AlbuminuriaRecurrent urinary tract infection - Ambulatory Encounter Lisa Moodybeen [facility] UNK - Ambulatory Encounter Yamil Box [facility] UNK - Ambulatory En[facility] UNK - Ambulatory Encounter Nabor [facility]ouz [facility] UNK - Ambulatory Encounter Nabor [facility] UNK - Ambulatory Encounter Nabor [facility] UNK - Ambulatory Encounter Nabor [facility] UNK - Ambulatory Encounter Nabor [facility] UNK - Ambulatory Encounter Nabor [facility] UNK - Ambulatory Encounter Yamil Mayo N[facility] Dysuria - Ambulatory Encounter Nabor [facility] UNK - Ambulatory Encounter Fax Status [facility] UNK - Ambulatory Encounter Fax Status [facility] UNK - Ambulatory Encounter Fax Status [facility] UNK - Ambulatory Encounter Nabor [facility] Hospital[facility]ima [place] [facility] UNK - Ambulatory Encounter Nabor [place] [facility] UNK - Ambulatory Encounter Nabor [facility] [place] [facility] UNK - Ambulatory Encounter Yamil Erazo Nabor [facility] Adams Murphy [facility] Liver cancer, primaryVenous stasis - Ambulatory Encounter [facility] - Ambulatory Encounter Sandro Graves [facility] - Ambulatory Encounter Fredy Valladares [facility] UNK - Ambulatory Encounter [facility]eli [facility] - Ambulatory Encounter Floresita Canas ry [facility] - Ambulatory Encounter Lisa Dian [facility] UNK - Ambulatory Encounter Fredy Valladares [facility] UNK - Ambulatory Encounter Lisa Dian [facility] UNK - Ambulatory Encounter Garryvincenzo Lilliamewa Floresita uewa [facility] UNK - Ambulatory Encounter Marcela Katz MedAdherence [facility] UNK - Ambulatory Encounter Marcela Salgado [facility] UNK - Ambulatory Encounter Marcela Salgado [facility] UNK - Ambulatory Encounter Tiffany Sterling MedAdherence [facility] UNK - Ambulatory Encounter Tiffany Sterling MedAdherence [facility] UNK - Ambulatory Encounter [facility] Lab Support Desktop LinkLogic Floresita Birch [facility] UNK - Ambulatory Encounter Marcela Espinoza [facility] UNK - Ambulatory Encounter Floresita Birch [facility] UNK - Ambulatory Encounter Floresita Birch [facility] UNK - Ambulatory Encounter Yamil Martinez [facility] Elevated liver enzymesScreening for hepatitis C - Ambulatory Encounter LSJ Lab Support Desktop LinkLogic Floresita Birch [facility] UNK - Ambulatory Encounter Fax Status [facility] UNK - Ambulatory Encounter Fax Status LinkLogic [facility] UNK - Ambulatory Encounter Fax Status LinkLogic [facility] UNK - Ambulatory Encounter Floresita Birch [facility] UNK - Ambulatory En[facility] - Ambulatory Encounter [facility] Hospitalvincenzo ry [facility] Hospitalvincenzo [facility] UNK - Ambulatory Encounter Tamara Solitario [facility] Vickie Dheeraj [facility] Abdominal painConstipationScreening for colon cancer - Ambulatory Encounter Tatianna Campuzano Marci [facility] - Ambulatory Encounter Tatianna Marci Tatianna Marci [facility]K - Ambulatory Encounter Tatianna Tabaresome Tatianna Marci [facility] UNK - Ambulatory Encounter Tiffany Katz MedAdherence [facility] UNK - Ambulatory Encounter Tatianna Tabaresome Tatianna Marci [facility] UNK - Ambulatory Encounter Tatianna Tabaresome Tatianna Tabaresome Lynne Solitario [facility] Subcutaneous mass of backLeg pain, left - Ambulatory Encounter [facility] Marcela Espinoza [facility] Encounter Marcela Ricardo [facility] Chest pain, acute - Ambulatory Encounter Meli Box MedAdherence [facility] UNK - Ambulatory Encounter Meli Box MedAdherence [facility] - Ambulatory Encounter Tiffany Katz MedAdherence [facility] UNK - Ambulatory Encounter Tiffany Katz MedAdherence [facility] UNK - Ambulatory Encounter Tiffany Katz MedAdherence [facility] Practice UNK - Ambulatory Encounter Tiffany Katz MedAdherence Link[facility] UNK - Ambulatory Encounter Meli Box MedAdherence [facility] UNK - Ambulatory Encounter Meli Box MedAdherence Link[facility] UNK - Ambulatory Encounter Meli Box MedAdherence [facility] UNK - Ambulatory Encounter Meli Box [facility]herence [facility] UNK - Ambulatory Encounter Meli Box MedAdherence [facility] UNK - Ambulatory Encounter Meli Box MedAdherence LinkLogic [facility] UNK - Ambulatory Encounter Tiffany Katz MedAdherence [facility] UNK - Ambulatory Encounter Rao Avila [facility] UNK - Ambulatory Encounter Tiffany Katz MedAdherence [facility] UNK - Ambulatory Encounter Mya Star [facility] UNK - Ambulatory Encounter Rao Avila [facility] - Ambulatory Encounter Mya Star [facility] UNK - Ambulatory Encounter Rao Avila [facility] UNK - Ambulatory Encounter Tamara [facility] InsomniaDysuria - Ambulatory Encounter Tiffany Katz MedAdherence [facility] UNK - Ambulatory Encounter Tiffany Katz MedAdherence LinkLogic [facility] UNK - Ambulatory Encounter Rao Avila [facility] UNK - Ambulatory Encounter Breanna Avila [facility] WELL EXAM, WOMANPeripheral neuropathyVertigo/dizzinessDysuriaBack pain, acuteArm pain, leftDiabetic peripheral neuropathy - Ambulatory Encounter Silbeliaa Lyon Tiffany Katz MedAdherence [facility] UNK - Ambulatory Encounter Tiffany Katz MedAdherence LinkLogic Silviamaria Lyon [facility] UNK - Ambulatory Encounter Tiffany Katz MedAdherence [facility] UNK - Ambulatory Encounter Tiffany Katz MedAdherence [facility] UNK - Ambulatory Encounter Tiffany Katz MedAdherence LinkLogic [facility] UNK - Ambulatory Encounter Tiffany Katz MedAdherence LinkLogic [facility] UNK - Ambulatory Encounter Krista Pabloomon [facility] UNK - Ambulatory Encounter Krista Dino [facility] UNK - Ambulatory Encounter Tiffany Katz MedAdherence [facility] UNK - Ambulatory Encounter Tiffany Katz MedAdherence LinkLogic [facility] UNK - Ambulatory Encounter Tiffany Katz MedAdherence [facility] UNK - Ambulatory Encounter Tiffany Katz MedAdherence [facility] UNK - Ambulatory Encounter Floresita ry [facility]Del[facility] Ill[facility] UNK - Ambulatory Encounter [facility] Hospitalvincenzo Birch [facility] - [facility] UNK - Ambulatory Encounter Yamil Erazo [facility] Back pain, acuteArm pain, left - Ambulatory Encounter George Kennedy [facility] UNK - Ambulatory Encounter George Solitario [facility] Dysuria - Ambulatory Encounter Yunier Nassar [facility] UNK - Ambulatory Encounter Yunier Nassar [facility] UNK - Ambulatory Encounter Yunier Nassar [facility] UNK - Ambulatory Encounter Tamara Nassar [facility] UNK - Ambulatory Encounter Fax Status [facility]ic [facility] UNK - Ambulatory Encounter Fax Status LinkLogic [facility] UNK - Ambulatory Encounter Fax Status [facility]ic [facility] UNK - Ambulatory Encounter Yunier Nassar [facility] UNK - Ambulatory Encounter Yunier Nassar [facility] UNK - Ambulatory En[facility] - Ambulatory Encounter Yamil Nassar [facility] Bunion, left foot - Ambulatory Encounter Lakeshia Inverness Recinos Lakeshia Inverness Recinos [facility] UNK - Ambulatory Encounter Lakeshia Inverness Recinos Lakeshia Inverness Recinos [facility] UNK - Ambulatory Encounter Fax Status [facility] UNK - Ambulatory Encounter Fax Status [facility] UNK - Ambulatory Encounter Fax Status [facility] UNK - Ambulatory Encounter Lakeshia Inverness Recinos Lakeshia Inverness Recinos [facility] UNK - Ambulatory Encounter Lakeshia Inverness Recinos Lakeshia Inverness Recinos [facility] UNK - Ambulatory Encounter Breanna Solitario Lakeshia Inverness Recinos Lakeshia Inverness Jorje Miller [facility] BMI 40.0-44.9Vertigo/dizzinessVaccine against influenza - Ambulatory Encounter Crhistian Hue Ly Crhistian Hue [facility] UNK - Ambulatory Encounter Crhistian Hue Ly Crhistian Hue [facility] UNK - Ambulatory Encounter Crhistian Hue Frankelerrero Crhistian Hue [facility] UNK - Ambulatory Encounter Sunita Biggs [facility] UNK - Ambulatory Encounter Lisa [facility] UNK - Ambulatory Encounter Lisa [facility] UNK - Ambulatory Encounter Lisa [facility] UNK - Ambulatory Encounter Lisa [facility] UNK - Ambulatory Encounter Meli Box [facility] UNK - Ambulatory Encounter Lisa [facility] UNK - Ambulatory Encounter Fax Status [facility] UNK - Ambulatory Encounter Fax Status [facility] UNK - Ambulatory Encounter Fax Status [facility] UNK - Ambulatory Encounter Meli Box [facility] UNK - Ambulatory Encounter Crhayaz Swift Hue [facility] UNK - Ambulatory Encounter Jeniffer Swift Hue [facility] UNK - Ambulatory Encounter Tamara Gutierrez Crhayaz Ly Crhistmeghann Carrillo [facility] Diabetes mellitus, type IIVaccine against pneumococcalPeripheral neuropathyDiabetes mellitus, type II, uncontrolled, w/neurolo comps - Ambulatory Encounter Lisa [facility] UNK - Ambulatory Encounter Sissy Ayonto [facility] UNK - Ambulatory Encounter Madhuri Domingo Mackey [facility] UNK - Ambulatory Encounter Narendra [facility] UNK - Ambulatory [facility] - Ambulatory Encounter Lisa Dian LinkLogic Narendra [facility] UNK - Ambulatory Encounter Fax Status [facility] UNK - Ambulatory Encounter Fax Status [facility] UNK - Ambulatory Encounter [facility] - [facility] - Ambulatory Encounter Lisa Dian Riley Loriannamarie Graves [facility] WELL EXAM, WOMAN - Ambulatory Encounter [facility] UNK - Ambulatory Encounter Crhistian Hue Ly Crhistian [facility] UNK - Ambulatory Encounter Crhistian Hue Ly Crhistian Hue [facility] Albuminuria - Ambulatory Encounter Crhistian Hue Ly Crhistian Hue Ly LinkLogic Sissy [facility] UNK - Ambulatory Encounter Crhistian Hue Ly Crhistian Hue [facility] UNK - Ambulatory Encounter Crhistian Hue Ly Crhistian Hue [facility] UNK - Ambulatory Encounter Kaitlin Collier Jeniffer Kwok [facility] MORBID OBESITYDiabetes mellitus, type IIBenign essential hypertensionHyperlipidemiaGERD - Ambulatory Encounter Tamara Gutierrez Paolo [facility] UNK VITAL SIGNS Date Observation Value Provider method used to obtain blood pressure automatic Lynne Morales " Blood Pressure Position 01 sitting Lynne Elisa Morales " blood pressure, site #1 left arm Lynne M Andrew " oxygen saturation, oximetry 97 % Lynne M Andrew " blood pressure, diastolic 84 mm[Hg] Lynne M Andrew " blood pressure, systolic 119 mm[Hg] Lynne M Andrew " respiratory rate E&M 20 /min Lynne M Andrew " pulse rate E&M 92 /min Lynne M Andrew " temperature site oral Lynne M Andrew " temperature E&M 97.6 [degF] Lynne M Andrew " weight E&M 236.60 lbs. Lynne M Andrew " weight in kilograms E&M 107.55 kg Lynne M Andrew " height in centimeters E&M 160.02 cm Lynne M Andrew " height E&M 63 [in_i] Lynne M Andrew oxygen saturation, oximetry 98 % Lynne M Andrew " blood pressure, diastolic 72 mm[Hg] Lynne M Andrew " blood pressure, systolic 138 mm[Hg] Lynne M Andrew " respiratory rate E&M 17 /min Lynne M Andrew " pulse rate E&M 74 /min Lynne M Andrew " temperature E&M 97.8 [degF] Lynne M Andrew " weight E&M 241.60 lbs. Lynne M Andrew " weight in kilograms E&M 109.82 kg Lynne M Andrew " method used to obtain blood pressure automatic Jennifer Bob " Blood Pressure Position 01 sitting Jennifer Bob " blood pressure, site #1 left arm Jennifer Bob " temperature site oral Jennifer Bob " height E&M 63 [in_i] Jennifer Bob " height in centimeters E&M 160.02 cm Jennifer Bob oxygen saturation, oximetry 98 % Cecy Jimenez " method used to obtain blood pressure automatic Cecy Jimenez " Blood Pressure Position 01 sitting Cecy Jimenez " blood pressure, site #1 left arm Cecy Jimenez " blood pressure, diastolic 76 mm[Hg] Cecy Jimenez " blood pressure, systolic 112 mm[Hg] Cecy Jimenez " respiratory rate E&M 18 /min Cecy Jimenez " pulse rate E&M 70 /min Cecy Jimenez " temperature site oral Cecy Jimenez " temperature E&M 97.8 [degF] Cecy Jimenez " weight E&M 233.19 lbs. Cecy Jimenez " weight in kilograms E&M 106.00 kg Cecy Jimenez " height E&M 63 [in_i] Cecy Jimenez " height in centimeters E&M 160.02 cm Cecy Jimenez oxygen saturation, oximetry 98 % Sunita Mayo " method used to obtain blood pressure automatic Sunita Mortensenvez " Blood Pressure Position 01 sitting Sunita Mortensenvez " blood pressure, site #1 left arm Sunita Mortensenvez " blood pressure, diastolic 76 mm[Hg] Sunita Mortensenvez " blood pressure, systolic 112 mm[Hg] Sunita Mortensenvez " respiratory rate E&M 20 /min Sunita Mortensenvez " pulse rate E&M 103 /min Sunita Mayo " temperature site oral Sunita Mayo " temperature E&M 97.9 [degF] Sunita Mortensenvez " weight E&M 232.20 lbs. Sunita Mortensenvez " weight in kilograms E&M 105.55 kg Sunita Mortensenvez " height E&M 63 [in_i] Sunita Mortensenvez " height in centimeters E&M 160.02 cm Sunita Mayo oxygen saturation, oximetry 95 % Sunita Mayo " method used to obtain blood pressure automatic Sunita Mortensenvez " Blood Pressure Position 01 sitting Sunita Mayo " blood pressure, site #1 left arm Sunita Mayo " blood pressure, diastolic 74 mm[Hg] Sunita Mayo " blood pressure, systolic 113 mm[Hg] Sunita Mayo " respiratory rate E&M 18 /min Sunita Mayo " pulse rate E&M 92 /min Sunita Mayo " temperature site oral Sunita Mayo " temperature E&M 99.0 [degF] Sunita Myao " weight E&M 230 lbs. Sunita Mayo " weight in kilograms E&M 104.55 kg Sunita Mayo " height E&M 63 [in_i] Sunita Mayo " height in centimeters E&M 160.02 cm Sunita Mayo oxygen saturation, oximetry 98 % Adams Murphy " method used to obtain blood pressure automatic Adams Murphy " Blood Pressure Position 01 sitting Adams Murphy " blood pressure, site #1 left arm Adams Murphy " blood pressure, diastolic 65 mm[Hg] Adams Murphy " blood pressure, systolic 98 mm[Hg] Adams Murphy " respiratory rate E&M 14 /min Adams Murphy " pulse rate E&M 87 /min Adams Murphy " temperature site oral Adams Murphy " temperature E&M 98.7 [degF] Adams Murphy " weight E&M 230.20 lbs. Adams Murphy " weight in kilograms E&M 104.64 kg Adams Murphy " height E&M 63 [in_i] Adams Murphy " height in centimeters E&M 160.02 cm Adams Murphy oxygen saturation, oximetry 97 % Rena Damian " method used to obtain blood pressure automatic Rena Damian " Blood Pressure Position 01 sitting Rena Damian " blood pressure, site #1 left arm Rena Damian " blood pressure, diastolic 82 mm[Hg] Rena Damian " blood pressure, systolic 113 mm[Hg] Rena Damian " respiratory rate E&M 18 /min Rena Damian " pulse rate E&M 90 /min Rena Damian " temperature site oral Rena Damian " temperature E&M 98.3 [degF] Rena Damian " weight E&M 236.38 lbs. Rena Damian " weight in kilograms E&M 107.45 kg Rena Damian " height E&M 63 [in_i] Rena Damian " height in centimeters E&M 160.02 cm Rena Salgado oxygen saturation, oximetry 97 % Nikia Martinez " method used to obtain blood pressure automatic Nikia Martinez " Blood Pressure Position 01 sitting Nikia Martinez " blood pressure, site #1 left arm Nikia Martinez " blood pressure, diastolic 74 mm[Hg] Nikia Martinez " blood pressure, systolic 122 mm[Hg] Nikia Martinez " respiratory rate E&M 22 /min Nikia Martinez " pulse rate E&M 77 /min Nikia Martinez " temperature site oral Nikia Martinez " temperature E&M 97.9 [degF] Nikia Martinez " weight E&M 243.40 lbs. Nikia Martinez " weight in kilograms E&M 110.64 kg Nikia Martinez " height E&M 63 [in_i] Nikia Martinez " height in centimeters E&M 160.02 cm Nikia Martinez oxygen saturation, oximetry 95 % Vickie Pool " method used to obtain blood pressure automatic Vickie Pool " Blood Pressure Position 01 sitting Vickie Pool " blood pressure, site #1 right arm Vickie Pool " blood pressure, diastolic 72 mm[Hg] Vickie Pool " blood pressure, systolic 111 mm[Hg] Vickie Pool " respiratory rate E&M 18 /min Vickie Pool " pulse rate E&M 73 /min Vickie Pool " temperature site oral Vickie Pool " temperature E&M 97.8 [degF] Vickie Pool " weight E&M 245 lbs. Vickie Pool " weight in kilograms E&M 111.36 kg Vickie Pool " height E&M 63 [in_i] Vickie Pool " height in centimeters E&M 160.02 cm Vickie Pool oxygen saturation, oximetry 95 % Lynne Solitario " blood pressure, diastolic 70 mm[Hg] Lynne Solitario " blood pressure, systolic 105 mm[Hg] Lynne Solitario " respiratory rate E&M 16 /min Lynne Solitario " pulse rate E&M 89 /min Lynne Solitario " temperature E&M 98.9 [degF] Lynne Solitario " blood pressure, site #1 left arm Lynne Solitario " Blood Pressure Position 01 sitting Lynne Martinezrez " method used to obtain blood pressure automatic Lynne Iglesiasierrez " temperature site oral Lynne Martinezrez " weight E&M 228.80 lbs. Lynne Martinezrez " weight in kilograms E&M 104 kg Lynne Martinezrez " height E&M 63 [in_i] Lynne Martinezrez " height in centimeters E&M 160.02 cm Lynne Martinezrez oxygen saturation, oximetry 97 % Jennifer Ricardo " method used to obtain blood pressure automatic Jennifer Ricardo " Blood Pressure Position 01 sitting Jennifer Ricardo " blood pressure, site #1 left arm Jennifer Ricardo " blood pressure, diastolic 65 mm[Hg] Jennifer Ricardo " respiratory rate E&M 16 /min Jennifer Ricardo " blood pressure, systolic 122 mm[Hg] Jennifer Ricardo " pulse rate E&M 82 /min Jennifer Ricardo " temperature site oral Jennifer Ricardo " temperature E&M 98.3 [degF] Jennifer Ricardo " weight E&M 242 lbs. Jennifer Ricardo " weight in kilograms E&M 110 kg Jennifer Ricardo " height E&M 63 [in_i] Jennifer Ricardo " height in centimeters E&M 160.02 cm Jennifer Ricardo oxygen saturation, oximetry 98 % Peggy Erazo " blood pressure, diastolic 73 mm[Hg] Peggy Erazo " blood pressure, systolic 113 mm[Hg] Peggy Erazo " respiratory rate E&M 17 /min Peggy Erazo " pulse rate E&M 80 /min Peggy Erazo " temperature E&M 98.0 [degF] Peggy Erazo " weight E&M 236 lbs. Peggy Erazo " weight in kilograms E&M 107.27 kg Peggy Erazo " method used to obtain blood pressure automatic Peggy Erazo " Blood Pressure Position 01 sitting Peggy Erazo " blood pressure, site #1 right arm Peggy Erazo " temperature site oral Peggy Erazo " height E&M 63 [in_i] Peggy Erazo " height in centimeters E&M 160.02 cm Peggy Erazo temperature site oral Lynne Solitario " method used to obtain blood pressure automatic Lynne Solitario " Blood Pressure Position 01 sitting Lynne Solitario " blood pressure, site #1 left arm Lynne Solitario " oxygen saturation, oximetry 97 % Lynne Solitario " blood pressure, diastolic 85 mm[Hg] Lynne Solitario " blood pressure, systolic 123 mm[Hg] Lynne Solitario " respiratory rate E&M 16 /min Lynne Solitario " pulse rate E&M 85 /min Lynne Solitario " temperature E&M 98.7 [degF] Lynne Solitario " weight E&M 236.20 lbs. Lynne Solitario " weight in kilograms E&M 107.36 kg Lynne Solitario " height E&M 63 [in_i] Lynne Solitario " height in centimeters E&M 160.02 cm Lynne Solitario oxygen saturation, oximetry 98 % Reema Bertram " method used to obtain blood pressure automatic Reema Bertram " Blood Pressure Position 01 sitting Reema Bertram " blood pressure, site #1 right arm Reema Burden " blood pressure, diastolic 71 mm[Hg] Reema Burden " blood pressure, systolic 105 mm[Hg] Reema Burden " respiratory rate E&M 24 /min Reema Burden " pulse rate E&M 97 /min Reema Burden " temperature site tympanic Reema Burden " temperature E&M 97.9 [degF] Reema Burden " weight E&M 239 lbs. Reema Burden " weight in kilograms E&M 108.64 kg Reema Burden " height E&M 63 [in_i] Reema Burden " height in centimeters E&M 160.02 cm Reema Bertram oxygen saturation, oximetry 98 % Lynne Solitario " blood pressure, diastolic 73 mm[Hg] Lynne Solitario " blood pressure, systolic 114 mm[Hg] Lynne Solitario " respiratory rate E&M 16 /min Lynne Solitario " pulse rate E&M 68 /min Lynne Solitario " temperature E&M 98.4 [degF] Lynne Solitario " weight E&M 240.40 lbs. Lynne Solitario " weight in kilograms E&M 109.27 kg Lynne Solitario " blood pressure, site #1 left arm Lynne Altaf " Blood Pressure Position 01 sitting Lynne Solitario " method used to obtain blood pressure automatic Lynne Solitario " temperature site oral Lynne Solitario " height E&M 63 [in_i] Lynne Altaf " height in centimeters E&M 160.02 cm Lynne Altaf oxygen saturation, oximetry 98 % Sunita Kwok " method used to obtain blood pressure automatic Sunita Kwok " Blood Pressure Position 01 sitting Sunita Kwok " blood pressure, site #1 left arm Sunita Kwok " blood pressure, diastolic 63 mm[Hg] Sunita Kwok " blood pressure, systolic 106 mm[Hg] Sunita Kwok " respiratory rate E&M 18 /min Sunita Kwok " pulse rate E&M 86 /min Sunita Kwok " temperature site temporal Sunita Kwok " temperature E&M 98.6 [degF] Sunita Kwok " weight E&M 240.80 lbs. Sunita Kwok " weight in kilograms E&M 109.45 kg Sunita Kwok " height E&M 63 [in_i] Sunita Kwok " height in centimeters E&M 160.02 cm Sunita Kwok oxygen saturation, oximetry 98 % Reema Burden " method used to obtain blood pressure automatic Reema Burden " Blood Pressure Position 01 sitting Reema Burden " blood pressure, site #1 right arm Reema Burden " blood pressure, diastolic 75 mm[Hg] Reema Burden " blood pressure, systolic 114 mm[Hg] Reema Burden " respiratory rate E&M 15 /min Reema Burden " pulse rate E&M 75 /min Reema Burden " temperature site tympanic Reemaroger Burden " temperature E&M 98.0 [degF] Reemaroger Burden " weight E&M 239.20 lbs. Reema Bertram " weight in kilograms E&M 108.73 kg Remearoger Burden " height E&M 63 [in_i] Reemaroger Burden " height in centimeters E&M 160.02 cm Reema Burden temperature site oral Lynne Solitario " method used to obtain blood pressure automatic Lynne Solitario " Blood Pressure Position 01 sitting Lynne Solitario " blood pressure, site #1 left arm Lynne Solitario " oxygen saturation, oximetry 98 % Lynne Altaf " blood pressure, diastolic 80 mm[Hg] Lynne Solitario " blood pressure, systolic 136 mm[Hg] Lynne Solitario " respiratory rate E&M 16 /min Lynne Solitario " pulse rate E&M 87 /min Lynne Solitario " temperature E&M 98.2 [degF] Lynne Solitario " weight E&M 243.60 lbs. Lynne Solitario " weight in kilograms E&M 110.73 kg Lynne Solitario " height E&M 63 [in_i] Lakeshialana Hwanga " height in centimeters E&M 160.02 cm Lakeshia Recinos oxygen saturation, oximetry 98 % Sunita Kwok " method used to obtain blood pressure automatic Sunita Kwok " Blood Pressure Position 01 sitting Sunita Kwok " blood pressure, site #1 left arm Sunita Kwok " blood pressure, diastolic 79 mm[Hg] Sunita Kwok " blood pressure, systolic 118 mm[Hg] Sunita Kwok " respiratory rate E&M 18 /min Sunita Kwok " pulse rate E&M 81 /min Sunita Kwok " temperature site tympanic Sunita Kwok " temperature E&M 98.7 [degF] Sunita Kwok " weight E&M 239.25 lbs. Sunita Kwok " weight in kilograms E&M 108.75 kg Sunita Kwok " height E&M 63 [in_i] Sunita Kwok " height in centimeters E&M 160.02 cm Sunita Kwok oxygen saturation, oximetry 98 % Madhuri Lane " method used to obtain blood pressure automatic Madhuri Lane " Blood Pressure Position [address] " blood pressure, site #[address] " blood pressure, diastolic 75 mm[Hg] Madhuri Lane " blood pressure, systolic 117 mm[Hg] Madhuri Lane " respiratory rate E&M 18 /min Madhuri Lane " pulse rate E&M 90 /min Madhuri Lane " temperature site tympanic Madhuri Lane " temperature E&M 98.6 [degF] Madhuri Lane " weight E&M [address] " weight in kilograms E&M 109.[address] " height E&M 63 [in_i] Madhuri Lane " height in centimeters E&M 160.[address] oxygen saturation, oximetry 99 % Sunita Kwok " method used to obtain blood pressure automatic Sunita Kwok " Blood Pressure Position 01 sitting Sunita Kwok " blood pressure, site #1 left arm Sunita Kwok " blood pressure, diastolic 77 mm[Hg] Sunita Kwok " blood pressure, systolic 115 mm[Hg] Sunita Kwok " respiratory rate E&M 18 /min Sunita Kwok " pulse rate E&M 77 /min Sunita Kwok " temperature site tympanic Sunita Kwok " temperature E&M 98.3 [degF] Sunita Kwok " weight E&M 239.50 lbs. Suntia Kwok " weight in kilograms E&M 108.86 kg Sunita Kwok " height E&M 63 [in_i] Sunita Kwok " height in centimeters E&M 160.02 cm Sunita Kwok ALLERGIES Allergy Name Onset Date Reaction Criticality Status GABAPENTIN nausea Unable to assess criticality active BACTRIM High Criticality active REASON FOR REFERRAL Start Date - End Date Service Orthopedics - External - Xray -Dexa +/- (DXA), Bone Density Study - Xray -Dexa +/- (DXA), Bone Density Study - Physical Therapy - External - Xray - Urology - External - Ultrasound - X-RAY - X-RAY RESULTS Date Observation Value Provider Reference Range Interpretation Location hemoglobin A1C, blood, as % of total hemoglobin 10.3 % Lynne Morales urine culture Enterococcus faecalis [facility] Abnormal specific [...] " ketones, urine, by test strip negative Suinta Mayo " blood in urine (hemoglobin) by [...] Lynne Solitario " glucose, urine, semiquantitative negative Lynneevonne Solitario " bilirubin, urine negative Lynneevonne Solitario " ketones, urine, by test strip negative Lynne Solitario " blood in urine (hemoglobin) by dipstick negative Lynne Solitario " protein, urine, semiquantitative (dipstick) 1+ Lynne Solitario " urobilinogen, urine, semiquantitative (dipstick) negative Lynne Solitario " nitrite, urine, semiquantitative negative Lynneevonne Solitario " leukocyte esterase, urine, by dipstick negative Lynne Solitario " appearance, urine clear Lynne Solitario " urine color yellow Lynnecarlos Solitario hemoglobin A1C, blood, as % of [...] Burden blood glucose, fasting 197 mg/dL Lynne Altaf blood glucose, fasting 133 mg/dL Sunita Kwok [...] MEDICATION USE Medication Instructions Dates Provider Comments SIMVASTATIN 20 MG ORAL TABLET 1 By Mouth take at bedtime Geetha Vargas CALCIUM 1200 7736-0113 MG-UNIT ORAL TABLET CHEWABLE Take one by mouth once a day Geetha Vargas TRAMADOL HCL 50 MG ORAL TABLET Take [...] - Rao Avila vertigo GABAPENTIN 300 MG CAPSULE TAKE 1 CAPSULE BY MOUTH THREE TIMES A DAY Tiffany Katz [facility] LANTUS 100 UNIT/ML SUBCUTANEOUS SOLUTION 40 units [...] reviewed E&M reviewed today Lynne Morales " sexual orientation Heterosexual Lynne Morales " passive cigarette smoke exposure No Lynne Morales " smoking status former smoker Lynne Morales " Exercise Program Referral T Lynne Morales " Weight Management Counseling Provided T Lynne Morales " Nutrition intervention Abelino Morales social history reviewed E&M reviewed today Lynne Morales " passive cigarette smoke exposure No Lynne Morales " Exercise Program Referral T Lynne Morales " Weight Management Counseling Provided T Lynne Morales " Nutrition intervention T Lynne Morales " sexual orientation Heterosexual Jennifer Bob " drug use, illicit Never Jennifer Bob " alcohol use Never Jennifer Bob " smoking status former smoker Jennifer Bob drug use, illicit Never Cecy Jimenez " alcohol use Never Cecy Jimenze " social history reviewed E&M reviewed today Cecy Jimenez " sexual orientation Heterosexual Cecy Jimenez " passive cigarette smoke exposure No Cecy Jimenez " smoking status former smoker Cecy Jmienez " Exercise Program Referral T Cecy Jimenez " Weight Management Counseling Provided T Cecy Jimenez " Nutrition intervention T Cecy Jimenez social history reviewed E&M reviewed today Sunita Mortensenvez " Exercise Program Referral T Sunita Mayo " Weight Management Counseling Provided T Sunita Mayo " Nutrition intervention T Sunita Mortensenvez " passive cigarette smoke exposure No Sunita Mortensenvez " smoking status former smoker Sunita Mayo " sexual orientation Heterosexual Sunita Mayo social history reviewed E&M reviewed today Sunita Mayo " sexual orientation Heterosexual Sunita Mayo " passive cigarette smoke exposure No Sunita Mayo " smoking status former smoker Sunita Mayo " Exercise Program Referral T Sunita Mayo " Weight Management Counseling Provided T Sunita Mortensenvez " Nutrition intervention T Sunita Mortensenvez Exercise Program Referral T Yamil García " Weight Management Counseling Provided T Yamil García " Nutrition intervention T Yamil García " drug use, illicit Never Adamsbaylee Corrigana " alcohol use Never Adams Murphy " social history reviewed E&M reviewed today Adamsbaylee Corrigana " sexual orientation Heterosexual Adamsbaylee Murphy " is there any chance that [...] Damian " smoking status never smoker Rena Damain " Exercise Program Referral T Rena Damian [...] Abelino Avila " Weight Management Counseling Provided T [...] Abelino Avila " Weight Management Counseling Provided T [...] T Sunita Kwok " Nutrition intervention Abelino Kwok Exercise Program Referral T Yunier Nassar [...] T Sunita Kwok " Nutrition intervention Abelino Kwok time of call 07/03/2015 2:32 PM [...] Available MENTAL STATUS Date Observation Value Provider Generalized Anxiety Disorder Questionnaire - Question 2 0 Lynne Morales " Generalized Anxiety Disorder Questionnaire - Question 1 0 Lynne Morales mental status examination: recall E&M intact for [...] assessment of judgment and insight E&M intact Geethamario Vargas " assessment of mood and affect E&M no depression, anxiety, or agitation Geetha Vargas " mental status examination: orientation E&M oriented to time, place, and person Geethamario Vargas " Generalized Anxiety Disorder Questionnaire - Question 2 0 Cecy Jimenez " Generalized Anxiety Disorder Questionnaire - Question 1 0 Cecy Jimenez Generalized Anxiety Disorder Questionnaire - Question 2 0 Sunita Mayo " Generalized Anxiety Disorder Questionnaire - Question 1 0 Sunita Mayo " assessment of judgment and insight E&M intact [facility] " mental status examination: orientation E&M oriented to time, place, and person [facility] " assessment of mood and affect E&M no depression, anxiety, or agitation Nabor Mahfouz assessment of judgment and insight E&M intact Nabor Mahfouz " mental status examination: orientation E&M oriented to time, place, and person Nabor Mahfouz " assessment of mood and affect E&M no depression, anxiety, or agitation [facility] " Generalized Anxiety Disorder Questionnaire - [...] Disorder Questionnaire - Question 1 0 Nikia Juan Generalized Anxiety Disorder Questionnaire - Question 2 [...] Disorder Questionnaire - Question 2 0 Peggy Castro " Generalized Anxiety Disorder Questionnaire - Question [...] E&M oriented to time, place, and person Mahvincenzo Birch " assessment of mood and affect E&M [...] E&M oriented to time, place, and person Yunierannamarie Rojass " assessment of mood and affect E&M no depression, anxiety, or agitation Yunierannamarie Rojass " Generalized Anxiety Disorder Questionnaire - Question [...] of judgment and insight E&M intact Lakeshia [place] Recinos " assessment of mood and affect E&M no depression, anxiety, or agitation Lakeshia [place] Recinos assessment of mood and affect E&M [...] Metabolic Panel (14) Lipid Panel Hemoglobin A1c Reason for referral: left shoulder pain- concern for rotator cuff tear. hx of osteopenia - - - - - - Reason for referral: PVD and venous statsis on chemotherapy Max # of visits: Gold Card Y/N? NOTE: Holter monitor needs a prescription - - - - - - Retinal Screening Est Patient Exp Problem - 31914 Est Patient Exp Problem - 51511 Urinalysis - Dip only - In House Est Patient Exp Problem - 49415 Est Patient Exp Problem - 28553 Est Patient Detailed - 07288 Glucose Stick HEMOGLOBIN A1C - In House Est Patient Exp Problem - 92528 Est Patient Exp Problem - 81919 Est Patient Exp Problem - 30746 Est Patient Detailed - 22751 IM or SQ Injection Injection, ketorolac tromethamine (toradol), per 15 mg Est Patient Exp Problem - 99676 HEMOGLOBIN A1C - In House Prescription Assistance Glucose Stick Urinalysis - Dip only - In House Est Patient Detailed - 71009 Est Patient Exp Problem - 16996 Est Patient Exp Problem - 57670 Est Patient Exp Problem - 89234 Est Patient Exp Problem - 95455 Est Patient Exp Problem - 24000 EKG - Interpretation & Report Only INFLUENZA VACCINE QUADRIVALENT 3 YRS PLUS IM Est Patient Exp Problem - 93442 Prevnar (PCV13) IM Ofc Vst, Est Level III Influenza - Adult - Injection Est Patient Well Exam (40 - 64 Yrs) - 85844 Ofc Vst, New Level III HISTORY OF PROCEDURES Procedure Date Procedure Name Provider Procedure Notes Status Urinalysis - Dip only - In House Yamil García completed Glucose Stick Marcela Espinoza completed HEMOGLOBIN A1C - In House Marcela Espinoza completed IM or SQ Injection Tatianna Marci Ketorolac 30mg IM left gluteus medius completed Injection, ketorolac tromethamine (toradol), per 15 mg Tatianna Marci [facility]: [id number]. completed HEMOGLOBIN A1C - In House Tamara Gutierrez completed Glucose Stick Tamara Gutierrez completed Urinalysis - Dip only - In House Tamara Gutierrez completed EKG - Interpretation & Report Only Breanna Davis completed GOALS No Information Available [facility]ERNS No Information Available
[2019-04-12 15:00] VITALS: BP 108/69
--- NOTE | 2019-04-17 15:18 | Operative Report ---
DATE OF PROCEDURE: 04/12/2019 SURGEON: Дмитрий Johnson MD PREOPERATIVE DIAGNOSES: 1. Multiple chronic urinary tract infections. 2. Clinical signs and symptoms of interstitial cystitis. POSTOPERATIVE DIAGNOSES: 1. Multiple chronic urinary tract infections. 2. Clinical signs and symptoms of interstitial cystitis. PROCEDURES: 1. Cystourethroscopy with hydrodistention (entirely separate procedure for clinical signs and symptoms of interstitial cystitis). 2. Cystourethroscopy with left ureteral catheterization and left retrograde pyelogram (separate procedure for multiple chronic urinary tract infections). 3. Cystourethroscopy with right ureteral catheterization and right retrograde pyelogram (separate procedure for multiple chronic urinary tract infections). 4. Supervision of fluoroscopy. 5. Interpretation of retrograde pyelography. ANESTHESIA: General. ESTIMATED BLOOD LOSS: Minimal. COMPLICATIONS: None. INDICATIONS FOR PROCEDURE: Mrs. Mccormick is a very pleasant 54-year-old female with a history of multiple chronic urinary tract infections and clinical symptoms of interstitial cystitis. She and I had a long discussion of alternatives, risks, and benefits of doing nothing, cystoscopy, IVP, retrograde pyelograms, renal ultrasound. She voiced understanding of the options, alternatives, risks, and benefits including the complicated nature and nephrotoxic risk of dye. She elected to proceed with retrograde pyelograms and hydrodistention. PROCEDURE IN DETAIL: After informed consent was obtained, the patient was taken to the operative suite, placed supine on the operating table. She underwent general anesthesia by Anesthesia Service, was placed in dorsal supine position, sterilely prepped for cystoscopy. A 21-Romanian cystoscope was inserted per urethra. A grade 2 cystocele was noted. Positive atrophy was noted. Panendoscopy of the bladder revealed no tumors, no stones. Both ureteral orifices in normal anatomic location and position and were seen to efflux clear urine. Bilateral retrograde pyelogram performed which were normal with some mild ureteral tortuosity. Hydrodistention was performed with a capacity of 800 mL, no glomerulations, no Hunner's ulcers. Bladder was drained. The patient was awakened from anesthesia and transported to the recovery room in excellent condition. Supervision of fluoroscopy and interpretation of retrograde pyelography: I was present for the entire procedure and supervised fluoroscopy. There was no radiologist present. Attention was turned to the left and right ureteral orifices, which were catheterized with an 8-Romanian cone-tipped catheter. In retrograde fashion, contrast was injected revealing delicate ureters, delicate pelvocaliceal systems. No evidence of filling defects. No evidence of hydronephrosis. IMPRESSION: Normal retrograde pyelogram. MD FIDENCIO Good/MODL /[id number]
== END | disposition home or self-care (01) ==
LOC: OR 11:56
PROVIDERS: ATTEND Urology
DX: N39.0 Urinary tract infection, site not specified (principal); N81.10 Cystocele, unspecified; N39.46 Mixed incontinence; R81 Glycosuria; I10 Essential (primary) hypertension; E11.9 Type 2 diabetes mellitus without complications; R06.02 Shortness of breath; E66.01 Morbid (severe) obesity due to excess calories; Z88.1 Allergy status to other antibiotic agents; Z01.810 Encounter for preprocedural cardiovascular examination; Z01.812 Encounter for preprocedural laboratory examination; Z85.05 Personal history of malignant neoplasm of liver; Z92.21 Personal history of antineoplastic chemotherapy; Z79.4 Long term (current) use of insulin; Z79.84 Long term (current) use of oral hypoglycemic drugs
CPT/HCPCS: 36415 ×2; 52005; 74420; 80053; 82948; 85025; 85610; 85730; 93005; C1758; J0696; J1100; J2001; J2250; J2405; J2704; J3010; Q9967; J1817